=== PATIENT | female | born 1930 | race Caucasian/White ===

== ENCOUNTER → 2016-10-16 | Outpatient (REF) | payer MEDICARE ==
[~2016-10-16] MED LIST: ACET50TAOT PO; AMIO20TA PO; ATEN25TA PO; CIPR250T3 PO; DICY10CA PO; LISI-538 PO; LISI-542 PO; LISI5TAB PO; MAG400TA PO; PERCOCET PO; PRIL40CA PO; PROM125TA PO; SENO8.6T9 PO; SPIR25TA2 PO; SYST1SOL OU; TYLE325T5 PO; VITAD1000T PO; XARE20TA PO; [UNRECOGNIZED DRUG - REMARK]
[2016-10-16 14:05] LABS: IMMUNOGLOBULIN G 286 MG/DL (681-1648); IMMUNOGLOBULIN M 2930 MG/DL (40-230)
[2016-10-17 10:42] LABS: ALBUMIN 3.34 GM/DL (3.29-5.55); ALBUMIN % 41.8 % (55.8-66.1); GAMMA GLOBULIN % 4.3 % (11.1-18.8)
== END | disposition home or self-care (01) ==
LOC: M LAB REF 12:26
PROVIDERS: ATTEND Internal Medicine Medical Oncology
DX: C85.90 Non-Hodgkin lymphoma, unspecified, unspecified site (principal)

== ENCOUNTER → 2016-10-26 | Outpatient (REF) | payer MEDICARE ==
[2016-10-26 15:54] LABS: IMMUNOGLOBULIN A 34.3 MG/DL (70-400); IMMUNOGLOBULIN G 277 MG/DL (681-1648); IMMUNOGLOBULIN M 2930 MG/DL (40-230)
[2016-10-30 11:46] LABS: ALBUMIN 3.35 GM/DL (3.29-5.55); ALBUMIN % 41.9 % (55.8-66.1); GAMMA GLOBULIN % 4.1 % (11.1-18.8)
== END | disposition home or self-care (01) ==
LOC: M LAB REF 12:25
PROVIDERS: ATTEND Internal Medicine Medical Oncology
DX: D89.0 Polyclonal hypergammaglobulinemia (principal)

== ENCOUNTER 2016-11-01 19:10 | Emergency (ER) | payer MEDICARE ==
[2016-11-01] MEDS ORDERED: GI COCKTAIL 50ML BTL(HYOSCYAMINE/MAALOX/LIDOCAINE VISCOUS)(1:3:1) As Ordered ONE (20:00)
[2016-11-01 20:08] LABS: BASO % 0.3 % (0.0-1.0); EOS # 0.1 K/mm3 (0.0-0.50); EOS % 1.4 % (0.0-3.0); LARGE UNSTAINED CELL # 0.1 K/mm3 (0.0-0.4); LARGE UNSTAINED CELL % 1.2 % (0.0-4.0); LYMPH # 1.8 K/mm3 (1.5-4.5); LYMPH % 17.6 % (24.0-44.0); MEAN CORPUSCULAR HGB CONC 33.3 g/dl (32.0-36.5); MEAN CORPUSCULAR VOLUME 87.3 fl (80.0-96.0); MONO % 10.1 % (0.0-5.0); NEUTROPHILS # 6.6 K/mm3 (1.8-7.7); NEUTROPHILS % 69.5 % (36.0-66.0); PLATELET COUNT, AUTOMATED 391 k/mm3 (150-450); RED CELL DISTRIBUTION WIDTH 13.7 % (11.5-14.5); WHITE BLOOD COUNT 9.5 K/mm3 (4.0-10.0)
[2016-11-01 20:13] LABS: ANION GAP 10 MEQ/L (8-16); BLOOD UREA NITROGEN 19 MG/DL (7-18); CARBON DIOXIDE LEVEL 24 MEQ/L (21-32); CHLORIDE LEVEL 97 MEQ/L (98-107); CREATININE FOR GFR 1.06 MG/DL (0.55-1.02); GLOMERULAR FILTRATION RATE 52.4 (>32); GLUCOSE, FASTING 96 MG/DL (83-110); POTASSIUM SERUM 4.5 MEQ/L (3.5-5.1); SODIUM LEVEL 131 MEQ/L (136-145)
[2016-11-01] MEDS ORDERED: PANTOPRAZOLE 40MG INJ (PROTONIX) (C9113) As Ordered ONE (21:44)
[2016-11-01] MEDS ORDERED: SUCRALFATE 1 GM TAB As Ordered ONE (21:45)
--- NOTE | 2016-11-02 01:10 | EDDOCDS ---
Nurse's Notes [facility] Name: Shanell Chambers Age: 86 yrs Sex: Female : 1930 Arrival Date: 11/01/2016 Time: 19:10 Bed 1 Private MD: Clarita Felton DO. Diagnosis: Chest pain, unspecified-Hiatal Hernia related Presentation: 11/01 19:20 Red Flag criteria, patient assessed and taken directly to a bed. Chest pain with lf1 history of afib. Charge Nurse and Primary nurse notified. 19:21 Presenting complaint: Patient states: Chest pain that began earlier today, pt reports lf1 history of hiatal hernia and afib. States she initially thought it was her hernia and waited but pain did not go away. Pain is midsternal and radiates to her left chest. Pain is currently 7/10. Denies shortness of breath. Presenting complaint: Patient states: Pt states she took her meds today and then vomited. Aspirin was not taken prior to arrival. Adult Sepsis Screening: The patient does not have new or worsening altered mentation. Patient's respiratory rate is less than 22. Systolic blood pressure is greater than 100. Patient has a qSOFA score of 0- Negative Sepsis Screen. Suicide/Homicide risk assessment- the patient denies having any suicidal and/or homicidal ideations and does not present with any other emotional, behavioral or mental health complaints. 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 Transition of care: patient was not received from another setting of care. 19:21 Acuity: EDNA Level 2 lf1 19:21 Method Of Arrival: Walkin/Carried/Asstd lf1 Triage Assessment: 11/02 01:09 Cardiovascular: Chest pain is described as diffuse, radiates Does not radiate. episodes cf2 began 4 hours prior to arrival. Historical: - Allergies: PENICILLINS (Hives); - Home Meds: 1. atenolol 25 mg Oral tab 1 tab once daily (Last dose: Unknown) 2. amiodarone 200 mg Oral tab 1 tab once daily 3. spironolactone 25 mg Oral tab 0.5 tab once daily 4. lisinopril 5 mg Oral tab 1 tab once daily 5. Xarelto 20 mg oral tab once daily - PMHx: Atrial Fib; Diverticulitis; epessary-bladder support; Hypertension; IBS; - PSHx: Appendectomy; Hemorrhoidectomy; Cholecystectomy; - Social history: Smoking status: Patient states was never smoker of tobacco. No barriers to communication noted, The patient speaks fluent Congolese, Speaks appropriately for age, Preferred Language: Congolese. - Family history: Not pertinent. - : The pt / caregiver states he / she is on anticoagulants: Xarelto Home medication list is obtained from the patient. - Exposure Risk Screening:: None identified. Screenin/01 19:27 Screening information is obtained from the patient. Fall risk: No risks identified. lf1 Assistance ADL's: requires no assistance with activities of daily living. Abuse/DV Screen: The patient / caregiver reports he/she is: not in a situation that causes fear, pain or injury. Nutritional screening: No deficits noted. Advance Directives: Currently, there is no health care proxy. There is no active DNR order. home support is adequate. Assessment: 19:42 Adult Sepsis Screening: The patient does not have new or worsening altered mentation. cf2 Patient's respiratory rate is less than 22. Systolic blood pressure is greater than 100. Patient has a qSOFA score of 0- Negative Sepsis Screen. General: Appears in no apparent distress, Behavior is appropriate for age, cooperative. Pain: Location: abdomen. Neurological: No deficits noted. EENT: No deficits noted. Cardiovascular: No deficits noted. Rhythm is atrial fibrillation. Respiratory: No deficits noted. GI: Abdomen is flat, non- distended Bowel sounds present X 4 quads. Abd is soft Abd is non tender Reports Pain is 7 out of 10 on a pain scale. Parent/caregiver reports the patient having Patient states "my hiatel hernia is killing me". : No deficits noted. Derm: No deficits noted. Musculoskeletal: No deficits noted. Injury Description: No known injury. 22:52 Reassessment: Patient denies pain at this time. Patient states feeling better. Patient cf2 states symptoms have improved. 11/02 01:07 Reassessment: Patient denies pain at this time. Patient states feeling better. Patient cf2 states symptoms have improved. Vital Signs: 11/01 19:11 BP 178 / 82; Pulse 89; Resp 18 S; Temp 96.7(O); Pulse Ox 99% on R/A; Weight 76.2 kg gr2 (R); Height 5 ft. 6 in. (167.64 cm) (R); Pain 10/10; 19:26 BP 170 / 83 (auto/); cf2 19:26 Pulse 80 MON; Pulse Ox 100% ; cf2 20:04 Pulse 63 MON; Pulse Ox 97% ; cf2 20:04 BP 157 / 81 (auto/); cf2 20:30 BP 138 / 64 (auto/); cf2 20:30 Pulse 59 MON; Pulse Ox 98% ; cf2 21:00 Pulse 53 MON; Pulse Ox 98% ; cf2 21:00 BP 127 / 59 (auto/); cf2 21:30 Pulse 54 MON; Pulse Ox 99% ; cf2 21:30 BP 147 / 66 (auto/); cf2 22:00 BP 147 / 65 (auto/); cf2 22:00 Pulse 59 MON; Pulse Ox 97% ; cf2 22:30 BP 137 / 63 (auto/); cf2 22:30 Pulse 69 MON; Pulse Ox 98% ; cf2 22:50 Pulse 58 MON; Pulse Ox 96% ; cf2 23:00 Pulse 58 MON; Pulse Ox 97% ; cf2 23:00 BP 125 / 60 (auto/); cf2 23:30 Pulse 64 MON; Pulse Ox 95% ; cf2 23:30 BP 151 / 82 (auto/); cf2 11/02 00:00 Pulse 53 MON; Pulse Ox 98% ; cf2 00:00 BP 134 / 59 (auto/); cf2 00:30 BP 123 / 60 (auto/); cf2 00:30 Pulse 53 MON; Pulse Ox 97% ; cf2 00:33 Pulse 52 MON; Pulse Ox 97% ; cf2 00:39 Pulse 53 MON; Pulse Ox 97% ; cf2 00:44 Pulse 52 MON; Pulse Ox 96% ; cf2 00:50 Pulse 53 MON; Pulse Ox 96% ; cf2 00:53 Pulse 53 MON; Pulse Ox 97% ; cf2 00:56 Pulse 54 MON; Pulse Ox 97% ; cf2 11/01 19:11 Body Mass Index 27.11 (76.20 kg, 167.64 cm) gr2 Vitals: 11/01 19:11 Log In Time: November 01, 2016 at 19:11. RN notified that patient meets Red Flag gr2 criteria. ED Course: 19:11 Patient visited by Shelley Mascorro. gr2 19:11 Clarita Felton is Private Physician. gr2 19:11 Patient moved to Waiting gr2 19:17 Patient visited by Shelley Mascorro. gr2 19:18 Yokasta Hare,RN is Primary Nurse. gr2 19:18 Patient moved to 1 gr2 19:20 Primary Nurse role handed off by Yokasta Hare,TANO cf2 19:20 Britney Lundberg,TANO is Primary Nurse. cf2 19:20 Patient visited by Britney Lundberg,TANO. cf2 19:24 Triage Initiated lf1 19:27 teletypesetter monitor on. Pulse ox on. NIBP on. lf1 19:29 Patient visited by Helen Churchill RN. lf1 19:31 Patient visited by Ayala Argueta, Cancer Genetics Assistant. jlm 19:31 EKG done. (by ED staff). Reviewed by Miller Chavez DO. jlm 19:38 Miller Chavez DO is Attending Physician. mm11 19:38 Patient visited by Miller Chavez DO. mm11 19:42 Patient visited by Ayala Argueta, Cancer Genetics Assistant. jlm 19:42 The patient / caregiver is instructed regarding the plan of care and ED course. Patient cf2 has correct armband on for positive identification. Placed in gown. Bed in low position. Call light in reach. Side rails up X 1. Side rails up X2. teletypesetter monitor on. Pulse ox on. NIBP on. Property :Personal belongings accompany Pt. Door closed. Noise minimized. Visitors limited. Lights dimmed. Moved to private room. Verbal reassurance given. Warm blanket given. Pillow given. Head of bed elevated. Diet: Patient is NPO. 19:42 Inserted saline lock: 20 gauge in right antecubital area and blood collected. The cf2 patient tolerated the procedure well. No procedures done that require assistance. Labs drawn. (by ED staff). 19:51 Patient visited by Miller Chavez DO. mm11 19:55 Troponin Sent. cf2 19:56 Cardiac Injury Profile Sent. cf2 19:56 CBC with Diff Sent. cf2 19:56 Basic Metabolic Profile Sent. cf2 19:56 B-Type Natiuretic Peptide Sent. cf2 20:34 Patient visited by Britney Lundberg RN. cf2 21:09 Patient visited by Britney Lundberg RN. cf2 21:09 Patient visited by Britney Lundberg RN. cf2 21:39 Patient visited by Britney Lundberg,TANO. cf2 21:45 Patient visited by Ayala Argueta, Cancer Genetics Assistant. jlm 21:45 Warm blanket given. Assisted to bathroom. [facility] 22:02 [facility] Payment Agreement was scanned into [employer] and attached to record. gjb 22:22 Patient visited by Britney Lundberg RN. cf2 23:00 Discontinued lock pressure dressing applied. cf2 23:02 Patient visited by Britney Lundberg RN. cf2 23:20 Patient visited by Britney Lundberg RN. cf2 23:49 Patient visited by Ayala Argueta, Cancer Genetics Assistant. [facility] 23:49 EKG done. (by ED staff). Reviewed by Miller Chavez DO. [facility] 02 00:29 Patient visited by Britney Lundberg RN. cf2 00:32 Patient visited by Britney Lundberg RN. cf2 00:33 Clarita Felton is Referral Physician. mm11 00:33 Javier Hawkins is Referral Physician. mm11 Administered Medications: 11/01 20:00 Drug: GI Cocktail - (Alum-Mag Hydroxide-Simeth Suspension 225 mg-200 mg-25 mg/5 mL 30 cf2 ml, Lidocaine Liquid 2 % 10 ml, Hyoscyamine Liquid 10 ml) Route: PO; 20:40 Follow up: Response: No significant change. cf2 21:55 Drug: pantoprazole 40 mg [pantoprazole 40 mg intravenous solution] Route: IV; Rate: cf2 bolus; Site: left antecubital; 21:55 Drug: Sucralfate 1 grams [sucralfate 1 gram tablet (1 tabs)] Route: PO; cf2 Order Results: Lab Order: B-Type Natiuretic Peptide; SPEC'M 11/01/16 19:33 Test: BRAIN NATRIURETIC PEPTIDE; Value: 1730; Range: <100; Abnormal: Above high normal; Units: PG/ML; Status: F Lab Order: Basic Metabolic Profile; SPEC'M 11/01/16 19:33 Test: GLUCOSE, FASTING; Value: 96; Range: 83-110; Units: MG/DL; Status: F Test: BLOOD UREA NITROGEN; Value: 19; Range: 7-18; Abnormal: Above high normal; Units: MG/DL; Status: F Test: CREATININE FOR GFR; Value: 1.06; Range: 0.55-1.02; Abnormal: Above high normal; Units: MG/DL; Status: F Test: GLOMERULAR FILTRATION RATE; Value: 52.4; Range: >32; Status: F Test: SODIUM LEVEL; Value: 131; Range: 136-145; Abnormal: Below low normal; Units: MEQ/L; Status: F Test: POTASSIUM SERUM; Value: 4.5; Range: 3.5-5.1; Units: MEQ/L; Status: F Test: CHLORIDE LEVEL; Value: 97; Range: 98-107; Abnormal: Below low normal; Units: MEQ/L; Status: F Test: CARBON DIOXIDE LEVEL; Value: 24; Range: 21-32; Units: MEQ/L; Status: F Test: ANION GAP; Value: 10; Range: 8-16; Units: MEQ/L; Status: F Test: CALCIUM LEVEL; Value: 10.0; Range: 8.8-10.2; Units: MG/DL; Status: F Test Note: ; Units are mL/min/1.73 m2 Chronic Kidney Disease Staging per NKF: Stage I & II GFR >=60 Normal to Mildly Decreased Stage III GFR 30-59 Moderately Decreased Stage IV GFR 15-29 Severely Decreased Stage V GFR <15 Very Little GFR Left ESRD GFR <15 on PUBLIC AFFAIRS DIRECTOR Lab Order: CBC with Diff; SPEC'M 11/01/16 19:33 Test: WHITE BLOOD COUNT; Value: 9.5; Range: 4.0-10.0; Units: K/mm3; Status: F Test: RED BLOOD COUNT; Value: 3.73; Range: 4.00-5.40; Abnormal: Below low normal; Units: M/mm3; Status: F Test: HEMOGLOBIN; Value: 10.8; Range: 12.0-16.0; Abnormal: Below low normal; Units: g/dl; Status: F Test: HEMATOCRIT; Value: 32.5; Range: 36.0-47.0; Abnormal: Below low normal; Units: %; Status: F Test: MEAN CORPUSCULAR VOLUME; Value: 87.3; Range: 80.0-96.0; Units: fl; Status: F Test: MEAN CORPUSCULAR HEMOGLOBIN; Value: 29.0; Range: 27.0-33.0; Units: pg; Status: F Test: MEAN CORPUSCULAR HGB CONC; Value: 33.3; Range: 32.0-36.5; Units: g/dl; Status: F Test: RED CELL DISTRIBUTION WIDTH; Value: 13.7; Range: 11.5-14.5; Units: %; Status: F Test: PLATELET COUNT, AUTOMATED; Value: 391; Range: 150-450; Units: k/mm3; Status: F Test: NEUTROPHILS %; Value: 69.5; Range: 36.0-66.0; Abnormal: Above high normal; Units: %; Status: F Test: LYMPH %; Value: 17.6; Range: 24.0-44.0; Abnormal: Below low normal; Units: %; Status: F Test: MONO %; Value: 10.1; Range: 0.0-5.0; Abnormal: Above high normal; Units: %; Status: F Test: EOS %; Value: 1.4; Range: 0.0-3.0; Units: %; Status: F Test: BASO %; Value: 0.3; Range: 0.0-1.0; Units: %; Status: F Test: LARGE UNSTAINED CELL %; Value: 1.2; Range: 0.0-4.0; Units: %; Status: F Test: NEUTROPHILS #; Value: 6.6; Range: 1.8-7.7; Units: K/mm3; Status: F Test: LYMPH #; Value: 1.8; Range: 1.5-4.5; Units: K/mm3; Status: F Test: MONO #; Value: 1.0; Range: 0.0-0.8; Abnormal: Above high normal; Units: K/mm3; Status: F Test: EOS #; Value: 0.1; Range: 0.0-0.50; Units: K/mm3; Status: F Test: BASO #; Value: 0.0; Range: 0.0-0.2; Units: K/mm3; Status: F Test: LARGE UNSTAINED CELL #; Value: 0.1; Range: 0.0-0.4; Units: K/mm3; Status: F Lab Order: Cardiac Injury Profile; [facility] 11/01/16 19:33 Test: CPK CREATINE PHOSPHOKINASE; Value: 49; Range: 26-192; Units: U/L; Status: F Test: CK-MB VALUE MASS; Value: 1.2; Range: 0.0-3.6; Units: NG/ML; Status: F Test: MB/CK RELATIVE INDEX; Value: 2.44; Range: < OR =4; Status: F Test Note: ; DIAGNOSIS CRITERIA MMB ng/ml Relative Index (RI) NON-AMI < or = 5 N/A LOVE ZONE > 5 < or = 4 AMI > 5 > 4 Lab Order: Troponin; [facility] 11/01/16 19:33 Test: TROPONIN I; Value: < 0.02; Range: < 0.10; Units: NG/ML; Status: F Test Note: ; Troponin I Reference Interval for [place] LOCI: 99th Percentile= 0.00-0.045 ng/ml Risk Stratification: <= 0.10 ng/ml Decreased Risk for Adverse Clinical Events. 0.10-1.50 ng/ml Increased Risk for Adverse Clinical Events. Evaluation of additional criterion and/or repeat testing in 2-6 hours is suggested to rule out myocardial damage. >= 1.50 ng/ml Indicative of Myocardial Injury. Lab Order: CARDIAC INJURY PROFILE; [facility] 11/01/16 19:33 Test: CPK CREATINE PHOSPHOKINASE; Value: 40; Range: 26-192; Units: U/L; Status: F Test: CK-MB VALUE MASS; Value: 1.0; Range: 0.0-3.6; Units: NG/ML; Status: F Test: MB/CK RELATIVE INDEX; Value: 2.50; Range: < OR =4; Status: F Test Note: ; DIAGNOSIS CRITERIA MMB ng/ml Relative Index (RI) NON-AMI < or = 5 N/A LOVE ZONE > 5 < or = 4 AMI > 5 > 4 Lab Order: TROPONIN; SPEC'M 11/01/16 19:33 Test: TROPONIN I; Value: 0.02; Range: < 0.10; Units: NG/ML; Status: F Test Note: ; Troponin I Reference Interval for [place] LOCI: 99th Percentile= 0.00-0.045 ng/ml Risk Stratification: <= 0.10 ng/ml Decreased Risk for Adverse Clinical Events. 0.10-1.50 ng/ml Increased Risk for Adverse Clinical Events. Evaluation of additional criterion and/or repeat testing in 2-6 hours is suggested to rule out myocardial damage. >= 1.50 ng/ml Indicative of Myocardial Injury. Outcome: 23:00 Discharge Assessment: Patient awake, alert and oriented x 3. No cognitive and/or cf2 functional deficits noted. Patient verbalized understanding of disposition instructions. Patient awake and alert. Oriented to person, place and time. Patient verbalized understanding of disposition instructions. patient administered narcotics - no. The following High Risk Discharge criteria are identified: None. Discharged to home ambulatory, assisted to waiting room and taxi was called for patient. Condition: good Condition: stable Condition: improved. Discharge instructions given to patient, Instructed on discharge instructions, follow up and referral plans. medication usage, Demonstrated understanding of instructions, medications, Prescriptions given X 1. No special radiology studies were completed. 11/02 00:33 Discharge ordered by Provider. mm11 01:09 Patient left the ED. cf2 Signatures: Helen Churchill,RN RN lf1 Miller Chavez DO DO mm11 Shelley Mascorro gr2 Ayala Argueta, Cancer Genetics Assistant Unit Kimberley Angel ChristinaRN RN cf2 Corrections: (The following items were deleted from the chart) 11/01 19:17 19:11 BP 178 / 82; Pulse 89bpm; Resp 18bpm; Spontaneous; Pulse Ox 99% RA; 76.2 kg gr2 Reported; Height 5 ft. 6 in. Reported; BMI: 27.1; Pain 10/10; gr2 MTDD
--- NOTE | 2016-11-02 01:10 | EDDOCDS ---
Physician Documentation [facility] Name: Shanell Chambers Age: 86 yrs Sex: Female : 1930 Arrival Date: 11/01/2016 Time: 19:10 Bed 1 Private MD: Clarita Felton DO. Disposition: 11/02/16 00:33 Discharged to Home/Self Care. Impression: Chest pain, unspecified - Hiatal Hernia related. - Condition is Stable. - Discharge Instructions: Gastroesophageal Reflux Disease, Adult, Hiatal Hernia. - Prescriptions for Prilosec 20 mg Oral Capsule - take 1 capsule by ORAL route once daily; 10 capsule. - Medication Reconciliation, Local Pharmacy Hours form. - Follow up: Clarita Felton; When: Call to arrange an appointment; Reason: Continuance of care. Follow up: Javier Hawkins; When: Call to arrange an appointment; Reason: Continuance of care. - Problem is an acute exacerbation. - Symptoms are resolved. Historical: - Allergies: PENICILLINS (Hives); - Home Meds: 1. atenolol 25 mg Oral tab 1 tab once daily (Last dose: Unknown) 2. amiodarone 200 mg Oral tab 1 tab once daily 3. spironolactone 25 mg Oral tab 0.5 tab once daily 4. lisinopril 5 mg Oral tab 1 tab once daily 5. Xarelto 20 mg oral tab once daily - PMHx: Atrial Fib; Diverticulitis; epessary-bladder support; Hypertension; IBS; - PSHx: Appendectomy; Hemorrhoidectomy; Cholecystectomy; - Social history: Smoking status: Patient states was never smoker of tobacco. No barriers to communication noted, The patient speaks fluent Icelandic, Speaks appropriately for age, Preferred Language: Icelandic. - Family history: Not pertinent. - : The pt / caregiver states he / she is on anticoagulants: Xarelto Home medication list is obtained from the patient. - Exposure Risk Screening:: None identified. Vital Signs: 11/01 19:11 BP 178 / 82; Pulse 89; Resp 18 S; Temp 96.7(O); Pulse Ox 99% on R/A; Weight 76.2 kg / gr2 167.99 lbs (R); Height 5 ft. 6 in. (167.64 cm) (R); Pain 10/10; 19:26 BP 170 / 83 (auto/); cf2 19:26 Pulse 80 MON; Pulse Ox 100% ; cf2 20:04 Pulse 63 MON; Pulse Ox 97% ; cf2 20:04 BP 157 / 81 (auto/); cf2 20:30 BP 138 / 64 (auto/); cf2 20:30 Pulse 59 MON; Pulse Ox 98% ; cf2 21:00 Pulse 53 MON; Pulse Ox 98% ; cf2 21:00 BP 127 / 59 (auto/); cf2 21:30 Pulse 54 MON; Pulse Ox 99% ; cf2 21:30 BP 147 / 66 (auto/); cf2 22:00 BP 147 / 65 (auto/); cf2 22:00 Pulse 59 MON; Pulse Ox 97% ; cf2 22:30 BP 137 / 63 (auto/); cf2 22:30 Pulse 69 MON; Pulse Ox 98% ; cf2 22:50 Pulse 58 MON; Pulse Ox 96% ; cf2 23:00 Pulse 58 MON; Pulse Ox 97% ; cf2 23:00 BP 125 / 60 (auto/); cf2 23:30 Pulse 64 MON; Pulse Ox 95% ; cf2 23:30 BP 151 / 82 (auto/); cf2 11/02 00:00 Pulse 53 MON; Pulse Ox 98% ; cf2 00:00 BP 134 / 59 (auto/); cf2 00:30 BP 123 / 60 (auto/); cf2 00:30 Pulse 53 MON; Pulse Ox 97% ; cf2 00:33 Pulse 52 MON; Pulse Ox 97% ; cf2 00:39 Pulse 53 MON; Pulse Ox 97% ; cf2 00:44 Pulse 52 MON; Pulse Ox 96% ; cf2 00:50 Pulse 53 MON; Pulse Ox 96% ; cf2 00:53 Pulse 53 MON; Pulse Ox 97% ; cf2 00:56 Pulse 54 MON; Pulse Ox 97% ; cf2 11/01 19:11 Body Mass Index 27.11 (76.20 kg, 167.64 cm) gr2 MDM: 11/01 19:20 ECG WITH READING ER PHYS+CARDIAG ordered. EDMS 19:52 [employer] Cutting Machine Operator/Pulse Ox/q 30 min VS ordered. mm11 19:52 IV Saline Lock ordered. mm11 19:52 Rhythm Strip to chart ordered. mm11 19:52 Undress patient appropriately for examination ordered. mm11 19:52 GI Cocktail - (Alum-Mag Hydroxide-Simeth 30 ml, Lidocaine 10 ml, Hyoscyamine 10 ml) PO mm11 once; Pre-mixed 50mL unit dose ordered. 19:54 B-Type Natiuretic Peptide Ordered. EDMS 19:54 Basic Metabolic Profile Ordered. EDMS 19:54 CBC with Diff Ordered. EDMS 19:54 Cardiac Injury Profile Ordered. EDMS 19:54 Troponin Ordered. EDMS 19:55 portable chest Ordered. EDMS 21:26 B-Type Natiuretic Peptide Reviewed. mm11 21:26 Basic Metabolic Profile Reviewed. mm11 21:26 CBC with Diff Reviewed. mm11 21:26 Cardiac Injury Profile Reviewed. mm11 21:26 Troponin Reviewed. mm11 21:34 pantoprazole 40 mg IV at bolus once ordered. mm11 21:34 Sucralfate 1 grams PO once ordered. mm11 21:34 Redraw CIP &Troponin (put time in details section) ordered. mm11 21:34 Repeat EKG (put time details section) ordered. mm11 21:40 Repeat EKG (put time details section) complete. kb5 21:40 Redraw CIP &Troponin (put time in details section) complete. kb5 21:42 ELECTROCARDIOGRAM ADULT ordered. EDMS 21:42 CARDIAC INJURY PROFILE Ordered. EDMS 21:43 TROPONIN Ordered. EDMS 21:52 Financial registration complete. [facility] 22:02 [facility] Payment Agreement was scanned into [employer] and attached to record. [facility] 11/02 00:20 CARDIAC INJURY PROFILE Reviewed. [facility] 00:20 TROPONIN Reviewed. mm11 Administered Medications: 11/01 20:00 Drug: GI Cocktail - (Alum-Mag Hydroxide-Simeth Suspension 225 mg-200 mg-25 mg/5 mL 30 cf2 ml, Lidocaine Liquid 2 % 10 ml, Hyoscyamine Liquid 10 ml) Route: PO; 20:40 Follow up: Response: No significant change. cf2 21:55 Drug: pantoprazole 40 mg [pantoprazole 40 mg intravenous solution] Route: IV; Rate: cf2 bolus; Site: left antecubital; 21:55 Drug: Sucralfate 1 grams [sucralfate 1 gram tablet (1 tabs)] Route: PO; cf2 Signatures: Dispatcher [employer] EDMS Glenn Huang, RICE DRIER RICE DRIER kb5 Helen Churchill,RN RN lf1 Miller Chavez, DO DO mm11 Kimberley Olguinb Britney Lundberg,RN RN cf2 The chart was reviewed and I authenticate all verbal orders and agree with the evaluation and treatment provided.Attachments: 22:02 [facility] Payment Agreement vicky MTDD
--- NOTE | 2016-11-02 01:34 | REP ---
Clinical: Chest pain . Comparison: 06/14/2016 . Findings: The mediastinum and cardiac silhouette are stable and mild cardiomegaly cannot be excluded. The lung brown are clear without acute consolidation, effusion, or pneumothorax. Skeletal structures are intact. Impression: Stable chest x-ray. No acute cardiopulmonary process. Signed by Gilmer Ornelas MD 11/02/2016 01:26 A
--- NOTE | 2016-11-02 18:29 | ECGEPIP ---
Stationary ECG Study [facility] Test Date: 2016-11-01 Pat Name: CELINE HARVEY Department: Room: - Gender: F Home Health Caregiver: analy : 1930 Requested By: INGA Rothman Order Number: [id number] Reading MD: Ciro Holden Measurements Intervals [place] Rate: 56 P: 80 MS: 209 QRS: 26 QRSD: 94 T: 52 QT: 443 QTc: 428 Interpretive Statements SINUS BRADYCARDIA WITH SINUS ARRHYTHMIA SIMILAR 06/14/16 Electronically Signed On 11-02-2016 18:29:37 EST by Ciro Holden
--- NOTE | 2016-11-04 02:10 | EDDOCDS ---
Physician Documentation [facility] Name: Shanell Chambers Age: 86 yrs Sex: Female : 1930 Arrival Date: 11/01/2016 Time: 19:10 Bed 1 Private MD: Clarita Felton DO. Disposition: 11/02/16 00:33 Discharged to Home/Self Care. Impression: Chest pain, unspecified - Hiatal Hernia related. - Condition is Stable. - Discharge Instructions: Gastroesophageal Reflux Disease, Adult, Hiatal Hernia. - Prescriptions for Prilosec 20 mg Oral Capsule - take 1 capsule by ORAL route once daily; 10 capsule. - Medication Reconciliation, Local Pharmacy Hours form. - Follow up: Clarita Felton; When: Call to arrange an appointment; Reason: Continuance of care. Follow up: Javier Hawkins; When: Call to arrange an appointment; Reason: Continuance of care. - Problem is an acute exacerbation. - Symptoms are resolved. Historical: - Allergies: PENICILLINS (Hives); - Home Meds: 1. atenolol 25 mg Oral tab 1 tab once daily (Last dose: Unknown) 2. amiodarone 200 mg Oral tab 1 tab once daily 3. spironolactone 25 mg Oral tab 0.5 tab once daily 4. lisinopril 5 mg Oral tab 1 tab once daily 5. Xarelto 20 mg oral tab once daily - PMHx: Atrial Fib; Diverticulitis; epessary-bladder support; Hypertension; IBS; - PSHx: Appendectomy; Hemorrhoidectomy; Cholecystectomy; - Social history: Smoking status: Patient states was never smoker of tobacco. No barriers to communication noted, The patient speaks fluent Bahamian, Speaks appropriately for age, Preferred Language: Bahamian. - Family history: Not pertinent. - : The pt / caregiver states he / she is on anticoagulants: Xarelto Home medication list is obtained from the patient. - Exposure Risk Screening:: None identified. Vital Signs: 11/01 19:11 BP 178 / 82; Pulse 89; Resp 18 S; Temp 96.7(O); Pulse Ox 99% on R/A; Weight 76.2 kg / gr2 167.99 lbs (R); Height 5 ft. 6 in. (167.64 cm) (R); Pain 10/10; 19:26 BP 170 / 83 (auto/); cf2 19:26 Pulse 80 MON; Pulse Ox 100% ; cf2 20:04 Pulse 63 MON; Pulse Ox 97% ; cf2 20:04 BP 157 / 81 (auto/); cf2 20:30 BP 138 / 64 (auto/); cf2 20:30 Pulse 59 MON; Pulse Ox 98% ; cf2 21:00 Pulse 53 MON; Pulse Ox 98% ; cf2 21:00 BP 127 / 59 (auto/); cf2 21:30 Pulse 54 MON; Pulse Ox 99% ; cf2 21:30 BP 147 / 66 (auto/); cf2 22:00 BP 147 / 65 (auto/); cf2 22:00 Pulse 59 MON; Pulse Ox 97% ; cf2 22:30 BP 137 / 63 (auto/); cf2 22:30 Pulse 69 MON; Pulse Ox 98% ; cf2 22:50 Pulse 58 MON; Pulse Ox 96% ; cf2 23:00 Pulse 58 MON; Pulse Ox 97% ; cf2 23:00 BP 125 / 60 (auto/); cf2 23:30 Pulse 64 MON; Pulse Ox 95% ; cf2 23:30 BP 151 / 82 (auto/); cf2 11/02 00:00 Pulse 53 MON; Pulse Ox 98% ; cf2 00:00 BP 134 / 59 (auto/); cf2 00:30 BP 123 / 60 (auto/); cf2 00:30 Pulse 53 MON; Pulse Ox 97% ; cf2 00:33 Pulse 52 MON; Pulse Ox 97% ; cf2 00:39 Pulse 53 MON; Pulse Ox 97% ; cf2 00:44 Pulse 52 MON; Pulse Ox 96% ; cf2 00:50 Pulse 53 MON; Pulse Ox 96% ; cf2 00:53 Pulse 53 MON; Pulse Ox 97% ; cf2 00:56 Pulse 54 MON; Pulse Ox 97% ; cf2 11/01 19:11 Body Mass Index 27.11 (76.20 kg, 167.64 cm) gr2 MDM: 11/01 19:20 ECG WITH READING ER PHYS+CARDIAG ordered. EDMS 19:52 Practical Nursing Faculty/Pulse Ox/q 30 min VS ordered. mm11 19:52 IV Saline Lock ordered. mm11 19:52 Rhythm Strip to chart ordered. mm11 19:52 Undress patient appropriately for examination ordered. mm11 19:52 GI Cocktail - (Alum-Mag Hydroxide-Simeth 30 ml, Lidocaine 10 ml, Hyoscyamine 10 ml) PO mm11 once; Pre-mixed 50mL unit dose ordered. 19:54 B-Type Natiuretic Peptide Ordered. EDMS 19:54 Basic Metabolic Profile Ordered. EDMS 19:54 CBC with Diff Ordered. EDMS 19:54 Cardiac Injury Profile Ordered. EDMS 19:54 Troponin Ordered. EDMS 19:55 portable chest Ordered. EDMS 21:26 B-Type Natiuretic Peptide Reviewed. mm11 21:26 Basic Metabolic Profile Reviewed. mm11 21:26 CBC with Diff Reviewed. mm11 21:26 Cardiac Injury Profile Reviewed. mm11 21:26 Troponin Reviewed. mm11 21:34 pantoprazole 40 mg IV at bolus once ordered. mm11 21:34 Sucralfate 1 grams PO once ordered. mm11 21:34 Redraw CIP &Troponin (put time in details section) ordered. mm11 21:34 Repeat EKG (put time details section) ordered. mm11 21:40 Repeat EKG (put time details section) complete. kb5 21:40 Redraw CIP &Troponin (put time in details section) complete. kb5 21:42 ELECTROCARDIOGRAM ADULT ordered. EDMS 21:42 CARDIAC INJURY PROFILE Ordered. EDMS 21:43 TROPONIN Ordered. EDMS 21:52 Financial registration complete. [facility] 22:02 [facility] Payment Agreement was scanned into [employer] and attached to record. [facility] 11/02 00:20 CARDIAC INJURY PROFILE Reviewed. 11 00:20 TROPONIN Reviewed. mm11 10:10 T-Sheet-- Draft Copy was scanned into [employer] and attached to record. gb 10:10 ECG/EKG was scanned into [employer] and attached to record. gb Administered Medications: 11/01 20:00 Drug: GI Cocktail - (Alum-Mag Hydroxide-Simeth Suspension 225 mg-200 mg-25 mg/5 mL 30 cf2 ml, Lidocaine Liquid 2 % 10 ml, Hyoscyamine Liquid 10 ml) Route: PO; 20:40 Follow up: Response: No significant change. cf2 21:55 Drug: pantoprazole 40 mg [pantoprazole 40 mg intravenous solution] Route: IV; Rate: cf2 bolus; Site: left antecubital; 21:55 Drug: Sucralfate 1 grams [sucralfate 1 gram tablet (1 tabs)] Route: PO; cf2 Signatures: Dispatcher [employer] EDMS Shruthi Dawson, Reg Reg gb Glenn Huang, MEDICAL VOUCHER CLERK MEDICAL VOUCHER CLERK kb5 Helen Churchill,TANO RN lf1 Miller Chavez, DO DO mm11 Kimberley Olguin gjb Britney LundbergRN RN cf2 The chart was reviewed and I authenticate all verbal orders and agree with the evaluation and treatment provided.Attachments: 22:02 [facility] Payment Agreement gjb 11/02 10:10 T-Sheet-- Draft Copy gb 10:10 ECG/EKG gb Chart Complete MTDD
--- NOTE | 2016-11-04 02:10 | EDDOCDS ---
Nurse's Notes [facility] [place] Name: Shanell Harvey Age: 86 yrs Sex: Female : 1930 Arrival Date: 11/01/2016 Time: 19:10 Bed 1 Private MD: Clarita Felton DO. Diagnosis: Chest pain, unspecified-Hiatal Hernia related Presentation: 11/01 19:20 Red Flag criteria, patient assessed and taken directly to a bed. Chest pain with lf1 history of afib. Charge Nurse and Primary nurse notified. 19:21 Presenting complaint: Patient states: Chest pain that began earlier today, pt reports lf1 history of hiatal hernia and afib. States she initially thought it was her hernia and waited but pain did not go away. Pain is midsternal and radiates to her left chest. Pain is currently 7/10. Denies shortness of breath. Presenting complaint: Patient states: Pt states she took her meds today and then vomited. Aspirin was not taken prior to arrival. Adult Sepsis Screening: The patient does not have new or worsening altered mentation. Patient's respiratory rate is less than 22. Systolic blood pressure is greater than 100. Patient has a qSOFA score of 0- Negative Sepsis Screen. Suicide/Homicide risk assessment- the patient denies having any suicidal and/or homicidal ideations and does not present with any other emotional, behavioral or mental health complaints. Status: Patient is not a service order clerk or dependent. Transition of care: patient was not received from another setting of care. 19:21 Acuity: EDNA Level 2 lf1 19:21 Method Of Arrival: Walkin/Carried/Asstd lf1 Triage Assessment: 11/02 01:09 Cardiovascular: Chest pain is described as diffuse, radiates Does not radiate. episodes cf2 began 4 hours prior to arrival. Historical: - Allergies: PENICILLINS (Hives); - Home Meds: 1. atenolol 25 mg Oral tab 1 tab once daily (Last dose: Unknown) 2. amiodarone 200 mg Oral tab 1 tab once daily 3. spironolactone 25 mg Oral tab 0.5 tab once daily 4. lisinopril 5 mg Oral tab 1 tab once daily 5. Xarelto 20 mg oral tab once daily - PMHx: Atrial Fib; Diverticulitis; epessary-bladder support; Hypertension; IBS; - PSHx: Appendectomy; Hemorrhoidectomy; Cholecystectomy; - Social history: Smoking status: Patient states was never smoker of tobacco. No barriers to communication noted, The patient speaks fluent Spanish, Speaks appropriately for age, Preferred Language: Spanish. - Family history: Not pertinent. - : The pt / caregiver states he / she is on anticoagulants: Xarelto Home medication list is obtained from the patient. - Exposure Risk Screening:: None identified. Screenin/01 19:27 Screening information is obtained from the patient. Fall risk: No risks identified. lf1 Assistance ADL's: requires no assistance with activities of daily living. Abuse/DV Screen: The patient / caregiver reports he/she is: not in a situation that causes fear, pain or injury. Nutritional screening: No deficits noted. Advance Directives: Currently, there is no health care proxy. There is no active DNR order. home support is adequate. Assessment: 19:42 Adult Sepsis Screening: The patient does not have new or worsening altered mentation. cf2 Patient's respiratory rate is less than 22. Systolic blood pressure is greater than 100. Patient has a qSOFA score of 0- Negative Sepsis Screen. General: Appears in no apparent distress, Behavior is appropriate for age, cooperative. Pain: Location: abdomen. Neurological: No deficits noted. EENT: No deficits noted. Cardiovascular: No deficits noted. Rhythm is atrial fibrillation. Respiratory: No deficits noted. GI: Abdomen is flat, non- distended Bowel sounds present X 4 quads. Abd is soft Abd is non tender Reports Pain is 7 out of 10 on a pain scale. Parent/caregiver reports the patient having Patient states "my hiatel hernia is killing me". : No deficits noted. Derm: No deficits noted. Musculoskeletal: No deficits noted. Injury Description: No known injury. 22:52 Reassessment: Patient denies pain at this time. Patient states feeling better. Patient cf2 states symptoms have improved. 11/02 01:07 Reassessment: Patient denies pain at this time. Patient states feeling better. Patient cf2 states symptoms have improved. Vital Signs: 11/01 19:11 BP 178 / 82; Pulse 89; Resp 18 S; Temp 96.7(O); Pulse Ox 99% on R/A; Weight 76.2 kg gr2 (R); Height 5 ft. 6 in. (167.64 cm) (R); Pain 10/10; 19:26 BP 170 / 83 (auto/); cf2 19:26 Pulse 80 MON; Pulse Ox 100% ; cf2 20:04 Pulse 63 MON; Pulse Ox 97% ; cf2 20:04 BP 157 / 81 (auto/); cf2 20:30 BP 138 / 64 (auto/); cf2 20:30 Pulse 59 MON; Pulse Ox 98% ; cf2 21:00 Pulse 53 MON; Pulse Ox 98% ; cf2 21:00 BP 127 / 59 (auto/); cf2 21:30 Pulse 54 MON; Pulse Ox 99% ; cf2 21:30 BP 147 / 66 (auto/); cf2 22:00 BP 147 / 65 (auto/); cf2 22:00 Pulse 59 MON; Pulse Ox 97% ; cf2 22:30 BP 137 / 63 (auto/); cf2 22:30 Pulse 69 MON; Pulse Ox 98% ; cf2 22:50 Pulse 58 MON; Pulse Ox 96% ; cf2 23:00 Pulse 58 MON; Pulse Ox 97% ; cf2 23:00 BP 125 / 60 (auto/); cf2 23:30 Pulse 64 MON; Pulse Ox 95% ; cf2 23:30 BP 151 / 82 (auto/); cf2 11/02 00:00 Pulse 53 MON; Pulse Ox 98% ; cf2 00:00 BP 134 / 59 (auto/); cf2 00:30 BP 123 / 60 (auto/); cf2 00:30 Pulse 53 MON; Pulse Ox 97% ; cf2 00:33 Pulse 52 MON; Pulse Ox 97% ; cf2 00:39 Pulse 53 MON; Pulse Ox 97% ; cf2 00:44 Pulse 52 MON; Pulse Ox 96% ; cf2 00:50 Pulse 53 MON; Pulse Ox 96% ; cf2 00:53 Pulse 53 MON; Pulse Ox 97% ; cf2 00:56 Pulse 54 MON; Pulse Ox 97% ; cf2 11/01 19:11 Body Mass Index 27.11 (76.20 kg, 167.64 cm) gr2 Vitals: 11/01 19:11 Log In Time: November 01, 2016 at 19:11. RN notified that patient meets Red Flag gr2 criteria. ED Course: 19:11 Patient visited by Shelley Mascorro. gr2 19:11 Clarita Felton is Private Physician. gr2 19:11 Patient moved to Waiting gr2 19:17 Patient visited by Shelley Mascorro. gr2 19:18 Yokasta Hare,RN is Primary Nurse. gr2 19:18 Patient moved to 1 gr2 19:20 Primary Nurse role handed off by Yokasta Hare,TANO cf2 19:20 Britney Lundberg,TANO is Primary Nurse. cf2 19:20 Patient visited by Britney Lundberg,TANO. cf2 19:24 Triage Initiated lf1 19:27 event specialist food demonstrator on. Pulse ox on. NIBP on. lf1 19:29 Patient visited by Helen Churchill RN. lf1 19:31 Patient visited by Ayala Argueta, Market Stall Vendor. jlm 19:31 EKG done. (by ED staff). Reviewed by Inga Chavez DO. jlm 19:38 Inga Chavez DO is Attending Physician. mm11 19:38 Patient visited by Inga Chavez DO. mm11 19:42 Patient visited by Ayala Argueta, Market Stall Vendor. jlm 19:42 The patient / caregiver is instructed regarding the plan of care and ED course. Patient cf2 has correct armband on for positive identification. Placed in gown. Bed in low position. Call light in reach. Side rails up X 1. Side rails up X2. event specialist food demonstrator on. Pulse ox on. NIBP on. Property :Personal belongings accompany Pt. Door closed. Noise minimized. Visitors limited. Lights dimmed. Moved to private room. Verbal reassurance given. Warm blanket given. Pillow given. Head of bed elevated. Diet: Patient is NPO. 19:42 Inserted saline lock: 20 gauge in right antecubital area and blood collected. The cf2 patient tolerated the procedure well. No procedures done that require assistance. Labs drawn. (by ED staff). 19:51 Patient visited by Inga Chavez DO. mm11 19:55 Troponin Sent. cf2 19:56 Cardiac Injury Profile Sent. cf2 19:56 CBC with Diff Sent. cf2 19:56 Basic Metabolic Profile Sent. cf2 19:56 B-Type Natiuretic Peptide Sent. cf2 20:34 Patient visited by Britney Lundberg,TANO. cf2 21:09 Patient visited by Britney Lundberg,TANO. cf2 21:09 Patient visited by Britney Lundberg,TANO. cf2 21:39 Patient visited by Britney Lundberg,TANO. cf2 21:45 Patient visited by Ayala Argueta, Market Stall Vendor. jlm 21:45 Warm blanket given. Assisted to bathroom. [facility] 22:02 [facility] Payment Agreement was scanned into [employer] and attached to record. gjb 22:22 Patient visited by Britney Lundberg,TANO. cf2 23:00 Discontinued lock pressure dressing applied. cf2 23:02 Patient visited by Britney Lundberg RN. cf2 23:20 Patient visited by Britney Lundberg,TANO. cf2 23:49 Patient visited by Ayala Argueta, Market Stall Vendor. jlm 23:49 EKG done. (by ED staff). Reviewed by Inga Chavez DO. [facility] 02 00:29 Patient visited by Britney Lundberg RN. cf2 00:32 Patient visited by Britney Lundberg,TANO. cf2 00:33 Clarita Felton is Referral Physician. mm11 00:33 Javier Hawkins is Referral Physician. mm11 01:48 portable chest Returned. EDMS 10:10 T-Sheet-- Draft Copy was scanned into [employer] and attached to record. gb 10:10 ECG/EKG was scanned into [employer] and attached to record. gb 19:13 ELECTROCARDIOGRAM ADULT Returned. EDMS Administered Medications: 11/01 20:00 Drug: GI Cocktail - (Alum-Mag Hydroxide-Simeth Suspension 225 mg-200 mg-25 mg/5 mL 30 cf2 ml, Lidocaine Liquid 2 % 10 ml, Hyoscyamine Liquid 10 ml) Route: PO; 20:40 Follow up: Response: No significant change. cf2 21:55 Drug: pantoprazole 40 mg [pantoprazole 40 mg intravenous solution] Route: IV; Rate: cf2 bolus; Site: left antecubital; 21:55 Drug: Sucralfate 1 grams [sucralfate 1 gram tablet (1 tabs)] Route: PO; cf2 Order Results: Lab Order: B-Type Natiuretic Peptide; SPEC'M 11/01/16 19:33 Test: BRAIN NATRIURETIC PEPTIDE; Value: 1730; Range: <100; Abnormal: Above high normal; Units: PG/ML; Status: F Lab Order: Basic Metabolic Profile; SPEC'M 11/01/16 19:33 Test: GLUCOSE, FASTING; Value: 96; Range: 83-110; Units: MG/DL; Status: F Test: BLOOD UREA NITROGEN; Value: 19; Range: 7-18; Abnormal: Above high normal; Units: MG/DL; Status: F Test: CREATININE FOR GFR; Value: 1.06; Range: 0.55-1.02; Abnormal: Above high normal; Units: MG/DL; Status: F Test: GLOMERULAR FILTRATION RATE; Value: 52.4; Range: >32; Status: F Test: SODIUM LEVEL; Value: 131; Range: 136-145; Abnormal: Below low normal; Units: MEQ/L; Status: F Test: POTASSIUM SERUM; Value: 4.5; Range: 3.5-5.1; Units: MEQ/L; Status: F Test: CHLORIDE LEVEL; Value: 97; Range: 98-107; Abnormal: Below low normal; Units: MEQ/L; Status: F Test: CARBON DIOXIDE LEVEL; Value: 24; Range: 21-32; Units: MEQ/L; Status: F Test: ANION GAP; Value: 10; Range: 8-16; Units: MEQ/L; Status: F Test: CALCIUM LEVEL; Value: 10.0; Range: 8.8-10.2; Units: MG/DL; Status: F Test Note: ; Units are mL/min/1.73 m2 Chronic Kidney Disease Staging per NKF: Stage I & II GFR >=60 Normal to Mildly Decreased Stage III GFR 30-59 Moderately Decreased Stage IV GFR 15-29 Severely Decreased Stage V GFR <15 Very Little GFR Left ESRD GFR <15 on FORMING PROCESS WORKER Lab Order: CBC with Diff; SPEC'M 11/01/16 19:33 Test: WHITE BLOOD COUNT; Value: 9.5; Range: 4.0-10.0; Units: K/mm3; Status: F Test: RED BLOOD COUNT; Value: 3.73; Range: 4.00-5.40; Abnormal: Below low normal; Units: M/mm3; Status: F Test: HEMOGLOBIN; Value: 10.8; Range: 12.0-16.0; Abnormal: Below low normal; Units: g/dl; Status: F Test: HEMATOCRIT; Value: 32.5; Range: 36.0-47.0; Abnormal: Below low normal; Units: %; Status: F Test: MEAN CORPUSCULAR VOLUME; Value: 87.3; Range: 80.0-96.0; Units: fl; Status: F Test: MEAN CORPUSCULAR HEMOGLOBIN; Value: 29.0; Range: 27.0-33.0; Units: pg; Status: F Test: MEAN CORPUSCULAR HGB CONC; Value: 33.3; Range: 32.0-36.5; Units: g/dl; Status: F Test: RED CELL DISTRIBUTION WIDTH; Value: 13.7; Range: 11.5-14.5; Units: %; Status: F Test: PLATELET COUNT, AUTOMATED; Value: 391; Range: 150-450; Units: k/mm3; Status: F Test: NEUTROPHILS %; Value: 69.5; Range: 36.0-66.0; Abnormal: Above high normal; Units: %; Status: F Test: LYMPH %; Value: 17.6; Range: 24.0-44.0; Abnormal: Below low normal; Units: %; Status: F Test: MONO %; Value: 10.1; Range: 0.0-5.0; Abnormal: Above high normal; Units: %; Status: F Test: EOS %; Value: 1.4; Range: 0.0-3.0; Units: %; Status: F Test: BASO %; Value: 0.3; Range: 0.0-1.0; Units: %; Status: F Test: LARGE UNSTAINED CELL %; Value: 1.2; Range: 0.0-4.0; Units: %; Status: F Test: NEUTROPHILS #; Value: 6.6; Range: 1.8-7.7; Units: K/mm3; Status: F Test: LYMPH #; Value: 1.8; Range: 1.5-4.5; Units: K/mm3; Status: F Test: MONO #; Value: 1.0; Range: 0.0-0.8; Abnormal: Above high normal; Units: K/mm3; Status: F Test: EOS #; Value: 0.1; Range: 0.0-0.50; Units: K/mm3; Status: F Test: BASO #; Value: 0.0; Range: 0.0-0.2; Units: K/mm3; Status: F Test: LARGE UNSTAINED CELL #; Value: 0.1; Range: 0.0-0.4; Units: K/mm3; Status: F Lab Order: Cardiac Injury Profile; [facility] 11/01/16 19:33 Test: CPK CREATINE PHOSPHOKINASE; Value: 49; Range: 26-192; Units: U/L; Status: F Test: CK-MB VALUE MASS; Value: 1.2; Range: 0.0-3.6; Units: NG/ML; Status: F Test: MB/CK RELATIVE INDEX; Value: 2.44; Range: < OR =4; Status: F Test Note: ; DIAGNOSIS CRITERIA MMB ng/ml Relative Index (RI) NON-AMI < or = 5 N/A LOVE ZONE > 5 < or = 4 AMI > 5 > 4 Lab Order: Troponin; [facility] 11/01/16 19:33 Test: TROPONIN I; Value: < 0.02; Range: < 0.10; Units: NG/ML; Status: F Test Note: ; Troponin I Reference Interval for [employer] LOCI: 99th Percentile= 0.00-0.045 ng/ml Risk Stratification: <= 0.10 ng/ml Decreased Risk for Adverse Clinical Events. 0.10-1.50 ng/ml Increased Risk for Adverse Clinical Events. Evaluation of additional criterion and/or repeat testing in 2-6 hours is suggested to rule out myocardial damage. >= 1.50 ng/ml Indicative of Myocardial Injury. Lab Order: CARDIAC INJURY PROFILE; [facility] 11/01/16 19:33 Test: CPK CREATINE PHOSPHOKINASE; Value: 40; Range: 26-192; Units: U/L; Status: F Test: CK-MB VALUE MASS; Value: 1.0; Range: 0.0-3.6; Units: NG/ML; Status: F Test: MB/CK RELATIVE INDEX; Value: 2.50; Range: < OR =4; Status: F Test Note: ; DIAGNOSIS CRITERIA MMB ng/ml Relative Index (RI) NON-AMI < or = 5 N/A LOVE ZONE > 5 < or = 4 AMI > 5 > 4 Lab Order: TROPONIN; [facility] 11/01/16 19:33 Test: TROPONIN I; Value: 0.02; Range: < 0.10; Units: NG/ML; Status: F Test Note: ; Troponin I Reference Interval for [employer] LOCI: 99th Percentile= 0.00-0.045 ng/ml Risk Stratification: <= 0.10 ng/ml Decreased Risk for Adverse Clinical Events. 0.10-1.50 ng/ml Increased Risk for Adverse Clinical Events. Evaluation of additional criterion and/or repeat testing in 2-6 hours is suggested to rule out myocardial damage. >= 1.50 ng/ml Indicative of Myocardial Injury. Radiology Order: portable chest Test: portable chest REASON FOR EXAMINATION: Chest Pain; Clinical: Chest pain .; ; Comparison: 06/14/2016 .; ; Findings:; The mediastinum and cardiac silhouette are stable and mild cardiomegaly cannot be; excluded. The lung brown are clear without acute consolidation, effusion, or; pneumothorax. Skeletal structures are intact.; ; Impression:; Stable chest x-ray. 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 No cognitive and/or cf2 functional deficits noted. Patient verbalized understanding of disposition instructions. Patient awake and alert. Oriented to person, place and time. Patient verbalized understanding of disposition instructions. patient administered narcotics - no. The following High Risk Discharge criteria are identified: None. Discharged to home ambulatory, assisted to waiting room and taxi was called for patient. Condition: good Condition: stable Condition: improved. Discharge instructions given to patient, Instructed on discharge instructions, follow up and referral plans. medication usage, Demonstrated understanding of instructions, medications, Prescriptions given X 1. No special radiology studies were completed. 11/02 00:33 Discharge ordered by Provider. mm11 01:09 Patient left the ED. cf2 Signatures: Dispatcher [employer] EDMS Shruthi Dawson, Reg Reg gb Helen Churchill,RN RN lf1 Inga Chavez, DO mm11 Shelley Mascorro gr2 Ayala Argueta, Market Stall Vendor Unit Kimberley Angel Christina,RN RN cf2 Corrections: (The following items were deleted from the chart) 11/01 19:17 19:11 BP 178 / 82; Pulse 89bpm; Resp 18bpm; Spontaneous; Pulse Ox 99% RA; 76.2 kg gr2 Reported; Height 5 ft. 6 in. Reported; BMI: 27.1; Pain 10/10; gr2 Chart Complete MTDD
--- NOTE | 2016-11-04 02:10 | EDDOCDS ---
Physician Documentation [facility] Name: Shanell Chambers Age: 86 yrs Sex: Female : 1930 Arrival Date: 11/01/2016 Time: 19:10 Bed 1 Private MD: Clarita Felton DO. Disposition: 11/02/16 00:33 Discharged to Home/Self Care. Impression: Chest pain, unspecified - Hiatal Hernia related. - Condition is Stable. - Discharge Instructions: Gastroesophageal Reflux Disease, Adult, Hiatal Hernia. - Prescriptions for Prilosec 20 mg Oral Capsule - take 1 capsule by ORAL route once daily; 10 capsule. - Medication Reconciliation, Local Pharmacy Hours form. - Follow up: Clarita Felton; When: Call to arrange an appointment; Reason: Continuance of care. Follow up: Javier Hawkins; When: Call to arrange an appointment; Reason: Continuance of care. - Problem is an acute exacerbation. - Symptoms are resolved. Historical: - Allergies: PENICILLINS (Hives); - Home Meds: 1. atenolol 25 mg Oral tab 1 tab once daily (Last dose: Unknown) 2. amiodarone 200 mg Oral tab 1 tab once daily 3. spironolactone 25 mg Oral tab 0.5 tab once daily 4. lisinopril 5 mg Oral tab 1 tab once daily 5. Xarelto 20 mg oral tab once daily - PMHx: Atrial Fib; Diverticulitis; epessary-bladder support; Hypertension; IBS; - PSHx: Appendectomy; Hemorrhoidectomy; Cholecystectomy; - Social history: Smoking status: Patient states was never smoker of tobacco. No barriers to communication noted, The patient speaks fluent [place], Speaks appropriately for age, Preferred Language: P[place]. - Family history: Not pertinent. - : The pt / caregiver states he / she is on anticoagulants: Xarelto Home medication list is obtained from the patient. - Exposure Risk Screening:: None identified. Vital Signs: 11/01 19:11 BP 178 / 82; Pulse 89; Resp 18 S; Temp 96.7(O); Pulse Ox 99% on R/A; Weight 76.2 kg / gr2 167.99 lbs (R); Height 5 ft. 6 in. (167.64 cm) (R); Pain 10/10; 19:26 BP 170 / 83 (auto/); cf2 19:26 Pulse 80 MON; Pulse Ox 100% ; cf2 20:04 Pulse 63 MON; Pulse Ox 97% ; cf2 20:04 BP 157 / 81 (auto/); cf2 20:30 BP 138 / 64 (auto/); cf2 20:30 Pulse 59 MON; Pulse Ox 98% ; cf2 21:00 Pulse 53 MON; Pulse Ox 98% ; cf2 21:00 BP 127 / 59 (auto/); cf2 21:30 Pulse 54 MON; Pulse Ox 99% ; cf2 21:30 BP 147 / 66 (auto/); cf2 22:00 BP 147 / 65 (auto/); cf2 22:00 Pulse 59 MON; Pulse Ox 97% ; cf2 22:30 BP 137 / 63 (auto/); cf2 22:30 Pulse 69 MON; Pulse Ox 98% ; cf2 22:50 Pulse 58 MON; Pulse Ox 96% ; cf2 23:00 Pulse 58 MON; Pulse Ox 97% ; cf2 23:00 BP 125 / 60 (auto/); cf2 23:30 Pulse 64 MON; Pulse Ox 95% ; cf2 23:30 BP 151 / 82 (auto/); cf2 11/02 00:00 Pulse 53 MON; Pulse Ox 98% ; cf2 00:00 BP 134 / 59 (auto/); cf2 00:30 BP 123 / 60 (auto/); cf2 00:30 Pulse 53 MON; Pulse Ox 97% ; cf2 00:33 Pulse 52 MON; Pulse Ox 97% ; cf2 00:39 Pulse 53 MON; Pulse Ox 97% ; cf2 00:44 Pulse 52 MON; Pulse Ox 96% ; cf2 00:50 Pulse 53 MON; Pulse Ox 96% ; cf2 00:53 Pulse 53 MON; Pulse Ox 97% ; cf2 00:56 Pulse 54 MON; Pulse Ox 97% ; cf2 11/01 19:11 Body Mass Index 27.11 (76.20 kg, 167.64 cm) gr2 MDM: 11/01 19:20 ECG WITH READING ER PHYS+CARDIAG ordered. EDMS 19:52 Harp Maker/Pulse Ox/q 30 min VS ordered. mm11 19:52 IV Saline Lock ordered. mm11 19:52 Rhythm Strip to chart ordered. mm11 19:52 Undress patient appropriately for examination ordered. mm11 19:52 GI Cocktail - (Alum-Mag Hydroxide-Simeth 30 ml, Lidocaine 10 ml, Hyoscyamine 10 ml) PO mm11 once; Pre-mixed 50mL unit dose ordered. 19:54 B-Type Natiuretic Peptide Ordered. EDMS 19:54 Basic Metabolic Profile Ordered. EDMS 19:54 CBC with Diff Ordered. EDMS 19:54 Cardiac Injury Profile Ordered. EDMS 19:54 Troponin Ordered. EDMS 19:55 portable chest Ordered. EDMS 21:26 B-Type Natiuretic Peptide Reviewed. mm11 21:26 Basic Metabolic Profile Reviewed. mm11 21:26 CBC with Diff Reviewed. mm11 21:26 Cardiac Injury Profile Reviewed. mm11 21:26 Troponin Reviewed. mm11 21:34 pantoprazole 40 mg IV at bolus once ordered. mm11 21:34 Sucralfate 1 grams PO once ordered. mm11 21:34 Redraw CIP &Troponin (put time in details section) ordered. mm11 21:34 Repeat EKG (put time details section) ordered. mm11 21:40 Repeat EKG (put time details section) complete. kb5 21:40 Redraw CIP &Troponin (put time in details section) complete. kb5 21:42 ELECTROCARDIOGRAM ADULT ordered. EDMS 21:42 CARDIAC INJURY PROFILE Ordered. EDMS 21:43 TROPONIN Ordered. EDMS 21:52 Financial registration complete. [facility] 22:02 [facility] Payment Agreement was scanned into [employer] and attached to record. [facility] 11/02 00:20 CARDIAC INJURY PROFILE Reviewed. 11 00:20 TROPONIN Reviewed. mm11 10:10 T-Sheet-- Draft Copy was scanned into [employer] and attached to record. gb 10:10 ECG/EKG was scanned into [employer] and attached to record. gb Administered Medications: 11/01 20:00 Drug: GI Cocktail - (Alum-Mag Hydroxide-Simeth Suspension 225 mg-200 mg-25 mg/5 mL 30 cf2 ml, Lidocaine Liquid 2 % 10 ml, Hyoscyamine Liquid 10 ml) Route: PO; 20:40 Follow up: Response: No significant change. cf2 21:55 Drug: pantoprazole 40 mg [pantoprazole 40 mg intravenous solution] Route: IV; Rate: cf2 bolus; Site: left antecubital; 21:55 Drug: Sucralfate 1 grams [sucralfate 1 gram tablet (1 tabs)] Route: PO; cf2 Signatures: Dispatcher [employer] EDMS Shruthi Dawson, Reg Reg gb Glenn Huang, ALARM INSTALLER ALARM INSTALLER kb5 Helen Churchill,TANO RN lf1 Miller Chavez, DO DO mm11 Kimberley Olguin gjb Britney LundbergRN RN cf2 The chart was reviewed and I authenticate all verbal orders and agree with the evaluation and treatment provided.Attachments: 22:02 [facility] Payment Agreement gjb 11/02 10:10 T-Sheet-- Draft Copy gb 10:10 ECG/EKG gb Chart Complete MTDD
--- NOTE | 2016-11-05 06:11 | ECGEPIP ---
Stationary ECG Study [facility] - ED Test Date: 2016-11-01 Pat Name: CELINE HARVEY Department: Room: - Gender: F Director Of Technology: analy : 1930 Requested By: INGA Rothman Order Number: [id number] Reading MD: Leo Ceballos Measurements Intervals [place] Rate: 66 P: RI: 0 QRS: 24 QRSD: 101 T: 42 QT: 386 QTc: 406 Interpretive Statements SINUS RHYTHM WITH 1ST DEGREE AV BLOCK NSTTW ABNORMALITIES Electronically Signed On 11-05-2016 6:11:23 EST by Leo Ceballos
== END 2016-11-02 01:09 | disposition home or self-care (01) ==
LOC: M ED 19:10
DX: R07.89 Other chest pain (principal); I48.91 Unspecified atrial fibrillation; I10 Essential (primary) hypertension; K21.9 Gastro-esophageal reflux disease without esophagitis; K58.9 Irritable bowel syndrome, unspecified; Z96.0 Presence of urogenital implants; Z79.01 Long term (current) use of anticoagulants; Z79.899 Other long term (current) drug therapy; Z88.0 Allergy status to penicillin
CPT/HCPCS: 36415; 71010; 80048; 82550; 82553; 83880; 84484; 85025; 93005; 93041; 96374; 99285; C9113

== ENCOUNTER 2016-12-19 20:05 | Emergency (ER) | payer MEDICARE, MEDICAID ==
[~2016-12-19] VITALS: Ht 167.6 cm; Wt 68.0 kg
[2016-12-19] MEDS ORDERED: AMIO20TA PO (20:21)
[2016-12-19] MEDS ORDERED: LISI-538 PO (20:21)
[2016-12-19] MEDS ORDERED: DICYCLOMINE 10 MG CAP PO ONE (21:00)
[2016-12-19] MEDS ORDERED: NS 500 ML IV ONE (21:00)
[2016-12-19 21:20] LABS: BASO % 0.3 % (0.0-1.0); EOS % 0.7 % (0.0-3.0); LARGE UNSTAINED CELL # 0.1 K/mm3 (0.0-0.4); LARGE UNSTAINED CELL % 1.2 % (0.0-4.0); LYMPH # 1.7 K/mm3 (1.5-4.5); LYMPH % 20.2 % (24.0-44.0); MEAN CORPUSCULAR HGB CONC 33.9 g/dl (32.0-36.5); MEAN CORPUSCULAR VOLUME 85.7 fl (80.0-96.0); MONO # 1.1 K/mm3 (0.0-0.8); MONO % 13.4 % (0.0-5.0); NEUTROPHILS # 5.2 K/mm3 (1.8-7.7); NEUTROPHILS % 64.1 % (36.0-66.0); PLATELET COUNT, AUTOMATED 305 k/mm3 (150-450); RED CELL DISTRIBUTION WIDTH 13.3 % (11.5-14.5); WHITE BLOOD COUNT 8.1 K/mm3 (4.0-10.0)
[2016-12-19 22:34] LABS: CREATININE FOR GFR 0.96 MG/DL (0.55-1.02); GLOMERULAR FILTRATION RATE 58.8 (>32); POTASSIUM SERUM 3.9 MEQ/L (3.5-5.1)
[2016-12-19 23:27] LABS: ALBUMIN 2.7 GM/DL (3.2-5.2); ALBUMIN/GLOBULIN RATIO 0.56 (1.00-1.93); BILIRUBIN,DIRECT 0.1 MG/DL (0.0-0.2); BILIRUBIN,TOTAL 0.4 MG/DL (0.2-1.0); TOTAL PROTEIN 7.5 GM/DL (6.4-8.2)
[2016-12-19] MEDS ORDERED: ISOVUE-370 76% 100ML VIAL (Q9967) As Ordered ONE (23:56)
--- NOTE | 2016-12-20 01:40 | REPUSA ---
CLINICAL HISTORY: Abdominal pain. TECHNIQUE: Multiple axial, sagittal and coronal CT images were obtained through the abdomen and pelvi s after administration of oral and intravenous contrast material. COMMENTS: Mild multifocal thickening of the rectosigmoid colon. Small sliding-type hiatal hernia. The liver is of uniform attenuation without mass or defect. There is no intra or extrahepatic biliary ductal dilatation. The spleen is normal. The gallbladder is surgically absent. The pancreas is of no rmal contour and attenuation characteristics. There is no evidence of adrenal mass. Bilateral simple renal cysts. Both kidneys demonstrate prompt and equal nephrograms. The kidneys are normal in size, shape and conf iguration. There is no evidence of renal or ureteral mass. No renal or ureteral calculi are identifie d. There is no hydroureter or hydronephrosis. No evidence for appendicitis. No evidence for small or large bowel obstruction. There is no evidence of abdominal ascites or lymphadenopathy. There is no evidence of intrinsic or extrinsic bladder mass. Diffusely thickened bladder. There is no pelvic ascites or lymphadenopathy. Images of the lung bases show no evidence of pleural or parenchymal mass. There are no pleural effusi ons. The bony structures are free of lytic or blastic lesions. Multilevel degenerative changes are seen in volving the thoracolumbar spine. Scattered calcifications are seen involving the aorta and major bran ches compatible with atherosclerosis. IMPRESSION: Mild multifocal thickening of the rectosigmoid colon. Underdistention, spasm versus multifocal coliti s. Thickened bladder suggestive of mild cystitis. Thank you for your kind referral of this patient.
[2016-12-20] MEDS ORDERED: CIPR500T89 PO (03:15)
[2016-12-20 03:41] VITALS: BP 128/59
== END 2016-12-20 03:42 | disposition home or self-care (01) ==
LOC: M ED 21:32
DX: K52.9 Noninfective gastroenteritis and colitis, unspecified (principal); R10.9 Unspecified abdominal pain
CPT/HCPCS: 36415; 74177; 80048; 80076; 81001; 82150; 83690; 85025; 87086; 96360; 96361; 99283; Q9967

== ENCOUNTER 2016-12-27 02:47 | Inpatient (IN) | payer MEDICARE, MEDICAID ==
[~2016-12-27] VITALS: Ht 165.1 cm; Wt 69.7 kg
[~2016-12-27 02:47] MED LIST changes: +CIPR500T89 PO
[2016-12-27] MEDS ORDERED: NEOSPORIN OINT 0.9 GM PKT (FLOOR STOCK) As Ordered ONE (03:11)
[2016-12-27 05:25] LABS: BASO % 0.5 % (0.0-1.0); EOS # 0.2 K/mm3 (0.0-0.50); EOS % 2.1 % (0.0-3.0); LARGE UNSTAINED CELL # 0.1 K/mm3 (0.0-0.4); LARGE UNSTAINED CELL % 1.1 % (0.0-4.0); LYMPH # 1.7 K/mm3 (1.5-4.5); LYMPH % 21.6 % (24.0-44.0); MEAN CORPUSCULAR HEMOGLOBIN 28.9 pg (27.0-33.0); MEAN CORPUSCULAR HGB CONC 33.3 g/dl (32.0-36.5); MEAN CORPUSCULAR VOLUME 86.8 fl (80.0-96.0); MONO # 0.8 K/mm3 (0.0-0.8); MONO % 10.4 % (0.0-5.0); NEUTROPHILS # 4.8 K/mm3 (1.8-7.7); NEUTROPHILS % 64.3 % (36.0-66.0); PLATELET COUNT, AUTOMATED 256 k/mm3 (150-450); RED CELL DISTRIBUTION WIDTH 13.5 % (11.5-14.5); WHITE BLOOD COUNT 7.4 K/mm3 (4.0-10.0)
[2016-12-27 05:26] LABS: ANION GAP 8 MEQ/L (8-16); BLOOD UREA NITROGEN 12 MG/DL (7-18); CARBON DIOXIDE LEVEL 26 MEQ/L (21-32); CHLORIDE LEVEL 94 MEQ/L (98-107); CREATININE FOR GFR 0.94 MG/DL (0.55-1.02); GLOMERULAR FILTRATION RATE > 60.0 (>32); GLUCOSE, FASTING 100 MG/DL (83-110); POTASSIUM SERUM 3.9 MEQ/L (3.5-5.1); SODIUM LEVEL 128 MEQ/L (136-145)
[2016-12-27] MEDS ORDERED: MORPHINE 2 MG/ML 1ML SYRINGE IV ONE (07:00)
[2016-12-27] MEDS ORDERED: NS 500 ML IV ONE (07:00)
[2016-12-27] MEDS ORDERED: SODIUM CHLORIDE 0.9% 1000 ML IV ONE (07:30)
[2016-12-27 07:47] LABS: ALBUMIN 2.9 GM/DL (3.2-5.2); ALBUMIN/GLOBULIN RATIO 0.55 (1.00-1.93); ALKALINE PHOSPHATASE 133 U/L (45-117); ALT/SGPT 17 U/L (12-78); AST/SGOT 17 U/L (15-37); BILIRUBIN,TOTAL 0.4 MG/DL (0.2-1.0); MAGNESIUM LEVEL 1.4 MG/DL (1.8-2.4); TOTAL PROTEIN 8.2 GM/DL (6.4-8.2)
[2016-12-27] MEDS ORDERED: MAG SULF 1GM/100ML (MAG RUN) 1 GM in APPROPRIATE DILUENT 1 EA IV ONE (08:00)
[2016-12-27] MEDS ORDERED: ACET-654 PO (08:24)
[2016-12-27] MEDS ORDERED: LISI-538 PO (08:24)
[2016-12-27] MEDS ORDERED: ACETAMINOPHEN TAB 650MG DOSE (2X325MG) PO PRN (08:30)
[2016-12-27] MEDS ORDERED: LevoFLOXacin IV 750 MG in APPROPRIATE DILUENT 1 EA IV ONE (08:30)
[2016-12-27] MEDS ORDERED: POLYVINYL ALCOHOL OPHTH SOLN 15 ML(LIQUITEARS) OU PRN (10:00)
[2016-12-27] MEDS ORDERED: metroNIDAZOLE 500 MG in APPROPRIATE DILUENT 1 EA IV SCH (10:00)
[2016-12-27 11:01] LABS: ALBUMIN 2.6 GM/DL (3.2-5.2); ALBUMIN/GLOBULIN RATIO 0.54 (1.00-1.93); ALKALINE PHOSPHATASE 126 U/L (45-117); ALT/SGPT 16 U/L (12-78); ANION GAP 9 MEQ/L (8-16); AST/SGOT 14 U/L (15-37); BILIRUBIN,TOTAL 0.4 MG/DL (0.2-1.0); BLOOD UREA NITROGEN 10 MG/DL (7-18); CALCIUM LEVEL 8.5 MG/DL (8.8-10.2); CARBON DIOXIDE LEVEL 25 MEQ/L (21-32); CHLORIDE LEVEL 95 MEQ/L (98-107); CREATININE FOR GFR 0.87 MG/DL (0.55-1.02); FREE T4 1.44 NG/DL (0.76-1.46); GLOMERULAR FILTRATION RATE > 60.0 (>32); GLUCOSE, FASTING 114 MG/DL (83-110); MAGNESIUM LEVEL 1.9 MG/DL (1.8-2.4); POTASSIUM SERUM 4.2 MEQ/L (3.5-5.1); SODIUM LEVEL 129 MEQ/L (136-145); TOTAL PROTEIN 7.4 GM/DL (6.4-8.2)
[2016-12-27] MEDS ORDERED: NS 1,000 ML IV SCH (11:30)
--- NOTE | 2016-12-27 12:43 | HPEPDOC ---
General Date of Admission Dec 27, 2016 at 08:18 Chief Complaint The patient is a 86-year-old female Presented to the ER with complaints of supra -pubic pain. History of Present Illness Patient is an 86 year old female with a PMHx of Lymphoplasmacytic lymphoma, atrial fibrillation (on Xarelto), Hemorrhoids, HTN, Irritable bowel syndrome a recent history of UTI (no antibiotics) who presented to the ER with supra-pubic pain. Patient notes that she was having this pain for a few months, reported as a 5-6/ 10, continuous, burning / aching pain, non-radiating without any alleviating or aggravating factors. She notes that she did not have any nausea or vomiting. She does have associated diarrhea that has been going on for months. She reports that she gets 2-3 bowel movements per day. Denies any blood or mucous in her stool. Reports that because of her hemorrhoids she occasionally notes blood on the toilet paper. She denies any bleeding of excessive blood in her stool. Denies any dark stool. She has never had a colonoscopy or an EGD done in the past. She recently noted lightheadedness and dizziness, but she denies any LOC or trauma. She denies chest pain, shortness of breath, cough, or fevers. She reports some mild dysuria but no frequency. Home Medications Scheduled Amiodarone HCl (Amiodarone HCl) 200 Mg Tab 200 MG PO DAILY (Reported) Atenolol (Atenolol) 25 Mg Tab 25 MG PO DAILY Lisinopril (Lisinopril) 20 Mg Tab 20 MG PO DAILY (Reported) Rivaroxaban (Xarelto) 20 Mg Tab 20 MG PO QHS (Reported) Spironolactone (Spironolactone) 25 Mg Tab 12.5 MG PO DAILY Scheduled PRN Acetaminophen (Acetaminophen) 325 Mg Tab 650 MG PO Q4H PRN PRN PAIN (Reported) Polyethylene Glycol (Systane 0.4-0.3 %) 15 Ml Elisabeth 1 DROP OU PRN PRN PRN DRY EYES (Reported) Allergies Coded Allergies: Penicillins (Verified Allergy, Intermediate, RASH, 12/19/16) Penicillins Cross Reactors (Verified Allergy, Intermediate, RASH, 12/19/16) Latex (Verified Allergy, Mild, REDNESS AND ITCHING FROM SOCKS AND UNDERWEAR, 12/19/16) Nitroglycerin (Verified Adverse Reaction, Intermediate, PT REFUSES- CAUSES EXTREME ANXIETY, FEELING OF DOOM, INC BP, 12/19/16) Nitrofurantoin (Unverified Adverse Reaction, Mild, VOMITING, DIARRHEA, ) Past Medical History Medical History Lymphoplasmacytic lymphoma Atrial fibrillation (on Xarelto) Hemorrhoids HTN Irritable bowel syndrome Recent history of UTI (no antibiotics) Surgical History Appendectomy Cholecystectomy Family History - Non-contributory Social History - Denies the use of alcohol, tobacco or illicit drugs - Denies recent travel or sick contacts - Lives alone - 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; 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 Review of Symptoms Other systems Constitutional: Reports weight loss of 30 lbs over 1 year, No change in appetite , or recent trauma Eyes: No visual changes or eye pain Ears, Nose, Throat: Denies nose bleeds, or difficulty swallowing Cardiovascular: Denies chest pain, sweating, or orthopnea Respiratory: Denies cough, wheezing, or shortness of breath GI: Wilson nausea, vomiting, Poisitve abdominal pain and diarrhea : Positive pain with urination, No frequency Musculoskeletal: Denies joint pain or swelling Neuro / Psych: Denies muscle weakness or sensory loss Skin: No skin rashes noted All other review of systems negative; otherwise stated in history of present illness Vital Signs - Vitals: BP 142/63, HR 74, RR 20, Sat 98%RA, Temp 97.6 - General: Lying in bed, No acute distress, Speaking in full sentences, AAOx3 - HEENT: NC, AT, PERRLA, EOMI - CVS: RRR, +S1S2, - Lungs: Fair air entry bilaterally, Clear to auscultation, No wheezing / rales / rhonchi - Abdomen: Soft, Non-distended, Tender at supra-pubic area and RLQ, + Bowel sounds x 4 - Extremities: + PPx4, No lower extremity edema, No calf tenderness - Neuro: No focal motor or sensory deficit - Skin: No visible rashes Laboratory Data Labs 24H Laboratory Tests 2 12/27/16 03:41: Blood Urea Nitrogen 12, Creatinine 0.94, Sodium Level 128L, Potassium Level 3.9 , Chloride Level 94L, Carbon Dioxide Level 26, Calcium Level 9.0, Aspartate Amino Transf (AST/SGOT) 17, Alanine Aminotransferase (ALT/SGPT) 17, Alkaline Phosphatase 133H, Total Bilirubin 0.4, Total Protein 8.2, Albumin 2.9L, Albumin/ Globulin Ratio 0.55L, Anion Gap 8, White Blood Count 7.4, Red Blood Count 3.80L , Hemoglobin 11.0L, Hematocrit 33.0L, Mean Corpuscular Volume 86.8, Mean Corpuscular Hemoglobin 28.9, Mean Corpuscular Hemoglobin Concent 33.3, Red Cell Distribution Width 13.5, Platelet Count 256, Neutrophils (%) (Auto) 64.3, Lymphocytes (%) (Auto) 21.6L, Monocytes (%) (Auto) 10.4H, Eosinophils (%) (Auto ) 2.1, Basophils (%) (Auto) 0.5, Neutrophils # (Auto) 4.8, Lymphocytes # (Auto) 1.7, Monocytes # (Auto) 0.8, Eosinophils # (Auto) 0.2, Basophils # (Auto) 0.0, Glomerular Filtration Rate > 60.0, Large Unclassified Cells # 0.1, Large Unclassified Cells % 1.1, Magnesium Level 1.4L, Urine Amorphous Sediment , Urine Appearance CLEAR, Urine Color YELLOW, Urine pH 7.0, Urine Specific [place] 1.010, Urine Protein NEGATIVE, Urine Glucose (UA) NEGATIVE, Urine Ketones NEGATIVE, Urine Urobilinogen 0.2, Urine Bilirubin NEGATIVE, Urine Leukocyte Esterase 2+H, Urine Bacteria (Auto) NEGATIVE, Urine Blood 1+H, Urine Calcium Carbonate Cryst(Auto) , Urine Calcium Oxalate Cryst (Auto) , Urine Calcium Phosphate Jade (Auto) , Urine Cellular Casts , Urine Cystine Crystals , Urine Granular Casts (Auto) , Urine Hyaline Casts (Auto) 0, Urine Leucine Crystals , Urine Mucus (Auto) SMALL, Urine Nitrite NEGATIVE, Urine Oval Fat Bodies (Auto) , Urine RBC (Auto) 13H, Urine Renal Epithelial Cells , Urine Sperm (Auto) , Urine Squamous Epithelial Cells 1, Urine Transitional Epithelial Cells , Urine Trichomonas (Auto) , Urine Triple Phosphate Cryst (Auto) , Urine Tyrosine Crystals , Urine Uric Acid Crystals (Auto) , Urine WBC (Auto) 1, Urine Waxy Casts (Auto) , Urine Yeast-Like Cells (Auto) 12/27/16 10:11: Lactic Acid Level 0.7 12/27/16 10:21: Blood Urea Nitrogen 10, Creatinine 0.87, Sodium Level 129L, Potassium Level 4.2 , Chloride Level 95L, Carbon Dioxide Level 25, Calcium Level 8.5L, Aspartate Amino Transf (AST/SGOT) 14L, Alanine Aminotransferase (ALT/SGPT) 16, Alkaline Phosphatase 126H, Total Bilirubin 0.4, Total Protein 7.4, Albumin 2.6L, Albumin/ Globulin Ratio 0.54L, Anion Gap 9, Glomerular Filtration Rate > 60.0, Magnesium Level 1.9, Free Thyroxine 1.44, Osmolality 269L, Thyroid Stimulating Hormone ( TSH) 1.390, Total Triiodothyronine 48.0L CBC/BMP Laboratory Tests 12/27/16 03:41 Calcium Level 9.0, Aspartate Amino Transf (AST/SGOT) 17, Alanine Aminotransferase (ALT/SGPT) 17, Alkaline Phosphatase 133 H, Total Bilirubin 0.4 , Total Protein 8.2, Albumin 2.9 L, Red Blood Count 3.80 L, Mean Corpuscular Volume 86.8, Mean Corpuscular Hemoglobin 28.9, Mean Corpuscular Hemoglobin Concent 33.3, Red Cell Distribution Width 13.5, Neutrophils (%) (Auto) 64.3, Lymphocytes (%) (Auto) 21.6 L, Monocytes (%) (Auto) 10.4 H, Eosinophils (%) ( Auto) 2.1, Basophils (%) (Auto) 0.5, Neutrophils # (Auto) 4.8, Lymphocytes # ( Auto) 1.7, Monocytes # (Auto) 0.8, Eosinophils # (Auto) 0.2, Basophils # (Auto) 0.0 12/27/16 10:21 Calcium Level 8.5 L, Aspartate Amino Transf (AST/SGOT) 14 L, Alanine Aminotransferase (ALT/SGPT) 16, Alkaline Phosphatase 126 H, Total Bilirubin 0.4 , Total Protein 7.4, Albumin 2.6 L Microbiology Microbiology 12/27/16 Blood Culture, Received Pending 12/27/16 Blood Culture, Received Pending 12/27/16 Gastrointestinal Tract Panel (PCR) - Final, Complete 12/27/16 Urine Culture, Received Pending Plan / VTE VTE Prophylaxis Ordered?: Yes Plan Plan Abdominal pain possibly 2/2 cystitis, possibly 2/2 gastroenteritis or irritable bowel syndrome - Reports abdominal pain and dysuria recently, long standing history of diarrhea - Physical reveals supra-pubic and RLQ tenderness - UA consistent with urinary tract infection - GI Panel negative - No elevation in lactic acid - Awaiting blood cultures and urine cultures - CT abdomen 12/19: mild thickening of rectosigmoid colon under distention, spasm vs. multifocal colitis, thickened bladder suggestive of cystitis - Will cover with Levaquin and start protonix IV Hyponatremia (mild) hypotonic - likely 2/2 extra-renal losses 2/2 diarrhea - Hx of hyponatremia in the past - Will check urine osmolality and urine electrolytes - will c/w IV fluid hydration Normocytic anemia - Baseline appears to be 10 - Will repeat H&H at 3PM - Will monitor for now Lymphoplasmacytic lymphoma Atrial fibrillation - will c/w Amiodarone and atenolol - c/w Xarelto (Does not appear to be losing blood) Hemorrhoids HTN - c/w Lisinopril with holding parameters Irritable bowel syndrome - not on any medications Gastrointestinal prophylaxis - Will start protonix DVT prophylaxis - On full anticoagulation with Xarelto CHAZ ROGERS MD Dec 27, 2016 12:43
[2016-12-27 15:38] LABS: ALBUMIN 2.7 GM/DL (3.2-5.2); ALBUMIN/GLOBULIN RATIO 0.57 (1.00-1.93); ALKALINE PHOSPHATASE 135 U/L (45-117); ALT/SGPT 17 U/L (12-78); ANION GAP 8 MEQ/L (8-16); AST/SGOT 19 U/L (15-37); BILIRUBIN,TOTAL 0.5 MG/DL (0.2-1.0); BLOOD UREA NITROGEN 11 MG/DL (7-18); CALCIUM LEVEL 9.2 MG/DL (8.8-10.2); CARBON DIOXIDE LEVEL 24 MEQ/L (21-32); CHLORIDE LEVEL 95 MEQ/L (98-107); CREATININE FOR GFR 0.88 MG/DL (0.55-1.02); GLOMERULAR FILTRATION RATE > 60.0 (>32); GLUCOSE, FASTING 87 MG/DL (83-110); POTASSIUM SERUM 4.4 MEQ/L (3.5-5.1); SODIUM LEVEL 127 MEQ/L (136-145); TOTAL PROTEIN 7.4 GM/DL (6.4-8.2)
[2016-12-27 16:00] VITALS: BP 141/71
[2016-12-27] MEDS: ATENOLOL 25 MG TAB PO SCH ×2 (16:37→16:40)
[2016-12-27] MEDS: PANTOPRAZOLE 40MG INJ (PROTONIX) (C9113) IV SCH (16:37)
[2016-12-27] MEDS: LISINOPRIL 20 MG TAB PO SCH ×2 (16:37→16:40)
[2016-12-27] MEDS ORDERED: SLF 3 ML SYR IV PRN (16:45)
[2016-12-27] MEDS: RIVAROXABAN 20 MG TAB (XARELTO) PO SCH (18:12)
[2016-12-27 20:00] VITALS: BP 140/69
[2016-12-27] MEDS: SODIUM CHLORIDE 1 GM TAB PO SCH (20:17)
[2016-12-27] MEDS: SLF 3 ML SYR IV SCH (20:17)
[2016-12-27] MEDS ORDERED: AMIODARONE 200 MG TAB (PACERONE) PO SCH (21:00)
[2016-12-27] MEDS: AMIODARONE 200 MG TAB (PACERONE) PO SCH (21:00)
[2016-12-28 04:00] VITALS: BP 111/61
[2016-12-28] MEDS: SLF 3 ML SYR IV SCH ×3 (04:21→21:07)
[2016-12-28 05:29] LABS: BASO % 0.4 % (0.0-1.0); EOS # 0.1 K/mm3 (0.0-0.50); EOS % 1.2 % (0.0-3.0); LARGE UNSTAINED CELL # 0.1 K/mm3 (0.0-0.4); LARGE UNSTAINED CELL % 1.3 % (0.0-4.0); LYMPH # 1.2 K/mm3 (1.5-4.5); LYMPH % 16.7 % (24.0-44.0); MEAN CORPUSCULAR HEMOGLOBIN 27.9 pg (27.0-33.0); MEAN CORPUSCULAR HGB CONC 32.7 g/dl (32.0-36.5); MEAN CORPUSCULAR VOLUME 85.3 fl (80.0-96.0); MONO # 0.9 K/mm3 (0.0-0.8); MONO % 12.5 % (0.0-5.0); NEUTROPHILS # 4.7 K/mm3 (1.8-7.7); NEUTROPHILS % 67.9 % (36.0-66.0); PLATELET COUNT, AUTOMATED 235 k/mm3 (150-450); RED CELL DISTRIBUTION WIDTH 13.3 % (11.5-14.5)
--- NOTE | 2016-12-28 05:35 | ECGEPIP ---
Stationary ECG Study [facility] Test Date: 2016-12-27 Pat Name: CELINE HARVEY Department: Room: [place] [address] Gender: F Field Associate: LINDSAY : 1930 Requested By: CHAZ ROGERS Order Number: [id number] Reading MD: Paolo Holcomb Measurements Intervals [place] Rate: 57 P: 155 FL: 198 QRS: 1 QRSD: 96 T: 37 QT: 368 QTc: 359 Interpretive Statements Sinus bradycardia with PACs Nonspecific T wave abnormality No significant change when compared to prior tracing of 11/01/2016, except for PACs Electronically Signed On 12-28-2016 5:35:06 EDT by Paolo Holcomb
[2016-12-28 05:50] LABS: ALBUMIN 2.3 GM/DL (3.2-5.2); ALBUMIN/GLOBULIN RATIO 0.52 (1.00-1.93); ALKALINE PHOSPHATASE 119 U/L (45-117); ALT/SGPT 17 U/L (12-78); ANION GAP 10 MEQ/L (8-16); AST/SGOT 16 U/L (15-37); BILIRUBIN,TOTAL 0.5 MG/DL (0.2-1.0); BLOOD UREA NITROGEN 8 MG/DL (7-18); CALCIUM LEVEL 8.6 MG/DL (8.8-10.2); CARBON DIOXIDE LEVEL 22 MEQ/L (21-32); CHLORIDE LEVEL 99 MEQ/L (98-107); CREATININE FOR GFR 0.84 MG/DL (0.55-1.02); GLOMERULAR FILTRATION RATE > 60.0 (>32); GLUCOSE, FASTING 78 MG/DL (83-110); MAGNESIUM LEVEL 1.5 MG/DL (1.8-2.4); POTASSIUM SERUM 3.8 MEQ/L (3.5-5.1); SODIUM LEVEL 131 MEQ/L (136-145); TOTAL PROTEIN 6.7 GM/DL (6.4-8.2)
[2016-12-28] MEDS ORDERED: MAG SULF 1GM/100ML (MAG RUN) 1 GM in APPROPRIATE DILUENT 1 EA IV ONE (07:15)
[2016-12-28 07:20] VITALS: BP 127/69
[2016-12-28] MEDS: ATENOLOL 25 MG TAB PO SCH (08:07)
[2016-12-28] MEDS: PANTOPRAZOLE 40MG INJ (PROTONIX) (C9113) IV SCH (08:07)
[2016-12-28] MEDS: SODIUM CHLORIDE 1 GM TAB PO SCH ×2 (08:07→21:07)
[2016-12-28] MEDS: LISINOPRIL 20 MG TAB PO SCH (08:08)
[2016-12-28] MEDS ORDERED: LevoFLOXacin IV 250 MG in APPROPRIATE DILUENT 1 EA IV SCH (08:30)
[2016-12-28 11:23] VITALS: BP 94/52
--- NOTE | 2016-12-28 13:47 | IPNPDOC ---
Text Note Date of Service The patient was seen on 12/28/16. NOTE Subjective: Patient is an 86 year old female with a PMHx of Lymphoplasmacytic lymphoma, atrial fibrillation (on Xarelto), Hemorrhoids, HTN, Irritable bowel syndrome a recent history of UTI (no antibiotics) who presented to the ER with supra-pubic pain. She was admitted for cystitis (possible colitis) and hyponatremia. This morning patient had a HR of 60 and received Atenolol which brought her HR down to 38. She remained asymptomatic and did not complain of any dizziness, shortness of breath, chest pain or fatigue. Patient was seen and examined at the bedside. She noted that she has not been having any more abdominal pain. Objective: Vitals (See below) General: Lying in bed, no acute distress, comfortable, AAOx3 HEENT: NC, AT CVS: RRR, +S1S2 Lungs: Fair air entry b/l, -w/r/r Abdomen: Soft, ND, NT, +BSx4 Extremities: +PPx4, - Edema, - Calf tenderness Assessment and plan: 1. Abdominal pain - possibly 2/2 cystitis, possibly 2/2 gastroenteritis or irritable bowel syndrome - Reports abdominal pain and dysuria recently, long standing history of diarrhea - Clinically does not have any abdominal tenderness - UA consistent with UTI; GI panel negative - No elevation in lactic acid - Blood cultures and urine cultures negative - CT abdomen 12/19: mild thickening of rectosigmoid colon under distention, spasm vs. multifocal colitis, thickened bladder suggestive of cystitis - c/w Levaquin (Day #2) and Protonix (will change to PO) 2. 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 Normocytic anemia - FOBT positive - Baseline appears to be 10 - Will repeat H&H at 1PM - will need to have outpatient colonoscopy 4. Lymphoplasmacytic lymphoma 5. Atrial fibrillation - will c/w Amiodarone - Will hold Atenolol (re: Bradycardia) - c/w Xarelto (Does not appear to be losing blood) 6. Hemorrhoids 7. HTN - c/w Lisinopril with holding parameters 8. Irritable bowel syndrome - not on any medications 9. Gastrointestinal prophylaxis - c/w protonix 10. DVT prophylaxis - On full anticoagulation with Xarelto VS,Fishbone, I+O VS, Fishbone, I+O Laboratory Tests 12/27/16 14:56 Calcium Level 9.2, Aspartate Amino Transf (AST/SGOT) 19, Alanine Aminotransferase (ALT/SGPT) 17, Alkaline Phosphatase 135 H, Total Bilirubin 0.5 , Total Protein 7.4, Albumin 2.7 L 12/28/16 05:04 Calcium Level 8.6 L, Aspartate Amino Transf (AST/SGOT) 16, Alanine Aminotransferase (ALT/SGPT) 17, Alkaline Phosphatase 119 H, Total Bilirubin 0.5 , Total Protein 6.7, Albumin 2.3 L, Red Blood Count 3.40 L, Mean Corpuscular Volume 85.3, Mean Corpuscular Hemoglobin 27.9, Mean Corpuscular Hemoglobin Concent 32.7, Red Cell Distribution Width 13.3, Neutrophils (%) (Auto) 67.9 H, Lymphocytes (%) (Auto) 16.7 L, Monocytes (%) (Auto) 12.5 H, Eosinophils (%) ( Auto) 1.2, Basophils (%) (Auto) 0.4, Neutrophils # (Auto) 4.7, Lymphocytes # ( Auto) 1.2 L, Monocytes # (Auto) 0.9 H, Eosinophils # (Auto) 0.1, Basophils # ( Auto) 0.0 Vital Signs Date Time Temp Pulse Resp B/P Pulse Ox O2 Delivery O2 Flow Rate FiO2 12/28/16 11:23 97.1 38 18 94/52 98 Room Air I&O- Last 24 Hours up to 6 AM 12/28/16 06:00 Intake Total 1750 ml Output Total 500 ml Balance 1250 ml CHAZ ROGERS MD Dec 28, 2016 13:47
[2016-12-28 14:11] LABS: ALBUMIN 2.7 GM/DL (3.2-5.2); ALBUMIN/GLOBULIN RATIO 0.57 (1.00-1.93); ALKALINE PHOSPHATASE 132 U/L (45-117); ALT/SGPT 20 U/L (12-78); ANION GAP 9 MEQ/L (8-16); AST/SGOT 19 U/L (15-37); BILIRUBIN,TOTAL 0.6 MG/DL (0.2-1.0); BLOOD UREA NITROGEN 9 MG/DL (7-18); CALCIUM LEVEL 9.2 MG/DL (8.8-10.2); CARBON DIOXIDE LEVEL 25 MEQ/L (21-32); CHLORIDE LEVEL 96 MEQ/L (98-107); CREATININE FOR GFR 0.89 MG/DL (0.55-1.02); GLOMERULAR FILTRATION RATE > 60.0 (>32); GLUCOSE, FASTING 80 MG/DL (83-110); POTASSIUM SERUM 4.2 MEQ/L (3.5-5.1); SODIUM LEVEL 130 MEQ/L (136-145); TOTAL PROTEIN 7.4 GM/DL (6.4-8.2)
[2016-12-28 16:00] VITALS: BP 95/52
[2016-12-28] MEDS: RIVAROXABAN 20 MG TAB (XARELTO) PO SCH (17:21)
[2016-12-28 19:38] VITALS: BP 99/51
[2016-12-28] MEDS: AMIODARONE 200 MG TAB (PACERONE) PO SCH (21:07)
[2016-12-29] VITALS: BP 113/65
[2016-12-29 04:00] VITALS: BP 111/60
[2016-12-29] MEDS: SLF 3 ML SYR IV SCH ×2 (04:49→09:58)
[2016-12-29 05:35] LABS: BASO % 0.5 % (0.0-1.0); EOS # 0.2 K/mm3 (0.0-0.50); EOS % 2.6 % (0.0-3.0); LARGE UNSTAINED CELL # 0.2 K/mm3 (0.0-0.4); LARGE UNSTAINED CELL % 2.1 % (0.0-4.0); LYMPH # 2.1 K/mm3 (1.5-4.5); MEAN CORPUSCULAR HEMOGLOBIN 28.5 pg (27.0-33.0); MEAN CORPUSCULAR VOLUME 86.4 fl (80.0-96.0); MONO % 14.1 % (0.0-5.0); NEUTROPHILS # 3.7 K/mm3 (1.8-7.7); NEUTROPHILS % 52.6 % (36.0-66.0); PLATELET COUNT, AUTOMATED 258 k/mm3 (150-450); RED CELL DISTRIBUTION WIDTH 13.4 % (11.5-14.5); WHITE BLOOD COUNT 7.1 K/mm3 (4.0-10.0)
[2016-12-29 05:51] LABS: ALBUMIN 2.4 GM/DL (3.2-5.2); ALBUMIN/GLOBULIN RATIO 0.52 (1.00-1.93); ALKALINE PHOSPHATASE 119 U/L (45-117); ALT/SGPT 17 U/L (12-78); ANION GAP 10 MEQ/L (8-16); AST/SGOT 17 U/L (15-37); BILIRUBIN,TOTAL 0.4 MG/DL (0.2-1.0); BLOOD UREA NITROGEN 10 MG/DL (7-18); CALCIUM LEVEL 8.7 MG/DL (8.8-10.2); CARBON DIOXIDE LEVEL 25 MEQ/L (21-32); CHLORIDE LEVEL 101 MEQ/L (98-107); CREATININE FOR GFR 0.89 MG/DL (0.55-1.02); GLOMERULAR FILTRATION RATE > 60.0 (>32); GLUCOSE, FASTING 82 MG/DL (83-110); MAGNESIUM LEVEL 1.8 MG/DL (1.8-2.4); POTASSIUM SERUM 4.1 MEQ/L (3.5-5.1); SODIUM LEVEL 136 MEQ/L (136-145)
[2016-12-29] MEDS ORDERED: LevoFLOXacin 750 MG TABLET PO SCH (06:00)
[2016-12-29 07:57] VITALS: BP 131/55
[2016-12-29] MEDS ORDERED: OMEP40CA2 PO (08:07)
[2016-12-29] MEDS ORDERED: LEVO750T33 PO (08:07)
[2016-12-29] MEDS ORDERED: PANTOPRAZOLE 40MG TAB (PROTONIX) PO SCH (09:00)
[2016-12-29] MEDS ORDERED: LevoFLOXacin IV 750 MG in APPROPRIATE DILUENT 1 EA IV SCH (09:00)
[2016-12-29] MEDS ORDERED: SODIUM CHLORIDE 1 GM TAB PO SCH (09:00)
[2016-12-29 09:57] VITALS: BP 131/55
[2016-12-29] MEDS: LISINOPRIL 20 MG TAB PO SCH (09:57)
--- NOTE | 2016-12-29 14:28 | DSES ---
DATE OF ADMISSION: 12/27/2016 DATE OF DISCHARGE: 12/29/2016 ATTENDING PHYSICIAN: Travon Parker MD PRIMARY CARE PHYSICIAN: Clarita Naik DO REFERRING PHYSICIAN: None. CONSULTING PHYSICIAN: None. CONDITION ON DISCHARGE: Stable. FINAL DIAGNOSES: 1. Abdominal pain possibly secondary cystitis, possibly secondary gastroenteritis or irritable bowel syndrome or gastritis. 2. Hyponatremia. PROCEDURES: None. HISTORY OF PRESENT ILLNESS: Patient is an 86-year-old female with a past medical history of lymphoplasmacytic lymphoma, atrial fibrillation on Xarelto, hemorrhoids, hypertension, irritable bowel syndrome, a recent history of urinary tract infection, and has not taken any antibiotics, who presented to the emergency room with suprapubic pain. She was admitted for cystitis, possible colitis and hyponatremia. HOSPITAL COURSE: 1. Abdominal pain possibly secondary cystitis, possibly secondary gastroenteritis or irritable bowel syndrome or gastritis. Patient has had improvement in her abdominal pain and dysuria. She has a history of longstanding diarrhea. Clinically she did not have any abdominal tenderness throughout her hospital course. Urinalysis was consistent with urinary tract infection. GI panel has been negative. There has been no elevation in her lactic acidosis. Blood cultures and urine cultures have been negative. CT abdomen on 12/19 revealed mild thickening of the rectosigmoid colon, possibly due to either distention, spasm or multifocal colitis. Thickened bladder suggestive of cystitis. Patient was put on level from admission. She is on day 3 of Levaquin. She was started on Protonix. Upon discharge, the patient is being discharged home on Levaquin to be taken for one additional day. Patient is to continue with Protonix for suspected gastritis. 2. Hyponatremia. Mild. Hypotonic, possibly secondary to syndrome of inappropriate secretion of antidiuretic hormone (SIADH). Sodium had worsened with IV fluids. IV fluids were stopped and the patient was subsequently started on sodium supplementation and water restriction and had a significant improvement in her sodium. Currently, upon discharge the patient's sodium has now normalized. 3. Normocytic anemia. Fecal occult blood test (FOBT) has been positive. Baseline hemoglobin appears to be 10. Hemoglobin has remained stable throughout hospital course. The patient is advised to have an outpatient colonoscopy, which has been discussed with the patient. The patient was reluctant to have this done, but she was advised to the risks and benefits. 4. Lymphoplasmacytic lymphoma. 5. Atrial fibrillation. Continue with amiodarone. Atenolol was held because of bradycardiac. Continue with Xarelto for anticoagulation. 6. Hemorrhoids. 7. Hypertension. Continue with lisinopril with hold parameters. 8. Irritable bowel syndrome. Not on any medication. 9. Gastrointestinal (GI) prophylaxis. Continue with Protonix. 10. Deep vein thrombosis (DVT) prophylaxis. She has been on full anticoagulation with Xarelto. DISCHARGE MEDICATIONS: Patient is being discharged home with the following medication list: - acetaminophen 650 mg by mouth every 4 hours as needed pain - amiodarone 200 mg by mouth daily - lisinopril 20 mg by mouth daily - polyethylene glycol one drop in each eye as needed for dry eyes - Xarelto 20 mg by mouth at bedtime Stopped medications include atenolol 25 mg by mouth daily, spironolactone 12.5 mg by mouth daily. New medications prescribed include levofloxacin 750 mg by mouth one time to be taken on December 30 and omeprazole 40 mg by mouth daily. DISCHARGE INSTRUCTIONS: The patient has been advised to followup with her primary care provider within the next seven days. She has been advised to remain compliant with treatment plan and medications, and return to the emergency room if she experiences any problems. Time spent on discharge is 35 minutes.
== END 2016-12-29 10:55 | disposition home or self-care (01) | DRG 690 ==
LOC: M ED 04:26 → M ED INP 08:18 → M PCU 15:55
PROVIDERS: ADMIT Internal Medicine; ATTEND Internal Medicine
DX: N30.00 Acute cystitis without hematuria (principal); E22.2 Syndrome of inappropriate secretion of antidiuretic hormone; C83.00 Small cell B-cell lymphoma, unspecified site; R10.31 Right lower quadrant pain; I48.91 Unspecified atrial fibrillation; K64.8 Other hemorrhoids; K58.0 Irritable bowel syndrome with diarrhea; D64.9 Anemia, unspecified; K29.70 Gastritis, unspecified, without bleeding; I10 Essential (primary) hypertension; Z88.0 Allergy status to penicillin; Z88.8 Allergy status to other drugs, medicaments and biological substances; Z91.040 Latex allergy status; Z79.01 Long term (current) use of anticoagulants; Z79.899 Other long term (current) drug therapy

== ENCOUNTER → 2017-01-09 | Outpatient (REF) | payer MEDICARE, MEDICAID ==
[~2017-01-09] MED LIST changes: +ACET-654 PO; +LEVO750T33 PO; +OMEP40CA2 PO
== END ==
LOC: M LAB REF 13:11
PROVIDERS: ATTEND Nurse Practitioner Family
DX: N39.0 Urinary tract infection, site not specified (principal)

== ENCOUNTER → 2017-02-16 | Outpatient (REF) | payer MEDICARE, MEDICAID ==
[2017-02-16 12:26] LABS: IMMUNOGLOBULIN A 35.8 MG/DL (70-400); IMMUNOGLOBULIN G 296 MG/DL (681-1648); IMMUNOGLOBULIN M 3400 MG/DL (40-230); TOTAL PROTEIN 8.2 GM/DL (6.4-8.2)
[2017-02-20 12:37] LABS: ALBUMIN % 40.2 % (55.8-66.1); GAMMA GLOBULIN % 3.9 % (11.1-18.8)
== END ==
LOC: M LAB REF 11:10
PROVIDERS: ATTEND Internal Medicine Medical Oncology
DX: C85.90 Non-Hodgkin lymphoma, unspecified, unspecified site (principal)

== ENCOUNTER → 2017-03-19 | Outpatient (CLI) | payer MEDICARE, MEDICAID ==
--- NOTE | 2017-03-20 02:12 | REP ---
Clinical: Age over relation. Technique: PA and lateral. Comparison: 05/15/2016. Findings: Mediastinum and cardiac silhouette are within normal limits. Lung brown demonstrate diffuse chronic interstitial changes suggesting COPD as well as possible fibrosis. No obvious acute consolidation, effusion, or pneumothorax. Skeletal structures demonstrate age-related osteopenia and degenerative changes. Impression: Diffuse chronic-appearing interstitial changes suggesting COPD and possible fibrosis. No obvious acute cardiopulmonary process. Signed by Gilmer Ornelas MD 03/20/2017 02:04 A
== END ==
LOC: M LAB 11:24
PROVIDERS: ATTEND Nurse Practitioner Family
DX: I48.0 Paroxysmal atrial fibrillation (principal); J44.9 Chronic obstructive pulmonary disease, unspecified

== ENCOUNTER 2017-04-01 20:43 | Emergency (ER) | payer MEDICARE, MEDICAID ==
[~2017-04-01] VITALS: Ht 165.1 cm; Wt 62.7 kg
[~2017-04-01 20:43] MED LIST changes: -ACET-654 PO; +ACET1TAB17 PO; +AMIO200T PO; -AMIO20TA PO; +CIPR-249 PO; -CIPR500T89 PO; +LEVO750T13 PO; -LEVO750T33 PO
[2017-04-01] MEDS ORDERED: OMEP20CA3 (21:05)
[2017-04-01] MEDS ORDERED: LISI10TA4 (21:05)
[2017-04-01] MEDS ORDERED: GI COCKTAIL 50ML BTL(HYOSCYAMINE/MAALOX/LIDOCAINE VISCOUS)(1:3:1) PO ONE (21:45)
[2017-04-01] MEDS ORDERED: ASPIRIN 81 MG CHEW TABLET PO ONE (21:45)
[2017-04-01 22:00] LABS: BASO # 0.1 K/mm3 (0.0-0.2); EOS # 0.1 K/mm3 (0.0-0.50); LARGE UNSTAINED CELL # 0.1 K/mm3 (0.0-0.4); LARGE UNSTAINED CELL % 1.1 % (0.0-4.0); LYMPH # 1.3 K/mm3 (1.5-4.5); LYMPH % 18.6 % (24.0-44.0); MEAN CORPUSCULAR VOLUME 84.7 fl (80.0-96.0); MONO # 0.8 K/mm3 (0.0-0.8); MONO % 11.7 % (0.0-5.0); NEUTROPHILS # 4.5 K/mm3 (1.8-7.7); NEUTROPHILS % 66.7 % (36.0-66.0); PLATELET COUNT, AUTOMATED 296 k/mm3 (150-450); RED CELL DISTRIBUTION WIDTH 14.1 % (11.5-14.5); WHITE BLOOD COUNT 6.7 K/mm3 (4.0-10.0)
[2017-04-01 22:04] LABS: INR 2.02
[2017-04-01 22:14] LABS: ANION GAP 8 MEQ/L (8-16); BLOOD UREA NITROGEN 20 MG/DL (7-18); CALCIUM LEVEL 9.2 MG/DL (8.8-10.2); CARBON DIOXIDE LEVEL 25 MEQ/L (21-32); CHLORIDE LEVEL 97 MEQ/L (98-107); CREATININE FOR GFR 0.92 MG/DL (0.55-1.02); GLOMERULAR FILTRATION RATE > 60.0 (>32); GLUCOSE, FASTING 114 MG/DL (83-110); POTASSIUM SERUM 3.8 MEQ/L (3.5-5.1); SODIUM LEVEL 130 MEQ/L (136-145)
[2017-04-02 02:08] VITALS: BP 128/58
--- NOTE | 2017-04-03 07:19 | ECGEPIP ---
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
--- NOTE | 2017-04-03 07:23 | ECGEPIP ---
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
== END 2017-04-02 04:30 | disposition home or self-care (01) ==
LOC: M ED 20:43
DX: R07.89 Other chest pain (principal); I48.91 Unspecified atrial fibrillation; I25.10 Atherosclerotic heart disease of native coronary artery without angina pectoris; K44.9 Diaphragmatic hernia without obstruction or gangrene; Z79.899 Other long term (current) drug therapy; Z79.01 Long term (current) use of anticoagulants

== ENCOUNTER 2017-05-12 16:05 | Emergency (ER) | payer MEDICARE, MEDICAID ==
[~2017-05-12] VITALS: Ht 167.6 cm; Wt 65.9 kg
[~2017-05-12 16:05] MED LIST changes: +LISI10TA4; +OMEP20CA3
[2017-05-12 18:12] VITALS: BP 139/62
[2017-05-12] MEDS ORDERED: ACETAMINOPHEN TAB 650MG DOSE (2X325MG) PO ONE (18:15)
--- NOTE | 2017-05-13 07:47 | REP ---
AP pelvis: One-view No pelvic fractures identified. The sacroiliac articulations and hip articulations are unremarkable. A pessary is incidentally noted. Impression: No pelvic fracture. Signed by Eric Simpson MD 05/13/2017 07:39 A
--- NOTE | 2017-05-13 07:48 | REP ---
Left hip two views: There is no fracture or dislocation. Mineralization is unremarkable. Patient age. The joint space is unremarkable. There is a degenerative calcification inferior to the left ischium. Impression: Essentially negative left hip. Signed by Eric Simpson MD 05/13/2017 07:40 A
== END 2017-05-12 18:19 | disposition home or self-care (01) ==
LOC: M ED 16:05
DX: R10.2 Pelvic and perineal pain (principal); W19.XXXA Unspecified fall, initial encounter; Y92.099 Unspecified place in other non-institutional residence as the place of occurrence of the external cause; Y93.9 Activity, unspecified; Y99.9 Unspecified external cause status; I48.91 Unspecified atrial fibrillation; K44.9 Diaphragmatic hernia without obstruction or gangrene; K58.9 Irritable bowel syndrome, unspecified; Z79.899 Other long term (current) drug therapy; Z91.040 Latex allergy status; Z88.8 Allergy status to other drugs, medicaments and biological substances; Z88.0 Allergy status to penicillin

== ENCOUNTER 2017-05-16 10:17 | Emergency (ER) | payer MEDICARE, MEDICAID ==
[~2017-05-16] VITALS: Ht 167.6 cm; Wt 61.4 kg
[2017-05-16 10:17] VITALS: BP 160/71
[2017-05-16] MEDS ORDERED: TYLE325T5 PO (10:30)
[2017-05-16 11:22] LABS: CALCIUM OXALATE CRYSTALS SMALL
[2017-05-16] MEDS ORDERED: LEVA1TAB PO (11:32)
== END 2017-05-16 11:48 | disposition home or self-care (01) ==
LOC: M ED 11:32
DX: N30.00 Acute cystitis without hematuria (principal); G89.29 Other chronic pain; M54.5 Low back pain; I10 Essential (primary) hypertension; K21.9 Gastro-esophageal reflux disease without esophagitis; K58.0 Irritable bowel syndrome with diarrhea; K44.9 Diaphragmatic hernia without obstruction or gangrene; D47.2 Monoclonal gammopathy; Z90.49 Acquired absence of other specified parts of digestive tract; Z90.89 Acquired absence of other organs; Z79.899 Other long term (current) drug therapy; Z88.0 Allergy status to penicillin; Z88.8 Allergy status to other drugs, medicaments and biological substances; Z91.040 Latex allergy status

== ENCOUNTER → 2017-05-25 | Outpatient (REF) | payer MEDICARE, MEDICAID ==
[~2017-05-25] MED LIST changes: +LEVA1TAB PO
== END ==
LOC: M LAB REF 12:20
PROVIDERS: ATTEND Nurse Practitioner Family
DX: N39.0 Urinary tract infection, site not specified (principal)

== ENCOUNTER → 2017-06-11 | Outpatient (REF) | payer MEDICARE, MEDICAID ==
[2017-06-11 19:16] LABS: IMMUNOGLOBULIN A 41.1 MG/DL (70-400); IMMUNOGLOBULIN G 270 MG/DL (681-1648); IMMUNOGLOBULIN M 2370 MG/DL (40-230); TOTAL PROTEIN 7.3 GM/DL (6.4-8.2)
[2017-06-14 09:24] LABS: ALBUMIN 3.15 GM/DL (3.29-5.55); ALBUMIN % 43.1 % (55.8-66.1); GAMMA GLOBULIN % 2.4 % (11.1-18.8)
[2017-06-16 14:12] LABS: FREE KAPPA LIGHT CHAINS SERUM 7.3 mg/L (3.3-19.4); FREE LAMBDA LIGHT CHAINS SERUM 29.7 mg/L (5.7-26.3); KAPPA/LAMBDA RATIO SERUM 0.25 (0.26-1.65)
== END ==
LOC: M LAB REF 16:41
PROVIDERS: ATTEND Internal Medicine Medical Oncology
DX: C85.90 Non-Hodgkin lymphoma, unspecified, unspecified site (principal)

== ENCOUNTER 2017-08-27 07:42 | Inpatient (IN) | payer MEDICARE, MEDICAID ==
[~2017-08-27] VITALS: Ht 167.6 cm; Wt 61.3 kg
[2017-08-27] VITALS (11 sets, daily range): BP systolic 129–144; BP diastolic 58–66
[2017-08-27] MEDS ORDERED: NS 1,000 ML IV SCH (08:03)
[2017-08-27 08:47] LABS: BASO # 0.1 10^3/uL (0.0-0.2); BASO % 0.8 % (0.0-1.0); EOS # 0.2 10^3/uL (0.0-0.50); IMMATURE GRANULOCYTE % 0.5 % (0-0); LYMPH # 0.9 10^3/uL (1.5-4.5); LYMPH % 11.8 % (24.0-44.0); MEAN CORPUSCULAR HEMOGLOBIN 23.4 pg (27.0-33.0); MEAN CORPUSCULAR HGB CONC 30.8 g/dl (32.0-36.5); MEAN CORPUSCULAR VOLUME 75.9 fl (80.0-96.0); MONO # 0.8 10^3/uL (0.0-0.8); MONO % 9.8 % (0.0-5.0); NEUTROPHILS % 75.1 % (36.0-66.0); PLATELET COUNT, AUTOMATED 394 10^3/uL (150-450); RED CELL DISTRIBUTION WIDTH 15.6 % (11.5-14.5)
--- NOTE | 2017-08-27 09:08 | REP ---
Clinical: Chest and abdominal pain. Technique: PA and lateral. Comparison: 03/19/2017. Findings: Mediastinum and cardiac silhouette are within normal limits and stable. The lung brown demonstrate diffuse chronic fibrosis and interstitial changes. No obvious acute consolidation, effusion, or pneumothorax. No free air below the diaphragm. Skeletal structures demonstrate age-related degenerative changes. Impression: Chronic stable fibrosis and interstitial changes. No acute cardiopulmonary process identified. Signed by Gilmer Ornelas MD 08/27/2017 08:59 A
[2017-08-27 09:11] LABS: INR 4.86
[2017-08-27 09:14] LABS: ALBUMIN 2.3 GM/DL (3.2-5.2); ALBUMIN/GLOBULIN RATIO 0.59 (1.00-1.93); ALKALINE PHOSPHATASE 160 U/L (45-117); ALT/SGPT 25 U/L (12-78); ANION GAP 7 MEQ/L (8-16); AST/SGOT 22 U/L (7-37); BILIRUBIN,DIRECT 0.1 MG/DL (0.0-0.2); BILIRUBIN,TOTAL 0.3 MG/DL (0.2-1.0); BLOOD UREA NITROGEN 18 MG/DL (7-18); CALCIUM LEVEL 8.4 MG/DL (8.8-10.2); CARBON DIOXIDE LEVEL 30 MEQ/L (21-32); CHLORIDE LEVEL 104 MEQ/L (98-107); CREATININE FOR GFR 0.81 MG/DL (0.55-1.02); GLOMERULAR FILTRATION RATE > 60.0 (>32); GLUCOSE, FASTING 119 MG/DL (83-110); POTASSIUM SERUM 3.4 MEQ/L (3.5-5.1); SODIUM LEVEL 141 MEQ/L (136-145); TOTAL PROTEIN 6.2 GM/DL (6.4-8.2)
[2017-08-27] MEDS ORDERED: OMEP40CA2 PO (09:22)
[2017-08-27] MEDS ORDERED: TORS20TA2 PO (09:22)
[2017-08-27] MEDS ORDERED: DICY1CAP8 PO (09:22)
--- NOTE | 2017-08-27 09:28 | ECGEPIP ---
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
[2017-08-27] MEDS ORDERED: ISOVUE-370 76% 100ML VIAL (Q9967) As Ordered ONE (09:39)
[2017-08-27] MEDS: PANTOPRAZOLE 40MG INJ (PROTONIX) (C9113) IV SCH (10:57)
[2017-08-27] MEDS: NS 1,000 ML IV SCH ×2 (10:58→21:00)
[2017-08-27] MEDS ORDERED: POTASSIUM CHLORIDE 10 MEQ SR TABLET PO ONE (11:00)
--- NOTE | 2017-08-27 11:09 | REP ---
Clinical: Abdominal pain with gastrointestinal bleeding. Technique: Axial contrast enhanced images from the lung bases to the pubic symphysis using oral (per protocol) and 100 ml Isovue 370 intravenous contrast material with coronal and sagittal re-formations. Comparison: 12/20/2016. Findings: Lung bases demonstrate chronic interstitial changes and fibrosis/scarring along with bronchiectasis. Right lower lobe mass density measuring 2 cm identified. Liver, spleen, pancreas, bilateral adrenal glands and kidneys are relatively normal and essentially stable - hepatic and bilateral renal cysts are again noted and unchanged. The enteric system is without obstruction. Moderate to significant fecal stasis and possible constipation is appreciated along with mural thickening and pericolonic stranding involving the descending and sigmoid colon suggesting infectious/inflammatory colitis. No definite free fluid. No free air. No obvious adenopathy. Acute/subacute fractures involving the left pubic rami and pubic symphysis are identified. Remainder of the skeletal structures demonstrate advanced degenerative changes. Impression: 1. Acute colitis involving the descending and sigmoid colon. No associated bowel perforation, free fluid, drainable collection/abscess, or obstruction. 2. Acute and/or subacute fractures involving the left pubic symphysis and pubic rami. 3. Further chronic stable changes as above. Signed by Gilmer Ornelas MD 08/27/2017 11:01 A
[2017-08-27] MEDS ORDERED: MAGNESIUM CITRATE 300 ML BTL PO ONE (11:30)
--- NOTE | 2017-08-27 11:51 | CR ---
DATE OF CONSULTATION: 08/27/2017 REASON FOR CONSULTATION: Bright red blood per rectum. HISTORY OF PRESENT ILLNESS: The patient is an 87-year-old female who presents to the emergency room on 08/27 with a complaint of bright red blood filling up the toilet. She has had history of bright red blood in her stool mainly when she wipes for many years. This has always been due to large hemorrhoids. She has been dealing with this bright red blood when she wipes at least once a week but not every day for many years. This morning, however, she did have a large volume of bright red blood that filled the toilet. No other symptoms but she came into the ER for evaluation. She denies any abdominal pain. No fevers, sweats or chills. No nausea, vomiting. She has had diarrhea for awhile but it has been brown without any blood in it. She does have a history of irritable bowel syndrome (IBS), however, no history of colonoscopy in the past. No vomiting or coughing up any blood. No history of any blood transfusions needed in the past. No family history of colon cancer or colon diseases. She does state that because of the diarrhea that she has had recently, she assumes that she has lost at least 40 pounds over the last 6 months without any change in activity or diet. PAST MEDICAL HISTORY: Lymphoplasmacytic lymphoma. Atrial fibrillation. Hemorrhoids. Hypertension. Irritable bowel syndrome. Urinary tract infections (UTI)s. PAST SURGICAL HISTORY: Appendectomy. Cholecystectomy. SOCIAL HISTORY: Denies drug, alcohol, tobacco abuse. FAMILY HISTORY: Noncontributory. ALLERGIES: LATEX, NITROFURANTOIN, NITROGLYCERINE, PENICILLIN, PENICILLIN CROSS REACTORS. HOME MEDICATIONS: Please see medical record including Xarelto. REVIEW OF SYSTEMS: Pertinent and positives as stated in history of present illness. PHYSICAL EXAMINATION: General: Patient alert and oriented times three. No acute distress. Vitals: Temperature 97, pulse 71, respirations 18, blood pressure 136/63, pulse oximetry 100% room air. HEENT: Pupils equal, round and react to light and accommodation. Heart: S1, S2, regular rate and rhythm. Lungs: Clear to auscultation bilaterally. Abdomen: Soft, nontender, nondistended. There is a large palpable mass in the right side of the abdomen that was concerning for possible cancer given her history but she has no pain with this. Extremities: No clubbing, cyanosis or edema. LABORATORY DATA: White count 8, hemoglobin 6.1, platelets 394. Potassium 3.4, lactic acid 1.1, INR 4.86. IMAGING STUDIES: CT abdomen and pelvis shows moderate to significant fecal stasis with possible constipation along with mural thickening and pericolonic stranding involving the descending and sigmoid colon suggesting infectious versus inflammatory colitis. No signs of any free air. No obvious adenopathy. ASSESSMENT/PLAN: The patient is an 87-year-old female with bright red blood per rectum likely secondary to infectious versus inflammatory colitis versus colon cancer versus large bleeding hemorrhoids. There is still concern for this large mass that is palpable in her abdomen. However, that may be due to constipation that is identified on CT scan. Recommendation at this time is to treat medically with transfusion of frozen plasma as well as blood cells. Will monitor her labs closely. Will reverse her anticoagulation, keep her on deep venous thrombosis (DVT) and gastrointestinal (GI) prophylaxis and give her some laxatives to try and flush out some of this constipation to see of that changes her physical exam of the abdomen. Also will check a CEA level for baseline. The patient has never had a colonoscopy previously and does not seemed very interested in having one currently. If CEA level is normal and the bleeding stops on its own and the palpable mass in the abdomen resolves, then I will allow her to get out of the hospital without it and think about it again as an outpatient. However, if she continues to bleed or if this mass does not improve with laxatives, then I will highly recommend colonoscopy prior to discharge.
[2017-08-27] MEDS ORDERED: POLYVINYL ALCOHOL OPHTH SOLN 15 ML(LIQUITEARS) OU PRN (12:00)
[2017-08-27] MEDS ORDERED: ACETAMINOPHEN TAB 650MG DOSE (2X325MG) PO PRN (12:15)
--- NOTE | 2017-08-27 17:21 | HPEPDOC ---
General Date of Admission Aug 27, 2017 at 12:14 Chief Complaint The patient is a 87-year-old female Presented to the ER with complaints of bright red bleeding per rectum History of Present Illness Patient is an 87 year old female with a PMHx of Atrial fibrillation ( on Xarelto), HTN, IBS, Hemorroids and Lymphoplasmacytic lymphoma presented to the ER with complaints of bright red bleeding per rectum. Patient noted that she began to experience symptoms this morning. She noted that she had 1 bowel movement that was bright red and fill the entire toilet bowl with blood. She notes that shes been having loose stools for quite a long time and possibly the stools have been darker in color. She denies any rectal pain. Denies any abdominal pain. Denies any nausea or vomiting. Patient denies any chest pain, palpitations or shortness of breath. However, she does report lightheadedness and dizziness. She notes that she has not lost any consciousness. Patient has never had a colonoscopy or EGD done in the past she has refused than on prior requests. Patient does report a weight loss of about 40-50 pounds over 1 year duration. She specifically notes that her appearance is skin and bones only. Patient has also noted a poor appetite She denies any cough or fever, chills. Denies any focal weakness or any sensory deficits. Denies any dysuria. Home Medications Scheduled Amiodarone HCl (Amiodarone HCl) 200 Mg Tab, 200 MG PO QHS, (Reported) Lisinopril (Lisinopril) 20 Mg Tab, 20 MG PO ASDIRECTED, (Reported) PT ONLY TAKES ONCE IN A WHILE- SHE STATES IT MAKES HER DIZZY Omeprazole (Omeprazole) 40 Mg Cap, 40 MG PO DAILY, (Reported) Rivaroxaban (Xarelto) 20 Mg Tab, 20 MG PO QHS, (Reported) Torsemide (Torsemide) 20 Mg Tab, 20 MG PO Q2D, (Reported) Scheduled PRN Acetaminophen (Tylenol) 325 Mg Tab, 650 MG PO Q4H PRN for pain, (Reported) Dicyclomine HCl (Dicyclomine HCl) 10 Mg Cap, 10 MG PO TID PRN for GAS PAIN, ( Reported) Polyethylene Glycol (Systane 0.4-0.3 %) 15 Ml Elisabeth, 1 DROP OU PRN PRN for DRY EYES, (Reported) Allergies Coded Allergies: Penicillins (Verified Allergy, Intermediate, RASH, 05/16/17) Penicillins Cross Reactors (Verified Allergy, Intermediate, RASH, 05/16/17) Latex (Verified Allergy, Mild, REDNESS AND ITCHING FROM SOCKS AND UNDERWEAR, 05/16/17) Nitroglycerin (Verified Adverse Reaction, Intermediate, PT REFUSES- CAUSES EXTREME ANXIETY, FEELING OF DOOM, INC BP, 05/16/17) Nitrofurantoin (Verified Adverse Reaction, Mild, VOMITING, DIARRHEA, ) Past Medical History Medical History Atrial fibrillation (on Xarelto) HTN 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 Review of Symptoms Other systems 10 point review of systems negative otherwise stated in HPI Vital Signs - Vitals: BP 116/56, HR 64, RR 18, Sat 96%RA, Temp 97.0F - General: Lying in bed, No acute distress, Speaking in full sentences, AAOx3 - HEENT: NC, AT, PERRLA, EOMI - CVS: IrIr, +S1S2 - Lungs: Fair air entry bilaterally, Clear to auscultation, No wheezing / rales / rhonchi - Abdomen: Soft, Non-distended, Non-tender - Extremities: No lower extremity edema, No calf tenderness - Neuro: No focal motor or sensory deficit - Skin: No visible rashes Laboratory Data Labs 24H Laboratory Tests 2 08/27/17 08:34: Immature Granulocyte % (Auto) 0.5H, White Blood Count 8.0, Red Blood Count 2.61L , Hemoglobin 6.1*L, Hematocrit 19.8L, Mean Corpuscular Volume 75.9L, Mean Corpuscular Hemoglobin 23.4L, Mean Corpuscular Hemoglobin Concent 30.8L, Red Cell Distribution Width 15.6H, Platelet Count 394, Neutrophils (%) (Auto) 75.1H , Lymphocytes (%) (Auto) 11.8L, Monocytes (%) (Auto) 9.8H, Eosinophils (%) (Auto ) 2.0, Basophils (%) (Auto) 0.8, Neutrophils # (Auto) 6.0, Lymphocytes # (Auto) 0.9L, Monocytes # (Auto) 0.8, Eosinophils # (Auto) 0.2, Basophils # (Auto) 0.1, Immature Granulocyte # (Auto) 0.0, Nucleated Red Blood Cells % (auto) 0.0, Prothrombin Time 48.1H, Prothromb Time International Ratio 4.86, Activated Partial Thromboplast Time 37.7, Anion Gap 7L, Glomerular Filtration Rate > 60.0 , Lactic Acid Level 1.1, Calcium Level 8.4L, Aspartate Amino Transf (AST/SGOT) 22, Alanine Aminotransferase (ALT/SGPT) 25, Alkaline Phosphatase 160H, Total Bilirubin 0.3, Direct Bilirubin 0.1, Total Creatine Kinase 25L, Creatine Kinase MB 1.0, Creatine Kinase MB Relative Index 4.00, Troponin I 0.02, Total Protein 6.2L, Albumin 2.3L, Albumin/Globulin Ratio 0.59L, Lipase 79 08/27/17 09:24: Urine Appearance CLEAR, Urine Color YELLOW, Urine pH 5.0, Urine Specific [place] 1.020, Urine Protein NEGATIVE, Urine Glucose (UA) NEGATIVE, Urine Ketones NEGATIVE, Urine Urobilinogen 0.2, Urine Bilirubin NEGATIVE, Urine Leukocyte Esterase TRACEH, Urine Blood 2+H, Urine Nitrite NEGATIVE, Urine WBC ( Auto) 4H, Urine RBC (Auto) 3, Urine Hyaline Casts (Auto) 0, Urine Bacteria (Auto ) NEGATIVE, Urine Squamous Epithelial Cells 1, Urine Mucus (Auto) SMALL, Urine Sperm (Auto) 08/27/17 11:49: 08/27/17 14:09: Total Creatine Kinase 23L, Creatine Kinase MB 1.0, Creatine Kinase MB Relative Index 4.34H, Troponin I 0.02 CBC/BMP Laboratory Tests 08/27/17 08:34 Red Blood Count 2.61 L, Mean Corpuscular Volume 75.9 L, Mean Corpuscular Hemoglobin 23.4 L, Mean Corpuscular Hemoglobin Concent 30.8 L, Red Cell Distribution Width 15.6 H, Neutrophils (%) (Auto) 75.1 H, Lymphocytes (%) (Auto ) 11.8 L, Monocytes (%) (Auto) 9.8 H, Eosinophils (%) (Auto) 2.0, Basophils (%) (Auto) 0.8, Neutrophils # (Auto) 6.0, Lymphocytes # (Auto) 0.9 L, Monocytes # ( Auto) 0.8, Eosinophils # (Auto) 0.2, Basophils # (Auto) 0.1 Microbiology Microbiology 08/27/17 Blood Culture, Received Pending 08/27/17 Blood Culture, Received Pending 08/27/17 Urine Culture, Received Pending Plan / VTE VTE Prophylaxis Ordered?: Yes Plan Plan Bright red bleeding per rectum - likely 2/2 lower GI bleed and extrinsic anticoagulant (Xarelto) - Presented to the ER after she experience bright red bleeding per rectum this morning - She did note experiencing lightheadedness over the last few weeks - Physical without any pertinent findings; remains hemodynamically stable - Hemoglobin of 6.1 on admission - Baseline hemoglobin of approximately 10 - Will transfuse 4 units of PRBC and 2 units of FFP - Will discontinue the use of Xarelto - Case has been discussed with Dr. Keller (Surgery); on consult for possible colonoscopy - Will re-evaluate post transfusion CBC Hypokalemia - Will supplement Lymphoplasmacytic lymphoma Atrial fibrillation - will c/w Amiodarone alone - Will hold anticoagulation with Xarelto giving GI bleed Hemorrhoids HTN -Will hold Lisinopril given bleeding episode Irritable bowel syndrome - not on any medications Gastrointestinal prophylaxis - Will start protonix IV DVT prophylaxis - c/w SCDs for now - We will consider starting subcutaneous heparin when hemoglobin is stable CHAZ ROGERS MD Aug 27, 2017 17:21
[2017-08-27] MEDS: AMIODARONE 200 MG TAB (PACERONE) PO SCH (22:11)
[2017-08-28] VITALS (9 sets, daily range): BP systolic 118–145; BP diastolic 56–65
[2017-08-28 05:41] LABS: BASO # 0.1 10^3/uL (0.0-0.2); BASO % 0.9 % (0.0-1.0); EOS # 0.1 10^3/uL (0.0-0.50); EOS % 1.4 % (0.0-3.0); IMMATURE GRANULOCYTE % 0.5 % (0-0); LYMPH # 1.1 10^3/uL (1.5-4.5); LYMPH % 13.3 % (24.0-44.0); MEAN CORPUSCULAR HEMOGLOBIN 26.7 pg (27.0-33.0); MEAN CORPUSCULAR HGB CONC 33.3 g/dl (32.0-36.5); MEAN CORPUSCULAR VOLUME 80.1 fl (80.0-96.0); MONO % 12.6 % (0.0-5.0); NEUTROPHILS # 5.7 10^3/uL (1.8-7.7); NEUTROPHILS % 71.3 % (36.0-66.0); PLATELET COUNT, AUTOMATED 297 10^3/uL (150-450); RED CELL DISTRIBUTION WIDTH 15.9 % (11.5-14.5)
[2017-08-28] MEDS: NS 1,000 ML IV SCH ×2 (05:53→14:33)
[2017-08-28 06:05] LABS: ALBUMIN 2.2 GM/DL (3.2-5.2); ALBUMIN/GLOBULIN RATIO 0.55 (1.00-1.93); ALKALINE PHOSPHATASE 145 U/L (45-117); ALT/SGPT 34 U/L (12-78); ANION GAP 8 MEQ/L (8-16); AST/SGOT 33 U/L (7-37); BILIRUBIN,TOTAL 0.8 MG/DL (0.2-1.0); BLOOD UREA NITROGEN 13 MG/DL (7-18); CALCIUM LEVEL 8.7 MG/DL (8.8-10.2); CARBON DIOXIDE LEVEL 25 MEQ/L (21-32); CHLORIDE LEVEL 108 MEQ/L (98-107); CREATININE FOR GFR 0.67 MG/DL (0.55-1.02); GLOMERULAR FILTRATION RATE > 60.0 (>32); GLUCOSE, FASTING 80 MG/DL (83-110); MAGNESIUM LEVEL 1.9 MG/DL (1.8-2.4); POTASSIUM SERUM 3.9 MEQ/L (3.5-5.1); SODIUM LEVEL 141 MEQ/L (136-145); TOTAL PROTEIN 6.2 GM/DL (6.4-8.2)
[2017-08-28] MEDS: PANTOPRAZOLE 40MG INJ (PROTONIX) (C9113) IV SCH (08:10)
[2017-08-28 08:19] LABS: INR 2.22
[2017-08-28] MEDS ORDERED: MAGNESIUM CITRATE 300 ML BTL PO ONE (10:00)
--- NOTE | 2017-08-28 19:49 | IPN ---
DATE: 08/28/2017 SUBJECTIVE: Today, the patient tells me that she is feeling quite well. She denies any abdominal pain. She denies fevers, chills, chest pain, shortness of breath. She denies any bleeding in her stool and has no complaints whatsoever. She tells me that she is feeling closer to normal. OBJECTIVE: VITAL SIGNS: Temperature 99.3, pulse 54, respiratory rate 20, blood pressure 133/61, oxygen saturation 97% on room air. GENERAL: She is a very pleasant, elderly, female, laying flat in bed. She does not appear to be in any acute distress. HEENT: Cranial nerves II-XII are grossly intact. She appears mildly pale. She has moist mucous membranes. No elevation in central venous pressure (CVP). CARDIOVASCULAR EXAM: S1, S1, regular. RESPIRATORY EXAM: Clear. ABDOMINAL EXAM: Benign. EXTREMITIES: No clubbing, cyanosis, or edema. LABORATORY STUDIES: WBC 8.0, hemoglobin 9.0, up from 6.1, hematocrit 27, platelet count 297. Chemistry panel: Sodium 141, potassium 3.9, chloride 108, bicarbonate 25, BUN 13, creatinine 0.6. CEA is within normal limits. Lipase within normal limits. INR is 2.2. Microbiology: Blood cultures are negative. Urine culture is negative. The patient received 4 units of packed red blood cells (PRBCs) and 2 units of fresh frozen plasma (FFP). The patient had a CT scan of the abdomen and pelvis yesterday which revealed acute colitis involving the descending and sigmoid colon. No associated bowel perforation. Acute and/or subacute fracture involving the left pubic symphysis and pubic rami. Further chronic changes as outlined above in the radiology report. ASSESSMENT AND PLAN: This is an 87-year-old female with bright red blood per rectum. 1. Bright red blood per rectum and acute blood loss anemia. The patient has improved status post transfusion. Her bleeding has spontaneous stopped. Likely related to the Xarelto. For the time being, we will discontinue Xarelto. I advised her not to take this and to followup with her academic advisor, Dr. Hawkins, within the next several weeks to discuss possibly restarting it or alternative agents as well as the need for anticoagulation in the future given her significant bleed. Dr. Keller's help has been greatly appreciated. The patient has adamantly refused any colonoscopy. Should she have any recurrence, consider revisiting this on the outpatient setting. 2. Constipation. The patient did have some worsening constipation. She has received an aggressive bowel regimen by Dr. Keller. She has had several bowel movements and does appear to be improved. 3. Hypokalemia, resolved. 4. Atrial fibrillation. She is rate controlled with amiodarone. Her anticoagulation is on hold. 5. Monoclonal gammopathy of undetermined significance (MGUS). Outpatient management as per Dr. Mccauley. Does not appear to be playing an acute role in her current presentation. 6. Hemorrhoids. Unlikely the source of such significant bright red blood rebleeding. 7. Hypertension. Her lisinopril is currently on hold. She is normotensive. Can consider restarting upon discharge. 8. Irritable bowel syndrome. She is not on any medications. However, she did receive some laxatives as outlined above. 9. Pubic rami fracture, questionable. We will have the patient work with physical therapy. No operative intervention needed for these as she does not appear to be in any significant pain whatsoever. DISPOSITION: I suspect she can be discharged home as early as tomorrow. Her diet is being advanced today.
[2017-08-28] MEDS: AMIODARONE 200 MG TAB (PACERONE) PO SCH (21:05)
[2017-08-29] MEDS: NS 1,000 ML IV SCH ×2 (04:10→13:00)
[2017-08-29 06:00] VITALS: BP 129/60
[2017-08-29 06:54] LABS: ALBUMIN 2.1 GM/DL (3.2-5.2); ALBUMIN/GLOBULIN RATIO 0.54 (1.00-1.93); ALKALINE PHOSPHATASE 142 U/L (45-117); ALT/SGPT 32 U/L (12-78); ANION GAP 8 MEQ/L (8-16); AST/SGOT 27 U/L (7-37); BILIRUBIN,TOTAL 0.7 MG/DL (0.2-1.0); BLOOD UREA NITROGEN 11 MG/DL (7-18); CALCIUM LEVEL 8.2 MG/DL (8.8-10.2); CARBON DIOXIDE LEVEL 24 MEQ/L (21-32); CHLORIDE LEVEL 109 MEQ/L (98-107); CREATININE FOR GFR 0.64 MG/DL (0.55-1.02); GLOMERULAR FILTRATION RATE > 60.0 (>32); GLUCOSE, FASTING 83 MG/DL (83-110); POTASSIUM SERUM 3.9 MEQ/L (3.5-5.1); SODIUM LEVEL 141 MEQ/L (136-145)
[2017-08-29 07:09] LABS: BASO # 0.1 10^3/uL (0.0-0.2); BASO % 0.7 % (0.0-1.0); EOS # 0.1 10^3/uL (0.0-0.50); EOS % 1.2 % (0.0-3.0); IMMATURE GRANULOCYTE % 0.3 % (0-0); LYMPH % 11.2 % (24.0-44.0); MEAN CORPUSCULAR HGB CONC 32.2 g/dl (32.0-36.5); MEAN CORPUSCULAR VOLUME 80.7 fl (80.0-96.0); MONO # 1.1 10^3/uL (0.0-0.8); MONO % 12.1 % (0.0-5.0); NEUTROPHILS # 6.6 10^3/uL (1.8-7.7); NEUTROPHILS % 74.5 % (36.0-66.0); PLATELET COUNT, AUTOMATED 303 10^3/uL (150-450); RED CELL DISTRIBUTION WIDTH 16.8 % (11.5-14.5); WHITE BLOOD COUNT 8.9 10^3/uL (4.0-10.0)
[2017-08-29] MEDS: PANTOPRAZOLE 40MG INJ (PROTONIX) (C9113) IV SCH (10:19)
[2017-08-29 14:00] VITALS: BP 105/55
--- NOTE | 2017-08-29 22:11 | DSES ---
DATE OF ADMISSION: 08/27/2017 DATE OF DISCHARGE: 08/29/2017 DISCHARGE DIAGNOSIS: Gastrointestinal bleed. SECONDARY DIAGNOSES: 1. Constipation. 2. Hypokalemia. 3. Atrial fibrillation. 4. Monoclonal gammopathy of undetermined significance. 5. Hemorrhoids. 6. Hypertension. 7. Irritable bowel syndrome. CONSULTATIONS: Dr. Keller, general surgery. HOSPITAL COURSE: The patient is an 87-year-old female who presented with bright red blood per rectum. She is known to be on Xarelto related to atrial fibrillation. She said she has noticed blood when wiping for years. This is due to large hemorrhoids; however, she had a large volume of bright red blood that filled the toilet recently, which prompted her to come to the emergency room. She never had a blood transfusion in the past. She also had recent weight loss. She was admitted to the medical/surgical service, monitoring closely. Xarelto was stopped. She did have a supratherapeutic INR. She received 2 units of fresh frozen plasma (FFP) and 4 units of packed red blood cells (PRBC), and her hemoglobin and hematocrit remained stable. Her symptoms resolved. She did have regular bowel movements, and she declined colonoscopy offers and is medically stable for discharge. SUBJECTIVE: Today the patient is feeling well. She feels back to normal. She has no complaints whatsoever. OBJECTIVE: VITAL SIGNS: Temperature 100.2, pulse 69, respiratory rate 18, blood pressure (BP) 129/60, oxygen saturation 97% on room air. GENERAL: She is a very pleasant, elderly female sitting up in bed. Does not appear to be in any acute distress. She denies any cough, dysuria, change in bowel or bladder habits, fevers, chills, shortness of breath, nausea , vomiting, or diarrhea. HEENT: Cranial nerves II-XII are grossly intact. She has moist mucous membranes. No elevation in central venous pressure (CVP). CARDIOVASCULAR: S1, S2, regular. RESPIRATORY: Clear. ABDOMEN: Benign. EXTREMITIES: No clubbing, cyanosis, or edema. LABORATORY STUDIES: WBC 8.9, hemoglobin 8.9, stable from yesterday, hematocrit 80.7, platelet count 303. Chemistry panel: Sodium 141, potassium 3.9, chloride 109, bicarbonate 24, BUN 11, creatinine 0.6. She had multiple sets of cardiac enzymes, which were negative. Lipase was within normal limits. CEA was unremarkable. Microbiology: Blood culture was negative for 48 hours. Urine cultures were negative. An occult stool for blood was positive. IMAGING: She had a CT scan of the abdomen and pelvis, which revealed acute colitis involving descending and sigmoid colon. No associated bowel perforation, free fluid, drainable collection, or abscess or obstruction. Acute or subacute fractures involving left pubic symphysis and pubic rami. ASSESSMENT AND PLAN: This is an 87-year-old female with resolved bright red blood per rectum. 1. Bright red blood per rectum and acute blood loss anemia, likely related to Xarelto use. She is improved with transfusion and cessation of this medication. I advised her not to resume taking Xarelto until followup with her loom fixer apprentice, Dr. Hawkins. Dr. Keller's help is greatly appreciated. The patient has adamantly refused colonoscopy on multiple occasions when speaking with myself. She is aware of the risk for potential colon cancer given her history of weight loss and her abnormal abdominal exam findings and gastrointestinal (GI) bleeding. She is aware of this and states that she has lived a long, good life, and if there is cancer there she does not want to know about it or receive treatment for it. I have had this conversation with her on multiple occasions during this stay. 2. Constipation. She did improve with laxative use. 3. Hypokalemia, resolved. 4. Atrial fibrillation. She is rate controlled by amiodarone. Her anticoagulation is on hold as outlined above. 5. Monoclonal gammopathy of undetermined significance (MGUS). Outpatient management as per Dr. Mccauley. 6. Hemorrhoids. Unlikely such a significant source of bright red blood per rectum. She is to using Preparation-H and use gently with care in the near future. 7. Hypertension. Will resume her lisinopril and the time of discharge. 8. Irritable bowel syndrome. She received some laxatives while here. 9. Subacute pubic rami fractures. She does not recall any fractures. She was cleared by physical therapy. Did not have pain or any symptoms suggestive of this, and likely she has suffered a minor fracture in the past. She does not recall. DISPOSITION: The patient is being discharged home She is independent with her activities of daily living (ADLs). She has been cleared by physical therapy. She is to followup with Dr. Keller as needed, with Dr. Hawkins within 2 weeks, and her primary care physician (PCP) within 7 days. Her activity and diet are as prior to admission. She is to told her anticoagulation until followup with Dr. Hawkins and return to the ER if her symptoms worsen. DISCHARGE MEDICATIONS: - Tylenol 650 every 4 hours as needed for pain - amiodarone 200 mg at bedtime - dicyclomine 10 mg three times a day as needed for gas pain - lisinopril 20 mg. Is to be taken as directed. - omeprazole 40 mg daily - Systane eye drops each eye as needed for dry eyes - torsemide 20 mg every 2 days Greater than 30 minutes spent organizing disposition.
== END 2017-08-29 14:40 | disposition home or self-care (01) | DRG 813 ==
LOC: M ED 07:42 → M ED INP 12:14 → M PCU 16:13 → M MSPAV 08-28 17:33
PROVIDERS: ADMIT Internal Medicine; ATTEND Internal Medicine
PROC: 30253N1 (ICD-10-PCS; principal; 2017-08-27)
PROC: 30253K1 (ICD-10-PCS; 2017-08-27)
DX: D68.32 Hemorrhagic disorder due to extrinsic circulating anticoagulants (principal); C83.00 Small cell B-cell lymphoma, unspecified site; D62 Acute posthemorrhagic anemia; K92.2 Gastrointestinal hemorrhage, unspecified; I48.91 Unspecified atrial fibrillation; I10 Essential (primary) hypertension; K58.2 Mixed irritable bowel syndrome; D47.2 Monoclonal gammopathy; E87.6 Hypokalemia; K64.8 Other hemorrhoids; Z79.899 Other long term (current) drug therapy; Z88.0 Allergy status to penicillin; Z91.040 Latex allergy status; Z88.8 Allergy status to other drugs, medicaments and biological substances; Z79.01 Long term (current) use of anticoagulants; Z90.49 Acquired absence of other specified parts of digestive tract

== ENCOUNTER → 2017-10-08 | Outpatient (REF) | payer MEDICARE, MEDICAID ==
[2017-10-08 14:54] LABS: IMMUNOGLOBULIN A 62.5 MG/DL (70-400); IMMUNOGLOBULIN G 318 MG/DL (681-1648); IMMUNOGLOBULIN M 2770 MG/DL (40-230)
[2017-10-11 00:06] LABS: SERUM VISCOSITY 1.9 rel.saline (1.6-1.9)
[2017-10-11 00:06] LABS: FREE KAPPA LIGHT CHAINS SERUM 10.9 mg/L (3.3-19.4); FREE LAMBDA LIGHT CHAINS SERUM 32.9 mg/L (5.7-26.3); KAPPA/LAMBDA RATIO SERUM 0.33 (0.26-1.65)
== END ==
LOC: M LAB REF 13:47
DX: C88.0 Waldenstrom macroglobulinemia (principal)
CPT/HCPCS: 82784

== ENCOUNTER 2017-12-14 10:30 | Outpatient (CLI) | payer MEDICARE, MEDICAID ==
[2017-12-14 17:04] LABS: IMMEDIATE SPIN CROSSMATCH 1 2
[2017-12-14] MEDS: FUROSEMIDE 40 MG/4 ML VIAL (J1940) IV (17:14)
== END 2017-12-14 20:00 | disposition home or self-care (01) ==
LOC: M OPCLI4PR 10:30 → M MS5PR 10:42 → M OPCLI4PR 20:00
DX: D64.9 Anemia, unspecified (principal); Z79.899 Other long term (current) drug therapy; Z91.040 Latex allergy status; Z88.1 Allergy status to other antibiotic agents; Z88.8 Allergy status to other drugs, medicaments and biological substances; Z88.0 Allergy status to penicillin
CPT/HCPCS: 36430

== ENCOUNTER → 2018-01-14 | Outpatient (REF) | payer MEDICARE, MEDICAID ==
[2018-01-14 13:33] LABS: HEPATITIS B SURFACE ANTIGEN NEGATIVE (NEGATIVE)
[2018-01-14 14:02] LABS: HEPATITIS B CORE ANTIBODY IGM NEGATIVE (NEGATIVE)
[2018-01-14 14:16] LABS: IMMUNOGLOBULIN A 78.2 MG/DL (70-400); IMMUNOGLOBULIN G 382 MG/DL (681-1648); IMMUNOGLOBULIN M 3050 MG/DL (40-230)
[2018-01-16 00:06] LABS: FREE KAPPA LIGHT CHAINS SERUM 10.3 mg/L (3.3-19.4); FREE LAMBDA LIGHT CHAINS SERUM 28.5 mg/L (5.7-26.3); KAPPA/LAMBDA RATIO SERUM 0.36 (0.26-1.65)
[2018-01-16 00:06] LABS: SERUM VISCOSITY 2.1 rel.saline (1.6-1.9)
== END ==
LOC: M LAB REF 12:30
DX: C85.90 Non-Hodgkin lymphoma, unspecified, unspecified site (principal)
CPT/HCPCS: 87340

== ENCOUNTER 2018-02-18 11:08 | Outpatient (CLI) | payer MEDICARE, MEDICAID ==
[2018-02-18 12:37] LABS: IMMEDIATE SPIN CROSSMATCH 1 2
[2018-02-18] MEDS: diphenhydrAMINE 25 MG CAP PO (12:49)
[2018-02-18] MEDS: ACETAMINOPHEN TAB 650MG DOSE (2X325MG) PO (12:49)
== END 2018-02-18 17:20 | disposition home or self-care (01) ==
LOC: M INFU 11:08
DX: D64.9 Anemia, unspecified (principal); I48.91 Unspecified atrial fibrillation; Z79.899 Other long term (current) drug therapy; M12.9 Arthropathy, unspecified; Z88.0 Allergy status to penicillin; Z88.8 Allergy status to other drugs, medicaments and biological substances; Z91.040 Latex allergy status; Z91.048 Other nonmedicinal substance allergy status; Z90.89 Acquired absence of other organs
CPT/HCPCS: 36430

== ENCOUNTER 2018-03-17 05:38 | Inpatient (IN) | payer MEDICARE, MEDICAID ==
[2018-03-17 06:29] LABS: BASO # 0.1 10^3/uL (0.0-0.2); EOS # 0.1 10^3/uL (0.0-0.50); EOS % 1.2 % (0.0-3.0); HEMATOCRIT 33.9 % (36.0-47.0); HEMOGLOBIN 10.8 g/dl (12.0-15.5); IMMATURE GRANULOCYTE % 0.3 % (0-3.0); LYMPH # 1.8 10^3/uL (1.5-4.5); LYMPH % 24.6 % (24.0-44.0); MEAN CORPUSCULAR HEMOGLOBIN 24.2 pg (27.0-33.0); MEAN CORPUSCULAR HGB CONC 31.9 g/dl (32.0-36.5); MEAN CORPUSCULAR VOLUME 75.8 fl (80.0-96.0); MONO # 0.9 10^3/uL (0.0-0.8); MONO % 12.6 % (0.0-5.0); NEUTROPHILS # 4.4 10^3/uL (1.8-7.7); NEUTROPHILS % 60.3 % (36.0-66.0); PLATELET COUNT, AUTOMATED 310 10^3/uL (150-450); RED BLOOD COUNT 4.47 10^6/uL (4.00-5.40); RED CELL DISTRIBUTION WIDTH 21.3 % (11.5-14.5); WHITE BLOOD COUNT 7.3 10^3/uL (4.0-10.0)
[2018-03-17 06:55] LABS: ALBUMIN 2.8 GM/DL (3.2-5.2); ALBUMIN/GLOBULIN RATIO 0.48 (1.00-1.93); ALKALINE PHOSPHATASE 190 U/L (45-117); ALT/SGPT 16 U/L (12-78); ANION GAP 10 MEQ/L (8-16); AST/SGOT 19 U/L (7-37); BILIRUBIN,DIRECT 0.1 MG/DL (0.0-0.2); BILIRUBIN,TOTAL 0.5 MG/DL (0.2-1.0); BLOOD UREA NITROGEN 24 MG/DL (7-18); CALCIUM LEVEL 9.1 MG/DL (8.8-10.2); CARBON DIOXIDE LEVEL 31 MEQ/L (21-32); CHLORIDE LEVEL 96 MEQ/L (98-107); CK-MB VALUE MASS < 1.0 NG/ML (<3.6); CPK CREATINE PHOSPHOKINASE 34 U/L (26-192); CREATININE FOR GFR 1.06 MG/DL (0.55-1.30); GLOMERULAR FILTRATION RATE 52.3 (>32); GLUCOSE, FASTING 108 MG/DL (70-100); LIPASE 72 U/L (73-393); MB/CK RELATIVE INDEX 2.94 (< OR =4); SODIUM LEVEL 137 MEQ/L (136-145); TOTAL PROTEIN 8.6 GM/DL (6.4-8.2); TROPONIN I < 0.02 NG/ML (< 0.10)
[2018-03-17] MEDS ORDERED: KCL 10MEQ IN STERILE WATER 100ML As Ordered (07:24)
[2018-03-17 07:27] LABS: POTASSIUM SERUM 2.8 MEQ/L (3.5-5.1)
[2018-03-17] MEDS ORDERED: ISOVUE-370 76% 100ML VIAL (Q9967) As Ordered (07:34)
[2018-03-17] MEDS: KCL 10MEQ/100ML SWI (KRUN) 10 MEQ in APPROPRIATE DILUENT 1 EA IV (07:42)
[2018-03-17] MEDS: POTASSIUM CHLORIDE 10 MEQ SR TABLET PO ×2 (07:42→17:33)
[2018-03-17] MEDS ORDERED: POLYVINYL ALCOHOL OPHTH SOLN 15 ML(LIQUITEARS) OU (13:15)
[2018-03-17] MEDS ORDERED: ONDANSETRON 4 MG TAB (S0181) PO (13:15)
[2018-03-17] MEDS ORDERED: ACETAMINOPHEN TAB 650MG DOSE (2X325MG) PO (13:15)
[2018-03-17 14:34] LABS: CK-MB VALUE MASS < 1.0 NG/ML (<3.6); CPK CREATINE PHOSPHOKINASE 28 U/L (26-192); MB/CK RELATIVE INDEX 3.57 (< OR =4); POTASSIUM SERUM 3.3 MEQ/L (3.5-5.1); TROPONIN I < 0.02 NG/ML (< 0.10)
[2018-03-17] MEDS: TORSEMIDE 20 MG TAB PO (16:01)
[2018-03-17] MEDS: ASPIRIN 81 MG ENTERIC TAB PO (16:01)
[2018-03-17] MEDS: OMEPRAZOLE 20 MG CAP PO (16:01)
[2018-03-17] MEDS: LevoFLOXacin IV 750 MG in APPROPRIATE DILUENT 1 EA IV (16:02)
[2018-03-17] MEDS: AMIODARONE 200 MG TAB (PACERONE) PO (21:06)
[2018-03-17] MEDS: ENOXAPARIN 40 MG/0.4 ML SYRINGE (J1650) SC (21:07)
[2018-03-17 21:23] LABS: CK-MB VALUE MASS 1.1 NG/ML (<3.6); CPK CREATINE PHOSPHOKINASE 33 U/L (26-192); MB/CK RELATIVE INDEX 3.33 (< OR =4); TROPONIN I < 0.02 NG/ML (< 0.10)
[2018-03-17] MEDS: ONDANSETRON 4MG/2ML VIAL (J2405) IV (23:33)
[2018-03-18 05:52] LABS: BASO # 0.1 10^3/uL (0.0-0.2); BASO % 0.9 % (0.0-1.0); EOS # 0.1 10^3/uL (0.0-0.50); EOS % 1.1 % (0.0-3.0); HEMATOCRIT 31.9 % (36.0-47.0); HEMOGLOBIN 10.1 g/dl (12.0-15.5); IMMATURE GRANULOCYTE % 0.3 % (0-3.0); LYMPH # 1.5 10^3/uL (1.5-4.5); MEAN CORPUSCULAR HEMOGLOBIN 23.9 pg (27.0-33.0); MEAN CORPUSCULAR HGB CONC 31.7 g/dl (32.0-36.5); MEAN CORPUSCULAR VOLUME 75.6 fl (80.0-96.0); MONO % 15.9 % (0.0-5.0); NEUTROPHILS # 3.7 10^3/uL (1.8-7.7); NEUTROPHILS % 57.8 % (36.0-66.0); PLATELET COUNT, AUTOMATED 293 10^3/uL (150-450); RED BLOOD COUNT 4.22 10^6/uL (4.00-5.40); RED CELL DISTRIBUTION WIDTH 21.5 % (11.5-14.5); WHITE BLOOD COUNT 6.4 10^3/uL (4.0-10.0)
[2018-03-18 06:19] LABS: CK-MB VALUE MASS 1.1 NG/ML (<3.6); CPK CREATINE PHOSPHOKINASE 35 U/L (26-192); MB/CK RELATIVE INDEX 3.14 (< OR =4); TROPONIN I < 0.02 NG/ML (< 0.10)
[2018-03-18 06:26] LABS: ANION GAP 9 MEQ/L (8-16); BLOOD UREA NITROGEN 22 MG/DL (7-18); CALCIUM LEVEL 9.4 MG/DL (8.8-10.2); CARBON DIOXIDE LEVEL 29 MEQ/L (21-32); CHLORIDE LEVEL 101 MEQ/L (98-107); CREATININE FOR GFR 0.98 MG/DL (0.55-1.30); GLOMERULAR FILTRATION RATE 57.3 (>32); GLUCOSE, FASTING 84 MG/DL (70-100); MAGNESIUM LEVEL 1.7 MG/DL (1.8-2.4); POTASSIUM SERUM 3.6 MEQ/L (3.5-5.1); SODIUM LEVEL 139 MEQ/L (136-145)
[2018-03-18] MEDS: ASPIRIN 81 MG ENTERIC TAB PO (08:08)
[2018-03-18] MEDS: TORSEMIDE 20 MG TAB PO (08:08)
[2018-03-18] MEDS: MAG SULF 1GM/100ML (MAG RUN) 1 GM in APPROPRIATE DILUENT 1 EA IV ×2 (12:17→13:47)
[2018-03-18] MEDS: AMIODARONE 200 MG TAB (PACERONE) PO (20:44)
[2018-03-18] MEDS: ENOXAPARIN 40 MG/0.4 ML SYRINGE (J1650) SC (20:44)
[2018-03-19 07:18] LABS: BASO # 0.1 10^3/uL (0.0-0.2); EOS # 0.2 10^3/uL (0.0-0.50); EOS % 2.4 % (0.0-3.0); HEMATOCRIT 32.1 % (36.0-47.0); HEMOGLOBIN 10.2 g/dl (12.0-15.5); IMMATURE GRANULOCYTE % 0.1 % (0-3.0); LYMPH % 28.7 % (24.0-44.0); MEAN CORPUSCULAR HGB CONC 31.8 g/dl (32.0-36.5); MEAN CORPUSCULAR VOLUME 75.5 fl (80.0-96.0); MONO # 1.2 10^3/uL (0.0-0.8); MONO % 17.1 % (0.0-5.0); NEUTROPHILS # 3.6 10^3/uL (1.8-7.7); NEUTROPHILS % 50.7 % (36.0-66.0); PLATELET COUNT, AUTOMATED 292 10^3/uL (150-450); RED BLOOD COUNT 4.25 10^6/uL (4.00-5.40); RED CELL DISTRIBUTION WIDTH 21.4 % (11.5-14.5); WHITE BLOOD COUNT 7.1 10^3/uL (4.0-10.0)
[2018-03-19 07:59] LABS: ANION GAP 10 MEQ/L (8-16); BLOOD UREA NITROGEN 23 MG/DL (7-18); CALCIUM LEVEL 9.2 MG/DL (8.8-10.2); CARBON DIOXIDE LEVEL 31 MEQ/L (21-32); CHLORIDE LEVEL 99 MEQ/L (98-107); CREATININE FOR GFR 1.02 MG/DL (0.55-1.30); GLOMERULAR FILTRATION RATE 54.7 (>32); GLUCOSE, FASTING 91 MG/DL (70-100); MAGNESIUM LEVEL 1.8 MG/DL (1.8-2.4); POTASSIUM SERUM 3.5 MEQ/L (3.5-5.1); SODIUM LEVEL 140 MEQ/L (136-145)
[2018-03-19] MEDS: ASPIRIN 81 MG ENTERIC TAB PO (08:48)
[2018-03-19] MEDS: TORSEMIDE 20 MG TAB PO (08:48)
[2018-03-19] MEDS ORDERED: LevoFLOXacin IV 750 MG in APPROPRIATE DILUENT 1 EA IV (16:00)
== END 2018-03-19 12:07 | disposition home or self-care (01) | DRG 195 ==
LOC: M ED 05:38 → M ED INP 13:05 → M PCU 14:33
DX: J18.9 Pneumonia, unspecified organism (principal); R10.13 Epigastric pain; I10 Essential (primary) hypertension; I48.91 Unspecified atrial fibrillation; K58.0 Irritable bowel syndrome with diarrhea; R63.4 Abnormal weight loss; K64.8 Other hemorrhoids; E87.6 Hypokalemia; D47.2 Monoclonal gammopathy; Z66 Do not resuscitate; R91.8 Other nonspecific abnormal finding of lung field; R59.0 Localized enlarged lymph nodes; Z88.0 Allergy status to penicillin; Z79.82 Long term (current) use of aspirin; Z88.8 Allergy status to other drugs, medicaments and biological substances; Z91.040 Latex allergy status; Z85.72 Personal history of non-Hodgkin lymphomas; Z79.899 Other long term (current) drug therapy

== ENCOUNTER 2018-03-22 10:11 | Emergency (ER) | payer MEDICARE, MEDICAID ==
[2018-03-22] MEDS: MORPHINE 2 MG/ML 1ML SYRINGE (J2270) IV (11:30)
[2018-03-22] MEDS: ONDANSETRON 4MG/2ML VIAL (J2405) IV (11:30)
[2018-03-22 11:43] LABS: BASO % 0.5 % (0.0-1.0); EOS # 0.1 10^3/uL (0.0-0.50); HEMATOCRIT 35.3 % (36.0-47.0); HEMOGLOBIN 11.3 g/dl (12.0-15.5); IMMATURE GRANULOCYTE % 0.5 % (0-3.0); LYMPH # 1.2 10^3/uL (1.5-4.5); LYMPH % 19.2 % (24.0-44.0); MEAN CORPUSCULAR VOLUME 75.1 fl (80.0-96.0); MONO % 16.1 % (0.0-5.0); NEUTROPHILS # 3.9 10^3/uL (1.8-7.7); NEUTROPHILS % 62.7 % (36.0-66.0); PLATELET COUNT, AUTOMATED 317 10^3/uL (150-450); RED CELL DISTRIBUTION WIDTH 21.2 % (11.5-14.5); WHITE BLOOD COUNT 6.1 10^3/uL (4.0-10.0)
[2018-03-22 11:57] LABS: INR 1.24; PROTHROMBIN TIME 15.8 SECONDS (12.4-14.5)
[2018-03-22 12:17] LABS: ALBUMIN/GLOBULIN RATIO 0.58 (1.00-1.93); ALKALINE PHOSPHATASE 173 U/L (45-117); ALT/SGPT 20 U/L (12-78); ANION GAP 10 MEQ/L (8-16); AST/SGOT 20 U/L (7-37); BILIRUBIN,DIRECT 0.1 MG/DL (0.0-0.2); BILIRUBIN,TOTAL 0.5 MG/DL (0.2-1.0); BLOOD UREA NITROGEN 24 MG/DL (7-18); CALCIUM LEVEL 9.3 MG/DL (8.8-10.2); CARBON DIOXIDE LEVEL 31 MEQ/L (21-32); CHLORIDE LEVEL 95 MEQ/L (98-107); CREATININE FOR GFR 1.03 MG/DL (0.55-1.30); GLOMERULAR FILTRATION RATE 54.1 (>32); GLUCOSE, FASTING 107 MG/DL (70-100); POTASSIUM SERUM 3.1 MEQ/L (3.5-5.1); SODIUM LEVEL 136 MEQ/L (136-145); TOTAL PROTEIN 8.2 GM/DL (6.4-8.2); TROPONIN I < 0.02 NG/ML (< 0.10)
[2018-03-22 12:19] LABS: CK-MB VALUE MASS 1.3 NG/ML (<3.6); CPK CREATINE PHOSPHOKINASE 27 U/L (26-192); MB/CK RELATIVE INDEX 4.81 (< OR =4)
[2018-03-22 12:20] LABS: ERYTHROCYTE SEDIMENTATION RATE 58 mm/hr (0-42)
[2018-03-22] MEDS: POTASSIUM CHLORIDE 10 MEQ SR TABLET PO (12:45)
[2018-03-22] MEDS: PERCOCET 5MG/325MG TAB PO (14:00)
[2018-03-22] MEDS: ACETAMINOPHEN TAB 650MG DOSE (2X325MG) PO (14:30)
[2018-03-22 14:54] LABS: MAGNESIUM LEVEL 1.7 MG/DL (1.8-2.4)
[2018-03-22 15:29] LABS: CK-MB VALUE MASS < 1.0 NG/ML (<3.6); CPK CREATINE PHOSPHOKINASE 38 U/L (26-192); MB/CK RELATIVE INDEX 2.63 (< OR =4); TROPONIN I 0.02 NG/ML (< 0.10)
== END 2018-03-22 16:31 | disposition home or self-care (01) ==
LOC: M ED 10:11
DX: M79.622 Pain in left upper arm (principal); I48.91 Unspecified atrial fibrillation; Z87.19 Personal history of other diseases of the digestive system; M19.032 Primary osteoarthritis, left wrist; Z79.82 Long term (current) use of aspirin; Z79.899 Other long term (current) drug therapy; Z91.040 Latex allergy status; Z88.0 Allergy status to penicillin; Z88.8 Allergy status to other drugs, medicaments and biological substances
CPT/HCPCS: J2405

== ENCOUNTER 2018-04-02 10:32 | Emergency (ER) | payer MEDICARE, MEDICAID | END 2018-04-02 12:08 | disposition home or self-care (01) | LOC: M ED 10:32 | DX: S00.03XA Contusion of scalp, initial encounter (principal); S00.81XA Abrasion of other part of head, initial encounter; S00.33XA Contusion of nose, initial encounter; W01.198A Fall on same level from slipping, tripping and stumbling with subsequent striking against other object, initial encounter; Y92.009 Unspecified place in unspecified non-institutional (private) residence as the place of occurrence of the external cause; Y93.01 Activity, walking, marching and hiking; I10 Essential (primary) hypertension; J18.9 Pneumonia, unspecified organism; D47.2 Monoclonal gammopathy; C88.0 Waldenstrom macroglobulinemia; F41.9 Anxiety disorder, unspecified; Z88.8 Allergy status to other drugs, medicaments and biological substances; Z91.040 Latex allergy status; Z88.0 Allergy status to penicillin; Z79.2 Long term (current) use of antibiotics; Z79.82 Long term (current) use of aspirin; Z79.899 Other long term (current) drug therapy; Z98.890 Other specified postprocedural states | CPT/HCPCS: 70450 ==

== ENCOUNTER → 2018-04-02 | Outpatient (REF) | payer MEDICARE, MEDICAID ==
[2018-04-02 14:43] LABS: FERRITIN 21 NG/ML (8-252); IMMUNOGLOBULIN A 64.9 MG/DL (70-400); IMMUNOGLOBULIN G 355 MG/DL (681-1648); IMMUNOGLOBULIN M 3010 MG/DL (40-230); IRON (FE) 43 UG/DL (50-170); PERCENT SATURATION 11.4 % (13.2-45.0); TOTAL IRON BINDING CAPACITY 376 UG/DL (250-450)
[2018-04-05 00:09] LABS: SERUM VISCOSITY 2.3 rel.saline (1.6-1.9)
== END ==
LOC: M LAB REF 13:40
DX: C88.0 Waldenstrom macroglobulinemia (principal)

== ENCOUNTER → 2018-05-07 | Outpatient (REF) | payer MEDICARE, MEDICAID | LOC: M LABDRAW1 16:33 | DX: R30.0 Dysuria (principal) | CPT/HCPCS: 87086 ==

== ENCOUNTER → 2018-05-24 | Outpatient (REF) | payer MEDICARE, MEDICAID ==
[2018-05-24 17:17] LABS: VITAMIN B12 LEVEL 410 PG/ML (247-911)
== END ==
LOC: M LAB REF 16:08
DX: R20.9 Unspecified disturbances of skin sensation (principal)
CPT/HCPCS: 82607

== ENCOUNTER 2018-06-01 19:50 | Emergency (ER) | payer MEDICARE, MEDICAID ==
[2018-06-01] MEDS: NS 1,000 ML IV (20:35)
[2018-06-01 20:48] LABS: BASO # 0.1 10^3/uL (0.0-0.2); BASO % 0.6 % (0.0-1.0); EOS # 0.1 10^3/uL (0.0-0.50); EOS % 1.3 % (0.0-3.0); HEMATOCRIT 29.9 % (36.0-47.0); HEMOGLOBIN 9.5 g/dl (12.0-15.5); IMMATURE GRANULOCYTE % 0.4 % (0-3.0); LYMPH # 1.9 10^3/uL (1.5-4.5); LYMPH % 22.3 % (24.0-44.0); MEAN CORPUSCULAR HEMOGLOBIN 25.7 pg (27.0-33.0); MEAN CORPUSCULAR HGB CONC 31.8 g/dl (32.0-36.5); MONO # 1.4 10^3/uL (0.0-0.8); MONO % 16.1 % (0.0-5.0); NEUTROPHILS % 59.3 % (36.0-66.0); PLATELET COUNT, AUTOMATED 361 10^3/uL (150-450); RED BLOOD COUNT 3.69 10^6/uL (4.00-5.40); RED CELL DISTRIBUTION WIDTH 15.1 % (11.5-14.5); WHITE BLOOD COUNT 8.4 10^3/uL (4.0-10.0)
[2018-06-01 20:55] LABS: INR 1.23; PROTHROMBIN TIME 15.7 SECONDS (12.1-14.4)
[2018-06-01 21:00] LABS: BLOOD UREA NITROGEN 22 MG/DL (7-18); CREATININE FOR GFR 1.06 MG/DL (0.55-1.30); GLUCOSE, FASTING 106 MG/DL (70-100)
[2018-06-01 21:01] LABS: ALBUMIN 2.8 GM/DL (3.2-5.2); ALBUMIN/GLOBULIN RATIO 0.49 (1.00-1.93); ALKALINE PHOSPHATASE 158 U/L (45-117); ALT/SGPT 13 U/L (12-78); ANION GAP 9 MEQ/L (8-16); AST/SGOT 15 U/L (7-37); BILIRUBIN,DIRECT < 0.1 MG/DL (0.0-0.2); BILIRUBIN,TOTAL 0.2 MG/DL (0.2-1.0); CALCIUM LEVEL 8.8 MG/DL (8.8-10.2); CARBON DIOXIDE LEVEL 28 MEQ/L (21-32); CHLORIDE LEVEL 104 MEQ/L (98-107); GLOMERULAR FILTRATION RATE 52.2 (>32); LIPASE 89 U/L (73-393); POTASSIUM SERUM 3.2 MEQ/L (3.5-5.1); SODIUM LEVEL 141 MEQ/L (136-145); TOTAL PROTEIN 8.5 GM/DL (6.4-8.2)
== END 2018-06-01 21:53 | disposition home or self-care (01) ==
LOC: M ED 19:50
DX: K64.9 Unspecified hemorrhoids (principal); D64.9 Anemia, unspecified; I10 Essential (primary) hypertension; K21.9 Gastro-esophageal reflux disease without esophagitis; K44.9 Diaphragmatic hernia without obstruction or gangrene; F41.9 Anxiety disorder, unspecified; C88.0 Waldenstrom macroglobulinemia; Z87.440 Personal history of urinary (tract) infections; Z79.82 Long term (current) use of aspirin; Z79.899 Other long term (current) drug therapy; Z91.040 Latex allergy status; Z88.0 Allergy status to penicillin; Z88.8 Allergy status to other drugs, medicaments and biological substances
CPT/HCPCS: 74021

== ENCOUNTER → 2018-10-29 | Outpatient (CLI) | payer MEDICARE, MEDICAID ==
[~2018-10-29] MED LIST changes: -ACET1TAB17 PO; +ACET1TAB55 PO; +ACET500T15 PO; -ACET50TAOT PO; +ASPI1TAB PO; +COLA100C5 PO; +DICY1CAP8 PO; +FERR325T3 PO; -LEVA1TAB PO; +LEVA1TAB2 PO; +LEVA250T13 PO; +OMEP20CA3 PO; +POTA1TAB23; +SPIR-10 PO; -SPIR25TA2 PO; +TORS20TA2 PO
--- NOTE | 2018-10-30 08:52 | REP ---
Chest x-ray: Two views. History: Paroxysmal atrial fibrillation. Comparison chest x-ray: June 01, 2018. Findings: The there is a diffuse interstitial fibrosis pattern in the lung brown moderate in degree and unchanged from June 01, 2018. Moderate cardiac enlargement is noted. The lungs overall are hyperinflated. Pleural angles are sharp. There are clips in the right upper quadrant of the abdomen. Thoracic kyphosis is exaggerated but thoracic vertebral body heights are preserved. No other significant bony abnormality. Impression: Hyperinflation and interstitial pulmonary fibrosis pattern consistent with COPD. Cardiomegaly. No acute infiltrate. Electronically Signed by Isaac Chavez MD 10/30/2018 08:43 A
== END ==
LOC: M RAD 10:39
PROVIDERS: ATTEND Physician Assistant
DX: I48.0 Paroxysmal atrial fibrillation (principal)

== ENCOUNTER 2019-01-09 09:28 | Emergency (ER) | payer MEDICARE, MEDICAID ==
[~2019-01-09] VITALS: Ht 167.6 cm; Wt 55.2 kg
[~2019-01-09 09:28] MED LIST changes: -ASPI1TAB PO; +ASPI81TA26 PO; -DICY10CA PO; +OXYC1TAB23 PO; -PERCOCET PO
[2019-01-09] MEDS ORDERED: KETOROLAC 30 MG/ML VIAL (J1885) IV ONE (10:15)
[2019-01-09 10:25] LABS: BASO % 0.4 % (0.0-1.0); EOS # 0.1 10^3/uL (0.0-0.50); EOS % 0.6 % (0.0-3.0); HEMATOCRIT 28.4 % (36.0-47.0); HEMOGLOBIN 8.6 g/dl (12.0-15.5); LYMPH % 10.7 % (24.0-44.0); MEAN CORPUSCULAR HEMOGLOBIN 22.9 pg (27.0-33.0); MEAN CORPUSCULAR HGB CONC 30.3 g/dl (32.0-36.5); MEAN CORPUSCULAR VOLUME 75.7 fl (80.0-96.0); MONO # 1.2 10^3/uL (0.0-0.8); MONO % 12.8 % (0.0-5.0); NEUTROPHILS # 7.1 10^3/uL (1.8-7.7); PLATELET COUNT, AUTOMATED 378 10^3/uL (150-450); RED BLOOD COUNT 3.75 10^6/uL (4.00-5.40); WHITE BLOOD COUNT 9.5 10^3/uL (4.0-10.0)
[2019-01-09 10:47] LABS: BLOOD UREA NITROGEN 17 MG/DL (7-18); CALCIUM LEVEL 9.4 MG/DL (8.8-10.2); CARBON DIOXIDE LEVEL 27 MEQ/L (21-32); CHLORIDE LEVEL 104 MEQ/L (98-107); CK-MB VALUE MASS < 1.0 NG/ML (<3.6); CPK CREATINE PHOSPHOKINASE 24 U/L (26-192); CREATININE FOR GFR 0.78 MG/DL (0.55-1.30); GLOMERULAR FILTRATION RATE > 60.0 (>32); GLUCOSE, FASTING 115 MG/DL (70-100); MB/CK RELATIVE INDEX 4.17 (< OR =4); POTASSIUM SERUM 3.4 MEQ/L (3.5-5.1); SODIUM LEVEL 137 MEQ/L (136-145); TROPONIN I < 0.02 NG/ML (< 0.10)
--- NOTE | 2019-01-09 10:57 | REP ---
Oral chest x-ray: Single view. History: Chest pain. Comparison study: October 29, 2018. Findings: Diffuse interstitial fibrosis pattern is seen. Moderate cardiomegaly is observed. These findings are unchanged. There is a new infiltrate in the right base consistent with pneumonia. There is diffuse osteopenia. Advanced degenerative changes are seen in the shoulders. Impression: New infiltrate right base consistent with pneumonia. Diffuse interstitial fibrosis. Cardiomegaly. Electronically Signed by Isaac Chavez MD 01/09/2019 10:48 A
--- NOTE | 2019-01-09 12:40 | REP ---
CT PULMONARY ANGIOGRAM: With IV contrast. HISTORY: Rule out left-sided pulmonary embolus. COMPARISON STUDIES: Comparison CT angiography is from March 17, 2018. CONTRAST DOSE: 75 mL of Isovue [address] TECHNIQUE: Helical scanning is acquired and overlapping 1.5 mm and contiguous 3 mm axial images are reformatted. In addition, maximum intensity projection and multiplanar re-formation images are generated in sagittal and coronal imaging projections. CT PULMONARY ANGIOGRAPHIC FINDINGS: There is good opacification of the pulmonary arterial tree. There is no CT evidence of pulmonary embolus. Thoracic aorta shows no evidence of aneurysm or dissection. There are surgical clips in the gallbladder fossa. There is a small cyst in the upper pole of the left kidney. Cardiomegaly is observed. No pleural or pericardial effusion is seen. The previous study from March 17, 2018 showed parenchymal opacities in the left lower lobe and right lower lobe. These have progressed. There is a peribronchovascular 2.1 cm nodular opacity with irregular margins in the left lower lobe increased in size, previously 1.4 cm. A 5 mm nodule is again seen peripherally in the left lower lobe unchanged. In the right lower lobe, the previous study showed a 2.6 cm opacity felt to be an infiltrate. This has progressed as well and now measures up to 5.2 cm in greatest diameter. There are air bronchograms going through this opacity. There is advanced diffuse interstitial fibrosis again noted. No new parenchymal mass lesion is observed. There is pretracheal and subcarinal adenopathy again noted in the mediastinum somewhat more prominent. The largest node is in the subcarinal region currently measuring 3.0 x 2.3 cm, previously 2.6 x 2.3 cm. There is a small cyst in the left lobe of the liver unchanged. There are degenerative changes in the spine and shoulders. No bony destructive lesion is appreciated. IMPRESSION: There are progressive bilateral lower lobe opacity suggesting malignant neoplastic disease. There is progressive subcarinal lymphadenopathy. Pretracheal adenopathy is also noted. Electronically Signed by Isaac Chavez MD 01/09/2019 06:34 P
[2019-01-09] MEDS ORDERED: TRAM50TA2 PO (13:43)
[2019-01-09 13:51] VITALS: BP 112/54
--- NOTE | 2019-01-09 15:53 | ECGEPIP ---
Stationary ECG Study [facility] - ED Test Date: 2019-01-09 Pat Name: CELINE HARVEY Department: Room: - Gender: F Radio Station Engineer: KADIE : 1930 Requested By: Leo Cabezas Order Number: [id number] Reading MD: Damien Browning Measurements Intervals [place] Rate: 63 P: -89 [place]: 202 QRS: 48 QRSD: 110 T: 57 QT: 434 QTc: 445 Interpretive Statements SINUS RHYTHM with significant baseline artifact NONSPECIFIC T-WAVE ABNORMALITY Electronically Signed On 01-09-2019 15:52:48 EDT by Daimen Browning
--- NOTE | 2019-01-10 11:05 | ED PDOC ---
Post-Departure Follow-Up paty reid faxed formal report of cta chest for fu Luma Vasquez MD Jan 10, 2019 11:05
[2019-01-16] MEDS ORDERED: ACET650T15 PO (09:24)
[2019-01-16] MEDS ORDERED: ASPI81TA85 PO (09:24)
== END 2019-01-09 14:02 | disposition home or self-care (01) ==
LOC: M ED 09:28 → EDBD 09:28 → M ED 14:02
DX: M25.512 Pain in left shoulder (principal); C91.10 Chronic lymphocytic leukemia of B-cell type not having achieved remission; C88.0 Waldenstrom macroglobulinemia; I10 Essential (primary) hypertension; I48.91 Unspecified atrial fibrillation; K58.9 Irritable bowel syndrome, unspecified; Z87.19 Personal history of other diseases of the digestive system; Z88.0 Allergy status to penicillin; Z88.8 Allergy status to other drugs, medicaments and biological substances; Z88.1 Allergy status to other antibiotic agents; Z91.040 Latex allergy status; Z79.899 Other long term (current) drug therapy
CPT/HCPCS: 71045; 71275; 80048; 82550; 82553; 84484; 85025; 85810; 93005; 93041; 94760; 96374; 99285; J1885

== ENCOUNTER 2019-01-27 11:34 | Inpatient (IN) | payer MEDICARE ==
[~2019-01-27] VITALS: Ht 167.6 cm; Wt 59.1 kg
[~2019-01-27 11:34] MED LIST changes: +ACET650T15 PO; +ASPI81TA85 PO; +TRAM50TA2 PO
[2019-01-27 12:16] LABS: BASO # 0.1 10^3/uL (0.0-0.2); BASO % 0.5 % (0.0-1.0); EOS % 0.4 % (0.0-3.0); HEMATOCRIT 30.1 % (36.0-47.0); HEMOGLOBIN 9.3 g/dl (12.0-15.5); LYMPH # 1.3 10^3/uL (1.5-4.5); LYMPH % 11.8 % (24.0-44.0); MEAN CORPUSCULAR HEMOGLOBIN 22.8 pg (27.0-33.0); MEAN CORPUSCULAR HGB CONC 30.9 g/dl (32.0-36.5); MEAN CORPUSCULAR VOLUME 73.8 fl (80.0-96.0); MONO # 1.3 10^3/uL (0.0-0.8); MONO % 11.9 % (0.0-5.0); NEUTROPHILS # 8.2 10^3/uL (1.8-7.7); PLATELET COUNT, AUTOMATED 396 10^3/uL (150-450); RED BLOOD COUNT 4.08 10^6/uL (4.00-5.40); WHITE BLOOD COUNT 10.9 10^3/uL (4.0-10.0)
[2019-01-27 12:43] LABS: INR 1.17; PROTHROMBIN TIME 15.1 SECONDS (12.1-14.4)
[2019-01-27 12:44] LABS: PARTIAL THROMBOPLASTIN TIME 25.9 SECONDS (25.4-37.6)
[2019-01-27 12:59] LABS: BLOOD UREA NITROGEN 20 MG/DL (7-18); CALCIUM LEVEL 9.6 MG/DL (8.8-10.2); CARBON DIOXIDE LEVEL 29 MEQ/L (21-32); CHLORIDE LEVEL 98 MEQ/L (98-107); CREATININE FOR GFR 0.82 MG/DL (0.55-1.30); FREE T4 1.51 NG/DL (0.76-1.46); GLOMERULAR FILTRATION RATE > 60.0 (>32); GLUCOSE, FASTING 102 MG/DL (70-100); IRON (FE) 18 UG/DL (50-170); MAGNESIUM LEVEL 2.3 MG/DL (1.8-2.4); POTASSIUM SERUM 3.7 MEQ/L (3.5-5.1); SODIUM LEVEL 136 MEQ/L (136-145)
[2019-01-27] MEDS ORDERED: NS 500 ML IV ONE (13:15)
[2019-01-27 13:22] LABS: CK-MB VALUE MASS < 1.0 NG/ML (<3.6); CPK CREATINE PHOSPHOKINASE 31 U/L (26-192); MB/CK RELATIVE INDEX 3.23 (< OR =4); TROPONIN I < 0.02 NG/ML (< 0.10)
--- NOTE | 2019-01-27 13:26 | REP ---
Chest one-view HISTORY: Hypotension Comparison: 01/09/2019 A diffuse increase in interstitial markings is present in the lungs consistent with chronic interstitial fibrosis. Patchy density is present in the right lower lobe consistent with an infiltrate that is unchanged compared to the previous study. The cardiac silhouette is enlarged. The pulmonary vasculature is normal in appearance. Degenerative change is present in the shoulders. Impression: 1. Chronic interstitial fibrosis. 2. Right lower lobe infiltrate unchanged compared to the previous study. 3. Cardiomegaly. Electronically Signed by Gomez Agarwal MD 01/27/2019 01:17 P
--- NOTE | 2019-01-27 15:04 | ECGEPIP ---
Stationary ECG Study [facility] - ED Test Date: 2019-01-27 Pat Name: CELINE HARVEY Department: Room: - Gender: F Senior Contracts Manager: AIXA : [id number] Requested By: MAYO Serrano Order Number: [id number] Reading MD: Damien Browning Measurements Intervals [place] Rate: 74 P: 237 [place]: 193 QRS: 53 QRSD: 102 T: 29 QT: 411 QTc: 458 Interpretive Statements SINUS RHYTHM WITH FREQUENT VENTRICULAR PREMATURE COMPLEXES baseline artifact Electronically Signed On 01-27-2019 15:04:02 EDT by Damien Browning
[2019-01-27] MEDS: NS 1,000 ML IV SCH ×2 (15:15→17:09)
[2019-01-27] MEDS ORDERED: POLYVINYL ALCOHOL OPHTH SOLN 15 ML(LIQUITEARS) OU PRN (15:15)
--- NOTE | 2019-01-27 16:22 | HPE ---
DATE OF ADMISSION: 01/27/2019 PRIMARY CARE PROVIDER: Parvin Bui NP ONCOLOGIST: Dr. Greco HISTORY OF PRESENT ILLNESS: The patient is an 88-year-old female with a past medical history significant for atrial fibrillation, hypertension, Waldenstrom's macroglobulinemia, irritable bowel syndrome (IBS) and iron deficiency anemia who presented to [facility] on 01/27/2019 with a complaint about weakness and right lower chest discomfort. The patient stated she has been having the discomfort in the mid right lower chest for the past few weeks. The patient started to have a poor appetite and the patient feels dizzy when she tries to stand up. Therefore, the patient came to [facility] for further evaluation. In the emergency room, the patient still felt to have a severe orthostatic hypotension, systolic would drop from 130s to 90s. The patient is still too weak to go home and hospitalist team is called for admission. For the patient's oncologic condition, the patient has been seeing Dr. Greco in the outpatient setting. The patient was supposed to have an iron transfusion. However, the patient had missed the appointment because she was feeling too weak. PAST MEDICAL HISTORY: 1. Waldenstrom's macroglobulinemia. 2. Iron deficiency anemia. 3. Irritable bowel syndrome (IBS). 4. Hemorrhoids. 5. Hypertension. 6. Atrial fibrillation. PAST SURGICAL HISTORY: 1. Appendectomy. 2. Cholecystectomy. SOCIAL HISTORY: Denies alcohol use. Denies tobacco abuse. Denies any recreational drug use. The patient lives alone. REVIEW OF SYSTEMS: GENERAL: Fatigue, poor appetite. No fever. No chills. HEENT: No vision change. No auditory changes. CARDIOVASCULAR: No chest pain or palpitations. RESPIRATORY: The patient complained about mid right lung pain, persistent with radiation to the back. No cough. No sputum production. GASTROINTESTINAL: No nausea. No vomiting. No diarrhea. MUSCULOSKELETAL: Denies any muscle pain or joint pain. OBJECTIVE: VITAL SIGNS: Temperature is 97.4, pulse is 94, respiratory rate 18, blood pressure is 121/64, pulse oximetry is 97% in room air. GENERAL: Fatigued, in no acute distress. The patient is alert and awake. HEENT: Normocephalic, atraumatic. Extraocular motor grossly intact. Dry oral mucosa. Wearing corrective lenses. CARDIOVASCULAR: Positive murmurs, positive S1, S2, irregularly irregular. LUNGS: Clear to auscultation bilaterally. ABDOMEN: Soft, nontender, nondistended. Bowel sounds present. EXTREMITIES: No edema. LABORATORY DATA: EKG shows sinus rhythm with frequent PVCs. WBC 10.9, hemoglobin 9.3, hematocrit 30.1, platelet count is 396. Sodium is 136, potassium 3.7, chloride is 98, carbon dioxide 29, BUN 20, creatinine 0.82, GFR greater than 60, fasting glucose 102, calcium 96, phosphorus 2.3, iron is 18. Troponin I is less than 0.02. ASSESSMENT AND PLAN: 1. Orthostatic hypotension. The patient has a complaint about poor oral intake due to persistent right lower lung discomfort. The patient demonstrates clinical dehydration. We will hold the Lasix and give the patient IV support. We will continue to monitor the orthostatic measurements. The patient will be on fall precautions. 2. Right lower lung pain. Repeated CT scan was performed. We do not have the official report at this moment. The patient did have a CT angiogram performed on 01/09/2019. At the time, CT found to have a progressive bilateral lower lobe opacity suggesting malignant neoplastic disease. There is progressive subcarinal lymphadenopathy. Pretracheal adenopathy is also noted. I discussed the finding with the patient's oncologist. I also discussed with radiology. We will hold the aspirin for a few days and the patient agreed for biopsy. 3. Waldenstrom's macroglobulinemia. The patient had a serum viscosity performed on 01/16/2019 that showed increased serum viscosity. The patient has seen Dr. Greco in the outpatient setting. 4. History of atrial fibrillation. Not on anticoagulation due to history of gastrointestinal (GI) bleed. Current heart rate is in the satisfactory range. The patient is on amiodarone. 5. Hypertension. Diuretic will be on hold for the orthostatic hypotension. 6. Irritable bowel syndrome (IBS). Continue to monitor. 7. History of hemorrhoids. 8. Deep vein thrombosis (DVT) prophylaxis. The patient will be on thromboembolic-deterrent (NEGAR) compression.
[2019-01-27 17:25] VITALS: BP 121/60
--- NOTE | 2019-01-27 18:49 | REP ---
CT CHEST WITHOUT CONTRAST: CT chest was performed without IV contrast. Sagittal and coronal reconstruction images are performed. Comparison is made with prior study of 01/09/2019. There is diffuse interstitial fibrosis and emphysematous change which is stable. A consolidative ill-defined irregular opacity is seen in the posterolateral inferior right lower lobe unchanged, containing air bronchograms. This has increased in size since the prior CT of 03/17/2018 and is concerning for neoplasm. Similarly in the left infrahilar region of the left lower lobe there is an opacity which has increased in size, also concerning for neoplasm. This measures approximately 2.5 cm in diameter. There is precarinal and subcarinal adenopathy again noted. There is no pleural or pericardial effusion. Heart is mildly enlarged. There is calcification of the thoracic aorta. Cyst is seen in the left lobe of the liver as well as in the upper pole of each kidney. The patient has had a prior cholecystectomy. There are degenerative changes of the spine. IMPRESSION :Large mass like opacity right lower lobe. Another mass is seen in the left lower lobe. These have increased in size since the CT of 03/17/2018 and likely represent neoplasm. There is precarinal and subcarinal adenopathy. The findings are similar to the prior CT of 01/09/2019. Electronically Signed by Eric Cordova MD 01/29/2019 10:10 A
[2019-01-27] MEDS: AMIODARONE 200 MG TAB (PACERONE) PO SCH (20:13)
[2019-01-27] MEDS: POTASSIUM CHLORIDE 10 MEQ SR TABLET PO SCH (20:13)
[2019-01-28 01:46] VITALS: BP_SYST 109; BP_SYST 86; BP_SYST 98; BP_DIAS 42; BP_DIAS 49; BP_DIAS 53
[2019-01-28 02:03] VITALS: BP 109/53
[2019-01-28] MEDS: NS 1,000 ML IV SCH ×2 (02:43→20:53)
[2019-01-28 06:58] LABS: HEMATOCRIT 26.1 % (36.0-47.0); MEAN CORPUSCULAR HEMOGLOBIN 22.9 pg (27.0-33.0); MEAN CORPUSCULAR HGB CONC 30.7 g/dl (32.0-36.5); MEAN CORPUSCULAR VOLUME 74.6 fl (80.0-96.0); PLATELET COUNT, AUTOMATED 351 10^3/uL (150-450); WHITE BLOOD COUNT 8.9 10^3/uL (4.0-10.0)
[2019-01-28 07:28] LABS: BLOOD UREA NITROGEN 15 MG/DL (7-18); CALCIUM LEVEL 8.7 MG/DL (8.8-10.2); CARBON DIOXIDE LEVEL 27 MEQ/L (21-32); CHLORIDE LEVEL 106 MEQ/L (98-107); CREATININE FOR GFR 0.66 MG/DL (0.55-1.30); GLOMERULAR FILTRATION RATE > 60.0 (>32); GLUCOSE, FASTING 78 MG/DL (70-100); MAGNESIUM LEVEL 2.2 MG/DL (1.8-2.4); POTASSIUM SERUM 3.5 MEQ/L (3.5-5.1); SODIUM LEVEL 140 MEQ/L (136-145)
[2019-01-28] MEDS: OMEPRAZOLE 20 MG CAP PO SCH (08:20)
[2019-01-28] MEDS: POTASSIUM CHLORIDE 10 MEQ SR TABLET PO SCH ×2 (08:20→20:52)
[2019-01-28] MEDS ORDERED: TORSEMIDE 20 MG TAB PO SCH (09:00)
[2019-01-28 12:00] VITALS: BP_SYST 103; BP_SYST 104; BP_DIAS 52; BP_DIAS 55
--- NOTE | 2019-01-28 12:58 | IPNPDOC ---
Text Note Date of Service The patient was seen on 01/28/19. NOTE Subjective: Patient seen and examined at bedside. No new medical complaints. Anxious to proceed with biopsy. Objective: General: NAD, lying comfortably in bed, elderly HEENT: NC/AT Lungs: CTA B/L Heart: +S1S2, irregular, systolic murmur Abd: soft, NT, +BS Ext: no edema A/P: 88 yo female for anterior chest pain, found to have suspicious finding on CT chest of lung CA pending biopsy. #Right lower lung pain - CT suspicious for malignancy - holding ASA pending Bx #Orthostatic hypotension - IV fluids - hold home diuretics # Waldenstrom's macroglobulinemia - follows Dr. Greco #atrial fibrillation - not on a/c due to history of gastrointestinal (GI) bleed - rate controlled - continue amiodarone #HTN - diuretics on hold #Irritable bowel syndrome (IBS). Continue to monitor. # History of hemorrhoids. #Deep vein thrombosis (DVT) prophylaxis. The patient will be on thromboembolic- deterrent (NEGAR) compression. PAST MEDICAL HISTORY: 1. Waldenstrom's macroglobulinemia. 2. Iron deficiency anemia. 3. Irritable bowel syndrome (IBS). 4. Hemorrhoids. 5. Hypertension. 6. Atrial fibrillation. VS,Fishbone, I+O VS, Fishbone, I+O Laboratory Tests 01/28/19 06:42 Red Blood Count 3.50 L, Mean Corpuscular Volume 74.6 L, Mean Corpuscular Hemoglobin 22.9 L, Mean Corpuscular Hemoglobin Concent 30.7 L, Red Cell Distribution Width 16.8 H, Calcium Level 8.7 L Vital Signs Date Time Temp Pulse Resp B/P (MAP) Pulse Ox O2 Delivery O2 Flow Rate FiO2 01/28/19 02:03 98.7 80 18 109/53 (71) 96 01/27/19 16:45 Room Air I&O- Last 24 Hours up to 6 AM 01/28/19 06:00 Intake Total 2000 ml Balance 2000 ml TEVIN SHEIKH MD Jan 28, 2019 12:58
[2019-01-28 14:12] VITALS: BP 122/59
[2019-01-28 20:00] VITALS: BP_SYST 104; BP_SYST 109; BP_SYST 110; BP_DIAS 57; BP_DIAS 62
[2019-01-28] MEDS: AMIODARONE 200 MG TAB (PACERONE) PO SCH (20:52)
[2019-01-28] MEDS: CALCIUM CARBONATE 500 MG CHEW U/D PO PRN (20:52)
[2019-01-28 22:00] VITALS: BP 119/56
[2019-01-29] VITALS (7 sets, daily range): BP systolic 99–151; BP diastolic 47–69
[2019-01-29] MEDS: ACETAMINOPHEN TAB 650MG DOSE (2X325MG) PO PRN ×4 (00:42→17:57)
[2019-01-29 06:08] LABS: HEMATOCRIT 24.5 % (36.0-47.0); HEMOGLOBIN 7.3 g/dl (12.0-15.5); MEAN CORPUSCULAR HEMOGLOBIN 22.6 pg (27.0-33.0); MEAN CORPUSCULAR HGB CONC 29.8 g/dl (32.0-36.5); MEAN CORPUSCULAR VOLUME 75.9 fl (80.0-96.0); PLATELET COUNT, AUTOMATED 314 10^3/uL (150-450); RED BLOOD COUNT 3.23 10^6/uL (4.00-5.40); WHITE BLOOD COUNT 8.4 10^3/uL (4.0-10.0)
[2019-01-29] MEDS: NS 1,000 ML IV SCH ×2 (06:21→16:23)
[2019-01-29 06:26] LABS: BLOOD UREA NITROGEN 12 MG/DL (7-18); CALCIUM LEVEL 8.2 MG/DL (8.8-10.2); CARBON DIOXIDE LEVEL 26 MEQ/L (21-32); CHLORIDE LEVEL 112 MEQ/L (98-107); CREATININE FOR GFR 0.63 MG/DL (0.55-1.30); GLOMERULAR FILTRATION RATE > 60.0 (>32); GLUCOSE, FASTING 84 MG/DL (70-100); POTASSIUM SERUM 3.9 MEQ/L (3.5-5.1); SODIUM LEVEL 142 MEQ/L (136-145)
[2019-01-29] MEDS: POTASSIUM CHLORIDE 10 MEQ SR TABLET PO SCH ×2 (08:16→20:05)
[2019-01-29] MEDS: OMEPRAZOLE 20 MG CAP PO SCH (08:16)
--- NOTE | 2019-01-29 11:56 | IPNPDOC ---
Text Note Date of Service The patient was seen on 01/29/19. NOTE Subjective: Patient seen and examined at bedside. No new medical complaints. Anxious to proceed with biopsy. Objective: General: NAD, lying comfortably in bed, elderly HEENT: NC/AT Lungs: CTA B/L Heart: +S1S2, irregular, systolic murmur Abd: soft, NT, +BS Ext: no edema A/P: 88 yo female for anterior chest pain, found to have suspicious finding on CT chest of lung CA pending biopsy. #Right lower lung pain - CT suspicious for malignancy - holding ASA pending Bx #Orthostatic hypotension - IV fluids - hold home diuretics # Waldenstrom's macroglobulinemia - follows Dr. Greco #iron deficiency anemia - H/H trending down - type and screen - repeat H/H - transfuse as needed #atrial fibrillation - not on a/c due to history of gastrointestinal (GI) bleed - rate controlled - continue amiodarone #HTN - diuretics on hold #Irritable bowel syndrome (IBS). Continue to monitor. # History of hemorrhoids. #Deep vein thrombosis (DVT) prophylaxis. The patient will be on thromboembolic- deterrent (NEGAR) compression. Dispo: type and screen, serial H/H, follow up regarding biopsy VS,Sonia, I+O VS, Sonia, I+O Laboratory Tests 01/29/19 05:30 Red Blood Count 3.23 L, Mean Corpuscular Volume 75.9 L, Mean Corpuscular Hemogl obin 22.6 L, Mean Corpuscular Hemoglobin Concent 29.8 L, Red Cell Distribution Width 16.9 H, Calcium Level 8.2 L Vital Signs Date Time Temp Pulse Resp B/P (MAP) Pulse Ox O2 Delivery O2 Flow Rate FiO2 01/29/19 06:00 97.8 62 18 111/52 (71) 98 01/27/19 16:45 Room Air I&O- Last 24 Hours up to 6 AM 01/29/19 06:00 Intake Total 2530 ml Output Total 100 ml Balance 2430 ml TEVIN SHEIKH MD January 29, 2019 11:56
[2019-01-29 12:30] LABS: HEMATOCRIT 24.6 % (36.0-47.0); HEMOGLOBIN 7.4 g/dl (12.0-15.5)
[2019-01-29] MEDS: CALCIUM CARBONATE 500 MG CHEW U/D PO PRN ×2 (14:45→20:05)
[2019-01-29] MEDS: AMIODARONE 200 MG TAB (PACERONE) PO SCH (20:05)
[2019-01-30] MEDS: NS 1,000 ML IV SCH ×2 (02:30→18:04)
[2019-01-30 06:00] VITALS: BP 128/59
[2019-01-30 06:08] LABS: HEMATOCRIT 23.3 % (36.0-47.0); HEMOGLOBIN 7.1 g/dl (12.0-15.5); MEAN CORPUSCULAR HEMOGLOBIN 23.3 pg (27.0-33.0); MEAN CORPUSCULAR HGB CONC 30.5 g/dl (32.0-36.5); MEAN CORPUSCULAR VOLUME 76.4 fl (80.0-96.0); PLATELET COUNT, AUTOMATED 285 10^3/uL (150-450); RED BLOOD COUNT 3.05 10^6/uL (4.00-5.40); WHITE BLOOD COUNT 7.7 10^3/uL (4.0-10.0)
[2019-01-30 06:30] LABS: BLOOD UREA NITROGEN 10 MG/DL (7-18); CALCIUM LEVEL 8.1 MG/DL (8.8-10.2); CARBON DIOXIDE LEVEL 23 MEQ/L (21-32); CHLORIDE LEVEL 114 MEQ/L (98-107); CREATININE FOR GFR 0.58 MG/DL (0.55-1.30); GLOMERULAR FILTRATION RATE > 60.0 (>32); GLUCOSE, FASTING 76 MG/DL (70-100); MAGNESIUM LEVEL 1.7 MG/DL (1.8-2.4); SODIUM LEVEL 141 MEQ/L (136-145)
[2019-01-30 06:56] VITALS: BP_SYST 137; BP_SYST 140; BP_DIAS 63; BP_DIAS 70
[2019-01-30 06:57] VITALS: BP 147/88
[2019-01-30] MEDS: OMEPRAZOLE 20 MG CAP PO SCH (08:29)
[2019-01-30] MEDS: POTASSIUM CHLORIDE 10 MEQ SR TABLET PO SCH ×2 (08:29→20:59)
[2019-01-30] MEDS ORDERED: MAG SULF 1GM/100ML (MAG RUN) 1 GM in APPROPRIATE DILUENT 1 EA IV ONE (09:30)
[2019-01-30 12:00] VITALS: BP_SYST 126; BP_SYST 129; BP_SYST 134; BP_DIAS 53; BP_DIAS 55; BP_DIAS 60
--- NOTE | 2019-01-30 13:27 | IPNPDOC ---
Text Note Date of Service The patient was seen on 01/30/19. NOTE Subjective: Patient seen and examined at bedside. No new medical complaints. Anxious to proceed with biopsy. Objective: General: NAD, lying comfortably in bed, elderly HEENT: NC/AT Lungs: CTA B/L Heart: +S1S2, irregular, systolic murmur Abd: soft, NT, +BS Ext: no edema A/P: 88 yo female for anterior chest pain, found to have suspicious finding on CT chest of lung CA pending biopsy. #Right lower lung pain - CT suspicious for malignancy - holding ASA pending Bx #Orthostatic hypotension - IV fluids - hold home diuretics # Waldenstrom's macroglobulinemia - follows Dr. Greco #iron deficiency anemia - H/H trending down - transfuse 2PRBC today - continue with serial H/H #atrial fibrillation - not on a/c due to history of gastrointestinal (GI) bleed - rate controlled - continue amiodarone #HTN - diuretics on hold #Irritable bowel syndrome (IBS). Continue to monitor. # History of hemorrhoids. #Deep vein thrombosis (DVT) prophylaxis. The patient will be on thromboembolic- deterrent (NEGAR) compression. Dispo: transfuse PRBC today, serial H/H, f/u radiology re: Bx VS,Fishbone, I+O VS, Fishbone, I+O Laboratory Tests 01/30/19 05:22 Red Blood Count 3.05 L, Mean Corpuscular Volume 76.4 L, Mean Corpuscular Hemoglobin 23.3 L, Mean Corpuscular Hemoglobin Concent 30.5 L, Red Cell Distribution Width 16.9 H, Calcium Level 8.1 L Vital Signs Date Time Temp Pulse Resp B/P (MAP) Pulse Ox O2 Delivery O2 Flow Rate FiO2 01/30/19 06:57 88 147/88 (107) 01/30/19 06:00 98.0 20 96 01/27/19 16:45 Room Air I&O- Last 24 Hours up to 6 AM 01/30/19 06:00 Intake Total 3100 ml Output Total 2100 ml Balance 1000 ml TEVIN SHEIKH MD January 30, 2019 13:27
[2019-01-30 14:00] VITALS: BP 134/60
[2019-01-30] MEDS: AMIODARONE 200 MG TAB (PACERONE) PO SCH (20:59)
[2019-01-30] MEDS: CALCIUM CARBONATE 500 MG CHEW U/D PO PRN (21:45)
[2019-01-30 22:00] VITALS: BP 139/62
[2019-01-31] MEDS: NS 1,000 ML IV SCH ×3 (03:28→13:47)
[2019-01-31] MEDS: ACETAMINOPHEN TAB 650MG DOSE (2X325MG) PO PRN (03:32)
[2019-01-31 05:30] VITALS: BP_SYST 114; BP_SYST 126; BP_SYST 129; BP_DIAS 60; BP_DIAS 62; BP_DIAS 64
[2019-01-31 06:00] VITALS: BP 126/62
[2019-01-31 06:49] LABS: HEMATOCRIT 27.1 % (36.0-47.0); HEMOGLOBIN 8.6 g/dl (12.0-15.5); MEAN CORPUSCULAR HEMOGLOBIN 24.7 pg (27.0-33.0); MEAN CORPUSCULAR HGB CONC 31.7 g/dl (32.0-36.5); MEAN CORPUSCULAR VOLUME 77.9 fl (80.0-96.0); PLATELET COUNT, AUTOMATED 258 10^3/uL (150-450); RED BLOOD COUNT 3.48 10^6/uL (4.00-5.40); WHITE BLOOD COUNT 7.6 10^3/uL (4.0-10.0)
[2019-01-31 07:08] LABS: BLOOD UREA NITROGEN 9 MG/DL (7-18); CARBON DIOXIDE LEVEL 22 MEQ/L (21-32); CHLORIDE LEVEL 114 MEQ/L (98-107); CREATININE FOR GFR 0.65 MG/DL (0.55-1.30); GLOMERULAR FILTRATION RATE > 60.0 (>32); GLUCOSE, FASTING 88 MG/DL (70-100); MAGNESIUM LEVEL 1.8 MG/DL (1.8-2.4); POTASSIUM SERUM 3.9 MEQ/L (3.5-5.1); SODIUM LEVEL 142 MEQ/L (136-145)
[2019-01-31] MEDS: OMEPRAZOLE 20 MG CAP PO SCH (08:33)
[2019-01-31] MEDS: POTASSIUM CHLORIDE 10 MEQ SR TABLET PO SCH ×2 (08:34→20:40)
--- NOTE | 2019-01-31 13:53 | IPNPDOC ---
Text Note Date of Service The patient was seen on 01/31/19. NOTE Subjective: Patient seen and examined at bedside. No new medical complaints. Anxious to proceed with biopsy. Objective: General: NAD, lying comfortably in bed, elderly HEENT: NC/AT Lungs: CTA B/L Heart: +S1S2, irregular, systolic murmur Abd: soft, NT, +BS Ext: no edema A/P: 88 yo female for anterior chest pain, found to have suspicious finding on CT chest of lung CA pending biopsy. #Right lower lung pain - CT suspicious for malignancy - holding ASA pending Bx for today #Orthostatic hypotension - resolved # Waldenstrom's macroglobulinemia - follows Dr. Greco #iron deficiency anemia - s/p 2PRBC today - continue with serial H/H #atrial fibrillation - not on a/c due to history of gastrointestinal (GI) bleed - rate controlled - continue amiodarone #HTN - diuretics on hold #Irritable bowel syndrome (IBS). Continue to monitor. # History of hemorrhoids. #Deep vein thrombosis (DVT) prophylaxis. The patient will be on thromboembolic- deterrent (NEGAR) compression. Dispo: plan for Bx today, follow H/H VS,Fishbone, I+O VS, Fishbone, I+O Laboratory Tests 01/31/19 06:20 Red Blood Count 3.48 L, Mean Corpuscular Volume 77.9 L, Mean Corpuscular Hemoglobin 24.7 L, Mean Corpuscular Hemoglobin Concent 31.7 L, Red Cell Dis tribution Width 17.5 H, Calcium Level 8.0 L Vital Signs Date Time Temp Pulse Resp B/P (MAP) Pulse Ox O2 Delivery O2 Flow Rate FiO2 01/31/19 06:00 98.0 66 18 126/62 (83) 95 01/27/19 16:45 Room Air I&O- Last 24 Hours up to 6 AM 01/31/19 06:00 Intake Total 3100 ml Output Total 650 ml Balance 2450 ml TEVIN SHEIKH MD January 31, 2019 13:53
[2019-01-31 14:00] VITALS: BP 136/66
[2019-01-31] MEDS: AMIODARONE 200 MG TAB (PACERONE) PO SCH (20:40)
[2019-01-31 22:00] VITALS: BP 134/64
[2019-02-01 02:00] VITALS: BP 102/51
[2019-02-01 05:45] LABS: HEMATOCRIT 28.8 % (36.0-47.0); HEMOGLOBIN 8.9 g/dl (12.0-15.5); MEAN CORPUSCULAR HGB CONC 30.9 g/dl (32.0-36.5); MEAN CORPUSCULAR VOLUME 77.6 fl (80.0-96.0); PLATELET COUNT, AUTOMATED 283 10^3/uL (150-450); RED BLOOD COUNT 3.71 10^6/uL (4.00-5.40); WHITE BLOOD COUNT 7.3 10^3/uL (4.0-10.0)
[2019-02-01 06:00] VITALS: BP 132/89
[2019-02-01 06:06] LABS: BLOOD UREA NITROGEN 9 MG/DL (7-18); CALCIUM LEVEL 8.2 MG/DL (8.8-10.2); CARBON DIOXIDE LEVEL 24 MEQ/L (21-32); CHLORIDE LEVEL 114 MEQ/L (98-107); CREATININE FOR GFR 0.58 MG/DL (0.55-1.30); GLOMERULAR FILTRATION RATE > 60.0 (>32); GLUCOSE, FASTING 70 MG/DL (70-100); MAGNESIUM LEVEL 1.7 MG/DL (1.8-2.4); SODIUM LEVEL 142 MEQ/L (136-145)
[2019-02-01] MEDS ORDERED: MAG SULF 1GM/100ML (MAG RUN) 1 GM in APPROPRIATE DILUENT 1 EA IV ONE (08:00)
[2019-02-01] MEDS: OMEPRAZOLE 20 MG CAP PO SCH (08:29)
[2019-02-01] MEDS: POTASSIUM CHLORIDE 10 MEQ SR TABLET PO SCH ×2 (08:29→21:15)
--- NOTE | 2019-02-01 12:07 | IPNPDOC ---
Text Note Date of Service The patient was seen on 02/01/19. NOTE Subjective: Patient seen and examined at bedside. No new medical complaints. Anxious to proceed with biopsy. Objective: General: NAD, lying comfortably in bed, elderly HEENT: NC/AT Lungs: CTA B/L Heart: +S1S2, irregular, systolic murmur Abd: soft, NT, +BS Ext: no edema A/P: 88 yo female for anterior chest pain, found to have suspicious finding on CT chest of lung CA pending biopsy. #Right lower lung pain - CT suspicious for malignancy - holding ASA pending Bx on Sunday #Orthostatic hypotension - resolved # Waldenstrom's macroglobulinemia - follows Dr. Greco #iron deficiency anemia - s/p 2PRBC today - continue with serial H/H #atrial fibrillation - not on a/c due to history of gastrointestinal (GI) bleed - rate controlled - continue amiodarone #HTN - diuretics on hold #Irritable bowel syndrome (IBS). Continue to monitor. # History of hemorrhoids. #Deep vein thrombosis (DVT) prophylaxis. The patient will be on thromboembolic- deterrent (NEGAR) compression. Dispo: she is agreeable to stay for biopsy planned for Sunday VS,Sonia, I+O VS, Sebastianbone, I+O Laboratory Tests 02/01/19 05:26 Red Blood Count 3.71 L, Mean Corpuscular Volume 77.6 L, Mean Corpuscular Hemoglobin 24.0 L, Mean Corpuscular Hemoglobin Concent 30.9 L, Red Cell Distribution Width 18.2 H, Calcium Level 8.2 L Vital Signs Date Time Temp Pulse Resp B/P (MAP) Pulse Ox O2 Delivery O2 Flow Rate FiO2 02/01/19 06:00 98.6 64 15 132/89 (103) 98 01/27/19 16:45 Room Air I&O- Last 24 Hours up to 6 AM 02/01/19 06:00 Intake Total 2760 ml Output Total 300 ml Balance 2460 ml TEVIN SHEIKH MD February 01, 2019 12:06
[2019-02-01] MEDS ORDERED: diphenhydrAMINE CREAM 30GM TOP PRN (12:15)
[2019-02-01 14:00] VITALS: BP 127/60
[2019-02-01] MEDS: CALCIUM CARBONATE 500 MG CHEW U/D PO PRN ×2 (17:16→19:55)
[2019-02-01] MEDS: AMIODARONE 200 MG TAB (PACERONE) PO SCH (21:15)
[2019-02-01 22:00] VITALS: BP 103/51
[2019-02-02 02:00] VITALS: BP 112/69
[2019-02-02 06:00] VITALS: BP 131/63
[2019-02-02 06:07] LABS: HEMATOCRIT 28.1 % (36.0-47.0); HEMOGLOBIN 8.8 g/dl (12.0-15.5); MEAN CORPUSCULAR HEMOGLOBIN 24.4 pg (27.0-33.0); MEAN CORPUSCULAR HGB CONC 31.3 g/dl (32.0-36.5); MEAN CORPUSCULAR VOLUME 77.8 fl (80.0-96.0); PLATELET COUNT, AUTOMATED 284 10^3/uL (150-450); RED BLOOD COUNT 3.61 10^6/uL (4.00-5.40); WHITE BLOOD COUNT 7.7 10^3/uL (4.0-10.0)
[2019-02-02 06:28] LABS: BLOOD UREA NITROGEN 10 MG/DL (7-18); CALCIUM LEVEL 8.3 MG/DL (8.8-10.2); CARBON DIOXIDE LEVEL 25 MEQ/L (21-32); CHLORIDE LEVEL 111 MEQ/L (98-107); CREATININE FOR GFR 0.63 MG/DL (0.55-1.30); GLOMERULAR FILTRATION RATE > 60.0 (>32); GLUCOSE, FASTING 79 MG/DL (70-100); MAGNESIUM LEVEL 1.8 MG/DL (1.8-2.4); POTASSIUM SERUM 4.2 MEQ/L (3.5-5.1); SODIUM LEVEL 141 MEQ/L (136-145)
[2019-02-02] MEDS: OMEPRAZOLE 20 MG CAP PO SCH (09:09)
[2019-02-02] MEDS: POTASSIUM CHLORIDE 10 MEQ SR TABLET PO SCH ×2 (09:10→21:36)
[2019-02-02] MEDS: CALCIUM CARBONATE 500 MG CHEW U/D PO PRN ×2 (09:14→16:01)
--- NOTE | 2019-02-02 11:02 | IPNPDOC ---
Text Note Date of Service The patient was seen on 02/02/19. NOTE Subjective: Patient seen and examined at bedside. No new medical complaints. Anxious to proceed with biopsy. Objective: General: NAD, lying comfortably in bed, elderly HEENT: NC/AT Lungs: CTA B/L Heart: +S1S2, irregular, systolic murmur Abd: soft, NT, +BS Ext: no edema A/P: 88 yo female for anterior chest pain, found to have suspicious finding on CT chest of lung CA pending biopsy. #Right lower lung pain - CT suspicious for malignancy - holding ASA pending Bx on Sunday #Orthostatic hypotension - resolved # Waldenstrom's macroglobulinemia - follows Dr. Greco #iron deficiency anemia - s/p 2PRBC today - continue with serial H/H #atrial fibrillation - not on a/c due to history of gastrointestinal (GI) bleed - rate controlled - continue amiodarone #HTN - diuretics on hold #Irritable bowel syndrome (IBS). Continue to monitor. # History of hemorrhoids. #Deep vein thrombosis (DVT) prophylaxis. The patient will be on thromboembolic- deterrent (NEGAR) compression. Dispo: she is agreeable to stay for Bx planned for Sunday VS,Fishbone, I+O VS, Fishbone, I+O Laboratory Tests 02/02/19 05:25 Red Blood Count 3.61 L, Mean Corpuscular Volume 77.8 L, Mean Corpuscular Hemoglobin 24.4 L, Mean Corpuscular Hemoglobin Concent 31.3 L, Red Cell Distribution Width 18.6 H, Calcium Level 8.3 L Vital Signs Date Time Temp Pulse Resp B/P (MAP) Pulse Ox O2 Delivery O2 Flow Rate FiO2 02/02/19 06:00 97.8 61 19 131/63 (85) 97 01/27/19 16:45 Room Air I&O- Last 24 Hours up to 6 AM 02/02/19 06:00 Intake Total 2090 ml Output Total 0 ml Balance 2090 ml TEVIN SHEIKH MD February 02, 2019 11:02
[2019-02-02] MEDS: MAALOX 30 ML SUSP *UDC PO PRN (14:46)
[2019-02-02 16:00] VITALS: BP 130/60
[2019-02-02 19:05] VITALS: BP 165/74
[2019-02-02] MEDS ORDERED: PERCOCET 5MG/325MG TAB PO PRN (19:15)
[2019-02-02] MEDS: AMIODARONE 200 MG TAB (PACERONE) PO SCH (21:36)
[2019-02-02 22:00] VITALS: BP 129/63
[2019-02-03] MEDS ORDERED: MORPHINE 4 MG/ML 1ML VIAL/SYRINGE (J2270) IV PRN (00:45)
[2019-02-03 03:31] LABS: HEMATOCRIT 28.3 % (36.0-47.0); HEMOGLOBIN 8.8 g/dl (12.0-15.5); MEAN CORPUSCULAR HEMOGLOBIN 24.3 pg (27.0-33.0); MEAN CORPUSCULAR HGB CONC 31.1 g/dl (32.0-36.5); MEAN CORPUSCULAR VOLUME 78.2 fl (80.0-96.0); PLATELET COUNT, AUTOMATED 268 10^3/uL (150-450); RED BLOOD COUNT 3.62 10^6/uL (4.00-5.40); WHITE BLOOD COUNT 7.1 10^3/uL (4.0-10.0)
[2019-02-03 03:57] LABS: BLOOD UREA NITROGEN 9 MG/DL (7-18); CALCIUM LEVEL 8.3 MG/DL (8.8-10.2); CARBON DIOXIDE LEVEL 26 MEQ/L (21-32); CHLORIDE LEVEL 111 MEQ/L (98-107); CREATININE FOR GFR 0.55 MG/DL (0.55-1.30); GLOMERULAR FILTRATION RATE > 60.0 (>32); GLUCOSE, FASTING 72 MG/DL (70-100); MAGNESIUM LEVEL 1.7 MG/DL (1.8-2.4); POTASSIUM SERUM 4.2 MEQ/L (3.5-5.1); SODIUM LEVEL 142 MEQ/L (136-145)
[2019-02-03 06:00] VITALS: BP 105/58
[2019-02-03] MEDS ORDERED: MAG SULF 1GM/100ML (MAG RUN) 1 GM in APPROPRIATE DILUENT 1 EA IV ONE (07:30)
[2019-02-03] MEDS: OMEPRAZOLE 20 MG CAP PO SCH (07:36)
[2019-02-03] MEDS: POTASSIUM CHLORIDE 10 MEQ SR TABLET PO SCH ×2 (07:36→20:03)
[2019-02-03] MEDS ORDERED: LIDOCAINE 1% MDV 20ML VIAL As Ordered ONE ×2 (10:48→11:48)
--- NOTE | 2019-02-03 12:55 | IPNPDOC ---
Text Note Date of Service The patient was seen on 02/03/19. NOTE Subjective: Patient seen and examined at bedside. No new medical complaints. Anxious to proceed with biopsy today. Objective: General: pleasant, NAD, lying comfortably in bed, elderly HEENT: NC/AT Lungs: CTA B/L Heart: +S1S2, irregular, systolic murmur Abd: soft, NT, +BS Ext: no edema A/P: 88 yo female for anterior chest pain, found to have suspicious finding on CT chest of lung CA pending biopsy. #Right lower lung pain - CT suspicious for malignancy - holding ASA pending Bx today #Orthostatic hypotension - resolved # Waldenstrom's macroglobulinemia - follows Dr. Greco #iron deficiency anemia - s/p 2PRBC today - continue with serial H/H #atrial fibrillation - not on a/c due to history of gastrointestinal (GI) bleed - rate controlled - continue amiodarone #HTN - diuretics on hold #Irritable bowel syndrome (IBS). Continue to monitor. # History of hemorrhoids. #Deep vein thrombosis (DVT) prophylaxis. The patient will be on thromboembolic- deterrent (NEGAR) compression. Dispo: she is agreeable to stay for Bx planned for today; likely need to monitor for bleed/pneumo post biopsy; anticipate discharge in am Sonia [place]TERFIELD, I+O VSSonia, I+O Laboratory Tests 02/03/19 03:21 Red Blood Count 3.62 L, Mean Corpuscular Volume 78.2 L, Mean Corpuscular Hemoglobin 24.3 L, Mean Corpuscular Hemoglobin Concent 31.1 L, Red Cell Distribution Width 19.3 H, Calcium Level 8.3 L Vital Signs Date Time Temp Pulse Resp B/P (MAP) Pulse Ox O2 Delivery O2 Flow Rate FiO2 02/03/19 06:00 97.6 74 20 105/58 (74) 96 I&O- Last 24 Hours up to 6 AM 02/03/19 06:00 Intake Total 1675 ml Output Total 0 ml Balance 1675 ml TEVIN SHEIKH MD February 03, 2019 12:55
--- NOTE | 2019-02-03 14:28 | REP ---
POST BIOPSY CHEST: A PA postbiopsy chest radiograph is obtained in expiration. There is possibly a tiny right apical pneumothorax. Right basilar mass is again noted. Diffuse prominent interstitial markings are unchanged. The cardiomediastinal silhouette is unchanged. IMPRESSION: Possible tiny right apical pneumothorax status post right lung biopsy. Followup will be performed. Electronically Signed by Eric Cordova MD 02/04/2019 03:06 P
--- NOTE | 2019-02-03 17:07 | REP ---
CT-guided right lower lobe lung biopsy The procedure is performed by OSVALDO Abraham, under the personal supervision of Dr. Cordova. The patient has a history of a consolidative a ill-defined irregular opacity in the posterior lateral inferior right lower lobe noted on a CT dated 01/27/2019. The risks and benefits of the procedure were explained to the patient and informed consent was obtained both orally and written. Directly prior to the start of the procedure, a formal timeout was done and the exam room. The right lower lobe lung was localized using CT guidance. Skin was prepped and draped in the usual sterile fashion. 3 ml of 1% lidocaine was used as a local anesthetic. Using CT guidance and 19/20 gauge coaxial needle biopsy system was inserted and advanced into the nodule. 3 core biopsy samples were obtained and sent to the lab. CT images obtained directly after the biopsy show a small pneumothorax. After the appropriate amount of monitored convalescence the patient was discharged back to the floor. Reviewed by OSVALDO Rojas 02/03/2019 04:18 P Electronically Signed by Eric Cordova MD 02/03/2019 04:58 P
--- NOTE | 2019-02-03 17:33 | REP ---
POST BIOPSY CHEST: Single view of the chest was performed. The patient had right lung biopsy today at approximately 12:30 p.m. There is a very small right apical pneumothorax which is not felt to be clinically significant. Scattered abnormal lung opacities are again noted. IMPRESSION: There is small right apical pneumothorax status-post right lung biopsy, not felt to be clinically significant. Electronically Signed by Eric Cordova MD 02/05/2019 02:38 P
[2019-02-03] MEDS: ACETAMINOPHEN TAB 650MG DOSE (2X325MG) PO PRN (19:48)
[2019-02-03] MEDS: AMIODARONE 200 MG TAB (PACERONE) PO SCH (20:03)
[2019-02-03 22:00] VITALS: BP 119/56
[2019-02-04 06:00] VITALS: BP 106/55
[2019-02-04] MEDS: MAALOX 30 ML SUSP *UDC PO PRN (08:40)
[2019-02-04] MEDS: OMEPRAZOLE 20 MG CAP PO SCH (08:40)
[2019-02-04] MEDS: POTASSIUM CHLORIDE 10 MEQ SR TABLET PO SCH (08:41)
--- NOTE | 2019-02-04 10:31 | REP ---
Chest x-ray: Two views. History: Pneumothorax. Comparison chest x-ray: February 03, 2019. Findings: The lungs are hyperinflated with increase in the AP diameter of the chest and slight flattening of the hemidiaphragms. There is diffuse interstitial fibrosis pattern throughout the lung brown. There is blunting of the right lateral pleural angle unchanged. Heart is enlarged. There are degenerative changes in the shoulders. No new infiltrate is seen. The previously noted tiny right-sided apical pneumothorax has decreased in size and is barely visible. There is a bolus in the left lung apex. Impression: Improvement noted in the interval. Tiny sliver of apical pleural air decreased in size from the 4:17 p.m. film on February 03, 2019. Electronically Signed by Isaac Chavez MD 02/04/2019 10:46 A
--- NOTE | 2019-02-04 18:34 | DSES ---
DATE OF ADMISSION: 01/27/2019 DATE OF DISCHARGE: 02/04/2019 PRIMARY CARE PROVIDER: Parvin Turner NP CONSULTANTS: None. PROCEDURES: Lung biopsy. COMPLICATIONS: None. DISCHARGE DIAGNOSES: 1. Orthostatic hypotension. 2. Right lung pain. 3. Waldenstrom's macroglobulinemia. 4. Iron deficiency anemia. 5. Atrial fibrillation (a-fib). 6. Hypertension. 7. Irritable bowel syndrome. 8. History of hemorrhoids. HOSPITALIZATION COURSE: The patient is an 88-year-old female, presented to [facility] January 27, 2019 with complaint of right lung pain and weakness. During emergency room, patient was found to have very significant orthostatic hypotension resulting in significant exertion intolerance. Imaging study was performed. Patient was found to have abnormal lung findings suspicious for malignancy. Patient was admitted under hospitalist service under inpatient status. CT imaging study results were discussed with the patient. The patient agreed for the lung biopsy and patient's aspirin is on hold. Patient started on IV fluids. While holding the diuretic for patient's orthostatic blood pressure started to improve. Due to the worsening anemia, two packed red blood transfusion was given to the patient January 30, 2019. With medical management patient has complete resolution of her orthostatic hypotension and patient continued to work with physical therapy. After holding the aspirin for several days per radiology recommendation, patient finally had a lung biopsy performed on February 03, 2019. Initially, there was a suspicion for possible apical pneumothorax status post right lung biopsy. Repeat imaging study demonstrates there is decreased apical pleural air and patient has been asymptomatic. On February 04, 2019, the patient determined stable for discharge with recommendation to followup with Dr. Greco closely for patient's hematological disorder. Patient should talk to Dr. Greco regarding to restart her iron transfusion schedule. Patient recommended to followup with primary care provider and global engineering manager specialist regarding her lung biopsy results. DISCHARGE VITAL SIGNS: Temperature is 99.3, pulse 55, respirations 20, blood pressure 106/55, pulse ox 97% on room air. LABORATORY DATA: WBC 7.1, hemoglobin 8.8, hematocrit 28.3, platelet count 268. Sodium is 142, potassium 4.2, chloride is 111, carbon dioxide 26, BUN 9, creatinine 0.55, GFR greater than 60. Fasting glucose is 72. Calcium 8.3, magnesium 1.7. Microbiology: Blood culture from January 27, 2019 showed no growth after 5 days. BLOOD PRODUCTS TRANSFUSION HISTORY: 2 packs red blood cell transfusion on January 30, 2019. IMAGING STUDIES: CT of the chest without contrast on January 27, 2019 demonstrated a large masslike opacity right lower lobe. Another mass is seen in left lower lobe. Likely represents neoplasm. There is precarinal and subcarinal adenopathy. Portable chest x-ray post right lung biopsy on February 03, 2019 demonstrates possible tiny right apical pneumothorax, status post right lung biopsy. Chest x-ray on February 04, 2019 showed improvement noted in the interval. Apical pleural air decreased in size. DISCHARGE MEDICATIONS: - Tylenol 650 mg by mouth three times a day as needed - amiodarone 200 mg by mouth at bedtime - aspirin 81 mg by mouth daily - omeprazole 40 mg by mouth daily - potassium chloride 20 mEq by mouth twice a day - Systane one drop OU as needed for dry eyes DISCHARGE INSTRUCTIONS: Discontinue lines. Discharge home. Activity as tolerated. Low salt diet as tolerated. Patient should followup with primary care provider, Parvin Turner in one to two weeks. Patient should followup with hematology oncology in one week. Patient should followup with heme specialist for her lung biopsy results. Patient should also discuss with Dr. Greco regarding her iron transfusion schedule. DISCHARGE CONDITION: Fair. Discharge time: Greater than 30 minutes.
--- NOTE | 2019-02-04 23:51 | ECGEPIP ---
Stationary ECG Study [facility] Test Date: 2019-02-02 Pat Name: CELINE HARVEY Department: Room: [place] [address] Gender: F Digital Marketing Lead: : [id number] Requested By: ALDAIR CARLIN Order Number: [id number] Reading MD: Coy Matamoros Measurements Intervals [place] Rate: 71 P: 120 OK: 165 QRS: 24 QRSD: 114 T: 67 QT: 413 QTc: 451 Interpretive Statements NORMAL SINUS RHYTHM MODERATE INTRAVENTRICULAR CONDUCTION DELAY. ARTIFACT NOTED ON THE BASELINE, MAINLY IN THE LIMB LEADS ABNORMAL RHYTHM ECG COMPARED TO THE LAST 2 TRACINGS, NO REMARKABLE CHANGES BUT PVCS WERE THEN NOTED Electronically Signed On 02-04-2019 23:51:51 EDT by Coy Matamoros
== END 2019-02-04 11:26 | disposition home or self-care (01) | DRG 182 ==
LOC: M ED 11:34 → M ED INP 14:58 → M MSPAV 01-28 14:12
PROVIDERS: ADMIT Internal Medicine; ATTEND Internal Medicine
PROC: 0BBF3ZX Excision of Right Lower Lung Lobe, Percutaneous Approach, Diagnostic (ICD-10-PCS; principal; 2019-02-03)
DX: C78.01 Secondary malignant neoplasm of right lung (principal); I95.1 Orthostatic hypotension; C88.0 Waldenstrom macroglobulinemia; K58.9 Irritable bowel syndrome, unspecified; K64.8 Other hemorrhoids; I10 Essential (primary) hypertension; D50.9 Iron deficiency anemia, unspecified; I48.91 Unspecified atrial fibrillation; Z90.49 Acquired absence of other specified parts of digestive tract

== ENCOUNTER 2019-05-06 19:09 | Inpatient (IN) | payer MEDICARE, MEDICAID ==
[~2019-05-06] VITALS: Ht 167.6 cm; Wt 53.6 kg
[~2019-05-06 19:09] MED LIST changes: -OMEP20CA3; -OMEP20CA3 PO; +OMEP20CA4; +OMEP20CA4 PO; +TORS10TA3 PO
[2019-05-06] MEDS: NS 1,000 ML IV SCH (19:39)
[2019-05-06 19:48] LABS: BASO % 0.1 % (0.0-1.0); HEMATOCRIT 31.9 % (36.0-47.0); HEMOGLOBIN 10.2 g/dl (12.0-15.5); LYMPH # 0.8 10^3/uL (1.5-4.5); LYMPH % 3.3 % (24.0-44.0); MEAN CORPUSCULAR HEMOGLOBIN 25.3 pg (27.0-33.0); MEAN CORPUSCULAR VOLUME 79.2 fl (80.0-96.0); MONO % 9.6 % (0.0-5.0); NEUTROPHILS # 19.5 10^3/uL (1.8-7.7); NEUTROPHILS % 86.3 % (36.0-66.0); PLATELET COUNT, AUTOMATED 409 10^3/uL (150-450); RED BLOOD COUNT 4.03 10^6/uL (4.00-5.40); WHITE BLOOD COUNT 22.6 10^3/uL (4.0-10.0)
[2019-05-06] MEDS ORDERED: AMIODARONE 100MG TABLET (PACERONE) PO STA (19:48)
[2019-05-06 19:59] LABS: INR 1.43; PROTHROMBIN TIME 17.2 SECONDS (11.8-14.0)
[2019-05-06 20:22] LABS: MONO # 2.2 10^3/uL (0.0-0.8)
[2019-05-06 20:37] LABS: BLOOD UREA NITROGEN 27 MG/DL (7-18); CALCIUM LEVEL 9.6 MG/DL (8.8-10.2); CARBON DIOXIDE LEVEL 24 MEQ/L (21-32); CHLORIDE LEVEL 99 MEQ/L (98-107); CK-MB VALUE MASS 1.7 NG/ML (<3.6); CPK CREATINE PHOSPHOKINASE 32 U/L (26-192); CREATININE FOR GFR 0.96 MG/DL (0.55-1.30); ETHYL ALCOHOL (ETHANOL) < 0.003 % (0.000-0.010); FREE T4 1.76 NG/DL (0.76-1.46); GLOMERULAR FILTRATION RATE 58.5 (>32); GLUCOSE, FASTING 115 MG/DL (70-100); MAGNESIUM LEVEL 1.7 MG/DL (1.8-2.4); MB/CK RELATIVE INDEX 5.31 (< OR =4); POTASSIUM SERUM 3.3 MEQ/L (3.5-5.1); SODIUM LEVEL 134 MEQ/L (136-145); THYROID STIMULATING HORMONE 0.886 uIU/ML (0.358-3.740); TROPONIN I < 0.02 NG/ML (< 0.10)
[2019-05-06] MEDS ORDERED: LIDOCAINE 2% 5ML JELLY UROJET TOP ONE (21:00)
[2019-05-06] MEDS ORDERED: NS 1,000 ML IV ONE (21:30)
[2019-05-06] MEDS ORDERED: cefTRIAXone SOD 1 GM in D5W MINI-BAG PLUS 50 ML IV ONE (21:30)
[2019-05-06] MEDS ORDERED: APAP325T4 PO (22:12)
[2019-05-07] MEDS ORDERED: MOM 30ML SUSPENSION UDC PO PRN (00:30)
[2019-05-07] MEDS ORDERED: OMEPRAZOLE 20 MG CAP PO PRN (00:30)
[2019-05-07] MEDS ORDERED: ACETAMINOPHEN TAB 650MG DOSE (2X325MG) PO PRN (00:30)
[2019-05-07] MEDS ORDERED: MAALOX 30 ML SUSP *UDC PO PRN (00:30)
--- NOTE | 2019-05-07 00:45 | HPEPDOC ---
General Date of Admission 05.07.19 Date of Service: May 07, 2019 Chief Complaint The patient is a 88-year-old female admitted with a reason for visit of Dizziness. History of Present Illness 88f with hx of afib p/w cough. Pt states she has felt sick for the past four days. She has had an awful cough. She also has decreased appetite, diarrhea, and gets very dizzy upon standing. She has a sharp pain in her right side. She denies any sob. A full ROS was performed and is negative except as above Home Medications Scheduled Amiodarone HCl (Amiodarone HCl) 200 Mg Tab, 200 MG PO QHS, (Reported) Potassium Chloride (Potassium Chloride) 10 Meq Tab, 20 MEQ DAILY, (Reported) Scheduled PRN Acetaminophen (Acetaminophen) 325 Mg Tablet, 650 MG PO Q4H PRN for PAIN, (Reported) Omeprazole (Omeprazole) 40 Mg Cap, 40 MG PO DAILY PRN for ACID REFLUX, (Reported) Propylene Glycol/Peg 400 (Systane 0.3-0.4% Eye Drops) 15 Ml Elisabeth, 1 DROP OU QID PRN for DRY EYES, (Reported) Torsemide (Torsemide) 10 Mg Tablet, 10 MG PO DAILY PRN for EDEMA, (Reported) Allergies Coded Allergies: Penicillins (Verified Allergy, Mild, Rash, 05/06/19) latex (Verified Allergy, Mild, REDNESS AND ITCHING FROM SOCKS AND UNDERWEAR, 01/09/19) nitrofurantoin (Verified Allergy, Mild, Vomiting, Diarrhea, 01/09/19) nitroglycerin (Verified Adverse Reaction, Intermediate, PT REFUSES- CAUSES EXTREME ANXIETY, FEELING OF DOOM, INC BP, 01/09/19) Past Medical History Medical History afib Family History Significant Family History: No pertinent family hx Social History * Smoker: Denies Alcohol: rarely A-FIB/CHADSVASC A-FIB History Current/History of A-Fib/PAF?: Yes Current PO Anticoag Therapy: No Age/Risk Factor Scoring CHADSVASC: CHADSVASC Response (Comments) Value Age Risk Factor Age >/= 75 years old 2 Gender Risk Factor Female 1 Hx of CHF No 0 Hx of HTN No 0 Hx of Stroke/TIA/or VTE No 0 Hx of Diabetes No 0 Hx of Vascular Disease No 0 Total 3 Treatment Treatment ordered: NONE Reason Anticoagulant not given: Other Other reason anticoagulant not: needs clarification Physical Examination General Exam: Positive: Alert, Cooperative, No Acute Distress Eye Exam: Positive: PERRLA, Conjunctiva & lids normal, EOMI; Negative: Sclera icteric ENT Exam: Positive: Atraumatic, Mucous membr. moist/pink, Pharynx Normal Neck Exam: Positive: Supple; Negative: JVD, thyromegaly Chest Exam: Positive: Clear to auscultation, Normal air movement Heart Exam: Positive: Tachycardic, Irregular Rhythm, Normal S1, Normal S2; Negative: Murmurs, Rubs Telemetry: Positive: Atrial fibrillation, Tachycardia Abdomen Exam: Positive: Normal bowel sounds, Soft; Negative: Tenderness, Hepatospenomegaly Extremity Exam: Positive: Normal pulses; Negative: Clubbing, Cyanosis, Edema Skin Exam: Positive: Nl turgor and temperature; Negative: Breakdown, Lesion Neuro Exam: Positive: Normal Gait, Normal Speech, Cranial Nerves 3-12 NL, Reflexes 2+ Psych Exam: Positive: Mental status NL, Mood NL, Oriented x 3 Vital Signs Vital Signs Date Time Temp Pulse Resp B/P (MAP) Pulse Ox O2 Delivery O2 Flow Rate FiO2 05/06/19 22:00 106 110/58 (75) 96 Room Air 05/06/19 19:20 98.7 16 Laboratory Data Labs 24H Laboratory Tests 2 05/06/19 19:36: Immature Granulocyte % (Auto) 0.7, White Blood Count 22.6H, Red Blood Count 4.03, Hemoglobin 10.2L, Hematocrit 31.9L, Mean Corpuscular Volume 79.2L, Mean Corpuscular Hemoglobin 25.3L, Mean Corpuscular Hemoglobin Concent 32.0, Red Cell Distribution Width 16.5H, Platelet Count 409, Neutrophils (%) (Auto) 86.3H, Lymphocytes (%) (Auto) 3.3L, Monocytes (%) (Auto) 9.6H, Eosinophils (%) (Auto) 0.0, Basophils (%) (Auto) 0.1, Neutrophils # (Auto) 19.5H, Lymphocytes # (Auto) 0.8L, Monocytes # (Auto) 2.2H, Eosinophils # (Auto) 0.0, Basophils # (Auto) 0.0, Nucleated Red Blood Cells % (auto) 0.0, Prothrombin Time 17.2H, Prothromb Time International Ratio 1.43, Anion Gap 11, Glomerular Filtration Rate 58.5, Lactic Acid Level 1.7, Blood Urea Nitrogen 27H, Creatinine 0.96, Sodium Level 134L, Potassium Level 3.3L, Chloride Level 99, Carbon Dioxide Level 24, Calcium Level 9.6, Total Creatine Kinase 32, Magnesium Level 1.7L, Creatine Kinase MB 1.7, Creatine Kinase MB Relative Index 5.31H, Troponin I < 0.02, Thyroid Stimulating Hormone (TSH) 0.886, Free Thyroxine 1.76H, Ethyl Alcohol Level < 0.003 05/06/19 21:34: Urine Color [place], Urine Appearance CLOUDYH, Urine pH 5.0, Urine Specific [place] 1.025, Urine Protein 1+H, Urine Glucose (UA) NEGATIVE, Urine Ketones NEGATIVE, Urine Blood 2+H, Urine Nitrite NEGATIVE, Urine Bilirubin NEGATIVE, Urine Urobilinogen 4.0H, Urine Leukocyte Esterase 2+H, Urine WBC (Auto) 67H, Urine RBC (Auto) 28H, Urine Hyaline Casts (Auto) 20, Urine Bacteria (Auto) NEGATIVE, Urine Squamous Epithelial Cells 7, Urine Transitional Epithelial Cells 2, Urine Mucus (Auto) SMALL, Urine Sperm (Auto) CBC/BMP Laboratory Tests 05/06/19 19:36 Red Blood Count 4.03, Mean Corpuscular Volume 79.2 L, Mean Corpuscular Hemoglobin 25.3 L, Mean Corpuscular Hemoglobin Concent 32.0, Red Cell Distribution Width 16.5 H, Neutrophils (%) (Auto) 86.3 H, Lymphocytes (%) (Auto) 3.3 L, Monocytes (%) (Auto) 9.6 H, Eosinophils (%) (Auto) 0.0, Basophils (%) (Auto) 0.1, Neutrophils # (Auto) 19.5 H, Lymphocytes # (Auto) 0.8 L, Monocytes # (Auto) 2.2 H, Eosinophils # (Auto) 0.0, Basophils # (Auto) 0.0, Calcium Level 9.6, Total Creatine Kinase 32 Microbiology Microbiology 05/06/19 Blood Culture, Received Pending 05/06/19 Urine Culture, Received Pending Assessment/Plan 88f p/w pneumonia will continue ceftriaxone and add doxy for atypicals check sputum cx check urine ags pt appears dry and is complaining of orthostatic dizziness will give iv hydration afib continue amiodarone unclear why she is not on AC will need to clarify Plan / VTE VTE Prophylaxis Ordered?: Yes ANSLEY TORRES MD May 07, 2019 00:45
[2019-05-07] MEDS: DOXYCYCLINE HYCLATE 100 MG TAB PO SCH ×3 (01:50→20:52)
[2019-05-07] MEDS: NS 1,000 ML IV SCH (01:50)
--- NOTE | 2019-05-07 01:56 | REP ---
Clinical: Shortness of breath. Technique: PA and lateral. Comparison: 02/04/2019. Findings: Mediastinum and cardiac silhouette are stable. Lung brown demonstrate diffuse chronic interstitial changes/fibrosis with suspected superimposed primarily perihilar/right lower lobe opacities similar to prior examination. No obvious effusion. No pneumothorax. Skeletal structures demonstrate chronic stable osteopenia and degenerative changes. Impression: Diffuse fibrosis and interstitial disease with suspected superimposed lower lobe opacities similar to prior examination. Electronically Signed by Gilmer Ornelas MD 05/07/2019 01:48 A
--- NOTE | 2019-05-07 03:02 | REPVR ---
EXAM: CT Chest Without Contrast EXAM DATE/TIME: 05/07/2019 12:56 AM CLINICAL HISTORY: 88 years old, female; Shortness of breath; Additional info: Pna vs mets TECHNIQUE: Imaging protocol: Axial computed tomography images of the chest without intravenous contrast. Coronal and sagittal reformatted images were created and reviewed. 3D rendering: MIP reconstructed images were created and reviewed. Radiation optimization: All CT scans at this facility use at least one of these dose optimization techniques: automated exposure control; mA and/or kV adjustment per patient size (includes targeted exams where dose is matched to clinical indication); or iterative reconstruction. COMPARISON: No relevant prior studies available. FINDINGS: Lungs: Minimal diffuse bullous change with mild scattered interstitial prominence, primarily in the subpleural regions and areas of groundglass infiltrate and cystic change. Left perihilar consolidation extending into the left lower lobe and peripheral right posterolateral consolidation consistent with pneumonia. There are minimal scattered areas of bronchiectasis, greatest in the right lower lobe. Pleural space: Unremarkable. No pneumothorax. No pleural effusion. Heart: Unremarkable. No cardiomegaly. No pericardial effusion. Pulmonary arteries: The main pulmonary artery measures 39 mm. Aorta: The ascending thoracic aorta measures 37 mm. Lymph nodes: Unremarkable. No enlarged lymph nodes. Bones/joints: Moderate thoracic kyphosis with slight anterior wedge configuration of several mid thoracic segments. There is mild degenerative spurring. Soft tissues: Unremarkable. Liver: Anterior hepatic cyst measuring 11 mm. Gallbladder and bile ducts: Status post cholecystectomy. IMPRESSION: 1. Minimal diffuse bullous change with interstitial prominence, particularly in the subpleural regions and scattered ground glass infiltrates and cystic changes which are greatest in the right lower lobe. There is scattered bronchiectasis, greatest in the right lower lobe. Findings suggest pulmonary fibrosis and possible interstitial pneumonitis. 2. Focal areas of consolidation in the perihilar left lower lobe and peripheral right lower lobe consistent with pneumonia. 3. Enlarged main pulmonary artery measuring 39 mm which may be seen with pulmonary hypertension. 4. Status post cholecystectomy. Electronically signed by: Hal Argueta On 05/07/2019 03:02:00 AM
[2019-05-07] MEDS: LR 1,000 ML IV SCH ×2 (04:16→05:45)
[2019-05-07 06:42] LABS: BASO % 0.1 % (0.0-1.0); HEMATOCRIT 27.9 % (36.0-47.0); LYMPH # 0.7 10^3/uL (1.5-4.5); MEAN CORPUSCULAR HEMOGLOBIN 25.5 pg (27.0-33.0); MEAN CORPUSCULAR HGB CONC 32.3 g/dl (32.0-36.5); MONO % 9.8 % (0.0-5.0); NEUTROPHILS % 86.5 % (36.0-66.0); PLATELET COUNT, AUTOMATED 378 10^3/uL (150-450); RED BLOOD COUNT 3.53 10^6/uL (4.00-5.40); WHITE BLOOD COUNT 23.2 10^3/uL (4.0-10.0)
[2019-05-07 07:06] LABS: MONO # 2.3 10^3/uL (0.0-0.8)
[2019-05-07] MEDS: ENOXAPARIN 30 MG/0.3 ML SYR (J1650) SC SCH (07:07)
[2019-05-07 07:08] LABS: BLOOD UREA NITROGEN 19 MG/DL (7-18); CALCIUM LEVEL 8.4 MG/DL (8.8-10.2); CARBON DIOXIDE LEVEL 21 MEQ/L (21-32); CHLORIDE LEVEL 106 MEQ/L (98-107); CREATININE FOR GFR 0.68 MG/DL (0.55-1.30); GLOMERULAR FILTRATION RATE > 60.0 (>32); GLUCOSE, FASTING 84 MG/DL (70-100); POTASSIUM SERUM 4.6 MEQ/L (3.5-5.1); SODIUM LEVEL 135 MEQ/L (136-145)
[2019-05-07 11:43] VITALS: BP 96/52
--- NOTE | 2019-05-07 18:43 | IPNPDOC ---
Subjective Date Seen The patient was seen on 05/07/19. Subjective Chief Complaint/HPI Patient seen and examined at the bedside. Reports that her shortness of breath and cough is significantly improved today. Denies any acute complaints. Objective Physical Examination General Exam: Positive: Alert, Cooperative, No Acute Distress Eye Exam: Negative: Sclera icteric ENT Exam: Positive: Atraumatic, Mucous membr. moist/pink Neck Exam: Negative: JVD Chest Exam: Positive: Diminished Heart Exam: Positive: Rate Normal, Normal S1, Normal S2 Abdomen Exam: Positive: Soft; Negative: Tenderness Extremity Exam: Negative: Tenderness, Swelling Neuro Exam: Positive: Normal Gait, Normal Speech Psych Exam: Positive: Mental status NL, Mood NL, Oriented x 3 Assessment /Plan Plan/VTE VTE Prophylaxis Ordered?: Yes Plan Community acquired pneumonia Cultures unrevealing thus far Patient reports improvement of shortness of breath today White blood cell count remains elevated, however the patient remains afebrile Continue Rocephin, doxycycline We will continue to monitor the patient's progress History of atrial fibrillation Continue amiodarone, not on anticoagulation 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 Vera of Oncology as an outpatient, recently diagnosed in January of 2019--patient deemed not a candidate for any chemotherapy Cont to follow up as outpatient Waldenstrohm's macroglobulinemia Follow up with hematology as an outpatient GERD Continue PPI DVT prophylaxis Lovenox subcutaneous Disposition-pending clinical improvement VS, I&O, 24H, Fishbone Vital Signs/I&O Vital Signs Date Time Temp Pulse Resp B/P (MAP) Pulse Ox O2 Delivery O2 Flow Rate FiO2 05/07/19 11:43 97.9 101 24 96/52 (67) 93 05/07/19 07:00 Room Air I&O- Last 24 Hours up to 6 AM 05/07/19 06:00 Intake Total 1550 ml Balance 1550 ml Laboratory Data 24H LABS Laboratory Tests 2 05/06/19 19:36: Immature Granulocyte % (Auto) 0.7, White Blood Count 22.6H, Red Blood Count 4.03, Hemoglobin 10.2L, Hematocrit 31.9L, Mean Corpuscular Volume 79.2L, Mean Corpuscular Hemoglobin 25.3L, Mean Corpuscular Hemoglobin Concent 32.0, Red Cell Distribution Width 16.5H, Platelet Count 409, Neutrophils (%) (Auto) 86.3H, Lymphocytes (%) (Auto) 3.3L, Monocytes (%) (Auto) 9.6H, Eosinophils (%) (Auto) 0.0, Basophils (%) (Auto) 0.1, Neutrophils # (Auto) 19.5H, Lymphocytes # (Auto) 0.8L, Monocytes # (Auto) 2.2H, Eosinophils # (Auto) 0.0, Basophils # (Auto) 0.0, Nucleated Red Blood Cells % (auto) 0.0, Prothrombin Time 17.2H, Prothromb Time International Ratio 1.43, Anion Gap 11, Glomerular Filtration Rate 58.5, Lactic Acid Level 1.7, Blood Urea Nitrogen 27H, Creatinine 0.96, Sodium Level 134L, Potassium Level 3.3L, Chloride Level 99, Carbon Dioxide Level 24, Calcium Level 9.6, Total Creatine Kinase 32, Magnesium Level 1.7L, Creatine Kinase MB 1.7, Cre atine Kinase MB Relative Index 5.31H, Troponin I < 0.02, Thyroid Stimulating Hormone (TSH) 0.886, Free Thyroxine 1.76H, Ethyl Alcohol Level < 0.003 05/06/19 21:34: Urine Color RO[place]IE, Urine Appearance CLOUDYH, Urine pH 5.0, Urine Specific [place] 1.025, Urine Protein 1+H, Urine Glucose (UA) NEGATIVE, Urine Ketones NEGATIVE, Urine Blood 2+H, Urine Nitrite NEGATIVE, Urine Bilirubin NEGATIVE, Urine Urobilinogen 4.0H, Urine Leukocyte Esterase 2+H, Urine WBC (Auto) 67H, Urine RBC (Auto) 28H, Urine Hyaline Casts (Auto) 20, Urine Bacteria (Auto) NEGATIVE, Urine Squamous Epithelial Cells 7, Urine Transitional Epithelial Cells 2, Urine Mucus (Auto) SMALL, Urine Sperm (Auto) 05/07/19 06:27: Anion Gap 8, Glomerular Filtration Rate > 60.0, Blood Urea Nitrogen 19H, Creatinine 0.68, Sodium Level 135L, Potassium Level 4.6#, Chloride Level 106, Carbon Dioxide Level 21, Calcium Level 8.4L, Procalcitonin 0.27 05/07/19 06:28: Immature Granulocyte % (Auto) 0.6, White Blood Count 23.2H, Red Blood Count 3.53L, Hemoglobin 9.0L, Hematocrit 27.9L, Mean Corpuscular Volume 79.0L, Mean Corpuscular Hemoglobin 25.5L, Mean Corpuscular Hemoglobin Concent 32.3, Red Cell Distribution Width 16.5H, Platelet Count 378, Neutrophils (%) (Auto) 86.5H, Lymphocytes (%) (Auto) 3.0L, Monocytes (%) (Auto) 9.8H, Eosinophils (%) (Auto) 0.0, Basophils (%) (Auto) 0.1, Neutrophils # (Auto) 20.0H, Lymphocytes # (Auto) 0.7L, Monocytes # (Auto) 2.3H, Eosinophils # (Auto) 0.0, Basophils # (Auto) 0.0, Nucleated Red Blood Cells % (auto) 0.0 CBC/BMP Laboratory Tests 05/06/19 19:36 Red Blood Count 4.03, Mean Corpuscular Volume 79.2 L, Mean Corpuscular Hemoglobin 25.3 L, Mean Corpuscular Hemoglobin Concent 32.0, Red Cell Distribution Width 16.5 H, Neutrophils (%) (Auto) 86.3 H, Lymphocytes (%) (Auto) 3.3 L, Monocytes (%) (Auto) 9.6 H, Eosinophils (%) (Auto) 0.0, Basophils (%) (Auto) 0.1, Neutrophils # (Auto) 19.5 H, Lymphocytes # (Auto) 0.8 L, Monocytes # (Auto) 2.2 H, Eosinophils # (Auto) 0.0, Basophils # (Auto) 0.0, Calcium Level 9.6, Total Creatine Kinase 32 05/07/19 06:27 Calcium Level 8.4 L 05/07/19 06:28 Red Blood Count 3.53 L, Mean Corpuscular Volume 79.0 L, Mean Corpuscular Hemoglobin 25.5 L, Mean Corpuscular Hemoglobin Concent 32.3, Red Cell Distribution Width 16.5 H, Neutrophils (%) (Auto) 86.5 H, Lymphocytes (%) (Auto) 3.0 L, Monocytes (%) (Auto) 9.8 H, Eosinophils (%) (Auto) 0.0, Basophils (%) (Auto) 0.1, Neutrophils # (Auto) 20.0 H, Lymphocytes # (Auto) 0.7 L, Monocytes # (Auto) 2.3 H, Eosinophils # (Auto) 0.0, Basophils # (Auto) 0.0 Microbiology Microbiology 05/06/19 Blood Culture, Received Pending 05/06/19 Urine Culture - Final, Complete NICOLASA BANKS MD May 07, 2019 18:43
[2019-05-07] MEDS ORDERED: AMIODARONE 200 MG TAB (PACERONE) PO SCH (21:00)
[2019-05-07] MEDS ORDERED: cefTRIAXone SOD 1 GM in D5W MINI-BAG PLUS 50 ML IV SCH (21:00)
[2019-05-07 22:00] VITALS: BP 119/59
[2019-05-08 06:00] VITALS: BP 114/63
[2019-05-08] MEDS: ENOXAPARIN 30 MG/0.3 ML SYR (J1650) SC SCH (06:09)
[2019-05-08 06:27] LABS: HEMATOCRIT 27.3 % (36.0-47.0); HEMOGLOBIN 9.1 g/dl (12.0-15.5); MEAN CORPUSCULAR HEMOGLOBIN 25.3 pg (27.0-33.0); MEAN CORPUSCULAR HGB CONC 33.3 g/dl (32.0-36.5); MEAN CORPUSCULAR VOLUME 75.8 fl (80.0-96.0); PLATELET COUNT, AUTOMATED 426 10^3/uL (150-450)
[2019-05-08 06:50] LABS: BLOOD UREA NITROGEN 15 MG/DL (7-18); CALCIUM LEVEL 9.4 MG/DL (8.8-10.2); CARBON DIOXIDE LEVEL 23 MEQ/L (21-32); CHLORIDE LEVEL 105 MEQ/L (98-107); CREATININE FOR GFR 0.63 MG/DL (0.55-1.30); GLOMERULAR FILTRATION RATE > 60.0 (>32); GLUCOSE, FASTING 100 MG/DL (70-100); POTASSIUM SERUM 2.8 MEQ/L (3.5-5.1); SODIUM LEVEL 136 MEQ/L (136-145)
[2019-05-08] MEDS ORDERED: POTASSIUM CHLORIDE 10 MEQ SR TABLET PO ONE ×3 (07:45→14:00)
[2019-05-08] MEDS: DOXYCYCLINE HYCLATE 100 MG TAB PO SCH (09:01)
[2019-05-08] MEDS ORDERED: CEFD300CAP PO (11:54)
[2019-05-08 14:00] VITALS: BP 108/92
--- NOTE | 2019-05-08 15:53 | DS.PDOC ---
Discharge Summary General Date of Admission May 07, 2019 at 00:25 Date of Discharge 05/08/19 Discharge Summary PROCEDURES PERFORMED DURING STAY: None. ADMITTING/DISCHARGE DIAGNOSES: Community acquired pneumonia Persistent leukocytosis Right lung adenocarcinoma, metastatic, consistent with colon primary History of atrial fibrillation [place] Strohm's macroglobulinemia COMPLICATIONS/CHIEF COMPLAINT: Cap (Community Acquired Pneumonia). HISTORY OF PRESENT ILLNESS: . 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 In the ER, a CT scan of the chest revealed perihilar left lower lobe and peripheral right lower lobe consolidations consistent with pneumonia. The patient was admitted to the hospitalist service for further evaluation and management. During hospitalization, the patient's clinical condition significantly improved. She states that her shortness of breath, cough, and energy level improved with IV antibiotic therapy. The patient has been noted to be ambulating in her room without any acute issues. However, the patient's white blood cell count has been upward trending since her admission. She has otherwise remained afebrile, and denies any fevers, chills, chest pain, palpitations, abdominal pain, or any nausea/vomiting/diarrhea.. This can possibly be attributed to her underlying malignancy. She has not received any Neulasta or steroid therapy recently. I did discuss this in depth with the patient, and my concern for continued underlying infection given her increasing white blood cell count. However, the patient remained adamant that she wanted to be discharged home. The patient is of sound mind, and displays adequate insight of her clinical condition as well as appropriate judgment. I did discuss her poor long-term prognosis given her recently diagnosed metastatic cancer, as well as her current infection with an uptrending white blood cell count. The patient verbalized and confirmed her DNR/DNI status. She stated that she no longer wanted to remain in the hospital, and would follow up with her primary care physician if she felt worse. She understands that her condition can significantly worsen and can result in or severe debility if her infection is not under control. She tells me that she has good support at home with her sister who is significantly younger than her and lives down the hallway from her. Also, I did have an extensive telephone discussion with the patient's daughter Gabrielle Garrison who is also local, about the patient's overall clinical condition, and her current state. She states that the patient is considering hospice, and plans to follow-up with her primary care doctor about this. We will discharge the patient on by mouth antibiotic therapy, and ask her to follow-up with her primary care physician within 7 days. She is also to follow up with oncology as an outpatient for further treatment. If her condition were to worsen, she has been counseled to return to the emergency room DISCHARGE MEDICATIONS: Please see below. ALLERGIES: Please see below. PHYSICAL EXAMINATION ON DISCHARGE: VITAL SIGNS: Please see below. General Exam: Positive: Alert, Cooperative, No Acute Distress Eye Exam: Negative: Sclera icteric ENT Exam: Positive: Atraumatic, Mucous membr. moist/pink Neck Exam: Negative: JVD Chest Exam: Positive: Diminished Heart Exam: Positive: Rate Normal, Normal S1, Normal S2 Abdomen Exam: Positive: Soft; Negative: Tenderness Extremity Exam: Negative: Tenderness, Swelling Neuro Exam: Positive: Normal Gait, Normal Speech Psych Exam: Positive: Mental status NL, Mood NL, Oriented x 3 LABORATORY DATA: Please see below. IMAGING: Clinical: Shortness of breath. Technique: PA and lateral. Comparison: 02/04/2019. Findings: Mediastinum and cardiac silhouette are stable. Lung brown demonstrate diffuse chronic interstitial changes/fibrosis with suspected superimposed primarily perihilar/right lower lobe opacities similar to prior examination. No obvious effusion. No pneumothorax. Skeletal structures demonstrate chronic stable osteopenia and degenerative changes. Impression: Diffuse fibrosis and interstitial disease with suspected superimposed lower lobe opacities similar to prior examination. EXAM: CT Chest Without Contrast EXAM DATE/TIME: 05/07/2019 12:56 AM CLINICAL HISTORY: 88 years old, female; Shortness of breath; Additional info: Pna vs mets TECHNIQUE: Imaging protocol: Axial computed tomography images of the chest without intravenous contrast. Coronal and sagittal reformatted images were created and reviewed. 3D rendering: MIP reconstructed images were created and reviewed. Radiation optimization: All CT scans at this facility use at least one of these dose optimization techniques: automated exposure control; mA and/or kV adjustment per patient size (includes targeted exams where dose is matched to clinical indication); or iterative reconstruction. COMPARISON: No relevant prior studies available. FINDINGS: Lungs: Minimal diffuse bullous change with mild scattered interstitial prominence, primarily in the subpleural regions and areas of groundglass infiltrate and cystic change. Left perihilar consolidation extending into the left lower lobe and peripheral right posterolateral consolidation consistent with pneumonia. There are minimal scattered areas of bronchiectasis, greatest in the right lower lobe. Pleural space: Unremarkable. No pneumothorax. No pleural effusion. Heart: Unremarkable. No cardiomegaly. No pericardial effusion. Pulmonary arteries: The main pulmonary artery measures 39 mm. Aorta: The ascending thoracic aorta measures 37 mm. Lymph nodes: Unremarkable. No enlarged lymph nodes. Bones/joints: Moderate thoracic kyphosis with slight anterior wedge configuration of several mid thoracic segments. There is mild degenerative spurring. Soft tissues: Unremarkable. Liver: Anterior hepatic cyst measuring 11 mm. Gallbladder and bile ducts: Status post cholecystectomy. IMPRESSION: 1. Minimal diffuse bullous change with interstitial prominence, particularly in the subpleural regions and scattered ground glass infiltrates and cystic changes which are greatest in the right lower lobe. There is scattered bronchiectasis, greatest in the right lower lobe. Findings suggest pulmonary fibrosis and possible interstitial pneumonitis. 2. Focal areas of consolidation in the perihilar left lower lobe and peripheral right lower lobe consistent with pneumonia. 3. Enlarged main pulmonary artery measuring 39 mm which may be seen with pulmonary hypertension. 4. Status post cholecystectomy. PROGNOSIS: Poor long-term prognosis ACTIVITY: As tolerated. DIET: As tolerated DISCHARGE PLAN: Home DISPOSITION: 01 Home, Self-Care. DISCHARGE INSTRUCTIONS: We will discharge the patient on by mouth antibiotic therapy, and ask her to follow-up with her primary care physician within 7 days. She is also to follow up with oncology as an outpatient for further treatment. If her condition were to worsen, she has been counseled to return to the emergency room DISCHARGE CONDITION: Stable. TIME SPENT ON DISCHARGE: Greater than 30 minutes. Vital Signs/I&Os Vital Signs Date Time Temp Pulse Resp B/P (MAP) Pulse Ox O2 Delivery O2 Flow Rate FiO2 05/08/19 14:00 97.8 106 15 108/92 (97) 97 05/07/19 07:00 Room Air I&O- Last 24 Hours up to 6 AM 05/08/19 06:00 Intake Total 1470 ml Balance 1470 ml Laboratory Data Labs 24H Laboratory Tests 2 05/08/19 05:53: Nucleated Red Blood Cells % (auto) 0.0, Differential Slide Review Report, Peripheral Blood Smear Path Consult PERIPHERAL SMEAR, Anion Gap 8, Glomerular Filtration Rate > 60.0, Blood Urea Nitrogen 15, Creatinine 0.63, Sodium Level 136, Potassium Level 2.8#*L, Chloride Level 105, Carbon Dioxide Level 23, Calcium Level 9.4, C-Reactive Protein, Quantitative 20.60H CBC/BMP Laboratory Tests 05/08/19 05:53 Red Blood Count 3.60 L, Mean Corpuscular Volume 75.8 L, Mean Corpuscular Hemoglobin 25.3 L, Mean Corpuscular Hemoglobin Concent 33.3, Red Cell Distribution Width 16.4 H, Calcium Level 9.4 Microbiology Microbiology 05/06/19 Blood Culture - Preliminary, Resulted No growth after 24 hours . All specim... 05/06/19 Urine Culture - Final, Complete Discharge Medications Scheduled Amiodarone HCl (Amiodarone HCl) 200 Mg Tab, 200 MG PO QHS, (Reported) Cefdinir (Cefdinir) 300 Mg Capsule, 1 CAP PO BID Potassium Chloride (Potassium Chloride) 10 Meq Tab, 20 MEQ DAILY, (Reported) Scheduled PRN Acetaminophen (Acetaminophen) 325 Mg Tablet, 650 MG PO Q4H PRN for PAIN, (Reported) Omeprazole (Omeprazole) 40 Mg Cap, 40 MG PO DAILY PRN for ACID REFLUX, (Reported) Propylene Glycol/Peg 400 (Systane 0.3-0.4% Eye Drops) 15 Ml Elisabeth, 1 DROP OU QID PRN for DRY EYES, (Reported) Torsemide (Torsemide) 10 Mg Tablet, 10 MG PO DAILY PRN for EDEMA, (Reported) Allergies Coded Allergies: Penicillins (Verified Allergy, Mild, Rash, 05/06/19) latex (Verified Allergy, Mild, REDNESS AND ITCHING FROM SOCKS AND UNDE RWEAR, 01/09/19) nitrofurantoin (Verified Allergy, Mild, Vomiting, Diarrhea, 01/09/19) nitroglycerin (Verified Adverse Reaction, Intermediate, PT REFUSES- CAUSES EXTREME ANXIETY, FEELING OF DOOM, INC BP, 01/09/19) NICOLASA BANKS MD May 08, 2019 15:53
[2019-05-09 15:47] LABS: BODY FLUID CULTURE Not Indicated (.); LEGIONELLA ANTIGEN URINE Negative (Negative); ORGANISM ID Not indicated. (.); SPECIMEN SOURCE Urine (.); URINE STREP PNEUMONIAE ANTIGEN Negative (Negative)
== END 2019-05-08 14:20 | disposition home or self-care (01) | DRG 194 ==
LOC: M ED 19:09 → M ED INP 05-07 00:25 → M MSPAV 05-07 11:44
PROVIDERS: ADMIT Hospitalist; ATTEND Internal Medicine
DX: J18.9 Pneumonia, unspecified organism (principal); C18.9 Malignant neoplasm of colon, unspecified; C78.01 Secondary malignant neoplasm of right lung; C88.0 Waldenstrom macroglobulinemia; I48.91 Unspecified atrial fibrillation; K21.9 Gastro-esophageal reflux disease without esophagitis; R19.7 Diarrhea, unspecified; Z66 Do not resuscitate; Z79.899 Other long term (current) drug therapy; Z88.0 Allergy status to penicillin; Z88.8 Allergy status to other drugs, medicaments and biological substances; Z91.040 Latex allergy status; Z90.49 Acquired absence of other specified parts of digestive tract

== ENCOUNTER 2019-05-16 18:08 | Inpatient (IN) | payer MEDICARE, MEDICAID ==
[~2019-05-16] VITALS: Ht 167.6 cm; Wt 48.9 kg
[~2019-05-16 18:08] MED LIST changes: +APAP325T4 PO; +CEFD300CAP PO
[2019-05-16 20:10] LABS: BASO % 0.1 % (0.0-1.0); EOS % 0.1 % (0.0-3.0); HEMOGLOBIN 11.3 g/dl (12.0-15.5); LYMPH # 0.9 10^3/uL (1.5-4.5); LYMPH % 5.8 % (24.0-44.0); MEAN CORPUSCULAR HEMOGLOBIN 24.9 pg (27.0-33.0); MEAN CORPUSCULAR HGB CONC 31.4 g/dl (32.0-36.5); MEAN CORPUSCULAR VOLUME 79.3 fl (80.0-96.0); MONO # 1.5 10^3/uL (0.0-0.8); MONO % 9.8 % (0.0-5.0); NEUTROPHILS # 12.9 10^3/uL (1.8-7.7); NEUTROPHILS % 83.6 % (36.0-66.0); PLATELET COUNT, AUTOMATED 544 10^3/uL (150-450); RED BLOOD COUNT 4.54 10^6/uL (4.00-5.40); WHITE BLOOD COUNT 15.4 10^3/uL (4.0-10.0)
[2019-05-16 20:22] LABS: INR 1.42; PROTHROMBIN TIME 17.1 SECONDS (11.8-14.0)
[2019-05-16 20:23] LABS: PARTIAL THROMBOPLASTIN TIME 31.6 SECONDS (25.0-38.4)
--- NOTE | 2019-05-16 20:30 | ECGEPIP ---
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
[2019-05-16] MEDS ORDERED: NS 1,000 ML IV ONE (21:30)
[2019-05-16 21:36] LABS: ALBUMIN 2.4 GM/DL (3.2-5.2); ALT/SGPT 91 U/L (12-78); BILIRUBIN,DIRECT 0.2 MG/DL (0.0-0.2); BILIRUBIN,TOTAL 0.4 MG/DL (0.2-1.0); BLOOD UREA NITROGEN 19 MG/DL (7-18); CALCIUM LEVEL 9.3 MG/DL (8.8-10.2); CARBON DIOXIDE LEVEL 25 MEQ/L (21-32); CHLORIDE LEVEL 103 MEQ/L (98-107); CK-MB VALUE MASS 1.4 NG/ML (<3.6); CPK CREATINE PHOSPHOKINASE 19 U/L (26-192); CREATININE FOR GFR 0.68 MG/DL (0.55-1.30); GLOMERULAR FILTRATION RATE > 60.0 (>32); GLUCOSE, FASTING 93 MG/DL (70-100); MAGNESIUM LEVEL 1.6 MG/DL (1.8-2.4); MB/CK RELATIVE INDEX 7.37 (< OR =4); NT-PRO BNP 1535 PG/ML (<450); POTASSIUM SERUM 4.1 MEQ/L (3.5-5.1); SODIUM LEVEL 137 MEQ/L (136-145); TOTAL PROTEIN 6.7 GM/DL (6.4-8.2); TROPONIN I 0.02 NG/ML (< 0.10)
[2019-05-16] MEDS ORDERED: CEFEPIME HCL 2 GM in D5W MINI-BAG PLUS 50 ML IV ONE (22:45)
--- NOTE | 2019-05-16 23:16 | HPEPDOC ---
[facility] Medical History & Physical Date of Admission May 16, 2019 Date of Service: May 16, 2019 Primary Care Physician: Donita Yeung Attending Physician: FELIPE DE LA VEGA MD History and Physical Time of service 11:30 AM CHIEF COMPLAINT: Dizziness HISTORY OF PRESENT ILLNESS: Ms. Mijares is an 89 yr old female who presented with complaints of feeling dizzy yesterday. Associated symptoms included a cough productive of white sputum and runny nose. She denies having chest pain, denies having dyspnea, denies having a poor appetite, denies having nausea, denies having muscle aches and denies having fevers. She reports "feeling cold all the time". Per discussion with the ED attending the patient was hospitalized in May for A. fib secondary to pneumonia. Today, her chest x-ray showed right middle lobe pneumonia. She received cefepime and 1 L bolus in the ED. REVIEW OF SYSTEMS: 12 Point review of systems negative except as listed in HPI PAST MEDICAL/ SURGICAL HISTORY: 1. A. fib no longer on coagulation due to history of GI bleed 2. Chronic hypertension. 3. Waldenstrm's 4. Irritable bowel syndrome 5. Iron deficiency anemia. 6. Status post appendectomy. 7. Status post cholecystectomy SOCIAL HISTORY: Does not smoke. Does not drink FAMILY HISTORY: Denies family history of cancer. Denies family history of diabetes ALLERGIES: Please see below. HOME MEDICATIONS: Please see below. PHYSICAL EXAMINATION: VITAL SIGNS: See below GENERAL APPEARANCE: Cachectic, well-developed, not in apparent distress HEENT: Temporal wasting, mucous membranes moist and pink CARDIOVASCULAR: Tachycardic, no murmurs, rubs or gallops LUNGS: Has coarse expiratory rhonchi bilaterally ABDOMEN: Scaphoid, soft and nontender on palpation EXTREMITIES: No lower extremity edema NEUROLOGICAL: Cranial nerves II-12 are grossly intact. Speech is not dysarthric PSYCHIATRIC: Alert and oriented to person, place and time, able to understand and follow commands LABORATORY DATA: See below. IMAGING: Chest x-ray final read is pending, but there does appear to be right middle lobe pneumonia MICROBIOLOGY: Please see below. ASSESSMENT: . Ms. Mijares is an 89-year-old female the past medical history of A. fib, no longer on anticoagulation because of iron deficiency anemia, chronic hypertension, Waldenstrm's, and irritable bowel syndrome. Will be admitted for management of sepsis secondary to right middle lobe pneumonia. PLAN: 1. Sepsis possibly secondary to right middle lobe pneumonia SIRS criteria include tachycardia and leukocytosis Lactic acid within normal limits Qsofa Score = 1 point = not high risk CURB 65 score to determine if pt should be admitted = 3 points = severe risk = in pt and possibly ICU admission Shorr Score to identify pts at risk for MRSA PNA (pt was hospitalized in May for A.fib and PNA) = 4 points = medium risk = use clinical judgement regarding abx coverage Plan: admit to PCU / telemetry / Sepsis protocol / c/w Cefepime + Vanc for MRSA coverage /give another 500 ML bolus of normal saline/f/u blood cx, sputum Cx & legionella / tessalon pearls / Acetaminophen PRN for fever 2. Iron deficiency anemia Thrombocytosis, likely secondary to iron deficiency Plan: follow-up CBC daily 3 Transaminitis Plan: Trend LFTs / If not improving the daytime team may consider ordering a liver ultrasound 4. Chronic A. fib /flutter no longer on coagulation due to history of GI bleed EKG showed A. fib/flutter with a controlled ventricular response. 5.Chronic hypertension. Plan: Continue with home meds. DVT prophylaxis with Lovenox Disposition pending clinical course Vital Signs Vital Signs Date Time Temp Pulse Resp B/P (MAP) Pulse Ox O2 Delivery O2 Flow Rate FiO2 05/16/19 21:41 97.9 05/16/19 20:37 113 117/70 (86) 134 133/55 (81) 87/45 (59) 05/16/19 20:30 97 05/16/19 18:43 18 Room Air Laboratory Data CBC/BMP Laboratory Tests 05/16/19 19:45 Red Blood Count 4.54, Mean Corpuscular Volume 79.3 L, Mean Corpuscular Hemoglobin 24.9 L, Mean Corpuscular Hemoglobin Concent 31.4 L, Red Cell Distribution Width 16.9 H, Neutrophils (%) (Auto) 83.6 H, Lymphocytes (%) (Auto) 5.8 L, Monocytes (%) (Auto) 9.8 H, Eosinophils (%) (Auto) 0.1, Basophils (%) (Auto) 0.1, Neutrophils # (Auto) 12.9 H, Lymphocytes # (Auto) 0.9 L, Monocytes # (Auto) 1.5 H, Eosinophils # (Auto) 0.0, Basophils # (Auto) 0.0 05/16/19 20:51 Microbiology Microbiology 05/16/19 Blood Culture, Received Pending 05/16/19 Blood Culture, Received Pending Home Medications Scheduled Amiodarone HCl (Amiodarone HCl) 200 Mg Tab, 200 MG PO QHS Potassium Chloride (Potassium Chloride) 10 Meq Tab, 20 MEQ BID Scheduled PRN Acetaminophen (Acetaminophen) 325 Mg Tablet, 650 MG PO Q4H PRN for PAIN Omeprazole (Omeprazole) 40 Mg Cap, 40 MG PO DAILY PRN for ACID REFLUX Propylene Glycol/Peg 400 (Systane 0.3-0.4% Eye Drops) 15 Ml Elisabeth, 1 DROP OU QID PRN for DRY EYES Torsemide (Torsemide) 10 Mg Tablet, 10 MG PO DAILY PRN for EDEMA Allergies Coded Allergies: Penicillins (Verified Allergy, Mild, Rash, 05/16/19) latex (Verified Allergy, Mild, REDNESS AND ITCHING FROM SOCKS AND UNDERWEAR, 05/16/19) nitroglycerin (Verified Adverse Reaction, Intermediate, PT REFUSES- CAUSES EXTREME ANXIETY, FEELING OF DOOM, INC BP, 05/16/19) nitrofurantoin (Verified Adverse Reaction, Mild, Vomiting, Diarrhea, 05/16/19) A-FIB/CHADSVASC A-FIB History Current/History of A-Fib/PAF?: Yes Current PO Anticoag Therapy: No Treatment Reason Anticoagulant not given: Other Other reason anticoagulant not: hx of GI bleed & iron deficiency anemia FELIPE DE LA VEGA MD May 16, 2019 23:16
[2019-05-16] MEDS ORDERED: BENZONATATE 100 MG CAP PO PRN (23:30)
[2019-05-16] MEDS ORDERED: ACETAMINOPHEN 650MG ER TAB (TYLENOL ARTHRITIS) PO PRN (23:30)
[2019-05-16] MEDS ORDERED: VANCOMYCIN HCL 840 MG in IV FLUID PLACE HOLDER 1 EA IV SCH (23:30)
[2019-05-16] MEDS ORDERED: NS 500 ML IV ONE (23:30)
[2019-05-17] MEDS ORDERED: VANCOMYCIN HCL 1,000 MG, VIAL MATE ADAPTER 1 EACH in D5W 250 ML IV ONE ×3
--- NOTE | 2019-05-17 01:32 | PHACANCOPD ---
PHARMACY VANCOMYCIN DOSING Pt Demographics Demographics Patient Age:89 , Weight:55.900 , Gender: female Adjusted Body Weight Date: 05/17/19, Adjusted Body Weight: Kg Events Past 24 Hours Events Past 24 Hours: NO: Dialysis, Diuretic Therapy, Change in CrCl, Fever, Elevation in WBC, Pending Diagnostics, Pending Procedures, Other Vancomycin Vancomycin Target Ranges: 15-20 mcg/ml Vancomycin Load Y/N: Yes Load Dose Date Time Vancomycin Load Dose: 1000MG Date: 05-17 Time: 0000 Vancomycin Dose Date: 05/17/19. Current Vancomycin Dose: [750mg q12h] Intermittent Dosing?: No Labs Labs Item Value Date Time White Blood Count 15.4 10^3/uL H 05/16/191944 Glomerular Filtration Rate > 60.0 05/16/192050 Creatinine 0.68 MG/DL 05/16/192050 Blood Urea Nitrogen 19 MG/DL H 05/16/192050 Vital Signs Label Value Date Time Patient Temperature 97.9 degrees F 05/16/192140 Temperature Source Oral 05/16/192140 Micro Microbiology 05/16/19 Blood Culture, Received Pending 05/16/19 Blood Culture, Received Pending 05/16/19 Gram Stain, Received Pending 05/16/19 Sputum Culture, Received Pending Creatinine Clearance Date:05/17/19. Creatinine Clearance: [~35]. Pending Labs Trough 05-17 @2300 Assessment and Plan Maintaining Current Dose?: Yes Reason for dose change: No Dose Change Pharmacist Note Pharmacist Note Date: 05/17/19. Pharmacist note:Will monitor and make adjustments as needed. GERALD ZENG PHARMACY May 17, 2019 01:32
[2019-05-17] MEDS ORDERED: OMEPRAZOLE 20 MG CAP PO PRN (06:45)
[2019-05-17] MEDS ORDERED: TORSEMIDE 10 MG TABLET PO PRN (06:45)
[2019-05-17] MEDS ORDERED: POLYVINYL ALCOHOL OPHTH SOLN 15 ML(LIQUITEARS) OU PRN (06:45)
[2019-05-17 07:48] LABS: HEMATOCRIT 30.7 % (36.0-47.0); HEMOGLOBIN 9.9 g/dl (12.0-15.5); MEAN CORPUSCULAR HEMOGLOBIN 25.8 pg (27.0-33.0); MEAN CORPUSCULAR HGB CONC 32.2 g/dl (32.0-36.5); MEAN CORPUSCULAR VOLUME 79.9 fl (80.0-96.0); PLATELET COUNT, AUTOMATED 475 10^3/uL (150-450); RED BLOOD COUNT 3.84 10^6/uL (4.00-5.40); WHITE BLOOD COUNT 12.1 10^3/uL (4.0-10.0)
[2019-05-17 08:22] LABS: ALBUMIN 2.1 GM/DL (3.2-5.2); ALT/SGPT 80 U/L (12-78); BILIRUBIN,TOTAL 0.4 MG/DL (0.2-1.0); BLOOD UREA NITROGEN 16 MG/DL (7-18); CALCIUM LEVEL 8.8 MG/DL (8.8-10.2); CARBON DIOXIDE LEVEL 23 MEQ/L (21-32); CHLORIDE LEVEL 109 MEQ/L (98-107); GLOMERULAR FILTRATION RATE > 60.0 (>32); GLUCOSE, FASTING 84 MG/DL (70-100); SODIUM LEVEL 140 MEQ/L (136-145)
--- NOTE | 2019-05-17 08:28 | REP ---
AP PORTABLE CHEST: 05/16/2019. Comparison: CT chest 05/07/2019, chest x-ray 05/06/2019, 02/04/2019. Clinical history: Syncope, near-syncope. Findings: Lungs are hyperinflated with diffuse interstitial fibrosis. Superimposed interstitial edema difficult to exclude. Persistent air space opacities in both lower lung zones similar to the CT 05/07/2019, chest x-ray 05/06/2019. Both appear slightly more dense, which may be related to minor differences in technique. No gross effusion. Emphysematous changes throughout the mid and upper lung zones. Ectatic calcified aorta. Airway intact. No abnormal widening of the mediastinum. Bones are demineralized. Advanced degenerative changes of the right greater than left shoulder. Impression: 1. Cardiomegaly with extensive underlying interstitial fibrotic changes, chronic. Superimposed interstitial edema difficult to exclude. No gross effusion. 2. Bibasilar airspace opacities representing chronic infiltrate or mass lesions or combination thereof. The appears slightly denser than on the previous chest x-ray 9 days ago, although technical differences may account for this. No new infiltrates or opacities. Electronically Signed by Se Charles MD 05/17/2019 08:19 A
[2019-05-17] MEDS: POTASSIUM CHLORIDE 10 MEQ SR TABLET PO SCH ×2 (08:54→21:40)
[2019-05-17] MEDS: ENOXAPARIN 40 MG/0.4 ML SYRINGE (J1650) SC SCH (08:55)
[2019-05-17] MEDS ORDERED: SODIUM CHLORIDE 0.9% 1000ML IV ONE (10:00)
[2019-05-17 12:00] VITALS: BP 111/60
[2019-05-17] MEDS: NS 1,000 ML IV SCH (12:42)
--- NOTE | 2019-05-17 13:05 | IPNPDOC ---
Date Seen The patient was seen on 05/17/19. Progress Note SUBJECTIVE: Patient is a 89-year-old female with a history of atrial fibrillation, rate controlled and not on anticoagulation, and low BMI, who presented to the emergency room because of lightheadedness. Patient states she continues to feel lightheaded, especially when she stands up. She states this has been going on for a while but became worse yesterday, prompting her to come to the emergency room. She states she has also had some diarrhea that's been going on recently, but cannot call when exactly it started. She also reports she has lost about 50 pounds over the past year. She states she was told she has colon cancer, unsure who gave her this diagnosis and when. She states other than the dizziness. She does have a slight cough but does not bring much up. She states when she does bring up sputum up, it is a yellow color. She denies fevers, chills, night sweats, chest pain, palpitations, shortness of breath, wheezing, nausea, vomiting, abdominal pain, increased leg swelling. OBJECTIVE PHYSICAL EXAMINATION: VITAL SIGNS: Please see below. GENERAL: Alert, comfortable, appears cachectic, in no acute distress HEENT: PERRLA, EOMI, mucous membranes somewhat dry, no JVD present CARDIOVASCULAR: Regular rate, irregular rhythm, normal S1, S2, no murmurs auscultated RESPIRATORY:. Good air entry bilaterally, crackles in bilateral lung bases, no wheezing ABDOMINAL: Soft, nontender, nondistended, bowel sounds present, no masses or hepatosplenomegaly appreciated EXTREMITIES: 1+ pitting edema in bilateral lower extremities up to the midcalf, pulses 2/4 in dorsalis pedis and radial arteries NEUROLOGICAL: Alert and oriented 3 to person, place and time, cranial nerves 212 grossly intact, no focal deficits appreciated PSYCHOLOGICAL: mood and affect normal LABORATORY DATA, IMAGING STUDIES, MICROBIOLOGY: Please see below. CXR 05/16: 1. Cardiomegaly with extensive underlying interstitial fibrotic changes, chronic. Superimposed interstitial edema difficult to exclude. No gross effusion. 2. Bibasilar airspace opacities representing chronic infiltrate or mass lesions or combination thereof. The appears slightly denser than on the previous chest x-ray 9 days ago, although technical differences may account for this. No new infiltrates or opacities. ASSESSMENT AND PLAN: This is a 89-year-old female who presented with dizziness, who appears to be third spacing some fluid, likely due to poor nutrition, but also appears dehydrated with hypotension, which is fluid responsive. PROBLEMS: 1. Lightheadedness, likely secondary to dehydration Orthostatic vital signs positive, hypotension, which is fluid responsive. Pt recieved multiple fluid boluses overnight for hypotension Started on maintenance fluids. Poor oral intake and poor nutrition, patient appears cachectic. We'll supplement meals with ensure. Dietary consult. Patient has diarrhea which is likely contributing to her dehydration, GI panel pending. Ordered echocardiogram to further evaluate Pnemonia 2 areas of consolidation seen on chest x-ray. Will continue antibiotics for now with vancomycin (day #2) Pending sputum culture and sensitivity results. Blood cultures pending. CXR findings may be more related to more of a chronic process any acute pneumonia, considering a normal lactic acid level, and her other symptoms such as tachycardi and hypotension can be explained by dehydration. May consider discontinuing antibiotics if sputum cultures are negative. Atrial fibrillation, rate controlled Continue home amiodarone. Patient not currently on anticoagulation reportedly due to anemia Anemia, reported chronic monitor H/H Transaminitis Considering her history of colon cancer, will check abdominal ultrasound for liver metastases. Check hepatitis panel, hep A could also explain her diarrhea. Continue to trend LFTs. Poor oral intake with low BMI BMI=19.9 Supplement meals with ensure, dietary consult DISPOSITION: Admitted to PCU pending clinical improvement VS, I&O, 24H, Fishbone Vital Signs/I&O Vital Signs Date Time Temp Pulse Resp B/P (MAP) Pulse Ox O2 Delivery O2 Flow Rate FiO2 05/17/19 07:30 89 99 05/17/19 07:00 112/60 (77) 05/16/19 21:41 97.9 05/16/19 18:43 18 Room Air Laboratory Data 24H LABS Laboratory Tests 2 05/16/19 19:45: Immature Granulocyte % (Auto) 0.6, White Blood Count 15.4H, Red Blood Count 4.54, Hemoglobin 11.3L, Hematocrit 36.0, Mean Corpuscular Volume 79.3L, Mean Corpuscular Hemoglobin 24.9L, Mean Corpuscular Hemoglobin Concent 31.4L, Red Cell Distribution Width 16.9H, Platelet Count 544H, Neutrophils (%) (Auto) 83.6H, Lymphocytes (%) (Auto) 5.8L, Monocytes (%) (Auto) 9.8H, Eosinophils (%) (Auto) 0.1, Basophils (%) (Auto) 0.1, Neutrophils # (Auto) 12.9H, Lymphocytes # (Auto) 0.9L, Monocytes # (Auto) 1.5H, Eosinophils # (Auto) 0.0, Basophils # (Auto) 0.0, Nucleated Red Blood Cells % (auto) 0.0, Prothrombin Time 17.1H, Prothromb Time International Ratio 1.42, Activated Partial Thromboplast Time 31.6 05/16/19 20:25: Bedside Glucose (Misc Panel) 95 05/16/19 20:51: Anion Gap 9, Glomerular Filtration Rate > 60.0, Lactic Acid Level 1.3, Calcium Level 9.3, Magnesium Level 1.6L, Aspartate Amino Transf (AST/SGOT) 91H, Alanine Aminotransferase (ALT/SGPT) 91H, Alkaline Phosphatase 166H, Total Bilirubin 0.4, Direct Bilirubin 0.2, Total Creatine Kinase 19L, Creatine Kinase MB 1.4, Creatine Kinase MB Relative Index 7.37H, Troponin I 0.02, GH-Rir-E-Type Natri uretic Peptide 1535H, Total Protein 6.7, Albumin 2.4L, Albumin/Globulin Ratio 0.56L, Thyroid Stimulating Hormone (TSH) 1.030 05/17/19 07:32: Nucleated Red Blood Cells % (auto) 0.0, Anion Gap 8, Glomerular Filtration Rate > 60.0, Calcium Level 8.8, Aspartate Amino Transf (AST/SGOT) 79H, Alanine Aminotransferase (ALT/SGPT) 80H, Alkaline Phosphatase 146H, Total Bilirubin 0.4, Total Protein 6.0L, Albumin 2.1L, Albumin/Globulin Ratio 0.54L, Blood Urea Nitrogen 16, Creatinine 0.60, Sodium Level 140, Potassium Level 4.0, Chloride Level 109H, Carbon Dioxide Level 23 CBC/BMP Laboratory Tests 05/16/19 19:45 Red Blood Count 4.54, Mean Corpuscular Volume 79.3 L, Mean Corpuscular Hemoglobin 24.9 L, Mean Corpuscular Hemoglobin Concent 31.4 L, Red Cell Distribution Width 16.9 H, Neutrophils (%) (Auto) 83.6 H, Lymphocytes (%) (Auto) 5.8 L, Monocytes (%) (Auto) 9.8 H, Eosinophils (%) (Auto) 0.1, Basophils (%) (Auto) 0.1, Neutrophils # (Auto) 12.9 H, Lymphocytes # (Auto) 0.9 L, Monocytes # (Auto) 1.5 H, Eosinophils # (Auto) 0.0, Basophils # (Auto) 0.0 05/16/19 20:51 05/17/19 07:32 Red Blood Count 3.84 L, Mean Corpuscular Volume 79.9 L, Mean Corpuscular Hemoglobin 25.8 L, Mean Corpuscular Hemoglobin Concent 32.2, Red Cell Distributi on Width 16.8 H, Calcium Level 8.8, Aspartate Amino Transf (AST/SGOT) 79 H, Alanine Aminotransferase (ALT/SGPT) 80 H, Alkaline Phosphatase 146 H, Total Bilirubin 0.4, Total Protein 6.0 L, Albumin 2.1 L Microbiology Microbiology 05/16/19 Blood Culture, Received Pending 05/16/19 Blood Culture, Received Pending 05/16/19 Gram Stain - Final, Resulted 05/16/19 Sputum Culture, Resulted Pending CEFERINO ARNOLD PGY-1 May 17, 2019 12:33
[2019-05-17] MEDS: VANCOMYCIN HCL 750 MG, VIAL MATE ADAPTER 1 EACH in D5W 250 ML IV SCH ×2 (14:16→23:57)
[2019-05-17] MEDS ORDERED: ISOVUE-370 76% 100ML VIAL (Q9967) As Ordered ONE (14:39)
[2019-05-17] MEDS: GASTROGRAFIN SOLUTION 30ML PO SCH ×2 (16:07→16:37)
--- NOTE | 2019-05-17 19:12 | REPVR ---
EXAM: CT Abdomen and Pelvis With Contrast EXAM DATE/TIME: 05/17/2019 5:37 PM CLINICAL HISTORY: 89 years old, female; Abdominal pain; Generalized; Additional info: Abd discomfort with elevated ast and alt, diarrhea TECHNIQUE: Imaging protocol: Axial computed tomography images of the abdomen and pelvis with intravenous contrast. Coronal and sagittal reformatted images were created and reviewed. Radiation optimization: All CT scans at this facility use at least one of these dose optimization techniques: automated exposure control; mA and/or kV adjustment per patient size (includes targeted exams where dose is matched to clinical indication); or iterative reconstruction. Contrast material: ISOVUE 370;Contrast volume: 100 ml;Contrast route: IV; COMPARISON: CT ABD/PEL W/IV CONTRAST ONLY 03/17/2018 9:13 AM FINDINGS: Lungs: There is a 6 CM by 9 CM area of density at the right lung base which has progressively increased in size since 12/20/2016 and this area is concerning for an area of malignant neoplasm primary or metastatic. Heart: There is moderate cardiomegaly but no evidence of pericardial effusion. Liver: There is a small cyst of the left lobe of the liver. Gallbladder and bile ducts: The patient is status post cholecystectomy. There is ectasia of the common bile duct. Pancreas: Normal pancreas. Spleen: Normal size spleen. Adrenals: Normal adrenal glands. Kidneys and ureters: There is enhancement of the right and left kidney. Stomach and bowel: There is contrast throughout the bowel. The rectum is distended with solid stool and secretions. The transverse colon has contrast and a large amount of stool. There is marked narrowing of the sigmoid colon. I would recommend a followup CT to ensure that the contrast passes through the sigmoid colon into the severely distended rectum. Intraperitoneal space: There is no evidence of free fluid in the abdomen. Vasculature: There is opacification of the aorta and the aorta appearance intact. There is opacification of the SMV and the SMA. There is calcification of the aorta consistent with atherosclerotic change. There is opacification of the renal arteries. Lymph nodes: Normal. No enlarged lymph nodes. Bladder: Normal urinary bladder. Reproductive: Normal size uterus. Bones/joints: There is moderate scoliosis of the lumbar spine convexity to the left. There is prominent osteophyte formation. Old healed fracture of the left inferior pubic ramus. IMPRESSION: 1. 9 CM by 6 CM density right lower lobe of the lung. This has markedly increased when compared with exams dating back to 12/20/2016 and very suspicious for neoplasm. 2. There is severe distention of the rectum with solid stool and fluid. The sigmoid colon above this is very narrow. I would recommend a followup CT scan to ensure that the contrast in the transverse colon and left colon may its way through the sigmoid colon into the narrowed sigmoid colon and into the distended portion of the rectum. The rectum has the appearance of a fecal impaction. However concern for the narrowed sigmoid colon above with no oral contrast yet seen. Electronically signed by: Caesar Fernandez On 05/17/2019 19:12:47 PM
[2019-05-17 20:00] VITALS: BP 108/52
[2019-05-17] MEDS: AMIODARONE 200 MG TAB (PACERONE) PO SCH (21:40)
--- NOTE | 2019-05-17 23:40 | PHACANCOPD ---
PHARMACY VANCOMYCIN DOSING Pt Demographics Demographics Patient Age:89 , Weight:55.900 , Gender: female Adjusted Body Weight Date: 05/17/19, Adjusted Body Weight: Kg Events Past 24 Hours Events Past 24 Hours: NO: Dialysis, Diuretic Therapy, Change in CrCl, Fever, Elevation in WBC, Pending Diagnostics, Pending Procedures, Other Vancomycin Vancomycin Target Ranges: 15-20 mcg/ml Vancomycin Load Y/N: Yes Load Dose Date Time Vancomycin Load Dose: 1000MG Date: 05-17 Time: 0000 Vancomycin Dose Date: 05/17/19. Current Vancomycin Dose: [750mg q8h] Intermittent Dosing?: No Labs Labs Item Value Date Time White Blood Count 12.1 10^3/uL H 05/17/19 0732 Glomerular Filtration Rate > 60.0 05/17/19 0732 Creatinine 0.60 MG/DL 05/17/19 0732 Blood Urea Nitrogen 16 MG/DL 05/17/19 0732 Vancomycin Level Trough 12.1 UG/ML 05/17/19 2256 Vital Signs Label Value Date Time Patient Temperature 98.0 degrees F 05/17/191999 Temperature Source Temporal 05/17/191999 Micro Microbiology 05/16/19 Blood Culture - Preliminary, Resulted No growth after 24 hours . All specim... 05/16/19 Blood Culture - Preliminary, Resulted No growth after 24 hours . All specim... 05/17/19 Respiratory Virus Panel (PCR) ([facility]) - Final, Complete Human Rhinovirus/Enterovirus 05/16/19 Gram Stain - Final, Resulted 05/16/19 Sputum Culture, Resulted Pending Creatinine Clearance Date:05/17/19. Creatinine Clearance: [~35]. Pending Labs Trough 05-18 @1500 Assessment and Plan Maintaining Current Dose?: No Reason for dose change: Trough too low Pharmacist Note Pharmacist Note Date: 05/17/19. Pharmacist note:Trough of 12.1 is below target range. Dosing increased to 750mg q8h. Will continue to monitor and make adjustments as needed. GERALD ZENG PHARMACY May 17, 2019 23:40
[2019-05-18] VITALS (9 sets, daily range): BP systolic 92–115; BP diastolic 50–69
[2019-05-18] MEDS: CEPACOL LOZENGE PO PRN ×2 (01:37→13:05)
[2019-05-18] MEDS: NS 1,000 ML IV SCH ×2 (04:18→23:03)
[2019-05-18 06:19] LABS: HEMATOCRIT 28.4 % (36.0-47.0); HEMOGLOBIN 9.1 g/dl (12.0-15.5); PLATELET COUNT, AUTOMATED 454 10^3/uL (150-450); RED BLOOD COUNT 3.64 10^6/uL (4.00-5.40); WHITE BLOOD COUNT 10.9 10^3/uL (4.0-10.0)
[2019-05-18 06:40] LABS: ALBUMIN 1.8 GM/DL (3.2-5.2); ALT/SGPT 65 U/L (12-78); BILIRUBIN,TOTAL 0.2 MG/DL (0.2-1.0); BLOOD UREA NITROGEN 13 MG/DL (7-18); CALCIUM LEVEL 8.3 MG/DL (8.8-10.2); CARBON DIOXIDE LEVEL 23 MEQ/L (21-32); CHLORIDE LEVEL 108 MEQ/L (98-107); CREATININE FOR GFR 0.55 MG/DL (0.55-1.30); GLOMERULAR FILTRATION RATE > 60.0 (>32); GLUCOSE, FASTING 88 MG/DL (70-100); POTASSIUM SERUM 3.6 MEQ/L (3.5-5.1); SODIUM LEVEL 138 MEQ/L (136-145); TOTAL PROTEIN 5.8 GM/DL (6.4-8.2)
--- NOTE | 2019-05-18 07:53 | REPVR ---
EXAM: CT Abdomen and Pelvis Without Contrast EXAM DATE/TIME: 05/18/2019 6:56 AM CLINICAL HISTORY: 89 years old, female; Abnormal findings; Abnormal radiologic finding of the abdomen; Radiologic exam and body structure: CT abd and pelv; Additional info: F/u on retained contrast seen on previous CT TECHNIQUE: Imaging protocol: Axial computed tomography images of the abdomen and pelvis without contrast. Coronal and sagittal reformatted images were created and reviewed. Radiation optimization: All CT scans at this facility use at least one of these dose optimization techniques: automated exposure control; mA and/or kV adjustment per patient size (includes targeted exams where dose is matched to clinical indication); or iterative reconstruction. COMPARISON: CT ABD PELVIS WITH CONTRAST 05/17/2019 5:35 PM FINDINGS: Lungs: There is a large masslike density measuring 7.3 x 4.4 x 3.9 cm in the right lung base. There is a left infrahilar partially imaged masslike density measuring 4.4 x 3.3 cm. Fibrotic lung changes seen in the imaged lung bases. Liver: There is periportal edema. Gallbladder and bile ducts: The patient status post cholecystectomy. There is no definite biliary ductal dilatation. Pancreas: The pancreas is fatty-replaced. Spleen: Normal. No splenomegaly. Adrenals: There is adrenal gland thickening. Kidneys and ureters: There is 2 cm right lower renal pole and 1.0 cm left upper renal pole cysts. There is no hydronephrosis. Contrast is seen opacifying the right and left renal collecting systems and ureters. Stomach and bowel: The rectum is distended with multiple lobulated soft tissue like densities. Contrast is seen throughout the colon. There is apparent narrowing of the rectosigmoid junction. Appendix: No evidence of appendicitis. Intraperitoneal space: There is diffuse mesenteric haziness. Vasculature: There is mild aortic mural calcifications. Lymph nodes: Normal. No enlarged lymph nodes. Bladder: Contrast seen in the bladder which is partially distended and appears grossly unremarkable. Reproductive: Unremarkable as visualized. Bones/joints: There is diffuse osteopenia. There is L2 L3-L5 S1 disc degenerative changes. There is lumbar spine levoscoliosis. Old left inferior and superior pubic rami fracture is seen. Soft tissues: There is mild subcutaneous edema. IMPRESSION: 1. Distended rectum with multiple polypoid like soft tissue densities. Findings could be secondary to stool however polypoid rectal mass - rectal cancer is suspected and should be excluded. Additionally noted is rectosigmoid transition. Rectosigmoidoscopy is suggested for further evaluation. 2. Diffuse moderate distention of the colon containing contrast throughout. 3. Bilateral renal cysts. 4. Contrast opacifying the renal collecting systems, ureters and urinary bladder seen from CT scan performed on 05/17/2019. 5. Status post cholecystectomy. 6. Bilateral adrenal glands hyperplasia. 7. Fatty-replaced pancreas. 8. Suggestion of third spacing. 9. 7.3 x 4.4 x 3.9 cm right lower lobe and 4.4 x 3.3 cm partially imaged left infrahilar lung mass is. 10. Chronic fibrotic lung changes. Electronically signed by: Ten Roth On 05/18/2019 07:52:49 AM
[2019-05-18] MEDS ORDERED: VANCOMYCIN HCL 750 MG, VIAL MATE ADAPTER 1 EACH in D5W 250 ML IV SCH (08:00)
[2019-05-18] MEDS: POTASSIUM CHLORIDE 10 MEQ SR TABLET PO SCH ×2 (08:09→21:11)
[2019-05-18] MEDS: ENOXAPARIN 40 MG/0.4 ML SYRINGE (J1650) SC SCH (08:09)
--- NOTE | 2019-05-18 12:29 | IPNPDOC ---
Date Seen The patient was seen on 05/18/19. Progress Note SUBJECTIVE: Patient feels better, no further dizziness she is still having some diarrhea and requests to go home [place] otherwise feeling better patient denies chest pain, shortness breath, nausea, vomiting, fevers, chills OBJECTIVE PHYSICAL EXAMINATION: VITAL SIGNS: Please see below. GENERAL: Pleasant cachectic elderly woman sitting up in bed awake alert oriented speaking in complete sentences no acute distress HEENT: Moist mucous membranes no elevation in CVP bitemporal wasting CARDIOVASCULAR: S1 S2 regular no additional heart sounds appreciated. RESPIRATORY: Clear to auscultation bilaterally. ABDOMINAL: Bowel sounds present abdomen soft and nontender, scaphoid EXTREMITIES: No clubbing cyanosis or edema NEUROLOGICAL: Spontaneously moves all 4 extremities cranial 2 through 12 grossly intact no gross focal deficits appreciated PSYCHOLOGICAL: Appropriate LABORATORY DATA, MICROBIOLOGY: Please see below. IMAGING STUDIES: CT Abd: 1. 9 CM by 6 CM density right lower lobe of the lung. This has markedly increased when compared with exams dating back to 12/20/2016 and very suspicious for neoplasm. 2. There is severe distention of the rectum with solid stool and fluid. The sigmoid colon above this is very narrow. I would recommend a followup CT scan to ensure that the contrast in the transverse colon and left colon may its way through the sigmoid colon into the narrowed sigmoid colon and into the distended portion of the rectum. The rectum has the appearance of a fecal impaction. However concern for the narrowed sigmoid colon above with no oral contrast yet seen. Repeat CT Abd: 1. Distended rectum with multiple polypoid like soft tissue densities. Findings could be secondary to stool however polypoid rectal mass - rectal cancer is suspected and should be excluded. Additionally noted is rectosigmoid transition. Rectosigmoidoscopy is suggested for further evaluation. 2. Diffuse moderate distention of the colon containing contrast throughout. 3. Bilateral renal cysts. 4. Contrast opacifying the renal collecting systems, ureters and urinary bladder seen from CT scan performed on 05/17/2019. 5. Status post cholecystectomy. 6. Bilateral adrenal glands hyperplasia. 7. Fatty-replaced pancreas. 8. Suggestion of third spacing. 9. 7.3 x 4.4 x 3.9 cm right lower lobe and 4.4 x 3.3 cm partially imaged left infrahilar lung mass is. 10. Chronic fibrotic lung changes. ASSESSMENT AND PLAN: This is a 89-year-old female with Rhinovirus. PROBLEMS: 1. Dizziness and weakness: Initially there was some concern for multidrug- resistant pneumonia, however her cultures have all been negative her respiratory PCR did return positive for rhinovirus which is consistent with her symptoms. She is likely somewhat dehydrated as well I will continue with IV fluids DC antibiotics she is improved today. We'll continue to monitor orthostatics. 2. Diarrhea: Likely worsened by her active viral infection, however she certainly has colon cancer with an obstructing mass in her colon which is known she is not fecal impacted I recommend soft diet to her to make digestion more easily as well as passage of stool. 3. Atrial fibrillation: Currently on anticoagulation will defer to her outpatient provider she is continued on amiodarone she is rate controlled. 4. Transaminitis: Resolving possibly related to viral infection. 5. 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 Metastatic colon cancer: Stage IV with metastases to the lung she is DNR/DNI and followed up closely with hematology oncology I did offer her hospice and have a lengthy discussion regarding goals of care she is not open to these discussions at this time 7 anemia: Possibly some iron deficiency versus anemia of chronic disease related to her malignancy and colon cancer bleeding DVT prophylaxis: Lovenox DISPOSITION: Transferred [facility] disposition pending PT OT possibly home within the next 24-48 hours. VS, I&O, 24H, Fishbone Vital Signs/I&O Vital Signs Date Time Temp Pulse Resp B/P (MAP) Pulse Ox O2 Delivery O2 Flow Rate FiO2 05/18/19 08:00 97.4 88 18 95/57 (70) 98 05/16/19 18:43 Room Air I&O- Last 24 Hours up to 6 AM 05/18/19 06:00 Intake Total 2560 ml Output Total 650 ml Balance 1910 ml Laboratory Data 24H LABS Laboratory Tests 2 05/17/19 16:14: Methicillin-Resist S.aureus DNA PCR NOT DETECTED 05/17/19 22:56: Vancomycin Level Trough 12.1 05/18/19 05:40: Nucleated Red Blood Cells % (auto) 0.0, Anion Gap 7L, Glomerular Filtration Rate > 60.0, Blood Urea Nitrogen 13, Creatinine 0.55, Sodium Level 138, Potassium Level 3.6, Chloride Level 108H, Carbon Dioxide Level 23, Calcium Level 8.3L, Aspartate Amino Transf (AST/SGOT) 58H, Alanine Aminotransferase (ALT/SGPT) 65, Alkaline Phosphatase 131H, Total Bilirubin 0.2, Total Protein 5.8L, Albumin 1.8L, Albumin/Globulin Ratio 0.45L CBC/BMP Laboratory Tests 05/18/19 05:40 Red Blood Count 3.64 L, Mean Corpuscular Volume 78.0 L, Mean Corpuscular Hemoglobin 25.0 L, Mean Corpuscular Hemoglobin Concent 32.0, Red Cell Distribution Width 17.0 H, Calcium Level 8.3 L, Aspartate Amino Transf (AST/ SGOT) 58 H, Alanine Aminotransferase (ALT/SGPT) 65, Alkaline Phosphatase 131 H, Total Bilirubin 0.2, Total Protein 5.8 L, Albumin 1.8 L Microbiology Microbiology 05/16/19 Blood Culture - Preliminary, Resulted No growth after 24 hours . All specim... 05/16/19 Blood Culture - Preliminary, Resulted No growth after 24 hours . All specim... 05/18/19 Gastrointestinal Tract Panel (PCR) - Final, Complete 05/17/19 Respiratory Virus Panel (PCR) ([facility]) - Final, Complete Human Rhinovirus/Enterovirus 05/16/19 Gram Stain - Final, Resulted 05/16/19 Sputum Culture, Resulted Pending BRIANNA ALCARAZ MD May 18, 2019 12:29
[2019-05-18] MEDS: AMIODARONE 200 MG TAB (PACERONE) PO SCH (21:11)
[2019-05-19 02:00] VITALS: BP 110/60
[2019-05-19 06:00] VITALS: BP 108/54
[2019-05-19 06:58] LABS: HEMATOCRIT 30.2 % (36.0-47.0); HEMOGLOBIN 9.6 g/dl (12.0-15.5); MEAN CORPUSCULAR HEMOGLOBIN 24.7 pg (27.0-33.0); MEAN CORPUSCULAR HGB CONC 31.8 g/dl (32.0-36.5); MEAN CORPUSCULAR VOLUME 77.6 fl (80.0-96.0); PLATELET COUNT, AUTOMATED 470 10^3/uL (150-450); RED BLOOD COUNT 3.89 10^6/uL (4.00-5.40); WHITE BLOOD COUNT 11.6 10^3/uL (4.0-10.0)
--- NOTE | 2019-05-19 07:02 | ECHO ---
DATE OF SERVICE: 05/17/2019 DATE OF : 1930 AGE: 89 PATIENT ROOM NUMBER: [id number] REFERRING PHYSICIAN: Pauline Castaneda MD REASON FOR STUDY: Syncope 2D MEASUREMENTS: IVS: 1.1 cm LV: 4.0 cm LVPW: 1.0 cm LA: 3.6 cm Aorta: 3.4 cm IVC: 1.5 cm DOPPLER MEASUREMENTS: Peak velocity across the aortic valve: 1.0 m/s Peak velocity across the LVOT: 0.82 m/s Mitral E: 0.83 Maximum tricuspid valve velocity: 3.0 m/s 2D COMMENTS: 1. Normal left ventricular size, wall thickness, and normal global left ventricular systolic function. The estimated left ventricular systolic ejection fraction is 60-65%. 2. Subjectively, both the left atrium and the right atrium appeared to be mildly enlarged. Normal right ventricle. 3. The atrial septum appeared to be normal without evidence of defect or shunt. 4. Normal aortic root. 5. No pericardial effusion seen. 6. Mildly calcified aortic valve with normal leaflet excursion. Mildly calcified mitral annulus with normal anterior mitral valve leaflet motion. Normal tricuspid valve and pulmonic valve. 7. The inferior vena cava was normal in size, central venous pressure is most likely normal. Doppler, it detects mild aortic regurgitation, mild to moderate mitral regurgitation, and moderate tricuspid regurgitation. The calculated pulmonary artery systolic pressure varies between 40-50 mmHg. Assessment of the ventricular diastolic function was limited in view of the underlying atrial flutter. IMPRESSION: 1. Normal global left ventricular systolic function. Assessment of the left ventricular diastolic function was limited in view of the underlying cardiac arrhythmia, atrial flutter. 2. Aortic valve sclerosis with mild aortic regurgitation, but no aortic stenosis. 3. Mitral annulus calcification with mild to moderate mitral regurgitation. Subjectively, the left atrium appeared to be mildly enlarged. Could not rule out mild prolapse of the anterior mitral valve leaflet. 4. Moderate tricuspid regurgitation with moderate pulmonary hypertension. Subjectively, the right atrium appeared to be mildly enlarged.
[2019-05-19 07:36] LABS: ALBUMIN 1.9 GM/DL (3.2-5.2); ALT/SGPT 62 U/L (12-78); BILIRUBIN,TOTAL 0.3 MG/DL (0.2-1.0); BLOOD UREA NITROGEN 13 MG/DL (7-18); CALCIUM LEVEL 8.6 MG/DL (8.8-10.2); CARBON DIOXIDE LEVEL 23 MEQ/L (21-32); CHLORIDE LEVEL 109 MEQ/L (98-107); CREATININE FOR GFR 0.56 MG/DL (0.55-1.30); GLOMERULAR FILTRATION RATE > 60.0 (>32); GLUCOSE, FASTING 84 MG/DL (70-100); POTASSIUM SERUM 3.6 MEQ/L (3.5-5.1); SODIUM LEVEL 141 MEQ/L (136-145); TOTAL PROTEIN 6.2 GM/DL (6.4-8.2)
[2019-05-19] MEDS: ENOXAPARIN 40 MG/0.4 ML SYRINGE (J1650) SC SCH (09:26)
[2019-05-19] MEDS: POTASSIUM CHLORIDE 10 MEQ SR TABLET PO SCH (09:26)
[2019-05-19 10:00] VITALS: BP 92/52
[2019-05-19 11:00] VITALS: BP 103/54
[2019-05-19 11:50] LABS: HEPATITIS B SURFACE ANTIGEN NEGATIVE (NEGATIVE)
[2019-05-19 12:17] LABS: HEPATITIS C VIRUS ABY INDEX < 0.0 INDEX (<0.8)
[2019-05-19 12:18] LABS: HEPATITIS B CORE ANTIBODY IGM NEGATIVE (NEGATIVE)
[2019-05-19 12:20] LABS: HEPATITIS A ANTIBODY IGM NEGATIVE (NEGATIVE)
[2019-05-19 14:00] VITALS: BP 102/58
--- NOTE | 2019-05-19 16:36 | DS.PDOC ---
Discharge Summary General Date of Admission May 16, 2019 at 11:38 Date of Discharge 05/19/2019 Primary Care Physician: Donita Yeung Attending Physician: BRIANNA ALCARAZ MD Discharge Summary PROCEDURES PERFORMED DURING STAY: None. ADMITTING DIAGNOSES: 1. Lightheadedness, likely secondary to dehydration 2. Possible sepsis secondary to pneumonia 3. Atrial fibrillation, rate controlled. 4. Anemia, chronic. 5. Transaminitis. 6. Low BMI with poor oral intake 7. Metastatic colon cancer DISCHARGE DIAGNOSES: 1. Lightheadedness resolved with adequate hydration 2. Atrial fibrillation, rate controlled. 3. Anemia, chronic. 4. Transaminitis, improving, possibly related to viral infection 5. Low BMI with protein calorie malnutrition. 6. Metastatic colon cancer COMPLICATIONS/CHIEF COMPLAINT: Lightheadedness. HISTORY OF PRESENT ILLNESS: Patient states she continues to feel lightheaded, especially when she stands up. She states this has been going on for a while but became worse yesterday, prompting her to come to the emergency room. She states she has also had some diarrhea that's been going on recently, but cannot call when exactly it started. She also reports she has lost about 50 pounds over the past year. She states she was told she has colon cancer, unsure who gave her this diagnosis and when. She states other than the dizziness she does have a sli ght cough but does not bring much up. She states when she does bring up sputum up, it is a yellow color. Otherwise 10 point ROS was negative. HOSPITAL COURSE: Patient was admitted to the hospital and initially started on treatment for pneumonia. However, cultures did all returned negative and resp iratory PCR was positive for rhinovirus, which her respiratory symptoms can be contributed to. Therefore, she was discontinued from antibiotics. When she presented she was also found to be fairly hypotensive, likely secondary to dehydration due to poor oral intake and required multiple boluses of IV fluid. Her hypotension was fluid responsive, and she was started on maintenance fluids for rehydration. Her blood pressure did stabilize and she was able to be taken off IV fluids when she had adequate oral intake. She also continued to have some diarrhea, which is attributed to her non-obstructing rectal cancer. She was found to have transaminitis, thought to be secondary to viral infection, which continued to improve throughout her admission. Dietary consult was placed due to her protein calorie malnutrition, and it was suggested that she have 1-2 ensures with each meal to help supplement her diet. Discussed this with patient who says she does sometimes have ensures with her meals at home but not consistently. Discussed the importance of supplementation of her diet due to her low BMI and poor nutritional state, she agrees to continue this at home. On the day of discharge, patient was stable and safe for discharge home. DISCHARGE MEDICATIONS: Please see below. ALLERGIES: Please see below. PHYSICAL EXAMINATION ON DISCHARGE: VITAL SIGNS: Please see below. GENERAL: Alert, comfortable, appears cachectic, in no acute distress HEENT: PERRLA, EOMI, moist mucous membranes, no JVD present CARDIOVASCULAR EXAMINATION: Regular rate, irregular rhythm, normal S1, S2, no murmurs auscultated RESPIRATORY EXAMINATION: Good air entry bilaterally, clear to auscultation bilaterally, no wheezing ABDOMINAL EXAMINATION: Soft, nontender, nondistended, bowel sounds present, no masses or hepatosplenomegaly appreciated EXTREMITIES: Trace edema in bilateral lower extremities, pulses 2/4 in dorsalis pedis and radial arteries NEUROLOGICAL EXAMINATION: Alert and oriented 3 to person, place and time, cranial nerves 212 grossly intact, no focal deficits appreciated PSYCHIATRIC EXAMINATION: mood and affect normal LABORATORY DATA: Please see below. IMAGING: CXR 05/16: 1. Cardiomegaly with extensive underlying interstitial fibrotic changes, chronic. Superimposed interstitial edema difficult to exclude. No gross effusion. 2. Bibasilar airspace opacities representing chronic infiltrate or mass lesions or combination thereof. The appears slightly denser than on the previous chest x-ray 9 days ago, although technical differences may account for this. No new infiltrates or opacities. CT Abd: 1. 9 CM by 6 CM density right lower lobe of the lung. This has markedly increased when compared with exams dating back to 12/20/2016 and very suspicious for neoplasm. 2. There is severe distention of the rectum with solid stool and fluid. The sigmoid colon above this is very narrow. I would recommend a followup CT scan to ensure that the contrast in the transverse colon and left colon may its way through the sigmoid colon into the narrowed sigmoid colon and into the distended portion of the rectum. The rectum has the appearance of a fecal impaction. However concern for the narrowed sigmoid colon above with no oral contrast yet seen. Repeat CT Abd: 1. Distended rectum with multiple polypoid like soft tissue densities. Findings could be secondary to stool however polypoid rectal mass - rectal cancer is suspected and should be excluded. Additionally noted is rectosigmoid transition. Rectosigmoidoscopy is suggested for further evaluation. 2. Diffuse moderate distention of the colon containing contrast throughout. 3. Bilateral renal cysts. 4. Contrast opacifying the renal collecting systems, ureters and urinary bladder seen from CT scan performed on 05/17/2019. 5. Status post cholecystectomy. 6. Bilateral adrenal glands hyperplasia. 7. Fatty-replaced pancreas. 8. Suggestion of third spacing. 9. 7.3 x 4.4 x 3.9 cm right lower lobe and 4.4 x 3.3 cm partially imaged left infrahilar lung mass is. 10. Chronic fibrotic lung changes. PROGNOSIS: Poor ACTIVITY: As tolerated. DIET: As tolerated. Suggest soft diet due to rectal cancer with supplemental ensure DISCHARGE PLAN: Home DISPOSITION: 01 Home, Self-Care. DISCHARGE INSTRUCTIONS: 1. Follow-up with your PCP in 7-10 days. 2. Continue all your home medications. 3. If your symptoms return or if condition worsens, please call your PCP or return to the emergency room for further evaluation. ITEMS TO FOLLOWUP ON ON OUTPATIENT: 1. Dizziness and weakness. 2. Nutrition status. 3. Transaminitis DISCHARGE CONDITION: Stable TIME SPENT ON DISCHARGE: Greater than 35 minutes. Vital Signs/I&Os Vital Signs Date Time Temp Pulse Resp B/P (MAP) Pulse Ox O2 Delivery O2 Flow Rate FiO2 05/19/19 14:00 98.5 88 16 102/58 (73) 99 05/16/19 18:43 Room Air I&O- Last 24 Hours up to 6 AM 05/19/19 06:00 Intake Total 1320 ml Output Total 450 ml Balance 870 ml Laboratory Data Labs 24H Laboratory Tests 2 05/19/19 06:04: Nucleated Red Blood Cells % (auto) 0.0, Anion Gap 9, Glomerular Filtration Rate > 60.0, Blood Urea Nitrogen 13, Creatinine 0.56, Sodium Level 141, Potassium Level 3.6, Chloride Level 109H, Carbon Dioxide Level 23, Calcium Level 8.6L, Aspartate Amino Transf (AST/SGOT) 50H, Alanine Aminotransferase (ALT/SGPT) 62, Alkaline Phosphatase 144H, Total Bilirubin 0.3, Total Protein 6.2L, Albumin 1.9L, Albumin/Globulin Ratio 0.44L CBC/BMP Laboratory Tests 8/19/19 06:04 Red Blood Count 3.89 L, Mean Corpuscular Volume 77.6 L, Mean Corpuscular Hemoglobin 24.7 L, Mean Corpuscular Hemoglobin Concent 31.8 L, Red Cell Distribution Width 17.2 H, Calcium Level 8.6 L, Aspartate Amino Transf (AST/SGOT) 50 H, Alanine Aminotransferase (ALT/SGPT) 62, Alkaline Phosphatase 144 H, Total Bilirubin 0.3, Total Protein 6.2 L, Albumin 1.9 L Microbiology Microbiology 05/16/19 Blood Culture - Preliminary, Resulted No Growth after 48 hours. All Specime... 05/16/19 Blood Culture - Preliminary, Resulted No Growth after 48 hours. All Specime... 05/18/19 Gastrointestinal Tract Panel (PCR) - Final, Complete 05/17/19 Respiratory Virus Panel (PCR) (STEPHANIE) - Final, Complete Human Rhinovirus/Enterovirus 05/16/19 Gram Stain - Final, Complete 05/16/19 Sputum Culture - Final, Complete Serratia Marcescens Yeast Like Organism Discharge Medications Scheduled Amiodarone HCl (Amiodarone HCl) 200 Mg Tab, 200 MG PO QHS, (Reported) Potassium Chloride (Potassium Chloride) 10 Meq Tab, 20 MEQ BID, (Reported) Scheduled PRN Acetaminophen (Acetaminophen) 325 Mg Tablet, 650 MG PO Q4H PRN for PAIN, (Reported) Omeprazole (Omeprazole) 40 Mg Cap, 40 MG PO DAILY PRN for ACID REFLUX, (Reported) Propylene Glycol/Peg 400 (Systane 0.3-0.4% Eye Drops) 15 Ml Elisabeth, 1 DROP OU QID PRN for DRY EYES, (Reported) Torsemide (Torsemide) 10 Mg Tablet, 10 MG PO DAILY PRN for EDEMA, (Reported) Allergies Coded Allergies: Penicillins (Verified Allergy, Mild, Rash, 05/16/19) latex (Verified Allergy, Mild, REDNESS AND ITCHING FROM SOCKS AND UNDERWEAR, 05/16/19) nitroglycerin (Verified Adverse Reaction, Intermediate, PT REFUSES- CAUSES EXTREME ANXIETY, FEELING OF DOOM, INC BP, 05/16/19) nitrofurantoin (Verified Adverse Reaction, Mild, Vomiting, Diarrhea, 05/16/19) CEFERINO ARNOLD PGY-1 May 19, 2019 16:35
== END 2019-05-19 15:07 | disposition home or self-care (01) | DRG 641 ==
LOC: EDBD 18:08 → M ED 20:03 → M ED INP 23:23 → M PCU 05-17 12:21 → OBSVTOIN 05-18 11:38 → M MSPAV 05-18 15:10
PROVIDERS: ADMIT Internal Medicine; ATTEND Internal Medicine
DX: E86.0 Dehydration (principal); C78.01 Secondary malignant neoplasm of right lung; C20 Malignant neoplasm of rectum; E46 Unspecified protein-calorie malnutrition; Z68.1 Body mass index [BMI] 19.9 or less, adult; R42 Dizziness and giddiness; I48.2 Chronic atrial fibrillation; I10 Essential (primary) hypertension; B34.9 Viral infection, unspecified; K58.1 Irritable bowel syndrome with constipation; Z66 Do not resuscitate; D50.9 Iron deficiency anemia, unspecified; Z90.49 Acquired absence of other specified parts of digestive tract; R74.0 Nonspecific elevation of levels of transaminase and lactic acid dehydrogenase [LDH]; D47.3 Essential (hemorrhagic) thrombocythemia; Z79.899 Other long term (current) drug therapy; Z88.0 Allergy status to penicillin; Z88.8 Allergy status to other drugs, medicaments and biological substances; Z91.040 Latex allergy status

== ENCOUNTER 2019-05-22 11:31 | Emergency (ER) | payer MEDICARE, MEDICAID ==
[~2019-05-22] VITALS: Ht 167.6 cm; Wt 51.4 kg
[2019-05-22 13:09] LABS: BASO # 0.1 10^3/uL (0.0-0.2); BASO % 0.4 % (0.0-1.0); EOS % 0.1 % (0.0-3.0); HEMATOCRIT 32.5 % (36.0-47.0); HEMOGLOBIN 10.4 g/dl (12.0-15.5); LYMPH % 6.5 % (24.0-44.0); MEAN CORPUSCULAR HEMOGLOBIN 25.6 pg (27.0-33.0); MEAN CORPUSCULAR VOLUME 79.9 fl (80.0-96.0); MONO # 1.4 10^3/uL (0.0-0.8); NEUTROPHILS # 13.2 10^3/uL (1.8-7.7); NEUTROPHILS % 83.6 % (36.0-66.0); PLATELET COUNT, AUTOMATED 448 10^3/uL (150-450); RED BLOOD COUNT 4.07 10^6/uL (4.00-5.40); WHITE BLOOD COUNT 15.8 10^3/uL (4.0-10.0)
--- NOTE | 2019-05-22 13:18 | REP ---
REASON FOR EXAM: Near syncopal episode. COMPARISON: Multiple, latest 05/16/2019, a portable exam with latest two-view examination being obtained 05/06/2019. There is interstitial fibrotic change, status quo. No acute patchy parenchymal opacities or pleural effusions have developed. There is cardiomegaly. Chronic change seen involving the imaged osseous structures. Chronic changes, as described above without plain radiographic evidence of acute cardiopulmonary disease, however, correlate clinically to rule out the possibility of acute disease superimposed upon chronic change. Electronically Signed by Panchito Khan DO 05/22/2019 01:18 P
[2019-05-22 13:19] LABS: INR 1.17; PROTHROMBIN TIME 14.6 SECONDS (11.8-14.0)
--- NOTE | 2019-05-22 13:45 | ECGEPIP ---
[facility] - ED Test Date: 2019-05-22 Pat Name: CELINE HARVEY Department: Room: - Gender: Female Side Stitcher: MARIA : 1930 Requested By: MAYO Serrano Order Number: [id number] Reading MD: Leo Ceballos Measurements Intervals [place] Rate: 94 P: [place]: 0 QRS: 44 QRSD: 102 T: 0 QT: 297 QTc: 371 Interpretive Statements ATRIAL FIBRILLATION NONSPECIFIC ST & T-WAVE ABNORMALITY SIMILAR TO 05/16/19 Electronically Signed on 05-22-2019 13:44:29 EDT by Leo Ceballos
[2019-05-22 13:57] LABS: CK-MB VALUE MASS 1.1 NG/ML (<3.6); CPK CREATINE PHOSPHOKINASE 20 U/L (26-192); TROPONIN I < 0.02 NG/ML (< 0.10)
[2019-05-22] MEDS ORDERED: NS 500 ML IV ONE (14:00)
[2019-05-22 14:03] LABS: BLOOD UREA NITROGEN 14 MG/DL (7-18); CARBON DIOXIDE LEVEL 28 MEQ/L (21-32); CHLORIDE LEVEL 101 MEQ/L (98-107); CREATININE FOR GFR 0.63 MG/DL (0.55-1.30); FREE T4 1.47 NG/DL (0.76-1.46); GLOMERULAR FILTRATION RATE > 60.0 (>32); GLUCOSE, FASTING 106 MG/DL (70-100); MAGNESIUM LEVEL 1.7 MG/DL (1.8-2.4); POTASSIUM SERUM 3.6 MEQ/L (3.5-5.1); SODIUM LEVEL 138 MEQ/L (136-145)
[2019-05-22] MEDS ORDERED: MAGNESIUM OXIDE 400 MG TAB (MAG-OX) PO ONE (14:30)
[2019-05-22 16:37] VITALS: BP 99/58
== END 2019-05-22 16:37 | disposition home or self-care (01) ==
LOC: M ED 11:31
DX: I95.1 Orthostatic hypotension (principal); I10 Essential (primary) hypertension; I48.91 Unspecified atrial fibrillation; K58.9 Irritable bowel syndrome, unspecified; D50.9 Iron deficiency anemia, unspecified; Z79.899 Other long term (current) drug therapy; Z88.0 Allergy status to penicillin; Z88.8 Allergy status to other drugs, medicaments and biological substances; Z91.040 Latex allergy status

== ENCOUNTER 2019-05-28 16:01 | Emergency (ER) | payer MEDICARE, MEDICAID ==
[~2019-05-28] VITALS: Ht 167.6 cm; Wt 22.7 kg
[~2019-05-28 16:01] MED LIST changes: +OMEP1CAP73; +OMEP1CAP73 PO; -OMEP20CA4; -OMEP20CA4 PO; -OMEP40CA2 PO; +OMEP40CA97 PO
[2019-05-28] MEDS ORDERED: TORS10TA3 PO (16:47)
[2019-05-28] MEDS ORDERED: NS 1,000 ML IV ONE (17:30)
[2019-05-28 17:32] LABS: BASO # 0.1 10^3/uL (0.0-0.2); BASO % 0.4 % (0.0-1.0); EOS % 0.1 % (0.0-3.0); HEMATOCRIT 31.9 % (36.0-47.0); LYMPH % 7.6 % (24.0-44.0); MEAN CORPUSCULAR HEMOGLOBIN 25.4 pg (27.0-33.0); MEAN CORPUSCULAR HGB CONC 31.3 g/dl (32.0-36.5); MEAN CORPUSCULAR VOLUME 81.2 fl (80.0-96.0); MONO # 1.4 10^3/uL (0.0-0.8); MONO % 10.4 % (0.0-5.0); NEUTROPHILS # 10.9 10^3/uL (1.8-7.7); PLATELET COUNT, AUTOMATED 416 10^3/uL (150-450); RED BLOOD COUNT 3.93 10^6/uL (4.00-5.40); WHITE BLOOD COUNT 13.4 10^3/uL (4.0-10.0)
[2019-05-28 17:58] LABS: ALBUMIN 2.2 GM/DL (3.2-5.2); ALT/SGPT 40 U/L (12-78); BILIRUBIN,DIRECT 0.2 MG/DL (0.0-0.2); BILIRUBIN,TOTAL 0.4 MG/DL (0.2-1.0); BLOOD UREA NITROGEN 17 MG/DL (7-18); CARBON DIOXIDE LEVEL 27 MEQ/L (21-32); CHLORIDE LEVEL 104 MEQ/L (98-107); CK-MB VALUE MASS < 1.0 NG/ML (<3.6); CPK CREATINE PHOSPHOKINASE 14 U/L (26-192); CREATININE FOR GFR 0.64 MG/DL (0.55-1.30); GLOMERULAR FILTRATION RATE > 60.0 (>32); GLUCOSE, FASTING 90 MG/DL (70-100); MB/CK RELATIVE INDEX 7.14 (< OR =4); POTASSIUM SERUM 3.8 MEQ/L (3.5-5.1); SODIUM LEVEL 138 MEQ/L (136-145); TOTAL PROTEIN 7.2 GM/DL (6.4-8.2); TROPONIN I < 0.02 NG/ML (< 0.10)
[2019-05-28 19:21] LABS: INR 1.42; PROTHROMBIN TIME 17.1 SECONDS (11.8-14.0)
[2019-05-28 19:40] VITALS: BP 120/72
--- NOTE | 2019-05-29 20:40 | ECGEPIP ---
[facility] - ED Test Date: 2019-05-28 Pat Name: CELINE HARVEY Department: Room: - Gender: Female Field Project Manager: JChucky : 1930 Requested By: Leo Cabezas Order Number: [id number] Reading MD: Edith Chilel Measurements Intervals [place] Rate: 101 P: CO: 0 QRS: 35 QRSD: 95 T: -40 QT: 292 QTc: 378 Interpretive Statements ATRIAL FIBRILLATION WITH RAPID VENTRICULAR RESPONSE NONSPECIFIC ST & T-WAVE ABNORMALITY SIMILAR 05/22/19 Electronically Signed on 05-29-2019 20:40:32 EDT by Edith Chilel
[2019-07-17] MEDS ORDERED: ASPI81TA85 PO (09:28)
[2019-07-17] MEDS ORDERED: TORS10TA3 PO (09:28)
[2019-07-17] MEDS ORDERED: HYDR-3713 PO (09:40)
== END 2019-05-28 19:42 | disposition home or self-care (01) ==
LOC: M ED 16:01 → EDBD 16:01 → M ED 19:42
DX: E86.1 Hypovolemia (principal); R42 Dizziness and giddiness; I48.91 Unspecified atrial fibrillation; I10 Essential (primary) hypertension; I51.9 Heart disease, unspecified; Z79.899 Other long term (current) drug therapy; Z88.0 Allergy status to penicillin; Z88.8 Allergy status to other drugs, medicaments and biological substances; Z91.040 Latex allergy status

== ENCOUNTER 2019-07-03 09:17 | Inpatient (IN) | payer MEDICARE, MEDICAID ==
[~2019-07-03] VITALS: Ht 167.6 cm; Wt 50.0 kg
[~2019-07-03 09:17] MED LIST changes: -OMEP1CAP73; -OMEP1CAP73 PO; +OMEP20CA4; +OMEP20CA4 PO; +OMEP40CA2 PO; -OMEP40CA97 PO
[2019-07-03] MEDS ORDERED: NS 500 ML IV ONE (09:30)
[2019-07-03 09:57] LABS: BASO # 0.1 10^3/uL (0.0-0.2); BASO % 0.7 % (0.0-1.0); EOS # 0.2 10^3/uL (0.0-0.5); EOS % 2.2 % (0.0-3.0); HEMATOCRIT 34.9 % (36.0-47.0); HEMOGLOBIN 10.8 g/dl (12.0-15.5); LYMPH # 1.8 10^3/uL (1.5-5.0); LYMPH % 16.4 % (24.0-44.0); MEAN CORPUSCULAR HEMOGLOBIN 24.6 pg (27.0-33.0); MEAN CORPUSCULAR HGB CONC 30.9 g/dl (32.0-36.5); MEAN CORPUSCULAR VOLUME 79.5 fl (80.0-96.0); MONO # 1.5 10^3/uL (0.0-0.8); MONO % 13.8 % (0.0-5.0); NEUTROPHILS # 7.1 10^3/uL (1.5-8.5); NEUTROPHILS % 66.4 % (36.0-66.0); PLATELET COUNT, AUTOMATED 518 10^3/uL (150-450); RED BLOOD COUNT 4.39 10^6/uL (4.00-5.40); WHITE BLOOD COUNT 10.7 10^3/uL (4.0-10.0)
[2019-07-03 10:17] LABS: INR 1.29; PROTHROMBIN TIME 15.9 SECONDS (11.8-14.0)
[2019-07-03 10:18] LABS: PARTIAL THROMBOPLASTIN TIME 30.6 SECONDS (25.0-38.4)
[2019-07-03 10:24] LABS: ALBUMIN 2.7 GM/DL (3.2-5.2); ALT/SGPT 17 U/L (12-78); BILIRUBIN,DIRECT 0.1 MG/DL (0.0-0.2); BILIRUBIN,TOTAL 0.3 MG/DL (0.2-1.0); BLOOD UREA NITROGEN 16 MG/DL (7-18); CALCIUM LEVEL 9.1 MG/DL (8.8-10.2); CARBON DIOXIDE LEVEL 26 MEQ/L (21-32); CHLORIDE LEVEL 102 MEQ/L (98-107); GLOMERULAR FILTRATION RATE > 60.0 (>32); GLUCOSE, FASTING 100 MG/DL (70-100); LIPASE 65 U/L (73-393); POTASSIUM SERUM 3.7 MEQ/L (3.5-5.1); SODIUM LEVEL 138 MEQ/L (136-145); TOTAL PROTEIN 7.7 GM/DL (6.4-8.2)
--- NOTE | 2019-07-03 10:46 | REP ---
REASON FOR EXAM: Syncopal episode. COMPARISON EXAMINATION: 05/22/2019. The technique utilized in obtaining the radiograph has magnified the cardiac silhouette and accentuated the interstitial markings. There is cardiomegaly accentuated by technique. There is interstitial fibrosis accentuated by technique. No new opacities have developed since the last exam. There is chronic bilateral CP angle blunting. There is no change in the osseous structures. IMPRESSION: No evidence of significant change compared to the prior exam other than technique as described above. Correlate clinically to rule out the possibility of acute disease superimposed upon chronic change. Electronically Signed by Panchito Khan DO 07/03/2019 02:34 P
[2019-07-03] MEDS ORDERED: OMEP-221 PO (11:37)
[2019-07-03] MEDS ORDERED: SYST1SOL OU (11:37)
[2019-07-03] MEDS ORDERED: ACETAMINOPHEN TAB 650MG DOSE (2X325MG) PO PRN (13:30)
[2019-07-03] MEDS ORDERED: TORSEMIDE 10 MG TABLET PO PRN (13:45)
--- NOTE | 2019-07-03 14:01 | HPEPDOC ---
General Date of Admission 07/03/19* Date of Service: Jul 03, 2019 Primary Care Physician: Parvin Turner Attending Physician: AN NINA MD Chief Complaint The patient is a 89-year-old female admitted with a reason for visit of Rectal Bleeding. 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 fib, not on anticoagulation secondary to risk of hemorrhage,developed sudden onset of passage of bright red blood per rectum this morning and decided to come to ER. Ration denies any nausea, vomiting, abdominal pain, chest pain, shortness of breath or dizziness Home Medications Scheduled Amiodarone HCl (Amiodarone HCl) 200 Mg Tab, 200 MG PO QHS, (Reported) Potassium Chloride (Potassium Chloride) 10 Meq Tab, 20 MEQ BID, (Reported) Propylene Glycol/Peg 400 (Systane 0.3-0.4% Eye Drops) 15 Ml Drops, 1 DROP OU BID, (Reported) Scheduled PRN Acetaminophen (Acetaminophen) 325 Mg Tablet, 650 MG PO Q4H PRN for PAIN, (Reported) Omeprazole (Omeprazole) 40 Mg Capsule.dr, 40 MG PO DAILY PRN for H EARTBURN/INDIGESTION, (Reported) Torsemide (Torsemide) 10 Mg Tablet, 10 MG PO DAILY PRN for EDEMA, (Reported) Allergies Coded Allergies: Penicillins (Verified Allergy, Intermediate, Rash, 05/28/19) latex (Verified Allergy, Mild, REDNESS AND ITCHING FROM SOCKS AND UNDERWEAR, 05/16/19) nitroglycerin (Verified Adverse Reaction, Intermediate, PT REFUSES- CAUSES EXTREME ANXIETY, FEELING OF DOOM, INC BP, 05/16/19) nitrofurantoin (Verified Adverse Reaction, Mild, Vomiting, Diarrhea, 05/16/19) Past Medical History Medical History Waldenstrm's macroglobulinemia, metastatic stage IV colon carcinoma, A. fib, hypertension, hiatal hernia, IBS Surgical History Cholecystectomy, appendectomy, repair of fracture of right wrist cyst removed and hemorrhoid banding 4 years ago Family History Significant Family History: No pertinent family hx Social History * Smoker: Denies Alcohol: Denies Drugs: denies A-FIB/CHADSVASC A-FIB History Current/History of A-Fib/PAF?: Yes Current PO Anticoag Therapy: No Review of Systems Constitutional: Denies: Chills, Fever, Malaise, Night Sweats, Weakness, Fatigue, Weight Loss, Lethargy, Other Pulmonary: Denies: Dyspnea, Cough, Pleuritic Chest Pain, Other Symptoms Cardiovascular: Denies: Chest Pain, Palpitations, Orthopnea, Paroxysmal Noc. Dyspnea, Edema, Lt Headedness, Other Symptoms Gastrointestinal: Reports: Other Symptoms Genitourinary: Denies: Dysuria, Frequency, Incontinence, Hematuria, Retention, Other Symptoms Hematologic: Denies: Bruising, Bleeding Excessively, Petecchia, Purpura, Enlarged Lymph Nodes, Other Hematologic Endocrine: Denies: Polydipsia, Polyphagia, Polyuria, Heat Intolerance, Cold Intolerance, Other Endocrine Sx Musculoskeletal: Denies: Neck Pain, Back Pain, Shoulder Pain, Arm Pain, Hand Pain, Leg Pain, Foot Pain, Joint Pain, Muscle Pain, Spasms, Other Symptoms Neurological: Denies: Weakness, Numbness, Incoordination, Change in speech, Confusion, Seizures, Other Symptoms Psych: Denies: Mood Normal, Anxiety, Depression, Memory Issues, Thoughts of Self Harm, Anger, Thoughts of Harming Other, Other Psych Physical Examination General Exam: Positive: Alert, Cooperative Eye Exam: Positive: PERRLA, Conjunctiva & lids normal ENT Exam: Positive: Atraumatic, Mucous membr. moist/pink Neck Exam: Positive: Supple Chest Exam: Positive: Clear to auscultation, Normal air movement Heart Exam: Positive: Rate Normal, Normal S1, Normal S2 Abdomen Exam: Positive: Normal bowel sounds, Soft Extremity Exam: Positive: Normal pulses Skin Exam: Positive: Nl turgor and temperature Neuro Exam: Positive: Normal Speech, Strength at 5/5 X4 ext, Sensation Intact Psych Exam: Positive: Mental status NL, Oriented x 3 Vital Signs Vital Signs Date Time Temp Pulse Resp B/P (MAP) Pulse Ox O2 Delivery O2 Flow Rate FiO2 07/03/19 11:17 71 20 99 07/03/19 11:15 155/76 (102) 07/03/19 09:18 97.3 Room Air Laboratory Data Labs 24H Laboratory Tests 2 07/03/19 09:35: Immature Granulocyte % (Auto) 0.5, White Blood Count 10.7H, Red Blood Count 4.39, Hemoglobin 10.8L, Hematocrit 34.9L, Mean Corpuscular Volume 79.5L, Mean Corpuscular Hemoglobin 24.6L, Mean Corpuscular Hemoglobin Concent 30.9L, Red Cell Distribution Width 17.7H, Platelet Count 518H, Neutrophils (%) (Auto) 66.4H, Lymphocytes (%) (Auto) 16.4L, Monocytes (%) (Auto) 13.8H, Eosinophils (%) (Auto) 2.2, Basophils (%) (Auto) 0.7, Neutrophils # (Auto) 7.1, Lymphocytes # (Auto) 1.8, Monocytes # (Auto) 1.5H, Eosinophils # (Auto) 0.2, Basophils # (Auto) 0.1, Nucleated Red Blood Cells % (auto) 0.0, Prothrombin Time 15.9H, Prothromb Time International Ratio 1.29, Activated Partial Thromboplast Time 30.6, Anion Gap 10, Glomerular Filtration Rate > 60.0, Calcium Level 9.1, Aspartate Amino Transf (AST/SGOT) 21, Alanine Aminotransferase (ALT/SGPT) 17, Al kaline Phosphatase 159H, Total Bilirubin 0.3, Direct Bilirubin 0.1, Total Protein 7.7, Albumin 2.7L, Albumin/Globulin Ratio 0.54L, Lipase 65L CBC/BMP Laboratory Tests 07/03/19 09:35 Red Blood Count 4.39, Mean Corpuscular Volume 79.5 L, Mean Corpuscular Hemoglobin 24.6 L, Mean Corpuscular Hemoglobin Concent 30.9 L, Red Cell Distribution Width 17.7 H, Neutrophils (%) (Auto) 66.4 H, Lymphocytes (%) (Auto) 16.4 L, Monocytes (%) (Auto) 13.8 H, Eosinophils (%) (Auto) 2.2, Basophils (%) (Auto) 0.7, Neutrophils # (Auto) 7.1, Lymphocytes # (Auto) 1.8, Monocytes # (Auto) 1.5 H, Eosinophils # (Auto) 0.2, Basophils # (Auto) 0.1 Problems (1) GI bleeding Status: Acute Problem Text: 89 years old white female with past medical history of the GI bleed in the past also was found to have a large hemorrhoids for which she had a hemorrhoid banding done by Dr. potter about 4 years ago, but she was a recently also diagnosed with advanced stage IV metastatic colon carcinoma on the basis of biopsy from lung mass, but no GI workup was done including colonoscopy. Patient never had a colonoscopy done in the past. Patient developed sudden onset of bright red blood per rectum this morning and decided to come to ER. She does not offer any other complaints including abdominal pain Admit to [facility] floor IV fluid normal saline 70 mL per hour Clear liquid diet Monitor H&H GI consult with Dr. mcguire has been called Continue home meds DVT prophylaxis with bilateral SCDs Further, as per GIs recommendation (2) Afib Status: Acute Problem Text: rate under control Continue amiodarone Patient not on anticoagulation secondary to history of GI bleed in the past (3) HTN (hypertension) Status: Chronic Problem Text: Under well control And tinea home meds (4) Waldenstrom macroglobulinemia Status: Acute Problem Text: Discussed with Dr. Sen Patient is under observation with oncology Follow with Dr. Sen, but she is discharged from the hospital Plan / VTE VTE Prophylaxis Ordered?: Yes AN NINA MD Jul 03, 2019 14:01
[2019-07-03] MEDS: NS 1,000 ML IV SCH (14:20)
[2019-07-03 15:25] VITALS: BP 116/68
--- NOTE | 2019-07-03 19:03 | ECGEPIP ---
[facility] [place] - ED Test Date: 2019-07-03 Pat Name: CELINE HARVEY Department: Room: - Gender: Female Typewriter Ribbon Winder: : 1930 Requested By: FREDI Tomas Order Number: [id number] Reading MD: Leo Ceballos Measurements Intervals [place] Rate: 70 P: 225 SC: 176 QRS: -3 QRSD: 97 T: 49 QT: 440 QTc: 478 Interpretive Statements SINUS RHYTHM POSSIBLE LEFT ATRIAL ENLARGEMENT RHYTHM CHANGE COMPARED TO 05/28/19 Electronically Signed on 07-03-2019 19:03:21 EDT by Leo Ceballos
[2019-07-03] MEDS: POTASSIUM CHLORIDE 10 MEQ SR TABLET PO SCH (20:22)
[2019-07-03] MEDS: AMIODARONE 200 MG TAB (PACERONE) PO SCH (20:23)
[2019-07-03 22:00] VITALS: BP 118/79
[2019-07-04] MEDS: NS 1,000 ML IV SCH (04:18)
[2019-07-04 06:00] VITALS: BP 137/69
[2019-07-04 06:12] LABS: HEMATOCRIT 32.6 % (36.0-47.0); HEMOGLOBIN 10.2 g/dl (12.0-15.5); MEAN CORPUSCULAR HEMOGLOBIN 24.8 pg (27.0-33.0); MEAN CORPUSCULAR HGB CONC 31.3 g/dl (32.0-36.5); MEAN CORPUSCULAR VOLUME 79.1 fl (80.0-96.0); PLATELET COUNT, AUTOMATED 456 10^3/uL (150-450); RED BLOOD COUNT 4.12 10^6/uL (4.00-5.40); WHITE BLOOD COUNT 11.1 10^3/uL (4.0-10.0)
[2019-07-04 06:31] LABS: BLOOD UREA NITROGEN 11 MG/DL (7-18); CARBON DIOXIDE LEVEL 23 MEQ/L (21-32); CHLORIDE LEVEL 108 MEQ/L (98-107); CREATININE FOR GFR 0.61 MG/DL (0.55-1.30); GLOMERULAR FILTRATION RATE > 60.0 (>32); GLUCOSE, FASTING 85 MG/DL (70-100); POTASSIUM SERUM 3.5 MEQ/L (3.5-5.1); SODIUM LEVEL 140 MEQ/L (136-145)
[2019-07-04] MEDS: POTASSIUM CHLORIDE 10 MEQ SR TABLET PO SCH ×2 (07:38→19:58)
--- NOTE | 2019-07-04 11:56 | IPNPDOC ---
Subjective Date Seen The patient was seen on 07/04/19. Subjective Chief Complaint/HPI Patient is scheduled for EGD today Seen by GI, but official consult and EMR is pending pt offers no new complaints at the present time General: Denies: ROS Unobtainable, Chills, Night Sweats, Fatigue, Malaise, Normal Appetite, Other Symptoms Constitutional: Denies: Chills, Fever, Malaise, Night Sweats, Weakness, Fatigue, Weight Loss, Lethargy, Other Skin: Denies: Rash, Lesions, Jaundice, Bruising, Itching, Dry, Breakdown, Nail Changes, Other Pulmonary: Denies: Dyspnea, Cough, Pleuritic Chest Pain, Other Symptoms Cardiovascular: Denies: Chest Pain, Palpitations, Orthopnea, Paroxysmal Noc. Dyspnea, Edema, Lt Headedness, Other Symptoms Hematologic: Denies: Bruising, Bleeding Excessively, Petecchia, Purpura, Enlarged Lymph Nodes, Other Hematologic Endocrine: Denies: Polydipsia, Polyphagia, Polyuria, Heat Intolerance, Cold Intolerance, Other Endocrine Sx Musculoskeletal: Denies: Neck Pain, Back Pain, Shoulder Pain, Arm Pain, Hand Pain, Leg Pain, Foot Pain, Joint Pain, Muscle Pain, Spasms, Other Symptoms Neurological: Denies: Weakness, Numbness, Incoordination, Change in speech, Confusion, Seizures, Other Symptoms Objective Physical Examination ENT Exam: Positive: Atraumatic, Mucous membr. 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 Considering she would not be a candidate for chemotherapy at her advanced age and medical conditions. Case was discussed with Dr. Greco and she will follow patient as an outpatient once she is discharged from the hospital (3) HTN (hypertension) Status: Chronic Problem Text: Under well control Continue home meds (4) Afib Status: Chronic Problem Text: Rate is under well control Continue home meds (5) Waldenstrom macroglobulinemia Status: Chronic Problem Text: Follow with Dr. Sen as an outpatient (6) Underweight Problem Text: Most likely secondary to malignancy Will request a dietary consultation of a GI workup is complete for possible protein supplements Plan/VTE VTE Prophylaxis Ordered?: Yes VTE Exclusion Pharmacological: Active Bleeding VS, I&O, 24H, Fishbone Vital Signs/I&O Vital Signs Date Time Temp Pulse Resp B/P (MAP) Pulse Ox O2 Delivery O2 Flow Rate FiO2 07/04/19 06:00 98.9 63 19 137/69 (91) 98 07/03/19 14:55 Room Air I&O- Last 24 Hours up to 6 AM 07/04/19 06:00 Intake Total 1490 ml Balance 1490 ml Laboratory Data 24H LABS Laboratory Tests 2 07/04/19 05:53: Nucleated Red Blood Cells % (auto) 0.0, Anion Gap 9, Glomerular Filtration Rate > 60.0, Blood Urea Nitrogen 11, Creatinine 0.61, Sodium Level 140, Potassium Level 3.5, Chloride Level 108H, Carbon Dioxide Level 23, Calcium Level 9.0 CBC/BMP Laboratory Tests 07/04/19 05:53 Red Blood Count 4.12, Mean Corpuscular Volume 79.1 L, Mean Corpuscular Hemoglobin 24.8 L, Mean Corpuscular Hemoglobin Concent 31.3 L, Red Cell Distribu tion Width 17.7 H, Calcium Level 9.0 AN NINA MD Jul 04, 2019 11:56
[2019-07-04 13:20] VITALS: BP 112/66
[2019-07-04] MEDS ORDERED: PROPOFOL 200 MG/20 ML VIAL As Ordered ONE (14:37)
[2019-07-04] MEDS ORDERED: LIDOCAINE 2% INJ 100 MG/5 ML SDV (FOR ANES.) As Ordered ONE (14:37)
[2019-07-04] MEDS ORDERED: ePHEDrine SULFATE 25 MG/5 ML(5MG/ML) SYRINGE As Ordered ONE (14:42)
--- NOTE | 2019-07-04 14:45 | ROOR ---
Patient Name: Shanell Chambers Procedure Date: 07/04/2019 2:28 PM Date of : 1930 Age: 89 Room: [facility]02 Gender: Female Note Status: Finalized Procedure: Upper GI endoscopy Indications: Iron deficiency anemia secondary to chronic blood loss. (Pt with metastatic colon cancer, Please eval for alternate source of blood loss) Providers: Damien VERONICA MD Referring MD: Parvin Turner NP, Laverne Vera Md, 2. Inpatient 2. Inpatient Requesting Provider: Medicines: Monitored Anesthesia Care Complications: No immediate complications. Procedure: Pre-Anesthesia Assessment: - The heart rate, respiratory rate, oxygen saturations, blood pressure, adequacy of pulmonary ventilation, and response to care were monitored throughout the procedure. The Endoscope was introduced through the mouth, and advanced to the second part of duodenum. The upper GI endoscopy was accomplished without difficulty. The patient tolerated the procedure well. Findings: The esophagus was normal. The stomach was normal. (small hiatal hernia) The examined duodenum was normal. Impression: - Normal esophagus. - Normal stomach. (small to moderate hiatal hernia) - Normal examined duodenum. - No specimens collected. Recommendation: - Observe patient's clinical course. - Resume previous diet. Damien Veronica MD Damien VERONICA MD 07/04/2019 2:44:33 PM Electronically signed by Damien VERONICA MD Number of Addenda: 0 Note Initiated On: 07/04/2019 2:28 PM Estimated Blood Loss: Estimated blood loss: none.
[2019-07-04 15:03] VITALS: BP 95/56
[2019-07-04] MEDS: AMIODARONE 200 MG TAB (PACERONE) PO SCH (19:58)
[2019-07-04 22:00] VITALS: BP 90/60
[2019-07-05] VITALS (9 sets, daily range): BP systolic 82–109; BP diastolic 40–92
[2019-07-05] MEDS ORDERED: NS 500 ML IV ONE (07:00)
[2019-07-05 08:36] LABS: BLOOD UREA NITROGEN 11 MG/DL (7-18); CALCIUM LEVEL 8.7 MG/DL (8.8-10.2); CARBON DIOXIDE LEVEL 24 MEQ/L (21-32); CHLORIDE LEVEL 112 MEQ/L (98-107); CREATININE FOR GFR 0.54 MG/DL (0.55-1.30); GLOMERULAR FILTRATION RATE > 60.0 (>32); GLUCOSE, FASTING 83 MG/DL (70-100); POTASSIUM SERUM 3.9 MEQ/L (3.5-5.1); SODIUM LEVEL 143 MEQ/L (136-145)
[2019-07-05 08:38] LABS: HEMATOCRIT 29.2 % (36.0-47.0); MEAN CORPUSCULAR HEMOGLOBIN 24.4 pg (27.0-33.0); MEAN CORPUSCULAR HGB CONC 30.8 g/dl (32.0-36.5); MEAN CORPUSCULAR VOLUME 79.1 fl (80.0-96.0); PLATELET COUNT, AUTOMATED 414 10^3/uL (150-450); RED BLOOD COUNT 3.69 10^6/uL (4.00-5.40); WHITE BLOOD COUNT 8.7 10^3/uL (4.0-10.0)
[2019-07-05] MEDS: POTASSIUM CHLORIDE 10 MEQ SR TABLET PO SCH ×2 (09:07→19:45)
[2019-07-05] MEDS: NS 1,000 ML IV SCH ×2 (09:08→16:52)
--- NOTE | 2019-07-05 09:46 | REP ---
Portable chest, 08:56 a.m., single AP view with the patient sitting: Comparisons are 10/29/2018 and 07/03/2019. There is chronic diffuse interstitial coarsening compatible with fibrosis. There are new superimposed densities inferiorly on the right and inferiorly on the left which may represent acute infiltrates superimposed on chronic fibrosis. No pleural effusion. There is cardiomegaly, There is chronic deformity of the right humeral head, unchanged, possibly post-traumatic. Impression: Probable new acute infiltrates inferiorly in the lung brown bilaterally superimposed upon chronic interstitial fibrosis. Electronically Signed by Eric Simpson MD 07/05/2019 09:37 A
--- NOTE | 2019-07-05 10:16 | IPNPDOC ---
Subjective Date Seen The patient was seen on 07/05/19. Subjective Chief Complaint/HPI Patient is no complaints but was found to be hypotensive since this morning. Patient is also DNR/DNI. is afebrile is no shortness of breath General: Denies: ROS Unobtainable, Chills, Night Sweats, Fatigue, Malaise, Normal Appetite, Other Symptoms Constitutional: Denies: Chills, Fever, Malaise, Night Sweats, Weakness, Fatigue, Weight Loss, Lethargy, Other Pulmonary: Denies: Dyspnea, Cough, Pleuritic Chest Pain, Other Symptoms Cardiovascular: Denies: Chest Pain, Palpitations, Orthopnea, Paroxysmal Noc. Dyspnea, Edema, Lt Headedness, Other Symptoms Gastrointestinal: Denies: Nausea, Vomiting, Abdominal Pain, Diarrhea, Constipation, Melena, Hematochezia, Other Symptoms Musculoskeletal: Denies: Neck Pain, Back Pain, Shoulder Pain, Arm Pain, Hand Pain, Leg Pain, Foot Pain, Joint Pain, Muscle Pain, Spasms, Other Symptoms Neurological: Denies: Weakness, Numbness, Incoordination, Change in speech, Confusion, Seizures, Other Symptoms Objective Physical Examination ENT Exam: Positive: Atraumatic, Mucous membr. moist/pink Neck Exam: Positive: Supple Chest Exam: Positive: Other (echo is audible in left base) Heart Exam: Positive: Rate Normal, Normal S1, Normal S2 Abdomen Exam: Positive: Normal bowel sounds, Soft Extremity Exam: Positive: Normal pulses Neuro Exam: Positive: Normal Speech, Strength at 5/5 X4 ext, Sensation Intact Assessment /Plan Problems (1) GI bleed Status: Acute Problem Text: Patient is clinically stable. 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 Considering she would not be a candidate for chemotherapy at her advanced age and medical co nditions. Case was discussed with Dr. Greco and she will follow patient as an outpatient once she is discharged from the hospital (3) HTN (hypertension) Status: Chronic Problem Text: Under well control Continue home meds (4) Afib Status: Chronic Problem Text: Rate is under well control Continue home meds (5) Waldenstrom macroglobulinemia Status: Chronic Problem Text: Follow with Dr. Sen as an outpatient (6) Underweight Problem Text: Most likely secondary to malignancy Will request a dietary consultation of a GI workup is complete for possible protein supplements (7) Pneumonia Status: Acute Problem Text: New infiltrate on left base on chest x-ray Patient is asymptomatic except hypotension, but presentation of pneumonia as different in elderly population Start Rocephin 1 g IV every 24 hours and Zithromax 500 mg IV every 24 hours A.m. labs at been ordered (8) Hypotension Status: Acute Problem Text: . Hypertension, could be secondary to amiodarone for possible developing sepsis secondary to left lower lobe pneumonia, but respiratory rate and heart rate essentially within normal range and patient is afebrile Continue IV fluids at 70 mL per hour Lactic acid and pro calcitonin has been ordered Plan/VTE VTE Prophylaxis Ordered?: Yes VTE Exclusion Pharmacological: Active Bleeding VS, I&O, 24H, Fishbone Vital Signs/I&O Vital Signs Date Time Temp Pulse Resp B/P (MAP) Pulse Ox O2 Delivery O2 Flow Rate FiO2 07/05/19 08:15 84 84/42 (56) 07/05/19 06:00 97.9 16 94 07/03/19 14:55 Room Air I&O- Last 24 Hours up to 6 AM 07/05/19 05:59 Intake Total 1920 ml Balance 1920 ml Laboratory Data 24H LABS Laboratory Tests 2 07/05/19 07:56: Nucleated Red Blood Cells % (auto) 0.0, Anion Gap 7L, Glomerular Filtration Rate > 60.0, Blood Urea Nitrogen 11, Creatinine 0.54L, Sodium Level 143, Potassium Level 3.9, Chloride Level 112H, Carbon Dioxide Level 24, Calcium Level 8.7L CBC/BMP Laboratory Tests 07/05/19 07:56 Red Blood Count 3.69 L, Mean Corpuscular Volume 79.1 L, Mean Corpuscular Hemoglobin 24.4 L, Mean Corpuscular Hemoglobin Concent 30.8 L, Red Cell Distribution Width 17.8 H, Calcium Level 8.7 L AN NINA MD Jul 05, 2019 10:16
[2019-07-05] MEDS: MEROPENEM INJ 1 GM in IV 1 EA IV SCH ×2 (10:32→18:00)
[2019-07-05] MEDS ORDERED: cefTRIAXone SOD 1 GM in D5W MINI-BAG PLUS 50 ML IV SCH (12:00)
[2019-07-05] MEDS: AMIODARONE 200 MG TAB (PACERONE) PO SCH (19:45)
[2019-07-06] MEDS: MEROPENEM INJ 1 GM in IV 1 EA IV SCH ×2 (02:28→11:00)
[2019-07-06 06:00] VITALS: BP 99/55
[2019-07-06 06:41] LABS: BASO # 0.1 10^3/uL (0.0-0.2); BASO % 0.7 % (0.0-1.0); EOS # 0.3 10^3/uL (0.0-0.5); EOS % 2.9 % (0.0-3.0); HEMATOCRIT 27.4 % (36.0-47.0); HEMOGLOBIN 8.4 g/dl (12.0-15.5); LYMPH # 2.1 10^3/uL (1.5-5.0); LYMPH % 21.1 % (24.0-44.0); MEAN CORPUSCULAR HEMOGLOBIN 24.1 pg (27.0-33.0); MEAN CORPUSCULAR HGB CONC 30.7 g/dl (32.0-36.5); MEAN CORPUSCULAR VOLUME 78.7 fl (80.0-96.0); MONO # 1.4 10^3/uL (0.0-0.8); MONO % 13.6 % (0.0-5.0); NEUTROPHILS # 6.2 10^3/uL (1.5-8.5); NEUTROPHILS % 61.3 % (36.0-66.0); PLATELET COUNT, AUTOMATED 368 10^3/uL (150-450); RED BLOOD COUNT 3.48 10^6/uL (4.00-5.40)
[2019-07-06 06:47] LABS: BLOOD UREA NITROGEN 10 MG/DL (7-18); CALCIUM LEVEL 8.4 MG/DL (8.8-10.2); CARBON DIOXIDE LEVEL 23 MEQ/L (21-32); CHLORIDE LEVEL 114 MEQ/L (98-107); CREATININE FOR GFR 0.58 MG/DL (0.55-1.30); GLOMERULAR FILTRATION RATE > 60.0 (>32); GLUCOSE, FASTING 87 MG/DL (70-100); POTASSIUM SERUM 3.6 MEQ/L (3.5-5.1); SODIUM LEVEL 144 MEQ/L (136-145)
[2019-07-06] MEDS: POTASSIUM CHLORIDE 10 MEQ SR TABLET PO SCH (08:34)
[2019-07-06] MEDS ORDERED: CEFP200T PO (09:18)
--- NOTE | 2019-07-06 10:43 | DS.PDOC ---
Discharge Summary General Date of Admission Jul 03, 2019 at 13:29 Date of Discharge 07/06/19 Attending Physician: AN NINA MD Discharge Summary PROCEDURES PERFORMED DURING STAY: None. ADMITTING DIAGNOSES: 1. waldenstroms macroglobulinemia, stage IV metastatic colon carcinoma, hy pertension, atrial fibrillation, GI bleed, anemia. DISCHARGE DIAGNOSES: 1. Anemia secondary to acute GI bleed, lower gastrointestinal bleed, pneumonia ,Waldenstrm's macroglobulinemia, stage IV metastatic colon carcinoma, hypertension, history of atrial fibrillation, under weight. COMPLICATIONS/CHIEF COMPLAINT: Gi Bleeding. HISTORY OF PRESENT ILLNESS: 89 years old white female with past medical history of Waldenstrm's macroglobulinemia stage IV metastatic colorectal carcinoma, hypertension, history of A. fib, not on anticoagulation secondary to risk of hemorrhage,developed sudden onset of passage of bright red blood per rectum this morning and decided to come to ER. Ration denies any nausea, vomiting, abdominal pain, chest pain, shortness of breath or dizziness. HOSPITAL COURSE: 89 years old, frail white female who is underweight was admitted lower GI blee d. Patient has a history of stage IV metastatic lung carcinoma diagnosis on the basis of lung mass biopsy, for which she follows up with Dr. Sen and all the observation has been recommended as patient is advanced in age and frail to go through chemotherapy. Patient was closely monitored in patient and had a EGD performed by GI, which was essentially negative. Regarding her lower GI bleed which is most likely secondary to colon carcinoma. She needs to follow-up with oncology for further workup and staging. Patient is clinically stable. H&H is stable. She wishes to go home and she will be discharged home on all current medication and follow with oncology as per scheduled appointment. Patient also was found to have possible pneumonia for which she was started on IV antibiotics, which has been changed to by mouth antibiotics as patient is afebrile. WBC count is within normal range and pro calcitonin is still pending Agents prognosis is poor secondary to advanced age and advanced stages of colon carcinoma. Further treatment plans and options will be discussed by Dr. Vera as an outpatient. . DISCHARGE MEDICATIONS: Please see below. ALLERGIES: Please see below. PHYSICAL EXAMINATION ON DISCHARGE: VITAL SIGNS: Please see below. GENERAL: Within normal limits HEENT:. PERRLA. Extraocular muscles intact NECK:. Supple CARDIOVASCULAR EXAMINATION:. S1, S2, regular RESPIRATORY EXAMINATION:, Clear to A&P ABDOMINAL EXAMINATION:. Soft, nontender, bowel sounds present EXTREMITIES:. No clubbing, cyanosis, edema SKIN:, Normal NEUROLOGICAL EXAMINATION:. No focal motor sensory deficit PSYCHIATRIC EXAMINATION:. Normal LABORATORY DATA: Please see below. IMAGING: Chest x-ray report:Impression: Probable new acute infiltrates inferiorly in the lung brown bilaterally superimposed upon chronic interstitial fibrosis. PROGNOSIS: Poor ACTIVITY: As tolerated. DIET: As tolerated DISCHARGE PLAN: Follow up with Dr. Vera in oncology as per schedule appointment DISPOSITION: . Home DISCHARGE INSTRUCTIONS: 1. As per discharge instructions. ITEMS TO FOLLOWUP ON ON OUTPATIENT: 1. Follow-up with oncology as per appointment. DISCHARGE CONDITION: Stable. TIME SPENT ON DISCHARGE: 42 minutes. Vital Signs/I&Os Vital Signs Date Time Temp Pulse Resp B/P (MAP) Pulse Ox O2 Delivery O2 Flow Rate FiO2 07/06/19 06:00 99.0 68 17 99/55 (70) 95 07/03/19 14:55 Room Air I&O- Last 24 Hours up to 6 AM 07/06/19 06:00 Intake Total 3592 ml Output Total 0 ml Balance 3592 ml Laboratory Data Labs 24H Laboratory Tests 2 07/05/19 10:54: Lactic Acid Level 1.1 07/06/19 05:57: Immature Granulocyte % (Auto) 0.4, White Blood Count 10.0, Red Blood Count 3.48L, Hemoglobin 8.4L, Hematocrit 27.4L, Mean Corpuscular Volume 78.7L, Mean Corpuscular Hemoglobin 24.1L, Mean Corpuscular Hemoglobin Concent 30.7L, Red Cell Distribution Width 17.8H, Platelet Count 368, Neutrophils (%) (Auto) 61.3, Lymphocytes (%) (Auto) 21.1L, Monocytes (%) (Auto) 13.6H, Eosinophils (%) (Auto) 2.9, Basophils (%) (Auto) 0.7, Neutrophils # (Auto) 6.2, Lymphocytes # (Auto) 2.1, Monocytes # (Auto) 1.4H, Eosinophils # (Auto) 0.3, Basophils # (Auto) 0.1, Nucleated Red Blood Cells % (auto) 0.0, Anion Gap 7L, Glomerular Filtration Rate > 60.0, Blood Urea Nitrogen 10, Creatinine 0.58, Sodium Level 144, Potassium L evel 3.6, Chloride Level 114H, Carbon Dioxide Level 23, Calcium Level 8.4L CBC/BMP Laboratory Tests 07/06/19 05:57 Red Blood Count 3.48 L, Mean Corpuscular Volume 78.7 L, Mean Corpuscular Hemoglobin 24.1 L, Mean Corpuscular Hemoglobin Concent 30.7 L, Red Cell Distribution Width 17.8 H, Neutrophils (%) (Auto) 61.3, Lymphocytes (%) (Auto) 21.1 L, Monocytes (%) (Auto) 13.6 H, Eosinophils (%) (Auto) 2.9, Basophils (%) (Auto) 0.7, Neutrophils # (Auto) 6.2, Lymphocytes # (Auto) 2.1, Monocytes # (Auto) 1.4 H, Eosinophils # (Auto) 0.3, Basophils # (Auto) 0.1, Calcium Level 8.4 L Discharge Medications Scheduled Amiodarone HCl (Amiodarone HCl) 200 Mg Tab, 200 MG PO QHS, (Reported) Cefpodoxime Proxetil (Cefpodoxime Proxetil) 200 Mg Tablet, 1 TAB PO BID Potassium Chloride (Potassium Chloride) 10 Meq Tab, 20 MEQ BID, (Reported) Propylene Glycol/Peg 400 (Systane 0.3-0.4% Eye Drops) 15 Ml Drops, 1 DROP OU BID, (Reported) Scheduled PRN Acetaminophen (Acetaminophen) 325 Mg Tablet, 650 MG PO Q4H PRN for PAIN, (Reported) Omeprazole (Omeprazole) 40 Mg Capsule.dr, 40 MG PO DAILY PRN for HEARTBURN/INDIGESTION, (Reported) Allergies Coded Allergies: Penicillins (Verified Allergy, Intermediate, Rash, 05/28/19) latex (Verified Allergy, Mild, REDNESS AND ITCHING FROM SOCKS AND UNDERWEAR, 05/16/19) nitroglycerin (Verified Adverse Reaction, Intermediate, PT REFUSES- CAUSES EXTREME ANXIETY, FEELING OF DOOM, INC BP, 05/16/19) nitrofurantoin (Verified Adverse Reaction, Mild, Vomiting, Diarrhea, 05/16/19) AN NINA MD Jul 06, 2019 10:43
== END 2019-07-06 12:00 | disposition home or self-care (01) | DRG 377 ==
LOC: M ED 09:17 → M ED INP 13:29 → M MSPAV 15:10
PROVIDERS: ADMIT Internal Medicine; ATTEND Internal Medicine
PROC: 0DJ08ZZ Inspection of Upper Intestinal Tract, Via Natural or Artificial Opening Endoscopic (ICD-10-PCS; principal; 2019-07-04 07:39)
DX: K62.5 Hemorrhage of anus and rectum (principal); J18.9 Pneumonia, unspecified organism; C18.9 Malignant neoplasm of colon, unspecified; C78.00 Secondary malignant neoplasm of unspecified lung; D62 Acute posthemorrhagic anemia; Z68.1 Body mass index [BMI] 19.9 or less, adult; I48.20 Chronic atrial fibrillation, unspecified; I10 Essential (primary) hypertension; R63.6 Underweight; C88.0 Waldenstrom macroglobulinemia; Z66 Do not resuscitate; K44.9 Diaphragmatic hernia without obstruction or gangrene; K58.9 Irritable bowel syndrome, unspecified; Z79.899 Other long term (current) drug therapy; Z88.0 Allergy status to penicillin; Z88.8 Allergy status to other drugs, medicaments and biological substances; Z91.040 Latex allergy status; Z90.49 Acquired absence of other specified parts of digestive tract; Z87.81 Personal history of (healed) traumatic fracture

== ENCOUNTER 2019-09-26 19:45 | Emergency (ER) | payer MEDICARE, MEDICAID ==
[~2019-09-26] VITALS: Ht 167.6 cm; Wt 51.8 kg
[~2019-09-26 19:45] MED LIST changes: +CEFP200T PO; +HYDR-3713 PO; +OMEP-172; +OMEP-172 PO; +OMEP-221 PO; -OMEP20CA4; -OMEP20CA4 PO; -OMEP40CA2 PO; +OMEP40CA97 PO
[2019-09-26] MEDS ORDERED: PSEU-52 PO (21:59)
[2019-09-26 22:09] VITALS: BP 143/68
== END 2019-09-26 22:08 | disposition home or self-care (01) ==
LOC: M ED 19:45
DX: R09.82 Postnasal drip (principal); I10 Essential (primary) hypertension; C85.90 Non-Hodgkin lymphoma, unspecified, unspecified site; I48.91 Unspecified atrial fibrillation; C90.00 Multiple myeloma not having achieved remission; K58.9 Irritable bowel syndrome, unspecified; K44.9 Diaphragmatic hernia without obstruction or gangrene; Z79.899 Other long term (current) drug therapy; Z79.82 Long term (current) use of aspirin; Z88.0 Allergy status to penicillin; Z88.8 Allergy status to other drugs, medicaments and biological substances; Z91.040 Latex allergy status

== ENCOUNTER 2019-11-11 19:42 | Emergency (ER) | payer MEDICARE, MEDICAID ==
[~2019-11-11] VITALS: Ht 167.6 cm; Wt 49.1 kg
[~2019-11-11 19:42] MED LIST changes: -OMEP-172; -OMEP-172 PO; +OMEP1CAP73; +OMEP1CAP73 PO; +PSEU-52 PO
[2019-11-11 19:45] VITALS: BP_DIAS 69
[2019-11-11] MEDS ORDERED: BACT800T5 PO (20:44)
[2019-11-11] MEDS ORDERED: BACTRIM 160MG/800MG DS TAB PO ONE (20:45)
[2019-11-11 20:51] VITALS: BP_SYST 59
== END 2019-11-11 21:00 | disposition home or self-care (01) ==
LOC: M ED 19:42
DX: N39.0 Urinary tract infection, site not specified (principal); R30.0 Dysuria; I10 Essential (primary) hypertension; K58.0 Irritable bowel syndrome with diarrhea; K44.9 Diaphragmatic hernia without obstruction or gangrene; C88.0 Waldenstrom macroglobulinemia; Z88.0 Allergy status to penicillin; Z88.8 Allergy status to other drugs, medicaments and biological substances; Z91.040 Latex allergy status; Z79.899 Other long term (current) drug therapy

== ENCOUNTER 2019-11-21 22:06 | Emergency (ER) | payer MEDICARE, MEDICAID ==
[~2019-11-21] VITALS: Ht 167.6 cm; Wt 47.7 kg
[~2019-11-21 22:06] MED LIST changes: +BACT800T5 PO
[2019-11-21 23:20] LABS: BASO # 0.1 10^3/uL (0.0-0.2); BASO % 0.9 % (0.0-1.0); EOS # 0.1 10^3/uL (0.0-0.5); EOS % 1.3 % (0.0-3.0); HEMATOCRIT 26.7 % (36.0-47.0); LYMPH # 1.2 10^3/uL (1.5-5.0); LYMPH % 13.5 % (24.0-44.0); MEAN CORPUSCULAR HEMOGLOBIN 21.3 pg (27.0-33.0); MONO # 1.3 10^3/uL (0.0-0.8); NEUTROPHILS # 6.4 10^3/uL (1.5-8.5); PLATELET COUNT, AUTOMATED 367 10^3/uL (150-450); RED BLOOD COUNT 3.76 10^6/uL (4.00-5.40); WHITE BLOOD COUNT 9.1 10^3/uL (4.0-10.0)
[2019-11-21 23:49] LABS: ALBUMIN 2.7 GM/DL (3.2-5.2); ALT/SGPT 13 U/L (12-78); BILIRUBIN,DIRECT 0.1 MG/DL (0.0-0.2); BILIRUBIN,TOTAL 0.4 MG/DL (0.2-1.0); BLOOD UREA NITROGEN 13 MG/DL (7-18); CALCIUM LEVEL 9.2 MG/DL (8.8-10.2); CARBON DIOXIDE LEVEL 28 MEQ/L (21-32); CHLORIDE LEVEL 105 MEQ/L (98-107); CK-MB VALUE MASS 1.5 NG/ML (<3.6); CPK CREATINE PHOSPHOKINASE 28 U/L (26-192); CREATININE FOR GFR 0.61 MG/DL (0.55-1.30); FREE T4 1.15 NG/DL (0.76-1.46); GLOMERULAR FILTRATION RATE > 60.0 (>32); GLUCOSE, FASTING 97 MG/DL (70-100); MB/CK RELATIVE INDEX 5.36 (< OR =4); POTASSIUM SERUM 4.1 MEQ/L (3.5-5.1); SODIUM LEVEL 137 MEQ/L (136-145); TROPONIN I < 0.02 NG/ML (< 0.10)
[2019-11-22] MEDS ORDERED: NS 1,000 ML IV ONE (00:15)
--- NOTE | 2019-11-22 02:16 | REPVR ---
PROCEDURE INFORMATION: Exam: CT Chest Without Contrast Exam date and time: 11/22/2019 12:14 AM Age: 89 years old Clinical indication: Other: Dizzy/weak; Patient HX: Near syncope. TECHNIQUE: Imaging protocol: Computed tomography of the chest without contrast. 3D rendering: MIP and/or 3D reconstructed images were created by the technologist. Radiation optimization: All CT scans at this facility use at least one of these dose optimization techniques: automated exposure control; mA and/or kV adjustment per patient size (includes targeted exams where dose is matched to clinical indication); or iterative reconstruction. COMPARISON: CT Chest without contrast 05/07/2019 1:27 AM FINDINGS: Thyroid: Stable multinodular thyroid gland. Lungs: There is chronic calcification of the tracheobronchial tree. Scattered mild bronchiectasis appears unchanged. Bilateral predominantly paraseptal emphysema and subpleural fibrosis. Cystic lung changes, most pronounced within the bilateral lower lobes. There is increasing confluent opacity and consolidation of the right lower lobe and new consolidation within the posterolateral aspect of the right middle lobe. There has also been progressive consolidation within the left lower lobe. There are also multifocal ground-glass opacities, most pronounced at the lung bases. There is also increasing parenchymal nodularity with multiple ill-defined nodules, most pronounced within the superior segment of the right lower lobe. There are multiple nodules in the 5 mm to 1 cm range. Pleural space: No significant pleural effusions. No pneumothorax. Heart: Stable cardiomegaly and left ventricular calcification. Minimal valvular and coronary artery calcification. No pericardial effusion. Mediastinum: Patulous air-filled esophagus containing secretions. Pulmonary arteries: Stable enlargement of the central pulmonary arteries, consistent with pulmonary hypertension. Aorta: Stable atherosclerosis and ectasia of the thoracic aorta. Lymph nodes: Mildly prominent precarinal lymph node measuring 1.9 x 1.4 cm. Liver: Stable 1 cm cyst within the anterior left hepatic lobe. There is a new 1.8 x 1.5 cm hypodense lesion within the posteromedial aspect of the right hepatic lobe. Gallbladder and bile ducts: Status post cholecystectomy. Kidneys and ureters: There is a 2 cm cyst within the midpole of the right kidney as well as a 1.6 cm cyst within the upper pole of the left kidney. Bones/joints: The bones are diffusely demineralized. There is a mild thoracic scoliosis and accentuation of the normal thoracic kyphosis. Stable anterior wedging of midthoracic vertebral bodies and multilevel degenerative change. Degenerative change involving the shoulders. Old bilateral rib fractures. Soft tissues: Nodular bilateral breast parenchyma, right greater than left. IMPRESSION: 1. There are extensive chronic lung changes, as described in detail above. There is increasing confluent opacity and consolidation of the right lower lobe and progressive consolidation of the left lower lobe. There is new consolidation within the right middle lobe. There is also increasing parenchymal nodularity with several ill-defined nodules, most pronounced within the superior segment of the right lower lobe. The findings are consistent with multifocal pneumonia, likely superimposed upon an underlying neoplastic process. Recommend 3-6 month follow-up CT and/or PET CT. 2. Nonspecific precarinal mediastinal adenopathy. 3. There is a new hypodense liver lesion involving the posteromedial right hepatic lobe, concerning for metastatic disease. 4. Bilateral breast nodularity, right greater than left. Recommend correlation with physical examination for possible breast mass. 5. Patulous air-filled esophagus containing secretions. 6. Additional non-emergent findings, as discussed above. Electronically signed by: Gilmer Montoya On 11/22/2019 02:15:50 AM
[2019-11-22] MEDS ORDERED: LEVA1TAB2 PO (03:38)
[2019-11-22] MEDS ORDERED: LevoFLOXacin 750 MG TABLET PO ONE (03:45)
[2019-11-22 04:15] VITALS: BP 121/56
--- NOTE | 2019-11-22 08:26 | REP ---
Portable chest, 12:06 a.m., single AP view the patient sitting: Comparison is 07/05/2019. There is advanced diffuse bilateral interstitial coarsening, unchanged, compatible with fibrosis. There is focal increased density in the lung bases bilaterally, also unchanged, compatible with more advanced fibrosis, unchanged. No superimposed acute infiltrates are identified. Cardiac size is mildly enlarged, unchanged. The celena and mediastinum are unremarkable. There is advanced arthropathy in the right shoulder with cephalic migration of the humeral head, unchanged. There is elevation of the left humeral head. Impression: Advanced pulmonary fibrosis. No acute cardiopulmonary findings. Electronically Signed by Eric Simpson MD 11/22/2019 08:17 A
--- NOTE | 2019-11-23 20:40 | ECGEPIP ---
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
--- NOTE | 2019-11-24 10:38 | ED PDOC ---
Post-Departure Follow-Up paty reid faxed formal report of ct chest for fu Luma Vasquez MD Nov 24, 2019 10:38
== END 2019-11-22 04:41 | disposition home or self-care (01) ==
LOC: M ED 22:06
DX: J18.9 Pneumonia, unspecified organism (principal); R55 Syncope and collapse; C19 Malignant neoplasm of rectosigmoid junction; C88.0 Waldenstrom macroglobulinemia; K58.9 Irritable bowel syndrome, unspecified; K44.9 Diaphragmatic hernia without obstruction or gangrene; I10 Essential (primary) hypertension; I48.91 Unspecified atrial fibrillation; Z88.0 Allergy status to penicillin; Z88.8 Allergy status to other drugs, medicaments and biological substances; Z88.1 Allergy status to other antibiotic agents; Z91.040 Latex allergy status; Z79.899 Other long term (current) drug therapy

== ENCOUNTER 2019-12-03 12:11 | Emergency (ER) | payer MEDICARE, MEDICAID ==
[~2019-12-03] VITALS: Ht 167.6 cm; Wt 49.1 kg
[2019-12-03] MEDS ORDERED: NS 500 ML IV ONE ×2 (13:15→14:30)
--- NOTE | 2019-12-03 14:00 | REPVR ---
PROCEDURE INFORMATION: Exam: CT Head Without Contrast Exam date and time: 12/03/2019 1:41 PM Age: 89 years old Clinical indication: Pain; Headache; Additional info: Fall TECHNIQUE: Imaging protocol: Computed tomography of the head without contrast. Radiation optimization: All CT scans at this facility use at least one of these dose optimization techniques: automated exposure control; mA and/or kV adjustment per patient size (includes targeted exams where dose is matched to clinical indication); or iterative reconstruction. COMPARISON: CT Head without contrast 04/02/2018 11:17 AM FINDINGS: Brain: There is low attenuation abnormality in the periventricular white matter, likely reflecting chronic microvascular ischemic disease. Ventricles: Normal. No ventriculomegaly. Bones/joints: See Soft Tissues Finding. Sinuses: Visualized sinuses are unremarkable. No fluid levels. Mastoid air cells: Visualized mastoid air cells are well aerated. Soft tissues: There is right frontal scalp swelling. There is no underlying fracture. IMPRESSION: No acute intracranial findings identified. Please refer to incidental findings in body of report. Electronically signed by: Constantine Pascual On 12/03/2019 13:59:52 PM
--- NOTE | 2019-12-03 14:10 | REP ---
Portable chest x-ray: Sitting AP view. History: Syncope/near syncope. Comparison study: November 22, 2019. Findings: There is diffuse moderate interstitial fibrosis pattern throughout the lung brown again noted. There are coarse infiltrates in the bases bilaterally, right larger than left. These are essentially unchanged from the study done 14 days ago. Mild cardiomegaly is observed. No new infiltrate is appreciated. Pleural angles are sharp. Right hemidiaphragm remains somewhat elevated. There is diffuse osteoporosis and there are advanced arthritic changes in the shoulders. Impression: Bibasilar coarse infiltrates unchanged from November 22, 2019. Diffuse interstitial fibrosis pattern, cardiomegaly. Electronically Signed by Isaac Chavez MD 12/03/2019 02:35 P
[2019-12-03 14:16] LABS: BASO # 0.1 10^3/uL (0.0-0.2); EOS # 0.1 10^3/uL (0.0-0.5); EOS % 0.7 % (0.0-3.0); HEMATOCRIT 30.2 % (36.0-47.0); LYMPH # 1.3 10^3/uL (1.5-5.0); LYMPH % 18.2 % (24.0-44.0); MEAN CORPUSCULAR HEMOGLOBIN 21.3 pg (27.0-33.0); MEAN CORPUSCULAR HGB CONC 29.8 g/dl (32.0-36.5); MEAN CORPUSCULAR VOLUME 71.4 fl (80.0-96.0); MONO % 13.4 % (0.0-5.0); NEUTROPHILS # 4.8 10^3/uL (1.5-8.5); NEUTROPHILS % 66.3 % (36.0-66.0); PLATELET COUNT, AUTOMATED 385 10^3/uL (150-450); RED BLOOD COUNT 4.23 10^6/uL (4.00-5.40); WHITE BLOOD COUNT 7.3 10^3/uL (4.0-10.0)
[2019-12-03 15:02] LABS: ALBUMIN 2.9 GM/DL (3.2-5.2); ALT/SGPT 16 U/L (12-78); BILIRUBIN,TOTAL 0.6 MG/DL (0.2-1.0); BLOOD UREA NITROGEN 11 MG/DL (7-18); CALCIUM LEVEL 9.4 MG/DL (8.8-10.2); CARBON DIOXIDE LEVEL 27 MEQ/L (21-32); CHLORIDE LEVEL 100 MEQ/L (98-107); CK-MB VALUE MASS 1.6 NG/ML (<3.6); CPK CREATINE PHOSPHOKINASE 35 U/L (26-192); CREATININE FOR GFR 0.63 MG/DL (0.55-1.30); GLOMERULAR FILTRATION RATE > 60.0 (>32); GLUCOSE, FASTING 90 MG/DL (70-100); MAGNESIUM LEVEL 1.5 MG/DL (1.8-2.4); MB/CK RELATIVE INDEX 4.57 (< OR =4); POTASSIUM SERUM 4.2 MEQ/L (3.5-5.1); SODIUM LEVEL 134 MEQ/L (136-145); TOTAL PROTEIN 7.6 GM/DL (6.4-8.2); TROPONIN I < 0.02 NG/ML (< 0.10)
[2019-12-03] MEDS ORDERED: MAG SULF 1GM/100ML (MAG RUN) 1 GM in IV 1 EA IV ONE (16:45)
[2019-12-03 18:44] VITALS: BP 112/60
--- NOTE | 2019-12-04 06:59 | ECGEPIP ---
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
--- NOTE | 2019-12-04 10:56 | ED PDOC ---
Post-Departure Follow-Up paty reid faxed formal report of cxr for fu Luma Vasquez MD Dec 04, 2019 10:56
== END 2019-12-03 18:42 | disposition home or self-care (01) ==
LOC: M ED 12:11
DX: N30.90 Cystitis, unspecified without hematuria (principal); R91.1 Solitary pulmonary nodule; I95.1 Orthostatic hypotension; E83.42 Hypomagnesemia; R00.1 Bradycardia, unspecified; I51.7 Cardiomegaly; C18.9 Malignant neoplasm of colon, unspecified; C88.9 Malignant immunoproliferative disease, unspecified; I10 Essential (primary) hypertension; I48.91 Unspecified atrial fibrillation; K44.9 Diaphragmatic hernia without obstruction or gangrene; K58.9 Irritable bowel syndrome, unspecified; Z79.899 Other long term (current) drug therapy; Z88.0 Allergy status to penicillin; Z88.8 Allergy status to other drugs, medicaments and biological substances; Z91.040 Latex allergy status
CPT/HCPCS: 36415; 70450; 71045; 80053; 81001; 82550; 82553; 83735; 84443; 84484; 85025; 87086; 93005; 93041; 94760; 96365; 99285; J3475

== ENCOUNTER 2019-12-08 17:57 | Inpatient (IN) | payer MEDICARE, MEDICAID ==
[~2019-12-08] VITALS: Ht 167.6 cm; Wt 51.2 kg
[2019-12-08] MEDS ORDERED: SULF1TAB93 (18:09)
[2019-12-08] MEDS ORDERED: NS 1,000 ML IV SCH (18:52)
[2019-12-08 20:19] LABS: BASO # 0.1 10^3/uL (0.0-0.2); BASO % 0.6 % (0.0-1.0); EOS % 0.3 % (0.0-3.0); HEMATOCRIT 31.3 % (36.0-47.0); HEMOGLOBIN 9.4 g/dl (12.0-15.5); LYMPH # 1.2 10^3/uL (1.5-5.0); LYMPH % 14.4 % (24.0-44.0); MEAN CORPUSCULAR HEMOGLOBIN 21.4 pg (27.0-33.0); MEAN CORPUSCULAR VOLUME 71.3 fl (80.0-96.0); MONO # 1.2 10^3/uL (0.0-0.8); MONO % 13.7 % (0.0-5.0); NEUTROPHILS # 6.1 10^3/uL (1.5-8.5); NEUTROPHILS % 70.7 % (36.0-66.0); PLATELET COUNT, AUTOMATED 416 10^3/uL (150-450); RED BLOOD COUNT 4.39 10^6/uL (4.00-5.40); WHITE BLOOD COUNT 8.6 10^3/uL (4.0-10.0)
[2019-12-08 20:43] LABS: ALBUMIN 2.9 GM/DL (3.2-5.2); ALT/SGPT 15 U/L (12-78); BILIRUBIN,DIRECT 0.2 MG/DL (0.0-0.2); BILIRUBIN,TOTAL 0.5 MG/DL (0.2-1.0); BLOOD UREA NITROGEN 11 MG/DL (7-18); CALCIUM LEVEL 9.1 MG/DL (8.8-10.2); CARBON DIOXIDE LEVEL 29 MEQ/L (21-32); CHLORIDE LEVEL 101 MEQ/L (98-107); CREATININE FOR GFR 0.63 MG/DL (0.55-1.30); GLOMERULAR FILTRATION RATE > 60.0 (>32); GLUCOSE, FASTING 91 MG/DL (70-100); LIPASE 38 U/L (73-393); POTASSIUM SERUM 4.2 MEQ/L (3.5-5.1); SODIUM LEVEL 135 MEQ/L (136-145); TOTAL PROTEIN 7.3 GM/DL (6.4-8.2)
[2019-12-08 20:45] LABS: CK-MB VALUE MASS 1.3 NG/ML (<3.6); CPK CREATINE PHOSPHOKINASE 26 U/L (26-192); TROPONIN I < 0.02 NG/ML (< 0.10)
--- NOTE | 2019-12-08 20:45 | ECGEPIP ---
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
[2019-12-08] MEDS ORDERED: ISOVUE-370 76% 100ML VIAL (Q9967) As Ordered ONE (21:07)
--- NOTE | 2019-12-08 22:06 | REPVR ---
PROCEDURE INFORMATION: Exam: CT Abdomen And Pelvis With Contrast Exam date and time: 12/08/2019 9:12 PM Age: 89 years old Clinical indication: Abdominal pain; Localized; Right lower quadrant (rlq); Additional info: Rlq pain TECHNIQUE: Imaging protocol: Computed tomography of the abdomen and pelvis with intravenous contrast. Radiation optimization: All CT scans at this facility use at least one of these dose optimization techniques: automated exposure control; mA and/or kV adjustment per patient size (includes targeted exams where dose is matched to clinical indication); or iterative reconstruction. Contrast material: ISOVUE 370; Contrast volume: 100 ml; Contrast route: IV; COMPARISON: CT ABD PELVIS WITH CONTRAST 05/17/2019 5:35 PM FINDINGS: Lungs: Dense airspace consolidation in both lung bases, worse on the right. Liver: Ill-defined mass in the posterior hepatics segment measuring 1.8 cm has increased in size. New mass in the lateral hepatic segment measuring 9 mm. Gallbladder and bile ducts: There has been prior cholecystectomy. Common bile duct is dilated measuring 7 mm. No biliary tract calculi. Pancreas: Normal. No ductal dilation. Spleen: Normal. No splenomegaly. Adrenals: Normal. No mass. Kidneys and ureters: Small cysts in both kidneys. No renal masses or hydronephrosis. Stomach and bowel: Ill-defined lobulated rectosigmoid mass appears similar to the prior exam. Mild fecal material in the colon. No colonic obstruction. No inflammatory changes in the small bowel or small bowel obstruction. Appendix: The appendix is not well-visualized. No right lower quadrant inflammatory changes. Intraperitoneal space: Unremarkable. No free air. No significant fluid collection. Vasculature: Unremarkable. No abdominal aortic aneurysm. Lymph nodes: Unremarkable. No enlarged lymph nodes. Bladder: Unremarkable as visualized. Reproductive: Unremarkable as visualized. Bones/joints: There are advanced degenerative changes in the spine and pelvis. Soft tissues: Unremarkable. Other findings: The exam is degraded by patient motion artifact. IMPRESSION: 1. Motion limited exam. 2. Stable appearance of rectus sigmoid mass. Mild constipation without bowel obstruction. 3. Enlarging liver masses concerning for metastatic disease. 4. Bibasilar airspace opacities have worsened since the prior exam suggesting bilateral pneumonia. Electronically signed by: Kashif Gonsalez On 12/08/2019 22:06:18 PM
[2019-12-08] MEDS ORDERED: MEROPENEM INJ 1 GM in IV 1 EA IV ONE (22:15)
[2019-12-08] MEDS ORDERED: ACET-897 PO (22:51)
[2019-12-08] MEDS ORDERED: SYST1SOL4 OU (22:51)
[2019-12-08] MEDS ORDERED: MAALOX 30 ML SUSP *UDC PO PRN (23:00)
[2019-12-08] MEDS ORDERED: MOM 30ML SUSPENSION UDC PO PRN (23:00)
[2019-12-08] MEDS ORDERED: ACETAMINOPHEN TAB 650MG DOSE (2X325MG) PO PRN (23:00)
--- NOTE | 2019-12-08 23:11 | HPEPDOC ---
[facility] Medical History & Physical Date of Admission Dec 08, 2019 Date of Service: Dec 08, 2019 Primary Care Physician: Parvin Turner Attending Physician: FELIPE DE LA VEGA MD History and Physical TIME OF SERVICE: 11:50 PM CHIEF COMPLAINT: Pelvic pain HISTORY OF PRESENT ILLNESS: This is an 89 old female who's daughter brought her to the ER because she ran out of her pain meds last night and was unable to get in to see her PCP or oncologist today. Currently the patient is complaining of 7-8 /10 in severity, burning abdominal/vaginal pain associated with dysuria. She thought she might have a UTI. She reports chronically having a runny nose and that it hasn't changed. She denies coughing, denies having muscle aches, denies fevers, denies chills, and denies nausea, or vomiting. She has chronic diarrhea which she developed when she diagnosed with colorectal cancer. He has lost a lot of weight since she was diagnosed with cancer. Per Dr. Parra CT of the abdomen showed multifocal infiltrates at the lung bases that were worse than her previous CT along with a stable colon mass and enlarging liver mass. The UA was unremarkable. He ordered levofloxacin and meropenem for acid level pneumonia. 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 Chronic HTN Atrial fibrillation not on anticoagulation due to risk of hemorrhage Hiatal hernia. IBS Cholecystectomy Appendectomy Repair of right wrist's fracture. Hemorrhoid banding SOCIAL HISTORY: Former smoker. She is to drink recreationally but quit 10 years ago FAMILY HISTORY: Obesity Father of sudden ALLERGIES: Please see below. HOME MEDICATIONS: Please see below. Vital Signs Date Time Temp Pulse Resp B/P (MAP) Pulse Ox O2 Delivery O2 Flow Rate FiO2 12/08/19 17:58 97.4 99 17 114/63 (80) 97 Room Air PHYSICAL EXAMINATION: GEN: well-nourished / well developed/ NAD INTEGUMENT: not flushed/ not jaundice / no rashes / no skin lesions HEENT: NCAT / lips acyanotic /mucus membranes moist and pink / sclera anicteric/ abdominojugular reflux CVS: RRR/NMRG/ no JVP / radial and dorsalis pedis pulses intact / no lower extremity edema LUNGS: able to speak full sentences without stopping to take a breath / no coughing / lungs are clear to auscultation bilaterally on room air ABDOMEN: Contour (flat, scaphoid, obese, distended) / there are no masses or lesions / bowel sounds are present / the abdomen is tympanic on percussion, soft & not tender with palpation MSK/EXTREMITIES: range of motion intact in all 4 extremities / no scoliosis / no kyphosis NEURO: CN 2-12 are grossly intact / speech is not dysarthric / strength is 5/5 / DTRs (0-4+) PSYCH: alert and oriented to person place and time/ able to understand and follow all commands LABORATORY DATA: Urine Color ROSEMARIE, Urine Appearance CLEAR, Urine pH 5.0, Urine Specific [place] 1.033, Urine Protein 1+H, Urine Glucose (UA) NEGATIVE, Urine Ketones TRACEH, Urine Blood 1+H, Urine Nitrite NEGATIVE, Urine Bilirubin NEGATIVE, Urine Urobilinogen 2.0H, Urine Leukocyte Esterase NEGATIVE, Urine WBC (Auto) 2, Urine RBC (Auto) 9H, Urine Hyaline Casts (Auto) 41, Urine Bacteria (Auto) NEGATIVE, Urine Squamous Epithelial Cells 1, Urine Calcium Oxalate Cryst (Auto) SMALL, Urine Mucus (Auto) SMALL, Urine Sperm (Auto) , Anion Gap 5L, Glomerular Filtration Rate > 60.0, Calcium Level 9.1, Total Bilirubin 0.5, Direct Bilirubin 0.2, Aspartate Amino Transf (AST/SGOT) 15, Alanine Aminotransferase (ALT/SGPT) 15, Alkaline Phosphatase 195H, Total Creatine Kinase 26, Creatine Kinase MB 1.3, Creatine Kinase MB Relative Index 5.00H, Troponin I < 0.02, Total Protein 7.3, Albumin 2.9L, Albumin/Globulin Ratio 0.66L, Lipase 38L IMAGING: CT abdomen and pelvis " IMPRESSION: 1. Motion limited exam. 2. Stable appearance of rectus sigmoid mass. Mild constipation without bowel obstruction. 3. Enlarging liver masses concerning for metastatic disease. 4. Bibasilar airspace opacities have worsened since the prior exam suggesting bilateral pneumonia. " MICROBIOLOGY: 12/08/19 Blood Culture, Received Pending 12/08/19 Blood Culture, Received Pending ASSESSMENT: Ms. Chambers is an 89-year-old with a past medical history of Waldenstrm's, stage IV metastatic colon cancer, HTN, atrial fibrillation, hiatal hernia, and IBS who is admitted for evaluation of pelvic pain. PLAN: 1. Pelvic pain Cause to be determined The patient denies having a hysterectomy or any abnormal vaginal discharge. She also denies having any radiation therapy to her abdomen Her UA was unremarkable. Plan: Admit to medical floor/start tramadol/the daytime team may consider consulting Gyne for a pelvic exam and or Palliative Care for management of her pain meds 2. Questionable pneumonia She doesn't have any URI symptoms except for chronic runny nose. Diagnosis was made based on CT findings. She received antibiotics in the ER. Plan: Elevate head of bed/aspiration precautions/continuous pulse ox & supplemental O2/ pending additional vitals, and her sputum & blood cx , the daytime team may consider consulting Pulm to determine if it's safe to continue levofloxacin/ Acetaminophen PRN for fever 3. Waldenstrm's macroglobulinemia / Stage IV metastatic colorectal carcinoma - follow up with oncologist as scheduled 4. Chronic HTN - torsemide 5. Atrial fibrillation - amiodarone/not on anticoagulation due to risk of hemor rhage DVT PROPHYLAXIS: Lovenox DISPOSITION: Home after more than 2 midnight's stay Home Medications Scheduled Amiodarone HCl (Amiodarone HCl) 200 Mg Tab, 200 MG PO DAILY Potassium Chloride (Potassium Chloride) 10 Meq Tab, 20 MEQ BID Propylene Glycol/Peg 400/Pf (Systane 0.3-0.4% Eye Drop) 1 Each Droperette, 2 DROP OU DAILY Scheduled PRN Acetaminophen (Tylenol Extra Strength) 500 Mg Tablet, 1,000 MG PO Q6H PRN for PAIN / FEVER Omeprazole (Omeprazole) 40 Mg Capsule.dr, 40 MG PO DAILY PRN for HEARTBURN/INDIGESTION Torsemide (Torsemide) 10 Mg Tablet, 10 MG PO DAILY PRN for EDEMA Allergies Coded Allergies: Penicillins (Verified Allergy, Intermediate, Rash, 11/21/19) latex (Verified Allergy, Mild, REDNESS AND ITCHING FROM SOCKS AND UNDERWEAR, 11/21/19) nitroglycerin (Verified Adverse Reaction, Intermediate, PT REFUSES- CAUSES EXTREME ANXIETY, FEELING OF DOOM, INC BP, 11/21/19) nitrofurantoin (Verified Adverse Reaction, Mild, Vomiting, Diarrhea, 11/21/19) A-FIB/CHADSVASC A-FIB History Current/History of A-Fib/PAF?: No Current PO Anticoag Therapy: No FELIPE DE LA VEGA MD Dec 08, 2019 23:11
[2019-12-08] MEDS ORDERED: TORSEMIDE 10 MG TABLET PO PRN (23:15)
[2019-12-08] MEDS ORDERED: LevoFLOXacin 750 MG TABLET PO ONE (23:26)
[2019-12-09] VITALS (11 sets, daily range): BP systolic 102–131; BP diastolic 46–70
[2019-12-09] MEDS: POTASSIUM CHLORIDE 10 MEQ SR TABLET PO SCH ×3 (00:49→20:22)
[2019-12-09] MEDS: traMADol ER 100MG TABLET (ULTRAM ER) PO SCH ×2 (01:52→20:22)
[2019-12-09] MEDS ORDERED: PINK BISMUTH SUSP 524MG/30ML ORAL SYRINGE PO PRN (03:15)
[2019-12-09 06:12] LABS: HEMATOCRIT 25.6 % (36.0-47.0); HEMOGLOBIN 7.6 g/dl (12.0-15.5); MEAN CORPUSCULAR HGB CONC 29.7 g/dl (32.0-36.5); MEAN CORPUSCULAR VOLUME 70.7 fl (80.0-96.0); PLATELET COUNT, AUTOMATED 317 10^3/uL (150-450); RED BLOOD COUNT 3.62 10^6/uL (4.00-5.40); WHITE BLOOD COUNT 8.8 10^3/uL (4.0-10.0)
[2019-12-09 06:40] LABS: BLOOD UREA NITROGEN 10 MG/DL (7-18); CALCIUM LEVEL 8.3 MG/DL (8.8-10.2); CARBON DIOXIDE LEVEL 25 MEQ/L (21-32); CHLORIDE LEVEL 105 MEQ/L (98-107); CREATININE FOR GFR 0.47 MG/DL (0.55-1.30); GLOMERULAR FILTRATION RATE > 60.0 (>32); GLUCOSE, FASTING 75 MG/DL (70-100); MAGNESIUM LEVEL 1.4 MG/DL (1.8-2.4); POTASSIUM SERUM 3.9 MEQ/L (3.5-5.1); SODIUM LEVEL 136 MEQ/L (136-145)
[2019-12-09] MEDS: MAG SULF 1GM/100ML (MAG RUN) 1 GM in IV 1 EA IV SCH ×2 (08:59→11:07)
[2019-12-09] MEDS: DOCUSATE SODIUM 100 MG CAP PO SCH ×2 (09:00→20:22)
[2019-12-09] MEDS: OMEPRAZOLE 20 MG CAP PO SCH (09:00)
[2019-12-09] MEDS: AMIODARONE 200 MG TAB (PACERONE) PO SCH (09:00)
[2019-12-09] MEDS: ENOXAPARIN 30 MG/0.3 ML SYR (J1650) SC SCH (09:00)
[2019-12-09] MEDS ORDERED: ISOVUE-370 76% 100ML VIAL (Q9967) As Ordered ONE (09:22)
--- NOTE | 2019-12-09 10:17 | REP ---
CT pulmonary angiogram: With IV contrast. History: Colon malignancy metastatic the lungs and liver. Question pulmonary embolus. Comparison studies: Comparison CT angio of the chest January 09, 2019. Contrast dose: 75 mL of Isovue [address] technique: Helical scanning is acquired and overlapping 1.5 mm and contiguous 3 mm axial images are reformatted. In addition, maximum intensity projection and multiplanar re-formation images are generated in sagittal and coronal imaging projections. CT pulmonary angiographic findings: Preliminary digital hand booked folder and stitcher radiograph demonstrates a dense infiltrate opacification pattern in the lower lobes bilaterally and cardiomegaly. There is diffuse prominence of pulmonary interstitial markings as well on the hand booked folder and stitcher view. The interstitial prominence is unchanged but the infiltrates are new from January 09, 2019 study. There is good opacification in the pulmonary arterial tree. There is no CT evidence of pulmonary embolism. Thoracic aorta shows no evidence of aneurysm or dissection. There is air and fluid in the thoracic esophagus. The upper thoracic esophagus is somewhat dilated. This may reflect reflux. No esophageal mass lesion is observed. The heart is enlarged. There is no evidence of significant pericardial effusion. Very small slivers of bilateral pleural fluid are evident. There are somewhat nodular areas of dense opacification in the lower lobes bilaterally. In the right lower lobe the infiltrate is morphologically similar but much larger than the opacification seen here on January 09, 2019. This consolidation is similar to the November 22, [address] study. There is also nodular appearing consolidation in the right middle lobe which is new from the January 18, 2019 study and which is also unchanged from the more recent study of November 22, 2019. There are air bronchograms in these dense infiltrates. There is some parenchymal calcification apparent in the right lower lobe infiltrate. On today's CT there is a nodular appearing similar area of consolidation in the left lower lobe which is new from the study done a year ago, but also unchanged from November 22, 2019. There are air bronchograms within this as well. Diffuse interstitial fibrosis pattern is again noted unchanged with subpleural areas of honeycombing and extensive fibrosis again seen. No bony destructive lesion is seen. The liver is diffusely hyperdense relative to the spleen. This is unchanged from the noncontrast study of November 22, 2019 and may reflect hemochromatosis changes. There is a 2 cm solid lesion in the liver right lobe medially unchanged from the most recent study. There is a 12 mm low density nodule in the right lobe as well. These too are unchanged from recent comparison study. There is a small cyst in the left lobe of the liver. There are stable appearing pretracheal and subcarinal lymph nodes. Impression: Extensive somewhat nodular appearing confluent areas of consolidation in the lower lobes bilaterally and in the right middle lobe; progressive since the January 09, 2019 study and unchanged from the comparison study of November 22, 2019. There is advanced diffuse interstitial pulmonary parenchymal fibrosis. Cardiomegaly and small bilateral pleural effusions. There is no evidence of pulmonary embolus. There are at least two presumed metastatic lesions in the liver. The liver parenchyma shows increased density which may reflect secondary hemochromatosis. Electronically Signed by Isaac Chavez MD 12/09/2019 12:54 P
--- NOTE | 2019-12-09 16:49 | IPN ---
DATE: 12/09/2019 Patient still complains of diffuse abdominal pain this morning. She described it as crampy and achy, lasting for several hours without any radiation. After going to the bathroom patient had some relief and said that the pain went from 8/10 to about a 6/10. She has a known history of liver metastasis, most likely secondary to colon cancer. She did have a biopsy done of the lungs in 2019, which shows adenocarcinoma of colon primary in the lungs. Overnight she denies any fever, nausea, vomiting. No diarrhea. Patient has been constipated but had a good bowel movement this morning with some relief of abdominal pain. She is DO NOT RESUSCITATE, DO NOT INTUBATE. Previously seen Dr. Greco as outpatient for medical oncology. She currently denies any dysuria, urgency, frequency. Is worried about eating Japanese toast this morning due to history of hiatal hernia and "I'm trying to stay away from fats." Patient denies any hematemesis, bright red blood per rectum, melena, or black, tarry stools, and despite having hemoglobin of 7.6 and hematocrit of 25, denies any chest pain, pressure, or tightness, shortness of breath, palpitations, lightheadedness, or dizziness. She ambulated well to the bathroom from the bed by herself with a walker without any gait instability. VITAL SIGNS: Temperature 98.1, pulse 70, respiratory rate 16, blood pressure 124/70, 95% on room air. GENERAL: Patient is cachectic appearing with bitemporal wasting and muscle atrophy. She has no respiratory distress. Anicteric. No jaundice. LUNGS: Clear to auscultation. No wheezes, rales, or rhonchi. HEART: S1, S2, sinus rhythm. ABDOMEN: Soft, somewhat tender in epigastric and right upper quadrant. No rebound, no guarding. Positive bowel sounds times four quadrants. No hepatosplenomegaly. EXTREMITIES: No clubbing, cyanosis, or pitting edema. Patient has muscle atrophy, bilateral lower extremities. LABORATORY DATA: White count 8.8, hemoglobin 7.6, hematocrit 25, platelet count 317. Sodium 136, potassium 3.9, chloride 105, bicarbonate 25, BUN 10, creatinine 0.47, glucose 75, calcium 1.4. Current magnesium of 1.4. Troponin less than 0.002. CT chest: Dense opacification in the lower lobes bilaterally and cardiomegaly. Diffuse pulmonary interstitial markings, unchanged, but infiltrates are new. Good opacification. No CT evidence of pulmonary embolism. No aneurysm or reflux. With upper thoracic esophagus somewhat dilated. Very small slivers of bilateral pleural fluid. Nodular areas of dense opacification in the lower lobes. Right lower lobe infiltrate is morphologically similar but larger than on January 09. Diffuse honey combing and interstitial fibrosis. A 2 cm solid lesion in the liver and the right lobe medially is unchanged. There is a 12 mm nodule in the right lobe as well, also unchanged, with a small cyst in the left lobe of the liver. Patient has extensive nodular confluent consolidation of the lower lobes bilaterally and in the right middle lobe, progressive since December, and unchanged from comparison in November. Cardiomegaly and small bilateral pleural effusions. ASSESSMENT AND PLAN: This is an 89-year-old female with a history of paroxysmal atrial fibrillation, chronic hypertension, stage 4 metastatic colorectal cancer (CA) with lesions in the lungs, diagnosed in 2019, Waldenstrom's macroglobulinemia, irritable bowel syndrome (IBS), presents with intractable abdominal pain. IMPRESSION: 1. Abdominal pain with enlarging liver masses concerning for metastatic disease as well as new bibasilar pneumonia. Patient is currently being treated with antibiotics. She, however, denies any fever, chills, or cough. If negative procalcitonin, will discontinue patient's antibiotics. 2. Liver masses. Consult medical oncology to see if this is metastatic disease for her known history of adenocarcinoma of the colon, stage IV, and for prognostic purposes will ask for advice regarding palliative versus hospice care. 3. Electrolyte abnormalities with hypomagnesemia, which has been repleted. 4. Stage IV colon cancer with metastatic lesions to the lungs. Medical oncology has been consulted. Will continue with following the recommendations. 5. Severe anemia. Check iron studies and stool for blood. Transfuse 2 units of blood.
--- NOTE | 2019-12-09 18:03 | IPNPDOC ---
Subjective Date Seen The patient was seen on 12/09/19. Subjective Chief Complaint/HPI She states he worst problem is dizziness at this time Events since last encounter Initial visit to introduce her to [facility] General: Reports: ROS Unobtainable, Chills, Night Sweats, Fatigue, Malaise, Normal Appetite, Other Symptoms Constitutional: Denies: Chills, Fever, Malaise, Night Sweats, Weakness, Fatigue, Weight Loss, Lethargy, Other Eyes: Denies: Pain, Vision change, Conjunctivae inflammation, Eyelid inflammation, Redness, Other ENT: Reports: Head Aches; Denies: Ear Pain, Dysphagia, Sinus Congestion, Post Nasal Drip, Sore Throat, Epistaxis, Other Symptoms Skin: Reports: Rash, Lesions, Jaundice, Bruising, Itching, Dry, Breakdown, Nail Changes, Other Pulmonary: Denies: Dyspnea, Cough, Pleuritic Chest Pain, Other Symptoms Cardiovascular: Denies: Chest Pain, Palpitations, Orthopnea, Paroxysmal Noc. Dyspnea, Edema, Lt Headedness, Other Symptoms Gastrointestinal: Denies: Nausea, Vomiting, Abdominal Pain, Diarrhea, Consti pation, Melena, Hematochezia, Other Symptoms Genitourinary: Denies: Dysuria, Frequency, Incontinence, Hematuria, Retention, Other Symptoms Hematologic: Reports: Bruising, Bleeding Excessively, Petecchia, Purpura, Enlarged Lymph Nodes, Other Hematologic Endocrine: Denies: Polydipsia, Polyphagia, Polyuria, Heat Intolerance, Cold Intolerance, Other Endocrine Sx Musculoskeletal: Denies: Neck Pain, Back Pain, Shoulder Pain, Arm Pain, Hand Pain, Leg Pain, Foot Pain, Joint Pain, Muscle Pain, Spasms, Other Symptoms Neurological: Reports: Weakness, Numbness, Incoordination, Change in speech, Confusion, Seizures, Other Symptoms Psych: Reports: Mood Normal, Anxiety, Depression, Memory Issues, Thoughts of Self Harm, Anger, Thoughts of Harming Other, Other Psych Objective Physical Examination General Exam: Positive: Alert, Cooperative, No Acute Distress Eye Exam: Positive: PERRLA, EOMI ENT Exam: Positive: Atraumatic, Mucous membr. moist/pink Neck Exam: Positive: Supple Chest Exam: Positive: Clear to auscultation, Normal air movement, Rales, Rhonchi, Wheezing, Diminished, Other Heart Exam: Positive: Tachycardic, Irregular Rhythm Abdomen Exam: Positive: Normal bowel sounds, Soft Extremity Exam: Negative: Clubbing, Cyanosis, Edema, Normal pulses, Tenderness, Swelling, Other Skin Exam: Positive: Nl turgor and temperature, Other skin issue Neuro Exam: Positive: Sensation Intact, Reflexes 2+ Psych Exam: Positive: Mood NL Assessment /Plan Assessment Metastatic colorectal cancer Plan/VTE VTE Prophylaxis Ordered?: Yes Plan Diet: Continue Current Therapy: PT, OT Pt and Family Services: Other PFS Anticipated Discharge: Home, Home With Services (she may require yang additional support depending on how she progresses during this admission) Advance Directives: DNR, Other Advance Directive (nuring reports MOLST form was updated this morning,m it is not available) VS, I&O, 24H, Fishbone Vital Signs/I&O Vital Signs Date Time Temp Pulse Resp B/P (MAP) Pulse Ox O2 Delivery O2 Flow Rate FiO2 12/09/19 14:00 98.6 85 16 102/46 (64) 95 Room Air I&O- Last 24 Hours up to 6 AM 12/09/19 06:00 Intake Total 750 ml Output Total 0 ml Balance 750 ml Laboratory Data 24H LABS Laboratory Tests 2 12/08/19 20:05: Immature Granulocyte % (Auto) 0.3, Neutrophils (%) (Auto) 70.7H, Lymphocytes (%) (Auto) 14.4L, Monocytes (%) (Auto) 13.7H, Eosinophils (%) (Auto) 0.3, Basophils (%) (Auto) 0.6, Neutrophils # (Auto) 6.1, Lymphocytes # (Auto) 1.2L, Monocytes # (Auto) 1.2H, Eosinophils # (Auto) 0.0, Basophils # (Auto) 0.1, Nucleated Red Blood Cells % (auto) 0.0, Urine Color [place], Urine Appearance CLEAR, Urine pH 5.0, Urine Specific [place] 1.033, Urine Protein 1+H, Urine Glucose (UA) NEGATIVE, Urine Ketones TRACEH, Urine Blood 1+H, Urine Nitrite NEGATIVE, Urine Bilirubin NEGATIVE, Urine Urobilinogen 2.0H, Urine Leukocyte Esterase NEGATIVE, Urine WBC (Auto) 2, Urine RBC (Auto) 9H, Urine Hyaline Casts (Auto) 41, Urine Bacteria (Auto) NEGATIVE, Urine Squamous Epithelial Cells 1, Urine Calcium Oxalate Cryst (Auto) SMALL, Urine Mucus (Auto) SMALL, Urine Sperm (Auto) , Anion Gap 5L, Glomerular Filtration Rate > 60.0, Calcium Level 9.1, Total Bilirubin 0.5, Direct Bilirubin 0.2, Aspartate Amino Transf (AST/SGOT) 15, Alanine Aminotransferase (ALT/SGPT) 15, Alkaline Phosphatase 195H, Total Creatine Kinase 26, Creatine Kinase MB 1.3, Creatine Kinase MB Relative Index 5.00H, Troponin I < 0.02, Total Protein 7.3, Albumin 2.9L, Albumin/Globulin Ratio 0.66L, Lipase 38L 12/09/19 05:59: Nucleated Red Blood Cells % (auto) 0.0, Anion Gap 6L, Glomerular Filtration Rate > 60.0, Calcium Level 8.3L, Magnesium Level 1.4L CBC/BMP Laboratory Tests 12/08/19 20:05 12/09/19 05:59 Microbiology Microbiology 12/08/19 Blood Culture, Received Pending 12/08/19 Blood Culture, Received Pending Latrice STOVER Dec 09, 2019 18:03
--- NOTE | 2019-12-09 20:52 | CR ---
DATE OF CONSULTATION: 12/09/2019 REQUESTING PHYSICIAN: Cheryl Tidwell M.D. 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 IDENTIFICATION AND CHIEF COMPLAINT: Shanell Chambers is an 89 year old woman who presented on this occasion with chief complaint of abdominal pelvic pain associated with dysuria. The patient reports "I am feeling much better now than I did when I came in." HISTORY OF PRESENT ILLNESS: Shanell Chambers is a very pleasant 89-year-old woman followed previously in the medical oncology practice at [facility] by Laverne Vera M.D. The patient's history of malignancy dates to the year 2014, when she was noted to be anemic and a monoclonal IgM paraprotein was identified. The patient underwent bone marrow biopsy and aspirate on 05/20/2015 with findings positive for the [id number] mutation. The patient has been observed and managed conservatively without treatment intervention for this to date. Most recent IgM level was measured at 2230 mg per decaliter, spontaneously decreased from 2730 mg per decaliter on 01/16/2019. Serum free lambda light chains have been modestly elevated at 27 mg per liter. Serum viscosity has been modestly elevated in the past, measured at 2.7. In spring, the patient was noted to have a mass lesion in the right lung. She underwent CT-guided core biopsy on 02/03/2019. This documented moderately to poorly differentiated adenocarcinoma, consistent with a colon primary, strongly positive for CK20 and CDX2 and negative for TTF-1 and CK7, all consistent with colon cancer. Imaging studies have shown mass lesions in the liver as well, also consistent with a distribute. The patient reports chronic loose stools, but has not been treated for colon cancer to date either. On this admission, the patient underwent CT angiography earlier today on 12/09/2019. This reported no CT evidence of pulmonary embolism. However, there was dense opacification in the lower lobes bilaterally and in the right lower lobe, the infiltrate was morphologically similar but larger than opacification seen in December 2018. There was also nodular-appearing consolidation in the right middle lobe, new from December 2018. Air bronchograms were noted. A diffuse interstitial fibrosis pattern was noted, which was unchanged from previous study. A 2 cm solid lesion was noted in the right lobe of the liver unchanged from a prior study, along with a 12 mm low density nodule in the right lobe as well. These were unchanged from prior studies. Ms. Chambers states that she was unaware that she had a pneumonia at the time of admission, and she reports that her pain has markedly lessened since admission. With respect to hyperviscosity symptoms, she has no headache and no shortness of breath at this time, nor any recent visual changes. ALLERGIES: The patient reports allergies to PENICILLIN, NITROFURANTOIN, and she is intolerant of NITROGLYCERIN. There is also a history of LATEX ALLERGY. MEDICATIONS ON ADMISSION: - torsemide 10 mg by mouth daily as needed for edema - omeprazole 40 mg by mouth daily as needed for pyrosis - amiodarone 200 mg by mouth daily MEDICATIONS DURING THE CURRENT ADMISSION: - Levaquin 500 mg by mouth every 48 hours - meropenem 1 gram administered once on 12/08/2019 - potassium chloride 20 mEq by mouth twice a day - tramadol 200 mg by mouth at bedtime - enoxaparin subcutaneously daily - amiodarone 200 mg by mouth daily - omeprazole 40 mg by mouth daily PAST MEDICAL HISTORY: The patient has a past history significant for: 1. Adenocarcinoma of the colon stage IV, as detailed above. 2. 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 3. There is history of pulmonary interstitial fibrosis. 4. 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 Imaging studies show cardiomegaly. 5. There is report of hiatal hernia as well as irritable bowel syndrome 6. History of cholelithiasis for which she underwent cholecystectomy. 7. The patient is also status post appendectomy. 8. She experienced a fracture of the right wrist status post repair and had a cyst removed from the wrist as well. 9. She underwent the banding of hemorrhoids years ago. 10. The patient is 1, para 1 and postmenopausal. 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 Tobacco: The patient never used tobacco on a regular basis. Alcohol: No history of significant alcohol use. Illicit drugs: No history of illicit drug use. FAMILY HISTORY: There is no history of hematologic malignancy in any first-degree relatives. There is no history of colon cancer in either parent. Family history is otherwise noncontributory. REVIEW OF SYSTEMS: NEUROLOGIC: No history of stroke. No seizure disorder. No tremor. No focal neurologic deficits. RESPIRATORY: History of pulmonary infiltrates on this admission with findings of pulmonary fibrosis by CT scan. No cough at this time. No shortness of breath. No chest pain. CARDIAC: history of atrial fibrillation in the past. History of cardiomegaly. Occasional exertional dyspnea. Intermittent lower extremity edema. No paroxysmal nocturnal dyspnea. GASTROINTESTINAL: History of colon cancer as noted. History of loose stools and occasional abdominal pain. GENITOURINARY: The patient is postmenopausal. The patient reported dysuria on presentation, now improved. No gross hematuria. MUSCULOSKELETAL: The patient reports chronic right shoulder pain since sustaining a fall years ago. No bone pain. No joint effusions. No recent fractures. CONSTITUTIONAL: No fevers, chills or sweats. Remainder of the review of systems was obtained and was negative. PHYSICAL EXAMINATION: The patient is a thin woman awake, alert and fully oriented, friendly and cooperative and cheerful, in no acute distress. Temperature 98.6, pulse 85, respirations 16, blood pressure 102/46, oxygen saturation 95%. SKIN: Full turgor. Anicteric but pale without petechiae or rash. HEENT EXAMINATION: Normocephalic, atraumatic. Pupils round and reactive. Extra muscles intact. Sclerae anicteric. Oropharynx without lesions. Neck is supple without thyromegaly. LYMPHATICS: No pathologic lymphadenopathy noted in the cervical, supraclavicular, axillary, inguinal regions. LUNGS: Distant breath sounds with occasional dry crackles bilaterally. Decreased breath sounds at the bases. Dull to percussion at the bases. No wheezing appreciated. CARDIAC EXAM: Occasional irregular rhythm. Point of maximal impulse displaced laterally. S1, S2, without gallop or rub or murmur appreciated. BREAST EXAMINATION: Deferred. ABDOMEN: Active bowel sounds, soft, nontender without guarding or rebound. The liver percusses to 12 cm and appears normal in span. The spleen percusses to 8 cm appears normal in span. No other masses appreciated. PELVIC EXAMINATION: Deferred. RECTAL EXAMINATION: Deferred. EXTREMITIES: Without clubbing, cyanosis or edema. NEUROLOGIC EXAMINATION: Mental status intact. Cranial nerves intact. Motor and sensory grossly intact. LABORATORY DATA: Laboratory studies dated 12/09/2019 include a white blood count 8800 per microliter, hemoglobin 7.6 grams per decaliter hematocrit 25.6%, MCV depressed at 70.7 FL and low platelet count 317,000.Serum chemistries include BUN 10, creatinine 0.47 mg per decaliter, magnesium depressed at 1.4 mg per decaliter, calcium 8.3 mg per decaliter. Total bilirubin on 12/08/2019 0.5 mg per decaliter, alkaline phosphatase mildly elevated at 195, albumin mildly depressed at 2.9 grams per decaliter IMPRESSION: 1. 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 At present, there is no clinical evidence of hyperviscosity, but this should be confirmed by measuring serum viscosity, a "send out" laboratory study. 2. Adenocarcinoma of the colon. The patient has evidence of metastatic colon cancer, untreated in the past year since this was first identified. It is difficult to know whether or not the pulmonary metastases are contributing to the patient's pulmonary disease, although this appears relatively unlikely. Treatment was discussed with the patient and although she has declined therapy in the past, at this time she seems receptive to considering systemic antineoplastic therapy. A treatment regimens such as FOLFOX with Avastin would likely be associated with a greater than 80% probability of a reduction in tumor burden and prolongation of survival, as demonstrated in prospective randomized clinical trials published in the 1990s and the early part of this century. It is likely that initial therapy would be relatively nontoxic, but ultimately the use of oxaliplatin is associated with peripheral neuropathy. At this point in time, it is premature to have formal discussions regarding systemic antineoplastic therapy, but the patient indicated a desire to discuss this at the time of followup in the outpatient medical oncology practice at the [facility]. 3. Anemia. The patient has clinically significant anemia with a depressed hemoglobin of 7.6 grams per decaliter. Mean corpuscular volume is also depressed, and the patient has a prior history of iron deficiency. The patient's anemia is likely multifactorial, but there is overwhelmingly likely to be a component of iron deficiency. This should be confirmed by measuring serum ferritin, and iron replaced by administration of parenteral iron, with Injectafer, the agent most likely to result in a prompt rise in hemoglobin with minimal toxicity. The patient's most recent ferritin dates to January 2019, when it was depressed at 20 nanogram per mL, consistent with blood loss likely from her colon cancer primary. RECOMMENDATIONS: It is recommended that serum ferritin be measured and Injectafer 750 mg intravenously be administered. As noted above, it is recommended that serum viscosity be measured, although results will not be available for a number of days at least. It is anticipated that this will be below the threshold for treatment intervention. Upon hospital discharge, the patient should follow up in the [facility]. The patient concurred with these recommendations. Additional management recommendations will be forthcoming based on the patient's clinical status as it evolves.
[2019-12-10 00:30] VITALS: BP 126/67
[2019-12-10 06:04] VITALS: BP 100/56
[2019-12-10 08:41] LABS: BASO # 0.1 10^3/uL (0.0-0.2); BASO % 0.9 % (0.0-1.0); EOS # 0.4 10^3/uL (0.0-0.5); EOS % 4.9 % (0.0-3.0); HEMATOCRIT 31.5 % (36.0-47.0); HEMOGLOBIN 9.8 g/dl (12.0-15.5); LYMPH % 12.5 % (24.0-44.0); MEAN CORPUSCULAR HEMOGLOBIN 22.7 pg (27.0-33.0); MEAN CORPUSCULAR HGB CONC 31.1 g/dl (32.0-36.5); MEAN CORPUSCULAR VOLUME 72.9 fl (80.0-96.0); MONO # 1.3 10^3/uL (0.0-0.8); MONO % 16.3 % (0.0-5.0); NEUTROPHILS # 5.2 10^3/uL (1.5-8.5); NEUTROPHILS % 65.1 % (36.0-66.0); PLATELET COUNT, AUTOMATED 288 10^3/uL (150-450); RED BLOOD COUNT 4.32 10^6/uL (4.00-5.40)
[2019-12-10] MEDS: DOCUSATE SODIUM 100 MG CAP PO SCH ×2 (08:43→20:44)
[2019-12-10] MEDS: AMIODARONE 200 MG TAB (PACERONE) PO SCH (08:43)
[2019-12-10] MEDS: OMEPRAZOLE 20 MG CAP PO SCH (08:43)
[2019-12-10] MEDS: ENOXAPARIN 30 MG/0.3 ML SYR (J1650) SC SCH ×2 (08:43→08:47)
[2019-12-10] MEDS: POTASSIUM CHLORIDE 10 MEQ SR TABLET PO SCH ×2 (08:44→20:51)
[2019-12-10 10:31] LABS: FOLATE 13.2 NG/ML (>5.4)
[2019-12-10] MEDS ORDERED: TUBERCULIN PPD 5 UNITS/0.1 ML ID ONE (13:00)
[2019-12-10 14:00] VITALS: BP 107/61
--- NOTE | 2019-12-10 14:42 | IPNPDOC ---
Subjective Date Seen The patient was seen on 12/10/19. Subjective Chief Complaint/HPI Shanell is in no pain this morning. She deneis any n/v. Feels better following transfusion. Objective Physical Examination General Exam: Positive: Alert, Cooperative, No Acute Distress Eye Exam: Positive: PERRLA, EOMI ENT Exam: Positive: Atraumatic, Mucous membr. moist/pink Neck Exam: Positive: Supple Chest Exam: Positive: Clear to auscultation, Normal air movement, Rales, Rhonchi, Wheezing, Diminished, Other Heart Exam: Positive: Tachycardic, Irregular Rhythm Abdomen Exam: Positive: Normal bowel sounds, Soft Extremity Exam: Negative: Clubbing, Cyanosis, Edema, Normal pulses, Tenderness, Swelling, Other Skin Exam: Positive: Nl turgor and temperature, Other skin issue Neuro Exam: Positive: Sensation Intact, Reflexes 2+ Psych Exam: Positive: Mood NL Assessment /Plan Assessment # Abdominal pain with worsening metastatic liver lesions - pain controlled - palliative care consulted # Acute blood loss anemia due to BECKA and Malignancy - s/p 2 units prbc - IV venofer x 2 days # Bilateral CAP - continue levafloxacin q48h # Stage 4 colon ca with mets - oncology note reviewed - will f/u as outpatient Dispo: home with home health in am Plan/VTE VTE Prophylaxis Ordered?: Yes Plan Diet: Continue Current Therapy: PT, OT Pt and Family Services: Other PFS Anticipated Discharge: Home, Home With Services (she may require yang additional support depending on how she progresses during this admission) Advance Directives: DNR, Other Advance Directive (nuring reports MOLST form was updated this morning,m it is not available) VS, I&O, 24H, Sonia Vital Signs/I&O Vital Signs Date Time Temp Pulse Resp B/P (MAP) Pulse Ox O2 Delivery O2 Flow Rate FiO2 12/10/19 06:04 98.3 61 17 100/56 (71) 92 Room Air I&O- Last 24 Hours up to 6 AM 12/10/19 06:00 Intake Total 2622 ml Output Total 0 ml Balance 2622 ml Laboratory Data 24H LABS Laboratory Tests 2 12/10/19 07:55: Immature Granulocyte % (Auto) 0.3, Neutrophils (%) (Auto) 65.1, Lymphocytes (%) (Auto) 12.5L, Monocytes (%) (Auto) 16.3H, Eosinophils (%) (Auto) 4.9H, Basophils (%) (Auto) 0.9, Neutrophils # (Auto) 5.2, Lymphocytes # (Auto) 1.0L, Monocytes # (Auto) 1.3H, Eosinophils # (Auto) 0.4, Basophils # (Auto) 0.1, Nucleated Red Blood Cells % (auto) 0.0 12/10/19 08:51: Iron Level 38L, Total Iron Binding Capacity 345, Transferrin % Saturation 11.0L, Ferritin 16, Vitamin B12 Level 524, Folate 13.2 CBC/BMP Laboratory Tests 12/10/19 07:55 Microbiology Microbiology 12/08/19 Blood Culture - Preliminary, Resulted No growth after 24 hours . All specim... 12/08/19 Blood Culture - Preliminary, Resulted No growth after 24 hours . All specim... HELENA BILLS MD Dec 10, 2019 14:41
[2019-12-10] MEDS: IRON SUCROSE 100 MG in NS 100 ML OVER 1 HR IV SCH (16:39)
[2019-12-10] MEDS ORDERED: LevoFLOXacin 500 MG TABLET PO SCH (18:00)
[2019-12-10] MEDS: traMADol ER 100MG TABLET (ULTRAM ER) PO SCH (20:44)
[2019-12-10 20:45] VITALS: BP 136/75
[2019-12-11 01:48] LABS: APPEARANCE, URINE CLEAR (CLEAR); COLOR, URINE YELLOW (YELLOW)
[2019-12-11 01:49] LABS: BACTERIA, URINE AUTO NEGATIVE (NEGATIVE); BILIRUBIN, URINE AUTO NEGATIVE (NEGATIVE); BLOOD, URINE BLOOD 1+ (NEGATIVE); GLUCOSE, URINE (UA) AUTO NEGATIVE (NEGATIVE); KETONE, URINE AUTO NEGATIVE (NEGATIVE); LEUKOCYTE ESTERASE, URINE AUTO NEGATIVE (NEGATIVE); MUCUS, URINE SMALL (NEGATIVE); NITRITE, URINE AUTO NEGATIVE (NEGATIVE); PROTEIN, URINE AUTO NEGATIVE (NEGATIVE); RBC, URINE AUTO 1 /HPF (0-3); SQUAMOUS EPITHELIAL CELL UR AU 0 /HPF (0-6); UROBILINOGEN, URINE AUTO 0.2 mg/dL (0.0-2.0); WBC, URINE AUTO 2 /HPF (0-3)
[2019-12-11 06:22] VITALS: BP 122/48
[2019-12-11 07:44] LABS: HEMATOCRIT 31.8 % (36.0-47.0); HEMOGLOBIN 9.9 g/dl (12.0-15.5); MEAN CORPUSCULAR HEMOGLOBIN 23.1 pg (27.0-33.0); MEAN CORPUSCULAR HGB CONC 31.1 g/dl (32.0-36.5); MEAN CORPUSCULAR VOLUME 74.1 fl (80.0-96.0); PLATELET COUNT, AUTOMATED 282 10^3/uL (150-450); RED BLOOD COUNT 4.29 10^6/uL (4.00-5.40); WHITE BLOOD COUNT 7.6 10^3/uL (4.0-10.0)
[2019-12-11] MEDS: ENOXAPARIN 30 MG/0.3 ML SYR (J1650) SC SCH (07:47)
[2019-12-11] MEDS: DOCUSATE SODIUM 100 MG CAP PO SCH (07:47)
[2019-12-11] MEDS: OMEPRAZOLE 20 MG CAP PO SCH (08:43)
[2019-12-11] MEDS: POTASSIUM CHLORIDE 10 MEQ SR TABLET PO SCH (08:44)
[2019-12-11] MEDS: AMIODARONE 200 MG TAB (PACERONE) PO SCH (08:44)
[2019-12-11] MEDS ORDERED: IRON SUCROSE 100MG 5ML VIAL (J1756 PER 1MG) IV SCH (09:00)
[2019-12-11] MEDS ORDERED: LEVA1TAB2 PO (12:09)
[2019-12-11] MEDS ORDERED: FERR240T PO (12:09)
--- NOTE | 2019-12-11 12:16 | IPNPDOC ---
Subjective Date Seen The patient was seen on 12/11/19. Subjective Chief Complaint/HPI Shanell tolerated Iron infusion w/o issue, she's cleared PT eval for home discharge Objective Physical Examination General Exam: Positive: Alert, Cooperative, No Acute Distress Eye Exam: Positive: PERRLA, EOMI ENT Exam: Positive: Atraumatic, Mucous membr. moist/pink Neck Exam: Positive: Supple Chest Exam: Positive: Clear to auscultation, Normal air movement, Rales, Rhonchi, Wheezing, Diminished, Other Heart Exam: Positive: Tachycardic, Irregular Rhythm Abdomen Exam: Positive: Normal bowel sounds, Soft Extremity Exam: Negative: Clubbing, Cyanosis, Edema, Normal pulses, Tenderness, Swelling, Other Skin Exam: Positive: Nl turgor and temperature, Other skin issue Neuro Exam: Positive: Sensation Intact, Reflexes 2+ Psych Exam: Positive: Mood NL Assessment /Plan Assessment # Abdominal pain with worsening metastatic liver lesions - pain controlled - palliative care consulted - home today with home health - PPD to be read by HH in am for assisted living placement # Acute blood loss anemia due to BECKA and Malignancy - s/p 2 units prbc - IV venofer x 2 days - iron tablets daily # Bilateral CAP - continue levafloxacin q48h x 2 more days # Stage 4 colon ca with mets - oncology note reviewed - will f/u as outpatient Plan/VTE VTE Prophylaxis Ordered?: Yes Plan Diet: Continue Current Therapy: PT, OT Pt and Family Services: Other PFS Anticipated Discharge: Home, Home With Services (she may require yang additional support depending on how she progresses during this admission) Advance Directives: DNR, Other Advance Directive (nuring herminia MOLST form was updated this morning,m it is not available) VS, I&O, 24H, Fishbone Vital Signs/I&O Vital Signs Date Time Temp Pulse Resp B/P (MAP) Pulse Ox O2 Delivery O2 Flow Rate FiO2 12/11/19 06:22 98.3 56 16 122/48 (72) 94 Room Air I&O- Last 24 Hours up to 6 AM 12/11/19 05:59 Intake Total 1340 ml Output Total 0 ml Balance 1340 ml Laboratory Data 24H LABS Laboratory Tests 2 12/11/19 01:37: Urine Color YELLOW, Urine Appearance CLEAR, Urine pH 5.0, Urine Specific Cheriton 1.020, Urine Protein NEGATIVE, Urine Glucose (Auto)(UA) NEGATIVE, Urine Ketones (Auto) NEGATIVE, Urine Blood 1+H, Urine Nitrite NEGATIVE, Urine Bilirubin NEGATIVE, Urine Urobilinogen 0.2, Urine Leukocyte Esterase (Auto) NEGATIVE, Urine WBC (Auto) 2, Urine RBC (Auto) 1, Urine Hyaline Casts (Auto) 0, Urine Bacteria (Auto) NEGATIVE, Urine Squamous Epithelial Cells 0, Urine Mucus (Auto) SMALL, Urine Sperm (Auto) 12/11/19 07:11: Nucleated Red Blood Cells % (auto) 0.0 CBC/BMP Laboratory Tests 12/11/19 07:11 Microbiology Microbiology 12/08/19 Blood Culture - Preliminary, Resulted No Growth after 48 hours. All Specime... 12/08/19 Blood Culture - Preliminary, Resulted No Growth after 48 hours. All Specime... HELENA BILLS MD Dec 11, 2019 12:15
[2019-12-11] MEDS: IRON SUCROSE 100 MG in NS 100 ML OVER 1 HR IV SCH (13:41)
[2019-12-12] MEDS ORDERED: PPD DOCUMENTATION ENTRY MISC XX ONE (13:00)
--- NOTE | 2019-12-15 17:54 | DSES ---
DATE OF ADMISSION: 12/08/2019 DATE OF DISCHARGE: 12/11/2019 DISCHARGE DIAGNOSES: 1. Abdominal pain with worsening metastatic liver lesion. 2. Acute blood loss anemia which is multifactorial, associated with iron deficiency anemia as well as anemia of chronic malignancy. 3. Bilateral community-acquired pneumonia. 4. Stage IV colon cancer with metastasis. PROCEDURES PERFORMED DURING THIS HOSPITALIZATION: None. CONSULTANTS ON THE CASE: Dr. Del Cid as well as the palliative care service. DISPOSITION: The patient is discharged home with home health with plans to transition to assisted living. LABORATORY DATA PENDING AT THE TIME OF DISCHARGE: None. DISCHARGE INSTRUCTIONS: The patient is instructed to followup with her primary care provider (PCP) in approximately one week. She is also to followup with Dr. Del Cid in approximately one week's time. CONDITION AT DISCHARGE: Improved from admission. RELEVANT LABORATORY DATA: Blood cultures did not grow anything during the patient's hospitalization. White blood cell count is 7.6, hemoglobin is 9.9, hematocrit 31, platelet count is 282,000. Iron was 38, TIBC was 145, transferrin saturation was 11, ferritin was 16, B12 was 524, folate was 13.2. Sodium 136, potassium 2.9, chloride 105, bicarbonate 25, BUN is 10, creatinine 0.47, calcium is 8.3, magnesium is 1.4 and supplemented. Urinalysis was essentially unremarkable. IMAGING STUDIES OBTAINED DURING THE PATIENT'S HOSPITAL STAY: CT of the chest which showed extensive somewhat nodular-appearing confluent areas of consolidation in the lower lobes bilaterally and in the right middle lobe progressive since the 01/09/2019 study and unchanged from the comparison study of 11/22/2019. There is advanced diffuse interstitial pulmonary parenchymal fibrosis, cardiomegaly, and small bilateral pleural effusions. There is no evidence of pulmonary embolus. There are at least two presumed metastatic lesions in the liver. The liver parenchyma shows increased density which may reflect secondary hemachromatosis. CT of the abdomen and pelvis with contrast which showed motion limited examination, stable appearance of rectus sigmoid mass, mild constipation without bowel obstruction, enlarged liver mass concerning for metastatic disease, bibasilar airspace opacities have worsened since the prior examination suggesting bilateral pneumonia. DISCHARGE MEDICATIONS: - ferrous gluconate 240 mg daily - levofloxacin 500 mg every 48 hours for an additional two doses - Tylenol 1000 mg every six hours as needed for pain or fever - amiodarone 200 mg daily - omeprazole 40 mg daily - potassium chloride 20 mEq twice a day - Systane eye drops two drops in each eye daily - torsemide 10 mg daily as needed for edema HOSPITAL COURSE: Mrs. Chambers is an 89-year-old woman who has a history of metastatic colon cancer. She follows with Dr. Del Cid. She had presented to the hospital with complaints of abdominal pain. A CT of the abdomen and pelvis did not show any evidence of obstruction. It did indicate that she has what appeared to be new metastatic liver lesions. In addition, there was suspicion for bilateral pneumonia in the lower lung brown. A CT angiogram of her chest was obtained. This did not indicate any evidence of pulmonary embolism. It showed that she had worsening bilateral infiltrates. The patient was admitted to the hospitalist service for treatment of her acute on chronic abdominal pain felt to be related to her underlying stage IV colon cancer. Her pain was adequately controlled. She was started on levofloxacin renal dosing which she tolerated quite well. She was noted to be anemic and was transfused two units of packed red blood cells during this hospitalization with improvement in her hemoglobin levels. Dr. Del Cid had been contacted regarding admission and saw her in consultation. In regards to her anemia, iron studies were checked and the patient was found to be iron deficient. She was treated with IV iron for two days. The patient was seen by palliative care in addition to [facility]. It was determined that she was in the process of transitioning to assisted living but would go home with home health before making that transition. As the patient's pain was controlled and she was not having any worsening symptoms associated with findings on her CT chest, the patient was discharged home in stable condition. A total of 30 minutes was spent completing all discharge paperwork.
== END 2019-12-11 15:10 | disposition home health service (06) | DRG 435 ==
LOC: M ED 17:57 → M ED INP 22:54 → ENRESERVDT 12-09 00:46 → ENRESERVTM 12-09 00:46 → M MS5PR 12-09 01:11
PROVIDERS: ADMIT Internal Medicine; ATTEND Internal Medicine
PROC: 30233N1 Transfusion of Nonautologous Red Blood Cells into Peripheral Vein, Percutaneous Approach (ICD-10-PCS; principal; 2019-12-09)
DX: C78.7 Secondary malignant neoplasm of liver and intrahepatic bile duct (principal); J18.9 Pneumonia, unspecified organism; C18.9 Malignant neoplasm of colon, unspecified; C78.01 Secondary malignant neoplasm of right lung; C78.02 Secondary malignant neoplasm of left lung; D62 Acute posthemorrhagic anemia; R10.2 Pelvic and perineal pain; C88.0 Waldenstrom macroglobulinemia; I10 Essential (primary) hypertension; Z66 Do not resuscitate; I48.91 Unspecified atrial fibrillation; D50.9 Iron deficiency anemia, unspecified; K44.9 Diaphragmatic hernia without obstruction or gangrene; E83.42 Hypomagnesemia; K58.9 Irritable bowel syndrome, unspecified; D63.0 Anemia in neoplastic disease; Z90.49 Acquired absence of other specified parts of digestive tract; Z87.891 Personal history of nicotine dependence; Z87.81 Personal history of (healed) traumatic fracture; Z79.899 Other long term (current) drug therapy; Z88.0 Allergy status to penicillin; Z88.8 Allergy status to other drugs, medicaments and biological substances; Z91.040 Latex allergy status

== ENCOUNTER → 2019-12-19 | Outpatient (REF) | payer MEDICARE, MEDICAID ==
[~2019-12-19] MED LIST changes: +ACET-897 PO; +FERR240T PO; +SULF1TAB93; +SYST1SOL4 OU
== END ==
LOC: M LAB REF 16:42
PROVIDERS: ATTEND Nurse Practitioner Adult Health
DX: N39.0 Urinary tract infection, site not specified (principal)

== ENCOUNTER 2020-01-08 12:42 | Inpatient (IN) | payer MEDICARE, MEDICAID ==
[~2020-01-08] VITALS: Ht 162.6 cm; Wt 45.5 kg
[2020-01-08 13:50] LABS: BASO % 0.4 % (0.0-1.0); EOS % 0.3 % (0.0-3.0); HEMATOCRIT 40.5 % (36.0-47.0); HEMOGLOBIN 12.7 g/dl (12.0-15.5); LYMPH # 0.9 10^3/uL (1.5-5.0); LYMPH % 8.8 % (24.0-44.0); MEAN CORPUSCULAR HEMOGLOBIN 25.4 pg (27.0-33.0); MEAN CORPUSCULAR HGB CONC 31.4 g/dl (32.0-36.5); MONO # 1.5 10^3/uL (0.0-0.8); MONO % 13.8 % (0.0-5.0); NEUTROPHILS # 8.1 10^3/uL (1.5-8.5); NEUTROPHILS % 76.5 % (36.0-66.0); PLATELET COUNT, AUTOMATED 282 10^3/uL (150-450); WHITE BLOOD COUNT 10.6 10^3/uL (4.0-10.0)
[2020-01-08 14:13] LABS: ALBUMIN 2.8 GM/DL (3.2-5.2); ALT/SGPT 16 U/L (12-78); BILIRUBIN,TOTAL 0.5 MG/DL (0.2-1.0); BLOOD UREA NITROGEN 15 MG/DL (7-18); CALCIUM LEVEL 9.7 MG/DL (8.8-10.2); CARBON DIOXIDE LEVEL 26 MEQ/L (21-32); CHLORIDE LEVEL 105 MEQ/L (98-107); CK-MB VALUE MASS 1.7 NG/ML (<3.6); CPK CREATINE PHOSPHOKINASE 31 U/L (26-192); CREATININE FOR GFR 0.68 MG/DL (0.55-1.30); GLOMERULAR FILTRATION RATE > 60.0 (>32); GLUCOSE, FASTING 93 MG/DL (70-100); MB/CK RELATIVE INDEX 5.48 (< OR =4); POTASSIUM SERUM 4.5 MEQ/L (3.5-5.1); SODIUM LEVEL 138 MEQ/L (136-145); TOTAL PROTEIN 7.4 GM/DL (6.4-8.2); TROPONIN I < 0.02 NG/ML (< 0.10)
[2020-01-08] MEDS ORDERED: LevoFLOXacin IV 750 MG in IV 1 EA IV ONE (14:45)
[2020-01-08] MEDS ORDERED: POTA10TA16 PO (15:29)
--- NOTE | 2020-01-08 16:17 | HPEPDOC ---
[facility] Medical History & Physical Date of Admission Jan 08, 2020 Date of Service: Jan 08, 2020 Primary Care Physician: Parvin Turner Attending Physician: Silvia Field MD History and Physical CHIEF COMPLAINT: dizziness, shortness of breath HISTORY OF PRESENT ILLNESS: The patient is an 89-year-old female with past medical history of recently treated community acquired pneumonia (last hospitalization ), Waldenstrm's macroglobulinemia, Stage IV metastatic c olorectal carcinoma, HTN, atrial fibrillation not on anticoagulation due to risk of hemorrhage, hiatal hernia, IBS presented to [facility] emergency room with the chief complaint of dizziness and increased shortness of breath. As per patient, her dizziness occurred gradually over the past several days. She has had increased lightheadedness with standing as well. She becomes increasingly short of breath even at rest. She admits to some nausea with nonbloody vomitus 1 over the past 24 hours. She has diarrhea at baseline she says due to her history of colon cancer; however, she states it has done in amount over the past 48 hours as well. She denies falls, fevers, chills, chest pain, cough, recent travel, sick contacts. In the emergency room vital signs showed temperature 98.4, pulse 99, blood pressure 115/77, respiratory rate 18, O2 sats 95% on room air. The patient was unsteady on her feet with movement, and plain of increased dizziness with movement. She had a chest x-ray which showed compared to the prior study of 12/03/2019, the dense right base infiltrate is stable. There is increased left base infiltrate. WBC was 10.6, troponin negative CK-MB negative. She was started on the vulva floxacillin in the emergency room; however, the patient had a reaction and medication was stopped. Reaction included increased redness increasing around the IV site. Due to continued dizziness and new infiltrates after hospitalization, the patient was admitted for healthcare associated pneumo north, dizziness, unsteadiness with fall risk requiring further treatment PT/OT evaluation. REVIEW OF SYSTEMS: CONSTITUTIONAL: Denies unexplained weight gain or weight loss, loss of appetite, fever, night sweats EYES: Denies eye drainage, eye pain, visual changes, dry/irritated eye EARS, NOSE, MOUTH, THROAT: Denies difficulty hearing, ringing in ears, mouth sores, loose teeth, sore throat, facial numbness or pain NECK: Denies swollen glands CARDIOVASCULAR: Denies irregular heartbeat, racing heart, chest pains, swelling of feet or legs, pain in legs with walking RESPIRATORY: Denies night sweats, wheezing, sputum production, oxygen at home, coughing up blood, cough lasting > 1 month GASTROINTESTINAL: Denies constipation, bloody stool, heartburn GENITOURINARY: Denies painful urination, bloody urine, frequent urination, urgency, leaking urine, impotence MUSCULOSKELETAL: Denies joint pain, muscle pain, leg swelling INTEGUMENTARY: Denies rash, itching, new skin lesion, change in existing skin lesion, hair loss or increase, breast changes. 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 IBS PAST SURGICAL HISTORY: Hemorrhoid banding Cholecystectomy Appendectomy Repair of right wrist's fracture Bone marrow biopsy SOCIAL HISTORY: The patient denies any smoking, alcohol or drug use history. She lives independently in an apartment housing. PCPYue, cardiologyDr. Hawkins, colorectal cancel physician name unknown. She is a DNR, DNI. She has no healthcare proxy. Her emergency contact is her daughter Gabrielle Coleman [phone]. FAMILY HISTORY: Motherstomach cancer. at age 84 Fathermorbid obesity, sudden . at age 60. Sister"breathing problems", alive ALLERGIES: Please see below. HOME MEDICATIONS: Please see below. PHYSICAL EXAMINATION: CONSTITUTIONAL: No acute distress, AAO x 3 EYES: PERRLA, EOM intact HENT, MOUTH: Normocephalic, atraumatic, moist mucous membranes, NECK: SUPPLE, no JVD, no lymphadenopathy, no carotid bruit CV: Regular rate and rhythm, S1S2 normal, no murmurs/rubs/gallops RESPIRATORY: Increased crackles in right middle lung, left lower lung base. NO no rales/rhonchi/wheezes GI: BS positive in 4 quadrants, soft, nontender, nondistended, no rebound or guarding, no organomegaly : Deferred MUSCULOSKELETAL: No cyanosis, clubbing, swelling, joint deformity, extremity edema INTEGUMENTARY: Intact, no rashes, no lesions, no erythema NEUROLOGIC: Cranial Nerves II-XII are intact, no focal deficits PSYCHIATRIC: Mood and affect are normal LABORATORY DATA: Please see below IMAGING: CXR: When compared to the prior study of 12/03/2019, the dense right base infiltrate is stable. increased left base infiltrate ASSESSMENT: 89-year-old female admitted for healthcare associated pneumonia, dizziness, unsteadiness on her feet. PLAN: 1. Healthcare associated pneumonia. The patient has had a 3 day hospital stay within the last 90 days with increased infiltrate on chest x-ray this visit. The patient was started on cefepime, vancomycin renally dosed and gentle IV fluids. Sputum culture, blood cultures, Legionella testing and respiratory panel were all ordered and pending. She is currently saturating well on room air. 2. Acute on chronic diarrhea. History of IBS and colon cancer. Increased amount over the past several days along with shortness of breath. Follow-up Legionella testing, GI panel to rule out C. difficile. Contact precautions in place. If workup negative for infectious cause, consider Lomotil. 3. Dizziness with unsteadiness, acute. C/w treatment above, PT/OT. 4. Hypertension. Stable. 5. Atrial fibrillation, not on chronic anticoagulation due to risk of hemorrhage. Currently controlled. Continue amiodarone. 6. Stage IV metastatic colorectal carcinoma. Patient to follow-up with hematology/oncology after discharge. 7. Waldenstrm's macroglobulinemia. Stable. Follow up with specialist after discharge. 8. DVT prophylaxis. Enoxaparin 30 mg subcutaneous daily. DISPOSITION: Patient is currently admitted under inpatient status. Plan is hopefully discharge home when medically stable. Vital Signs Vital Signs Date Time Temp Pulse Resp B/P (MAP) Pulse Ox O2 Delivery O2 Flow Rate FiO2 01/08/20 13:41 75 116/59 (78) 106 106/55 (72) 116 124/65 (84) 01/08/20 12:50 98.4 18 95 Room Air Laboratory Data Labs 24H Laboratory Tests 2 01/08/20 13:29: Immature Granulocyte % (Auto) 0.2, Neutrophils (%) (Auto) 76.5H, Lymphocytes (%) (Auto) 8.8L, Monocytes (%) (Auto) 13.8H, Eosinophils (%) (Auto) 0.3, Basophils (%) (Auto) 0.4, Neutrophils # (Auto) 8.1, Lymphocytes # (Auto) 0.9L, Monocytes # (Auto) 1.5H, Eosinophils # (Auto) 0.0, Basophils # (Auto) 0.0, Nucleated Red Blood Cells % (auto) 0.0, Anion Gap 7L, Glomerular Filtration Rate > 60.0, Calcium Level 9.7, Total Bilirubin 0.5, Aspartate Amino Transf (AST/SGOT) 21, Alanine Aminotransferase (ALT/SGPT) 16, Alkaline Phosphatase 152H, Total Creatine Kinase 31, Creatine Kinase MB 1.7, Creatine Kinase MB Relative Index 5.48H, Troponin I < 0.02, Total Protein 7.4, Albumin 2.8L, Albumin/Globulin Ra rama 0.61L 01/08/20 13:30: POC Glucose (Misc Panel) 96, POC Sodium (Misc Panel) 138, POC Potassium (Misc Panel) 4.6, POC Chloride (Misc Panel) 103, POC Total CO2 (Misc Panel) 27.0, POC Blood Urea Nitrogen (Misc Panel 18, POC Ionized Calcium (Misc Panel) 4.9, POC Creatinine (Misc Panel) 0.6, POC Hematocrit (Misc Panel) 41.0 CBC/BMP Laboratory Tests 01/08/20 13:29 Microbiology Microbiology 01/08/20 Blood Culture, Received Pending 01/08/20 Blood Culture, Received Pending Home Medications Scheduled Amiodarone HCl (Amiodarone HCl) 200 Mg Tab, 200 MG PO 5XW TAKES MON-FRI AT HS Potassium Chloride (Potassium Chloride) 10 Meq Tab.er.prt, 20 MEQ PO BID Propylene Glycol/Peg 400/Pf (Systane 0.3-0.4% Eye Drop) 1 Each Droperette, 2 DROP OU DAILY Scheduled PRN Acetaminophen (Tylenol Extra Strength) 500 Mg Tablet, 1,000 MG PO Q6H PRN for PAIN / FEVER Allergies Coded Allergies: Penicillins (Verified Allergy, Intermediate, Rash, 11/21/19) latex (Verified Allergy, Mild, REDNESS AND ITCHING FROM SOCKS AND UNDERWEAR, 11/21/19) nitroglycerin (Verified Adverse Reaction, Intermediate, PT REFUSES- CAUSES EXTREME ANXIETY, FEELING OF DOOM, INC BP, 11/21/19) nitrofurantoin (Verified Adverse Reaction, Mild, Vomiting, Diarrhea, 11/21/19) A-FIB/CHADSVASC A-FIB History Current/History of A-Fib/PAF?: Yes Current PO Anticoag Therapy: No Age/Risk Factor Scoring CHADSVASC: CHADSVASC Response (Comments) Value Age Risk Factor Age >/= 75 years old 2 Gender Risk Factor Female 1 Hx of CHF No 0 Hx of HTN Yes 1 Hx of Stroke/TIA/or VTE No 0 Hx of Diabetes No 0 Hx of Vascular Disease No 0 Total 4 Treatment Treatment ordered: NONE Reason Anticoagulant not given: Other (hx of bleeding ) Other reason anticoagulant not: Hx of bleeding Silvia Field MD Jan 08, 2020 16:17
--- NOTE | 2020-01-08 16:28 | REP ---
CHEST, SINGLE VIEW: Single view of the chest are performed and compared to prior study 12/03/2019. Right base infiltrate is stable. There is increased left base infiltrate. Chronic interstitial changes are seen diffusely bilaterally. There is cardiomegaly. There is no change in the mediastinal silhouette. There is mild calcification of the thoracic aorta. IMPRESSION: Compared to the prior study of 12/03/2019, the dense right base infiltrate is stable. There is increased left base infiltrate. Electronically Signed by Eric Cordova MD 01/09/2020 09:31 A
[2020-01-08] MEDS ORDERED: ALBUTEROL SULFATE 2.5 MG/0.5 ML INH NEB SOLN INH PRN (16:45)
[2020-01-08] MEDS ORDERED: VANCOMYCIN HCL 680 MG in IV FLUID PLACE HOLDER 1 EA IV SCH (16:45)
[2020-01-08] MEDS ORDERED: CEFEPIME HCL 2 GM in D5W 50 ML IV SCH (16:45)
[2020-01-08] MEDS ORDERED: CEFEPIME 1GM VIAL (MAXIPIME) (J0692 PER 500MG) IV SCH (17:00)
[2020-01-08 17:03] LABS: FERRITIN 35 NG/ML (8-252); LDH LACTATE DEHYDROGENASE 156 U/L (84-246)
[2020-01-08] MEDS: NS 1,000 ML IV SCH (17:39)
[2020-01-08 18:00] VITALS: BP 109/62
[2020-01-08 18:24] LABS: GLUCOSE, URINE (UA) MANUAL OBSCURED mg/dL (NEGATIVE)
[2020-01-08 18:25] LABS: BILIRUBIN, URINE MANUAL OBSCURED (NEGATIVE); KETONE, URINE MANUAL OBSCURED mg/dL (NEGATIVE); UROBILINOGEN, URINE MANUAL OBSCURED mg/dl (NORMAL)
[2020-01-08 18:54] LABS: SQUAMOUS EPITHELIAL CELL URINE MOD AMOUNT /hpf (SMALL AMT)
[2020-01-08 18:55] LABS: BACTERIA, URINE SMALL AMOUNT; CALCIUM OXALATE CRYSTALS,URINE MOD AMOUNT /hpf; MUCUS, URINE MOD AMOUNT (NEGATIVE); TRANSITIONAL EPI CELLS, URINE SMALL AMOUNT /hpf
[2020-01-08] MEDS: IPRATROPIUM 0.5MG/ALBUTEROL 2.5MG INH SOL UD 3ML (DUONEB)(J7620) INH SCH (19:45)
[2020-01-08] MEDS ORDERED: VANCOMYCIN HCL 1,000 MG, VIAL MATE ADAPTER 1 EACH in D5W 250 ML IV ONE (20:00)
[2020-01-08] MEDS: AMIODARONE 200 MG TAB (PACERONE) PO SCH (20:37)
[2020-01-08] MEDS: POTASSIUM CHLORIDE 10 MEQ SR TABLET PO SCH (20:37)
[2020-01-08 20:43] LABS: INR 1.4; PROTHROMBIN TIME 16.9 SECONDS (11.8-14.0)
[2020-01-08 22:00] VITALS: BP 109/62
[2020-01-08] MEDS: CEFEPIME HCL 1 GM in D5W MINI-BAG PLUS 50 ML IV SCH (22:16)
[2020-01-09] MEDS: IPRATROPIUM 0.5MG/ALBUTEROL 2.5MG INH SOL UD 3ML (DUONEB)(J7620) INH SCH ×5 (03:12→19:25)
[2020-01-09] MEDS: ONDANSETRON 4MG/2ML VIAL (J2405) IV PRN (04:41)
[2020-01-09 06:00] VITALS: BP 100/56
[2020-01-09 06:45] LABS: HEMATOCRIT 36.7 % (36.0-47.0); HEMOGLOBIN 11.5 g/dl (12.0-15.5); MEAN CORPUSCULAR HEMOGLOBIN 25.6 pg (27.0-33.0); MEAN CORPUSCULAR HGB CONC 31.3 g/dl (32.0-36.5); MEAN CORPUSCULAR VOLUME 81.7 fl (80.0-96.0); PLATELET COUNT, AUTOMATED 236 10^3/uL (150-450); RED BLOOD COUNT 4.49 10^6/uL (4.00-5.40); WHITE BLOOD COUNT 9.3 10^3/uL (4.0-10.0)
[2020-01-09 07:24] LABS: ALBUMIN 2.6 GM/DL (3.2-5.2); ALT/SGPT 14 U/L (12-78); BILIRUBIN,TOTAL 0.6 MG/DL (0.2-1.0); BLOOD UREA NITROGEN 12 MG/DL (7-18); CALCIUM LEVEL 9.3 MG/DL (8.8-10.2); CARBON DIOXIDE LEVEL 27 MEQ/L (21-32); CHLORIDE LEVEL 105 MEQ/L (98-107); CREATININE FOR GFR 0.56 MG/DL (0.55-1.30); GLOMERULAR FILTRATION RATE > 60.0 (>32); GLUCOSE, FASTING 82 MG/DL (70-100); POTASSIUM SERUM 4.1 MEQ/L (3.5-5.1); SODIUM LEVEL 138 MEQ/L (136-145); TOTAL PROTEIN 6.5 GM/DL (6.4-8.2)
[2020-01-09] MEDS: POTASSIUM CHLORIDE 10 MEQ SR TABLET PO SCH ×2 (09:07→21:35)
[2020-01-09] MEDS: ENOXAPARIN 30MG/0.3ML SYRINGE (J1650 PER 10MG) SC SCH (09:07)
[2020-01-09] MEDS: CEFEPIME HCL 1 GM in D5W MINI-BAG PLUS 50 ML IV SCH ×2 (09:08→21:35)
[2020-01-09] MEDS: NS 1,000 ML IV SCH (12:17)
--- NOTE | 2020-01-09 12:26 | ECGEPIP ---
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
[2020-01-09 13:40] VITALS: BP 105/53
[2020-01-09 14:00] VITALS: BP 105/53
[2020-01-09] MEDS: POLYVINYL ALCOHOL OPHTH SOLN 15 ML(LIQUITEARS) OU SCH (16:52)
[2020-01-09] MEDS ORDERED: VANCOMYCIN HCL 500 MG in D5W MINI-BAG PLUS 100 ML IV SCH (18:00)
--- NOTE | 2020-01-09 20:40 | IPNPDOC ---
Date Seen The patient was seen on 01/09/20. Progress Note SUBJECTIVE: No complaints overnight. On RA, tolerating IV abx well. Patient has been unable to provide sputum cx. Denies increased SOB, chest pain, fevers or chills. OBJECTIVE: VITAL SIGNS: Please see below PHYSICAL EXAMINATION: CONSTITUTIONAL: No acute distress, AAO x 3 EYES: PERRLA, EOM intact HENT, MOUTH: Normocephalic, atraumatic, moist mucous membranes, NECK: SUPPLE, no JVD, no lymphadenopathy, no carotid bruit CV: Regular rate and rhythm, S1S2 normal, no murmurs/rubs/gallops RESPIRATORY: Decreased crackles in right middle lung, left lower lung base. NO no rales/rhonchi/wheezes GI: BS positive in 4 quadrants, soft, nontender, nondistended, no rebound or guarding, no organomegaly : Deferred MUSCULOSKELETAL: No cyanosis, clubbing, swelling, joint deformity, extremity ed jeanie INTEGUMENTARY: Intact, no rashes, no lesions, no erythema NEUROLOGIC: Cranial Nerves II-XII are intact, no focal deficits PSYCHIATRIC: Mood and affect are normal LABORATORY DATA: Please see below IMAGING: None ASSESSMENT: 89-year-old female admitted for healthcare associated pneumonia, dizziness, unsteadiness on her feet. PLAN: 1. Healthcare associated pneumonia. Saturating well on RA. Cannot provide sputum cx as of today. Day 2 of vancomycin, cefepime. BCx NG at 24 hours, resp panel neg. F/u Legionella testing, daily labs. Will need 7 day treatment. 2. Acute on chronic diarrhea. History of IBS and colon cancer. Improved today. GI panel neg. Can consider Lomotil PRN. 3. Unsteadiness, acute. Dizziness resolved. C/w PT/OT. 4. Hypertension. Stable. 5. Atrial fibrillation, not on chronic anticoagulation due to risk of hemorrhage. Currently controlled. Continue amiodarone. 6. Stage IV metastatic colorectal carcinoma. Patient to follow-up with hematology/oncology after discharge. 7. Waldenstrm's macroglobulinemia. Stable. Follow up with specialist after discharge. 8. DVT prophylaxis. Enoxaparin 30 mg subcutaneous daily. DISPOSITION: Patient is currently admitted under inpatient status. Plan is hopefully discharge home when medically stable. VS, I&O, 24H, Fishbone Vital Signs/I&O Vital Signs Date Time Temp Pulse Resp B/P (MAP) Pulse Ox O2 Delivery O2 Flow Rate FiO2 01/09/20 14:00 98.2 83 16 105/53 (70) 96 Room Air I&O- Last 24 Hours up to 6 AM 01/09/20 06:00 Intake Total 1535 ml Output Total 350 ml Balance 1185 ml Laboratory Data 24H LABS Laboratory Tests 2 01/09/20 06:29: Nucleated Red Blood Cells % (auto) 0.0, Anion Gap 6L, Glomerular Filtration Rate > 60.0, Calcium Level 9.3, Total Bilirubin 0.6, Aspartate Amino Transf (AST/SGOT) 15, Alanine Aminotransferase (ALT/SGPT) 14, Alkaline Phosphatase 128H, Total Protein 6.5, Albumin 2.6L, Albumin/Globulin Ratio 0.67L 01/09/20 09:23: Methicillin-Resist S.aureus DNA PCR NOT DETECTED CBC/BMP Laboratory Tests 01/09/20 06:29 Microbiology Microbiology 01/08/20 Gastrointestinal Tract Panel (PCR) - Final, Complete 01/08/20 Respiratory Virus Panel (PCR) (STEPHANIE) - Final, Complete 01/08/20 Urine Culture - Final, Complete 01/08/20 Blood Culture - Preliminary, Resulted No growth after 24 hours . All specim... 01/08/20 Blood Culture - Preliminary, Resulted No growth after 24 hours . All specim... Current Medications Current Medications Medications (Trade) Dose Ordered Sig/Breanna Route PRN Reason Start Time Stop Time Status Last Admin Dose Admin Acetaminophen (Tylenol Tab) 650 mg Q6HP PRN PO PAIN / FEVER 01/08/20 16:45 Albuterol Sulfate (Proventil Neb) 2.5 mg Q4H PRN INH WHEEZING 01/08/20 16:45 Albuterol/ Ipratropium (Duoneb (Ipr 0.5mg/Alb 2.5mg)) 3 ml RQ4H INH 01/08/20 20:00 01/09/20 19:25 Amiodarone HCl (Pacerone, Cordarone) 200 mg MoTuWeThFr@2100 PO 01/08/20 21:00 01/08/20 20:37 Artificial Tears (Akwa Tears) 2 drop DAILY OU 01/09/20 09:00 01/09/20 16:52 Cefepime HCl (Maxipime) 1 gm Q12H IV 01/08/20 17:00 01/08/20 19:56 DC 01/08/20 17:39 Cefepime HCl 1 gm/ Dextrose 50 ml @ 100 mls/hr Q12H IV 01/08/20 21:00 01/09/20 09:08 Cefepime HCl 2 gm/ Dextrose 50 ml @ 100 mls/hr Q8H IV 01/08/20 16:45 01/08/20 16:59 DC Enoxaparin Sodium (Lovenox) 30 mg DAILY SC 01/09/20 09:00 01/09/20 09:07 Home Med (Med Rec Complete!) ASDIRECTED XX 01/08/20 15:30 01/08/20 15:31 DC Ondansetron HCl (ZOFRAN INJection) 4 mg Q6HP PRN IV NAUSEA OR VOMITING 01/09/20 04:30 01/09/20 04:41 Potassium Chloride (Micro-K Extencaps) 20 meq BID PO 01/08/20 21:00 01/09/20 09:07 Sodium Chloride 1,000 ml @ 60 mls/hr [id number] IV 01/08/20 16:45 01/09/20 12:17 Vancomycin HCl 500 mg/Dextrose 110 ml @ 110 mls/hr Q24H IV 01/09/20 18:00 01/09/20 18:08 Vancomycin HCl 680 mg/IV Miscellaneous Supplies 13.6 ml @ 13.6 mls/hr Q12H IV 01/08/20 16:45 01/08/20 18:47 DC Allergies Coded Allergies: Penicillins (Verified Allergy, Mild, Rash, 01/08/20) latex (Verified Allergy, Mild, REDNESS AND ITCHING FROM SOCKS AND UNDERWEAR, 11/21/19) nitroglycerin (Verified Adverse Reaction, Intermediate, PT REFUSES- CAUSES EXTREME ANXIETY, FEELING OF DOOM, INC BP, 11/21/19) levofloxacin (Verified Adverse Reaction, Mild, 01/08/20) nitrofurantoin (Verified Adverse Reaction, Mild, Vomiting, Diarrhea, 11/21/19) Silvia Field MD Jan 09, 2020 20:40
[2020-01-09] MEDS: AMIODARONE 200 MG TAB (PACERONE) PO SCH (21:35)
[2020-01-09 22:00] VITALS: BP 114/63
[2020-01-10] MEDS: ACETAMINOPHEN TAB 650MG DOSE (2X325MG) PO PRN (02:55)
[2020-01-10] MEDS: IPRATROPIUM 0.5MG/ALBUTEROL 2.5MG INH SOL UD 3ML (DUONEB)(J7620) INH SCH ×6 (03:11→20:20)
[2020-01-10] MEDS: PHENAZOPYRIDINE 100 MG TAB PO SCH ×4 (04:39→20:04)
[2020-01-10] MEDS: NS 1,000 ML IV SCH ×2 (04:39→18:45)
[2020-01-10 05:47] LABS: HEMATOCRIT 35.2 % (36.0-47.0); HEMOGLOBIN 10.7 g/dl (12.0-15.5); MEAN CORPUSCULAR HEMOGLOBIN 25.2 pg (27.0-33.0); MEAN CORPUSCULAR HGB CONC 30.4 g/dl (32.0-36.5); PLATELET COUNT, AUTOMATED 228 10^3/uL (150-450); RED BLOOD COUNT 4.24 10^6/uL (4.00-5.40); WHITE BLOOD COUNT 8.6 10^3/uL (4.0-10.0)
[2020-01-10 06:00] VITALS: BP 105/55
[2020-01-10 06:11] LABS: ALBUMIN 2.3 GM/DL (3.2-5.2); ALT/SGPT 16 U/L (12-78); BILIRUBIN,TOTAL 0.4 MG/DL (0.2-1.0); BLOOD UREA NITROGEN 11 MG/DL (7-18); CALCIUM LEVEL 8.6 MG/DL (8.8-10.2); CARBON DIOXIDE LEVEL 27 MEQ/L (21-32); CHLORIDE LEVEL 108 MEQ/L (98-107); CREATININE FOR GFR 0.56 MG/DL (0.55-1.30); GLOMERULAR FILTRATION RATE > 60.0 (>32); GLUCOSE, FASTING 92 MG/DL (70-100); POTASSIUM SERUM 3.7 MEQ/L (3.5-5.1); SODIUM LEVEL 139 MEQ/L (136-145); TOTAL PROTEIN 6.6 GM/DL (6.4-8.2)
[2020-01-10] MEDS: POTASSIUM CHLORIDE 10 MEQ SR TABLET PO SCH ×2 (09:09→20:04)
[2020-01-10] MEDS: ENOXAPARIN 30MG/0.3ML SYRINGE (J1650 PER 10MG) SC SCH (09:09)
[2020-01-10] MEDS: CEFEPIME HCL 1 GM in D5W MINI-BAG PLUS 50 ML IV SCH ×2 (09:10→20:04)
[2020-01-10] MEDS: POLYVINYL ALCOHOL OPHTH SOLN 15 ML(LIQUITEARS) OU SCH (09:12)
[2020-01-10 14:00] VITALS: BP 104/52
--- NOTE | 2020-01-10 15:43 | IPNPDOC ---
Date Seen The patient was seen on 01/10/20. Progress Note SUBJECTIVE: No complaints overnight. PT attempted to work with patient on 01/09/20; however, this did not happen. Patient is on RA, stopped Vancomycin as MRSA swab neg. Patient has been unable to provide sputum cx. Denies increased SOB, chest pain, fevers or chills. OBJECTIVE: VITAL SIGNS: Please see below PHYSICAL EXAMINATION: CONSTITUTIONAL: No acute distress, AAO x 3 EYES: PERRLA, EOM intact HENT, MOUTH: Normocephalic, atraumatic, moist mucous membranes, NECK: SUPPLE, no JVD, no lymphadenopathy, no carotid bruit CV: Regular rate and rhythm, S1S2 normal, no murmurs/rubs/gallops RESPIRATORY: Crackles in right middle lung, left lower lung base. NO no rales/rhonchi/wheezes GI: BS positive in 4 quadrants, soft, nontender, nondistended, no rebound or guarding, no organomegaly : Deferred MUSCULOSKELETAL: No cyanosis, clubbing, swelling, joint deformity, extremity edema INTEGUMENTARY: Intact, no rashes, no lesions, no erythema NEUROLOGIC: Cranial Nerves II-XII are intact, no focal deficits PSYCHIATRIC: Mood and affect are normal LABORATORY DATA: Please see below BCx NG at 24 hours, resp panel neg. IMAGING: None ASSESSMENT: 89-year-old female admitted for healthcare associated pneumonia, dizziness, unsteadiness on her feet. PLAN: 1. Healthcare associated pneumonia. Saturating well on RA. Cannot provide sputum cx as of today. Day 3 of cefepime, cannot start levofloxacin due to adverse rxn and MRSA neg so stopped Vancomycin. F/u urine Legionella testing, daily labs. Will need 7 day treatment. 2. Chronic diarrhea. History of IBS and colon cancer. Stable. 3. Unsteadiness, acute. PT attempted to work with patient; however, this did not happen on 01/09/2020. C/w PT/OT. 4. Hypertension. Stable. 5. Atrial fibrillation, not on chronic anticoagulation due to risk of hemorrhage. Currently controlled. Continue amiodarone. 6. Stage IV metastatic colorectal carcinoma. Patient to follow-up with hematology/oncology after discharge. 7. Waldenstrm's macroglobulinemia. Stable. Follow up with specialist after discharge. 8. DVT prophylaxis. Enoxaparin 30 mg subcutaneous daily. DISPOSITION: Patient is currently admitted under inpatient status. Plan is hope fully discharge home when medically stable. VS, I&O, 24H, Fishbone Vital Signs/I&O Vital Signs Date Time Temp Pulse Resp B/P (MAP) Pulse Ox O2 Delivery O2 Flow Rate FiO2 01/10/20 14:00 98.9 69 18 104/52 (69) 94 Room Air I&O- Last 24 Hours up to 6 AM 01/10/20 06:00 Intake Total 2350 ml Output Total 650 ml Balance 1700 ml Laboratory Data 24H LABS Laboratory Tests 2 01/10/20 05:35: Nucleated Red Blood Cells % (auto) 0.0, Anion Gap 4L, Glomerular Filtration Rate > 60.0, Calcium Level 8.6L, Total Bilirubin 0.4, Aspartate Amino Transf (AST/ SGOT) 17, Alanine Aminotransferase (ALT/SGPT) 16, Alkaline Phosphatase 123H, Total Protein 6.6, Albumin 2.3L, Albumin/Globulin Ratio 0.53L CBC/BMP Laboratory Tests 01/10/20 05:35 Microbiology Microbiology 01/08/20 Gastrointestinal Tract Panel (PCR) - Final, Complete 01/08/20 Respiratory Virus Panel (PCR) (STEPHANIE) - Final, Complete 01/08/20 Urine Culture - Final, Complete 01/08/20 Blood Culture - Preliminary, Resulted No Growth after 48 hours. All Specime... 01/08/20 Blood Culture - Preliminary, Resulted No Growth after 48 hours. All Specime... Current Medications Current Medications Medications (Trade) Dose Ordered Sig/Breanna Route PRN Reason Start Time Stop Time Status Last Admin Dose Admin Acetaminophen (Tylenol Tab) 650 mg Q6HP PRN PO PAIN / FEVER 01/08/20 16:45 01/10/20 02:55 Albuterol Sulfate (Proventil Neb) 2.5 mg Q4H PRN INH WHEEZING 01/08/20 16:45 Albuterol/ Ipratropium (Duoneb (Ipr 0.5mg/Alb 2.5mg)) 3 ml RQ4H INH 01/08/20 20:00 01/10/20 15:08 Amiodarone HCl (Pacerone, Cordarone) 200 mg MoTuWeThFr@2100 PO 01/08/20 21:00 01/09/20 21:35 Artificial Tears (Akwa Tears) 2 drop DAILY OU 01/09/20 09:00 01/10/20 09:12 Cefepime HCl (Maxipime) 1 gm Q12H IV 01/08/20 17:00 01/08/20 19:56 DC 01/08/20 17:39 Cefepime HCl 1 gm/ Dextrose 50 ml @ 100 mls/hr Q12H IV 01/08/20 21:00 01/10/20 09:10 Cefepime HCl 2 gm/ Dextrose 50 ml @ 100 mls/hr Q8H IV 01/08/20 16:45 01/08/20 16:59 DC Enoxaparin Sodium (Lovenox) 30 mg DAILY SC 01/09/20 09:00 01/10/20 09:09 Home Med (Med Rec Complete!) ASDIRECTED XX 01/08/20 15:30 01/08/20 15:31 DC Ondansetron HCl (ZOFRAN INJection) 4 mg Q6HP PRN IV NAUSEA OR VOMITING 01/09/20 04:30 01/09/20 04:41 Phenazopyridine HCl (Pyridium) 200 mg TID PO 01/10/20 04:00 01/10/20 09:18 Potassium Chloride (Micro-K Extencaps) 20 meq BID PO 01/08/20 21:00 01/10/20 09:09 Sodium Chloride 1,000 ml @ 60 mls/hr [id number] IV 01/08/20 16:45 01/10/20 04:39 Vancomycin HCl 500 mg/Dextrose 110 ml @ 110 mls/hr Q24H IV 01/09/20 18:00 01/10/20 07:55 DC 01/09/20 18:08 Vancomycin HCl 680 mg/IV Miscellaneous Supplies 13.6 ml @ 13.6 mls/hr Q12H IV 01/08/20 16:45 01/08/20 18:47 DC Allergies Coded Allergies: Penicillins (Verified Allergy, Mild, Rash, 01/08/20) latex (Verified Allergy, Mild, REDNESS AND ITCHING FROM SOCKS AND UNDERWEAR, 11/21/19) nitroglycerin (Verified Adverse Reaction, Intermediate, PT REFUSES- CAUSES EXTREME ANXIETY, FEELING OF DOOM, INC BP, 11/21/19) levofloxacin (Verified Adverse Reaction, Mild, 01/08/20) nitrofurantoin (Verified Adverse Reaction, Mild, Vomiting, Diarrhea, 11/21/19) Silvia Field MD Jan 10, 2020 15:43
[2020-01-10] MEDS: CALCIUM CARBONATE 500 MG CHEW U/D PO PRN (20:04)
[2020-01-10 22:00] VITALS: BP 104/51
[2020-01-11] MEDS: IPRATROPIUM 0.5MG/ALBUTEROL 2.5MG INH SOL UD 3ML (DUONEB)(J7620) INH SCH ×7 (04:00→23:44)
[2020-01-11 06:00] VITALS: BP 100/50
[2020-01-11 06:23] LABS: HEMATOCRIT 31.7 % (36.0-47.0); HEMOGLOBIN 9.8 g/dl (12.0-15.5); MEAN CORPUSCULAR HEMOGLOBIN 25.7 pg (27.0-33.0); MEAN CORPUSCULAR HGB CONC 30.9 g/dl (32.0-36.5); PLATELET COUNT, AUTOMATED 218 10^3/uL (150-450); RED BLOOD COUNT 3.82 10^6/uL (4.00-5.40); WHITE BLOOD COUNT 7.7 10^3/uL (4.0-10.0)
[2020-01-11 06:46] LABS: ALBUMIN 2.1 GM/DL (3.2-5.2); ALT/SGPT 12 U/L (12-78); BILIRUBIN,TOTAL 0.3 MG/DL (0.2-1.0); BLOOD UREA NITROGEN 5 MG/DL (7-18); CALCIUM LEVEL 8.2 MG/DL (8.8-10.2); CARBON DIOXIDE LEVEL 24 MEQ/L (21-32); CHLORIDE LEVEL 110 MEQ/L (98-107); CREATININE FOR GFR 0.38 MG/DL (0.55-1.30); GLOMERULAR FILTRATION RATE > 60.0 (>32); GLUCOSE, FASTING 77 MG/DL (70-100); POTASSIUM SERUM 3.5 MEQ/L (3.5-5.1); SODIUM LEVEL 140 MEQ/L (136-145); TOTAL PROTEIN 5.9 GM/DL (6.4-8.2)
[2020-01-11] MEDS: PHENAZOPYRIDINE 100 MG TAB PO SCH ×3 (10:03→21:45)
[2020-01-11] MEDS: CEFEPIME HCL 1 GM in D5W MINI-BAG PLUS 50 ML IV SCH ×2 (10:03→21:39)
[2020-01-11] MEDS: ENOXAPARIN 30MG/0.3ML SYRINGE (J1650 PER 10MG) SC SCH (10:03)
[2020-01-11] MEDS: POTASSIUM CHLORIDE 10 MEQ SR TABLET PO SCH ×2 (10:04→21:45)
[2020-01-11] MEDS: POLYVINYL ALCOHOL OPHTH SOLN 15 ML(LIQUITEARS) OU SCH (10:19)
[2020-01-11 10:43] LABS: APPEARANCE, URINE MANUAL HAZY (CLEAR); COLOR, URINE MANUAL ORANGE (YELLOW); PH,URINE MAN OBSCURED UNITS (5.0 - 7.0); SPECIFIC GRAVITY,URINE MANUAL 1.015 (1.002-1.035)
[2020-01-11 10:44] LABS: BILIRUBIN, URINE MANUAL OBSCURED (NEGATIVE); BLOOD URINE MANUAL OBSCURED (NEGATIVE); GLUCOSE, URINE (UA) MANUAL OBSCURED mg/dL (NEGATIVE); KETONE, URINE MANUAL OBSCURED mg/dL (NEGATIVE); LEUKOCYTE ESTERASE, URINE MAN OBSCURED (NEGATIVE); NITRITE, URINE MANUAL OBSCURED (NEGATIVE); PROTEIN, URINE MANUAL OBSCURED mg/dL (NEGATIVE); UROBILINOGEN, URINE MANUAL OBSCURED mg/dl (NORMAL)
[2020-01-11 10:57] LABS: BACTERIA, URINE SMALL AMOUNT; SQUAMOUS EPITHELIAL CELL URINE SMALL AMOUNT /hpf (SMALL AMT)
[2020-01-11 10:58] LABS: AMORPHOUS SEDIMENT, URINE SMALL AMOUNT (NEGATIVE); RED BLOOD CELL CAST, URINE 0-1 /lpf
[2020-01-11] MEDS ORDERED: FLUCONAZOLE 50MG TABLET PO ONE (11:00)
[2020-01-11] MEDS: NS 1,000 ML IV SCH (11:26)
--- NOTE | 2020-01-11 13:52 | IPNPDOC ---
Date Seen The patient was seen on 01/11/20. Progress Note SUBJECTIVE: Nauseous this AM after eating breakfast. PT/OT to assess on 01/12/20, lives independently. Patient is on RA saturating well. Patient has been unable to provide sputum cx. Denies increased SOB, chest pain, fevers or chills. OBJECTIVE: VITAL SIGNS: Please see below PHYSICAL EXAMINATION: CONSTITUTIONAL: No acute distress, AAO x 3 EYES: PERRLA, EOM intact HENT, MOUTH: Normocephalic, atraumatic, moist mucous membranes, NECK: SUPPLE, no JVD, no lymphadenopathy, no carotid bruit CV: Regular rate and rhythm, S1S2 normal, no murmurs/rubs/gallops RESPIRATORY: improved crackles in right middle lung, left lower lung base. NO no rales/rhonchi/wheezes GI: BS positive in 4 quadrants, soft, nontender, nondistended, no rebound or guarding, no organomegaly : Deferred MUSCULOSKELETAL: No cyanosis, clubbing, swelling, joint deformity, extremity edema INTEGUMENTARY: Intact, no rashes, no lesions, no erythema NEUROLOGIC: Cranial Nerves II-XII are intact, no focal deficits PSYCHIATRIC: Mood and affect are normal LABORATORY DATA: Please see below BCx NG at 24 hours, resp panel neg. IMAGING: None ASSESSMENT: 89-year-old female admitted for healthcare associated pneumonia, dizziness, unsteadiness on her feet. PLAN: 1. Healthcare associated pneumonia. Saturating well on RA. Cannot provide sputum cx as of today. Day 4 of cefepime, cannot start levofloxacin due to adverse rxn and MRSA neg so stopped Vancomycin. F/u urine Legionella testing, daily labs. Will need 7 day treatment. 2. Unsteadiness, acute. PT attempted to work with patient; however, this did not happen on 01/09/2020. C/w PT/OT on 01/12/20. 3. Nausea. No new meds. zofran PRN. 4. Chronic diarrhea. History of IBS and colon cancer. No diarrhea currently. 5. Hypertension. Stable. 6. Atrial fibrillation, not on chronic anticoagulation due to risk of hemorrhage. Currently controlled. Continue amiodarone. 7. Stage IV metastatic colorectal carcinoma. Patient to follow-up with hematology/oncology after discharge. 8. Waldenstrm's macroglobulinemia. Stable. Follow up with specialist after discharge. 9. DVT prophylaxis. Enoxaparin 30 mg subcutaneous daily. DISPOSITION: Patient is currently admitted under inpatient status. Plan is hopefully discharge home when medically stable. VS, I&O, 24H, Fishbone Vital Signs/I&O Vital Signs Date Time Temp Pulse Resp B/P (MAP) Pulse Ox O2 Delivery O2 Flow Rate FiO2 01/11/20 06:00 98.3 57 19 100/50 (67) 92 Room Air I&O- Last 24 Hours up to 6 AM 01/11/20 05:59 Intake Total 3090 ml Output Total 250 ml Balance 2840 ml Laboratory Data 24H LABS Laboratory Tests 2 01/11/20 05:52: Nucleated Red Blood Cells % (auto) 0.0, Anion Gap 6L, Glomerular Filtration Rate > 60.0, Calcium Level 8.2L, Total Bilirubin 0.3, Aspartate Amino Transf (AST/SGOT) 15, Alanine Aminotransferase (ALT/SGPT) 12, Alkaline Phosphatase 110, Total Protein 5.9L, Albumin 2.1L, Albumin/Globulin Ratio 0.55L 01/11/20 10:21: Bedside Urine Color (LAB) ORANGEH, Bedside Urine Appearance (LAB) HAZYH, Bedside Urine pH (LAB) OBSCUREDH, Bedside Urine Specific [place] (LAB 1.015, Bedside Urine Protein (LAB) OBSCUREDH, Bedside Urine Glucose (UA) OBSCUREDH, Bedside Urine Ketones (LAB) OBSCUREDH, Bedside Urine Blood OBSCUREDH, Bedside Urine Nitrite (LAB) OBSCUREDH, Bedside Urine Bilirubin (LAB) OBSCUREDH, Bedside Urine Urobilinogen (LAB) OBSCUREDH, Bedside Urine Leukocyte Esterase (L OBSCUREDH, Urine Sediment Examination PERFORMED, Urine RBC 1-3, Urine WBC 1-3, Urine Squamous Epithelial Cells SMALL AMOUNT, Urine Amorphous Sediment SMALL AMOUNTH, Urine Bacteria SMALL AMOUNTH, Urine Hyaline Casts 1-3H, Urine Granular Casts , Urine Red Blood Cell Casts 0-1 CBC/BMP Laboratory Tests 01/11/20 05:52 Microbiology Microbiology 01/08/20 Gastrointestinal Tract Panel (PCR) - Final, Complete 01/08/20 Respiratory Virus Panel (PCR) (STEPHANIE) - Final, Complete 01/08/20 Urine Culture - Final, Complete 01/08/20 Blood Culture - Preliminary, Resulted No Growth after 48 hours. All Specime... 01/08/20 Blood Culture - Preliminary, Resulted No Growth after 48 hours. All Specime... Current Medications Current Medications Medications (Trade) Dose Ordered Sig/Breanna Route PRN Reason Start Time Stop Time Status Last Admin Dose Admin Acetaminophen (Tylenol Tab) 650 mg Q6HP PRN PO PAIN / FEVER 01/08/20 16:45 01/10/20 02:55 Albuterol Sulfate (Proventil Neb) 2.5 mg Q4H PRN INH WHEEZING 01/08/20 16:45 Albuterol/ Ipratropium (Duoneb (Ipr 0.5mg/Alb 2.5mg)) 3 ml RQ4H INH 01/08/20 20:00 01/11/20 11:20 Amiodarone HCl (Pacerone, Cordarone) 200 mg MoTuWeThFr@2100 PO 01/08/20 21:00 01/09/20 21:35 Artificial Tears (Akwa Tears) 2 drop DAILY OU 01/09/20 09:00 01/11/20 10:19 Calcium Carbonate (Tums) 500 mg BID PRN PO INDIGESTION 01/10/20 19:45 01/10/20 20:04 Cefepime HCl (Maxipime) 1 gm Q12H IV 01/08/20 17:00 01/08/20 19:56 DC 01/08/20 17:39 Cefepime HCl 1 gm/ Dextrose 50 ml @ 100 mls/hr Q12H IV 01/08/20 21:00 01/11/20 10:03 Cefepime HCl 2 gm/ Dextrose 50 ml @ 100 mls/hr Q8H IV 01/08/20 16:45 01/08/20 16:59 DC Enoxaparin Sodium (Lovenox) 30 mg DAILY SC 01/09/20 09:00 01/11/20 10:03 Home Med (Med Rec Complete!) ASDIRECTED XX 01/08/20 15:30 01/08/20 15:31 DC Ondansetron HCl (ZOFRAN INJection) 4 mg Q6HP PRN IV NAUSEA OR VOMITING 01/09/20 04:30 01/09/20 04:41 Phenazopyridine HCl (Pyridium) 200 mg TID PO 01/10/20 04:00 01/11/20 10:03 Potassium Chloride (Micro-K Extencaps) 20 meq BID PO 4/9/20 21:00 01/11/20 10:04 Sodium Chloride 1,000 ml @ 60 mls/hr [id number] IV 01/08/20 16:45 01/11/20 11:26 Vancomycin HCl 500 mg/Dextrose 110 ml @ 110 mls/hr Q24H IV 01/09/20 18:00 01/10/20 07:55 DC 01/09/20 18:08 Vancomycin HCl 680 mg/IV Miscellaneous Supplies 13.6 ml @ 13.6 mls/hr Q12H IV 01/08/20 16:45 01/08/20 18:47 DC Allergies Coded Allergies: Penicillins (Verified Allergy, Mild, Rash, 01/08/20) latex (Verified Allergy, Mild, REDNESS AND ITCHING FROM SOCKS AND UNDERWEAR, 11/21/19) nitroglycerin (Verified Adverse Reaction, Intermediate, PT REFUSES- CAUSES EXTREME ANXIETY, FEELING OF DOOM, INC BP, 11/21/19) levofloxacin (Verified Adverse Reaction, Mild, 01/08/20) nitrofurantoin (Verified Adverse Reaction, Mild, Vomiting, Diarrhea, 11/21/19) Silvia Field MD Jan 11, 2020 13:52
[2020-01-11 14:00] VITALS: BP 108/91
[2020-01-11] MEDS: CALCIUM CARBONATE 500 MG CHEW U/D PO PRN (14:35)
[2020-01-11 22:00] VITALS: BP 106/48
[2020-01-12] MEDS: NS 1,000 ML IV SCH ×2 (02:30→20:59)
[2020-01-12] MEDS: IPRATROPIUM 0.5MG/ALBUTEROL 2.5MG INH SOL UD 3ML (DUONEB)(J7620) INH SCH ×5 (04:00→19:18)
[2020-01-12 05:35] LABS: HEMATOCRIT 31.5 % (36.0-47.0); HEMOGLOBIN 9.8 g/dl (12.0-15.5); MEAN CORPUSCULAR HEMOGLOBIN 25.4 pg (27.0-33.0); MEAN CORPUSCULAR HGB CONC 31.1 g/dl (32.0-36.5); MEAN CORPUSCULAR VOLUME 81.6 fl (80.0-96.0); PLATELET COUNT, AUTOMATED 222 10^3/uL (150-450); RED BLOOD COUNT 3.86 10^6/uL (4.00-5.40); WHITE BLOOD COUNT 7.7 10^3/uL (4.0-10.0)
[2020-01-12 06:00] VITALS: BP 108/58
[2020-01-12 06:04] LABS: ALBUMIN 2.1 GM/DL (3.2-5.2); ALT/SGPT 12 U/L (12-78); BILIRUBIN,TOTAL 0.4 MG/DL (0.2-1.0); BLOOD UREA NITROGEN 5 MG/DL (7-18); CALCIUM LEVEL 8.3 MG/DL (8.8-10.2); CARBON DIOXIDE LEVEL 25 MEQ/L (21-32); CHLORIDE LEVEL 107 MEQ/L (98-107); CREATININE FOR GFR 0.39 MG/DL (0.55-1.30); GLOMERULAR FILTRATION RATE > 60.0 (>32); GLUCOSE, FASTING 75 MG/DL (70-100); POTASSIUM SERUM 3.3 MEQ/L (3.5-5.1); SODIUM LEVEL 137 MEQ/L (136-145); TOTAL PROTEIN 5.9 GM/DL (6.4-8.2)
[2020-01-12] MEDS ORDERED: LevoFLOXacin 750 MG TABLET PO SCH ×2 (09:00)
[2020-01-12] MEDS: CEFEPIME HCL 1 GM in D5W MINI-BAG PLUS 50 ML IV SCH ×2 (09:30→20:24)
[2020-01-12] MEDS: POTASSIUM CHLORIDE 10 MEQ SR TABLET PO SCH ×2 (09:31→20:24)
[2020-01-12] MEDS: ENOXAPARIN 30MG/0.3ML SYRINGE (J1650 PER 10MG) SC SCH (09:31)
[2020-01-12] MEDS: PHENAZOPYRIDINE 100 MG TAB PO SCH ×3 (10:57→20:24)
[2020-01-12] MEDS: POLYVINYL ALCOHOL OPHTH SOLN 15 ML(LIQUITEARS) OU SCH (10:58)
--- NOTE | 2020-01-12 11:14 | REP ---
RIGHT SHOULDER, FOUR VIEWS: Four views of the right shoulder are performed. No fracture is seen. Humerus is high riding and abuts the acromion consistent with a complete tear of the supraspinatus tendon. There is moderate joint space narrowing with subchondral sclerosis and spurring at the glenohumeral joint. There is mild to moderate narrowing and spurring at the acromioclavicular joint. IMPRESSION: Degenerative changes. High riding humeral head, which abuts the acromion, consistent with a complete tear of the supraspinatus tendon. Electronically Signed by Eric Cordova MD 01/12/2020 12:56 P
[2020-01-12 14:00] VITALS: BP 114/56
[2020-01-12] MEDS: CALCIUM CARBONATE 500 MG CHEW U/D PO PRN (20:24)
[2020-01-12] MEDS: AMIODARONE 200 MG TAB (PACERONE) PO SCH (20:24)
[2020-01-12] MEDS: ACETAMINOPHEN TAB 650MG DOSE (2X325MG) PO PRN (20:24)
[2020-01-12 22:00] VITALS: BP 103/59
--- NOTE | 2020-01-12 23:08 | IPNPDOC ---
Date Seen The patient was seen on 01/12/20. Progress Note SUBJECTIVE: Noticed right shoulder swelling with a "ring" like redness around shoulder joint. Joint also appeared swollen. Ordered shoulder XR to further evaluate. Decreased dysuria today, no nausea. PT/OT cleared to go home when medically improved. Adding PO levofloxacin to see how she tolerates, as some people who have adverse rxns to IV levo tolerated PO fine. Denies increased SOB, chest pain, fevers or chills. OBJECTIVE: VITAL SIGNS: Please see below PHYSICAL EXAMINATION: CONSTITUTIONAL: No acute distress, AAO x 3 EYES: PERRLA, EOM intact HENT, MOUTH: Normocephalic, atraumatic, moist mucous membranes, NECK: SUPPLE, no JVD, no lymphadenopathy, no carotid bruit CV: Regular rate and rhythm, S1S2 normal, no murmurs/rubs/gallops RESPIRATORY: improved crackles in right middle lung, left lower lung base. NO no rales/rhonchi/wheezes GI: thin abdomen, BS positive in 4 quadrants, soft, nontender, nondistended, no rebound or guarding, no organomegaly : decreased vulvar redness MUSCULOSKELETAL: Right shoulder swelling with red "ring" around joint and some redness in center of swelling. Decreased ROM of right shoulder. No cyanosis, clubbing, obvious joint deformity INTEGUMENTARY: Right around right shoulder joint is not tender, scaling, raised. Skin is Intact, no rashes, no lesions NEUROLOGIC: Cranial Nerves II-XII are intact, no focal deficits PSYCHIATRIC: Mood and affect are normal LABORATORY DATA: Please see below BCx NG at 24 hours, resp panel neg. IMAGING: None ASSESSMENT: 89-year-old female admitted for healthcare associated pneumonia, unsteadiness improving. PLAN: 1. Healthcare associated pneumonia. Saturating well on RA. Cannot provide sputum cx as of today. Day 5 of cefepime, started PO levofloxacin today to see how tolerates. If tolerates can send home on 01/13/20 with this med. Will need to complete7 day treatment. 2. Unsteadiness, acute. Improved. Per PT notes, pt demonstrates functional mobility necessary for safe d/c home with services once medically cleared. 3. Right shoulder swelling. Red "ring" around joint. Possibly old injury with prior bleeding? Not dermatological. Denies pain. F/u XR of right shoulder. 4. Dysuria, vulvar pain with redness likely due to yeast infection. On abx. Treated with diflucan 150 mg x 1 dose. Improving 5. Chronic diarrhea. History of IBS and colon cancer. No diarrhea currently. 6. Hypertension. Stable. 7. Atrial fibrillation, not on chronic anticoagulation due to risk of hemorrhage. Currently controlled. Continue amiodarone. 8. Stage IV metastatic colorectal carcinoma. Patient to follow-up with hematology/oncology after discharge. 9. Waldenstrm's macroglobulinemia. Stable. Follow up with specialist after discharge. 10. DVT prophylaxis. Enoxaparin 30 mg subcutaneous daily. DISPOSITION: Patient is currently admitted under inpatient status. Plan is hopefully discharge home within next 24-48 hrs. VS, I&O, 24H, Fishbone Vital Signs/I&O Vital Signs Date Time Temp Pulse Resp B/P (MAP) Pulse Ox O2 Delivery O2 Flow Rate FiO2 01/12/20 14:00 98.8 75 16 114/56 (75) 95 Room Air I&O- Last 24 Hours up to 6 AM 01/12/20 06:00 Intake Total 2937 ml Output Total 680 ml Balance 2257 ml Laboratory Data 24H LABS Laboratory Tests 2 01/12/20 05:23: Nucleated Red Blood Cells % (auto) 0.0, Anion Gap 5L, Glomerular Filtration Rate > 60.0, Calcium Level 8.3L, Total Bilirubin 0.4, Aspartate Amino Transf (AST/SGOT) 14, Alanine Aminotransferase (ALT/SGPT) 12, Alkaline Phosphatase 109, Total Protein 5.9L, Albumin 2.1L, Albumin/Globulin Ratio 0.55L CBC/BMP Laboratory Tests 01/12/20 05:23 Microbiology Microbiology 01/08/20 Gastrointestinal Tract Panel (PCR) - Final, Complete 01/08/20 Respiratory Virus Panel (PCR) (STEPHANIE) - Final, Complete 01/08/20 Urine Culture - Final, Complete 01/08/20 Blood Culture - Preliminary, Resulted No Growth after 72 hours. All specime... 01/08/20 Blood Culture - Preliminary, Resulted No Growth after 72 hours. All specime... Current Medications Current Medications Medications (Trade) Dose Ordered Sig/Breanna Route PRN Reason Start Time Stop Time Status Last Admin Dose Admin Acetaminophen (Tylenol Tab) 650 mg Q6HP PRN PO PAIN / FEVER 01/08/20 16:45 01/12/20 20:24 Albuterol Sulfate (Proventil Neb) 2.5 mg Q4H PRN INH WHEEZING 01/08/20 16:45 Albuterol/ Ipratropium (Duoneb (Ipr 0.5mg/Alb 2.5mg)) 3 ml RQ4H INH 01/08/20 20:00 01/12/20 19:18 Amiodarone HCl (Pacerone, Cordarone) 200 mg MoTuWeThFr@2100 PO 01/08/20 21:00 01/12/20 20:24 Artificial Tears (Akwa Tears) 2 drop DAILY OU 01/09/20 09:00 01/12/20 10:58 Calcium Carbonate (Tums) 500 mg BID PRN PO INDIGESTION 01/10/20 19:45 01/12/20 20:24 Cefepime HCl (Maxipime) 1 gm Q12H IV 01/08/20 17:00 01/08/20 19:56 DC 01/08/20 17:39 Cefepime HCl 1 gm/ Dextrose 50 ml @ 100 mls/hr Q12H IV 01/08/20 21:00 01/12/20 20:24 Cefepime HCl 2 gm/ Dextrose 50 ml @ 100 mls/hr Q8H IV 01/08/20 16:45 01/08/20 16:59 DC Enoxaparin Sodium (Lovenox) 30 mg DAILY SC 01/09/20 09:00 01/12/20 09:31 Home Med (Med Rec Complete!) ASDIRECTED XX 01/08/20 15:30 01/08/20 15:31 DC Levofloxacin (Levaquin) 750 mg DAILY@06 PO 01/12/20 09:00 01/12/20 08:36 DC Levofloxacin (Levaquin) 750 mg Q2D@0600 PO 01/12/20 09:00 01/12/20 09:35 Ondansetron HCl (ZOFRAN INJection) 4 mg Q6HP PRN IV NAUSEA OR VOMITING 01/09/20 04:30 01/09/20 04:41 Phenazopyridine HCl (Pyridium) 200 mg TID PO 01/10/20 04:00 01/12/20 20:24 Potassium Chloride (Micro-K Extencaps) 20 meq BID PO 01/08/20 21:00 01/12/20 20:24 Sodium Chloride 1,000 ml @ 60 mls/hr [id number] IV 01/08/20 16:45 01/12/20 20:59 Vancomycin HCl 500 mg/Dextrose 110 ml @ 110 mls/hr Q24H IV 01/09/20 18:00 01/10/20 07:55 DC 01/09/20 18:08 Vancomycin HCl 680 mg/IV Miscellaneous Supplies 13.6 ml @ 13.6 mls/hr Q12H IV 01/08/20 16:45 01/08/20 18:47 DC Allergies Coded Allergies: Penicillins (Verified Allergy, Mild, Rash, 01/08/20) latex (Verified Allergy, Mild, REDNESS AND ITCHING FROM SOCKS AND UNDERWEAR, 11/21/19) nitroglycerin (Verified Adverse Reaction, Intermediate, PT REFUSES- CAUSES EXTREME ANXIETY, FEELING OF DOOM, INC BP, 11/21/19) levofloxacin (Verified Adverse Reaction, Mild, REDNESS AT INJECTION SITE, 01/12/20) nitrofurantoin (Verified Adverse Reaction, Mild, Vomiting, Diarrhea, 11/21/19) Silvia Field MD Jan 12, 2020 23:08
[2020-01-13] MEDS: IPRATROPIUM 0.5MG/ALBUTEROL 2.5MG INH SOL UD 3ML (DUONEB)(J7620) INH SCH ×4 (04:00→11:40)
[2020-01-13] MEDS: ACETAMINOPHEN TAB 650MG DOSE (2X325MG) PO PRN (04:09)
[2020-01-13] MEDS: ONDANSETRON 4MG/2ML VIAL (J2405) IV PRN (04:11)
[2020-01-13 06:00] VITALS: BP 112/50
[2020-01-13 06:06] LABS: HEMATOCRIT 31.3 % (36.0-47.0); MEAN CORPUSCULAR HEMOGLOBIN 26.1 pg (27.0-33.0); MEAN CORPUSCULAR HGB CONC 31.9 g/dl (32.0-36.5); MEAN CORPUSCULAR VOLUME 81.7 fl (80.0-96.0); PLATELET COUNT, AUTOMATED 230 10^3/uL (150-450); RED BLOOD COUNT 3.83 10^6/uL (4.00-5.40); WHITE BLOOD COUNT 6.8 10^3/uL (4.0-10.0)
[2020-01-13 06:15] LABS: ALBUMIN 2.1 GM/DL (3.2-5.2); ALT/SGPT 13 U/L (12-78); BILIRUBIN,TOTAL 0.6 MG/DL (0.2-1.0); BLOOD UREA NITROGEN 5 MG/DL (7-18); CALCIUM LEVEL 8.4 MG/DL (8.8-10.2); CARBON DIOXIDE LEVEL 29 MEQ/L (21-32); CHLORIDE LEVEL 105 MEQ/L (98-107); CREATININE FOR GFR 0.39 MG/DL (0.55-1.30); GLOMERULAR FILTRATION RATE > 60.0 (>32); GLUCOSE, FASTING 101 MG/DL (70-100); POTASSIUM SERUM 3.3 MEQ/L (3.5-5.1); SODIUM LEVEL 137 MEQ/L (136-145); TOTAL PROTEIN 5.8 GM/DL (6.4-8.2)
[2020-01-13] MEDS: PHENAZOPYRIDINE 100 MG TAB PO SCH (09:00)
[2020-01-13] MEDS: ENOXAPARIN 30MG/0.3ML SYRINGE (J1650 PER 10MG) SC SCH ×2 (09:00→13:35)
[2020-01-13] MEDS: POLYVINYL ALCOHOL OPHTH SOLN 15 ML(LIQUITEARS) OU SCH (09:00)
[2020-01-13] MEDS: POTASSIUM CHLORIDE 10 MEQ SR TABLET PO SCH (09:11)
[2020-01-13] MEDS ORDERED: PYRI1TAB5 PO (10:59)
[2020-01-13] MEDS ORDERED: DIFL150T PO (10:59)
[2020-01-13] MEDS ORDERED: LEVA750T7 PO (10:59)
--- NOTE | 2020-01-13 12:59 | DS.PDOC ---
Discharge Summary General Date of Admission Jan 08, 2020 at 15:59 Date of Discharge 01/13/20 Discharge Summary PROCEDURES PERFORMED DURING STAY: None. ADMITTING DIAGNOSES: 1. Healthcare associated pneumonia. DISCHARGE DIAGNOSES: 1. Healthcare associated pneumonia, Waldenstrm's macroglobulinemia, stage IV metastatic colorectal carcinoma, hypertension, A. fib, hypokalemia. COMPLICATIONS/CHIEF COMPLAINT: Healthcare Associated Bacterial Pneumonia. HISTORY OF PRESENT ILLNESS: The patient is an 89-year-old female with past medical history of recently treated community acquired pneumonia (last hospitali zation ), Waldenstrm's macroglobulinemia, Stage IV metastatic colorectal carcinoma, HTN, atrial fibrillation not on anticoagulation due to risk of hemorrhage, hiatal hernia, IBS presented to [facility] emergency room with the chief complaint of dizziness and increased shortness of breath. As per patient, her dizziness occurred gradually over the past several days. She has had increased lightheadedness with standing as well. She becomes increasingly short of breath even at rest. She admits to some nausea with nonbloody vomitus 1 over the past 24 hours. She has diarrhea at baseline she says due to her history of colon cancer; however, she states it has done in amount over the past 48 hours as well. She denies falls, fevers, chills, chest pain, cough, recent travel, sick contacts. In the emergency room vital signs showed temperature 98.4, pulse 99, blood pressure 115/77, respiratory rate 18, O2 sats 95% on room air. The patient was unsteady on her feet with movement, and plain of increased dizziness with movement. She had a chest x-ray which showed compared to the prior study of 12/03/2019, the dense right base infiltrate is stable. There is increased left base infiltrate. WBC was 10.6, troponin negative CK-MB negative. She was started on the vulva floxacillin in the emergency room; however, the patient had a reaction and medication was stopped. Reaction included increased redness increasing around the IV site. Due to continued dizziness and new infiltrates after hospitalization, the patient was admitted for healthcare associated pneumonia, dizziness, unsteadiness with fall risk requiring further treatment PT/OT evaluation.. HOSPITAL COURSE: Patient was admitted with the diagnoses of most likely healthcare associated pneumonia. Patient was started initially was to IV Levaquin. Patient responded very well to the elbow treatment. She is currently asymptomatic. WBC count is within normal range. She is afebrile. No respiratory symptoms. On physical examinations. Lungs are clear to A&P and she can be discharged home on by mouth Levaquin for 5-7 more days. Patient advised to continue follow with the PCP in one week. Patient also advised to continue taking all medications as usual. DISCHARGE MEDICATIONS: Please see below. ALLERGIES: Please see below. PHYSICAL EXAMINATION ON DISCHARGE: VITAL SIGNS: Please see below. GENERAL: Within normal limits HEENT: PERRLA. Extraocular muscles intact NECK: Supple CARDIOVASCULAR EXAMINATION: S1, S2, regular RESPIRATORY EXAMINATION: Clear to A&P ABDOMINAL EXAMINATION: , Soft, nontender, bowel sounds present EXTREMITIES: No clubbing, cyanosis, edema SKIN: Normal NEUROLOGICAL EXAMINATION: Within normal limits PSYCHIATRIC EXAMINATION: Normal LABORATORY DATA: Please see below. IMAGING: Chest x-ray:Compared to the prior study of 12/03/2019, the dense right base infiltrate is stable. There is increased left base infiltrate. PROGNOSIS: Good ACTIVITY: As tolerated. DIET: As tolerated DISCHARGE PLAN: Follow with PCP in one week DISPOSITION: . Home DISCHARGE INSTRUCTIONS: 1. As above. ITEMS TO FOLLOWUP ON ON OUTPATIENT: 1. As above. DISCHARGE CONDITION: Stable. TIME SPENT ON DISCHARGE: 42 minutes. Vital Signs/I&Os Vital Signs Date Time Temp Pulse Resp B/P (MAP) Pulse Ox O2 Delivery O2 Flow Rate FiO2 01/13/20 06:00 98.0 58 18 112/50 (70) 93 Room Air I&O- Last 24 Hours up to 6 AM 01/13/20 06:00 Intake Total 2250 ml Output Total 0 ml Balance 2250 ml Laboratory Data Labs 24H Laboratory Tests 2 01/13/20 05:09: Nucleated Red Blood Cells % (auto) 0.0, Anion Gap 3L, Glomerular Filtration Rate > 60.0, Calcium Level 8.4L, Total Bilirubin 0.6, Aspartate Amino Transf (AST/SGOT) 17, Alanine Aminotransferase (ALT/SGPT) 13, Alkaline Phosphatase 106, Total Protein 5.8L, Albumin 2.1L, Albumin/Globulin Ratio 0.57L CBC/BMP Laboratory Tests 01/13/20 05:09 Microbiology Microbiology 01/08/20 Gastrointestinal Tract Panel (PCR) - Final, Complete 01/08/20 Respiratory Virus Panel (PCR) (STEPHANIE) - Final, Complete 01/08/20 Urine Culture - Final, Complete 01/08/20 Blood Culture - Preliminary, Resulted No Growth after 72 hours. All specime... 01/08/20 Blood Culture - Preliminary, Resulted No Growth after 72 hours. All specime... Discharge Medications Scheduled Amiodarone HCl (Amiodarone HCl) 200 Mg Tab, 200 MG PO 5XW, (Reported) TAKES MON-FRI AT HS Fluconazole (Diflucan) 150 Mg Tablet, 1 TAB PO ONCE for yeast infection Levofloxacin (Levaquin) 750 Mg Tablet, 500 MG PO Q2D@0600 Phenazopyridine HCl (Pyridium) 200 Mg Tablet, 200 MG PO TID for urinary discomfort Potassium Chloride (Potassium Chloride) 10 Meq Tab.er.prt, 20 MEQ PO BID, (Reported) Propylene Glycol/Peg 400/Pf (Systane 0.3-0.4% Eye Drop) 1 Each Droperette, 2 DROP OU DAILY, (Reported) Scheduled PRN Acetaminophen (Tylenol Extra Strength) 500 Mg Tablet, 1,000 MG PO Q6H PRN for PAIN / FEVER, (Reported) Allergies Coded Allergies: Penicillins (Verified Allergy, Mild, Rash, 01/08/20) latex (Verified Allergy, Mild, REDNESS AND ITCHING FROM SOCKS AND UNDERWEAR, 11/21/19) nitroglycerin (Verified Adverse Reaction, Intermediate, PT REFUSES- CAUSES EXTREME ANXIETY, FEELING OF DOOM, INC BP, 11/21/19) levofloxacin (Verified Adverse Reaction, Mild, REDNESS AT INJECTION SITE, 01/12/20) nitrofurantoin (Verified Adverse Reaction, Mild, Vomiting, Diarrhea, 11/21/19) AN NINA MD Jan 13, 2020 12:59
[2020-01-13] MEDS: NS 1,000 ML IV SCH (13:25)
== END 2020-01-13 16:00 | disposition home health service (06) | DRG 194 ==
LOC: M ED 12:42 → EDBD 12:42 → M ED INP 15:59 → ENRESERVTM 16:44 → ENRESERVDT 16:44 → M MSPAV 18:04
PROVIDERS: ADMIT Internal Medicine; ATTEND Internal Medicine
DX: J18.9 Pneumonia, unspecified organism (principal); C18.9 Malignant neoplasm of colon, unspecified; Z94.81 Bone marrow transplant status; Y95 Nosocomial condition; C88.0 Waldenstrom macroglobulinemia; I10 Essential (primary) hypertension; E87.6 Hypokalemia; I48.91 Unspecified atrial fibrillation; K44.9 Diaphragmatic hernia without obstruction or gangrene; R26.81 Unsteadiness on feet; R30.0 Dysuria; B37.3 Candidiasis of vulva and vagina; K58.0 Irritable bowel syndrome with diarrhea; Z66 Do not resuscitate; Z90.49 Acquired absence of other specified parts of digestive tract; R42 Dizziness and giddiness; Z79.899 Other long term (current) drug therapy; Z88.0 Allergy status to penicillin; Z88.8 Allergy status to other drugs, medicaments and biological substances; Z91.040 Latex allergy status; Z87.81 Personal history of (healed) traumatic fracture

== ENCOUNTER 2020-01-17 12:59 | Inpatient (IN) | payer MEDICARE, MEDICAID ==
[~2020-01-17] VITALS: Ht 172.7 cm; Wt 47.5 kg
[~2020-01-17 12:59] MED LIST changes: +DIFL150T PO; +LEVA750T7 PO; +POTA10TA16 PO; +PYRI1TAB5 PO
--- NOTE | 2020-01-17 13:42 | REP ---
Portable chest: Single view. History: Near-syncope. Comparison chest x-ray: January 08, 2020. Findings: There are chronic bibasilar infiltrates again noted essentially unchanged from the most recent comparison study. The left base infiltrate is more prominent than on the December 03, 2019 prior study. There is diffuse interstitial lung disease also again noted as a chronic finding. No new infiltrate is seen. Mild cardiac enlargement is again noted unchanged. There is diffuse osteopenia. Impression: Chronic bibasilar infiltrates unchanged from most recent prior study. Diffuse interstitial lung disease. Electronically Signed by Isaac Chavez MD 01/17/2020 01:33 P
[2020-01-17 14:06] LABS: INR 1.31
[2020-01-17 14:07] LABS: PARTIAL THROMBOPLASTIN TIME 33.9 SECONDS (25.0-38.4)
[2020-01-17 14:11] LABS: BASO # 0.1 10^3/uL (0.0-0.2); BASO % 0.5 % (0.0-1.0); EOS % 0.2 % (0.0-3.0); HEMATOCRIT 39.4 % (36.0-47.0); HEMOGLOBIN 12.4 g/dl (12.0-15.5); LYMPH # 0.9 10^3/uL (1.5-5.0); MEAN CORPUSCULAR HEMOGLOBIN 25.4 pg (27.0-33.0); MEAN CORPUSCULAR HGB CONC 31.5 g/dl (32.0-36.5); MEAN CORPUSCULAR VOLUME 80.7 fl (80.0-96.0); MONO # 1.2 10^3/uL (0.0-0.8); MONO % 11.5 % (0.0-5.0); NEUTROPHILS % 78.3 % (36.0-66.0); PLATELET COUNT, AUTOMATED 380 10^3/uL (150-450); RED BLOOD COUNT 4.88 10^6/uL (4.00-5.40); WHITE BLOOD COUNT 10.2 10^3/uL (4.0-10.0)
[2020-01-17 14:29] LABS: BLOOD UREA NITROGEN 12 MG/DL (7-18); CALCIUM LEVEL 8.9 MG/DL (8.8-10.2); CARBON DIOXIDE LEVEL 29 MEQ/L (21-32); CHLORIDE LEVEL 100 MEQ/L (98-107); CK-MB VALUE MASS 2.1 NG/ML (<3.6); CPK CREATINE PHOSPHOKINASE 45 U/L (26-192); CREATININE FOR GFR 0.56 MG/DL (0.55-1.30); FREE T4 1.32 NG/DL (0.76-1.46); GLOMERULAR FILTRATION RATE > 60.0 (>32); GLUCOSE, FASTING 77 MG/DL (70-100); MAGNESIUM LEVEL 1.2 MG/DL (1.8-2.4); MB/CK RELATIVE INDEX 4.67 (< OR =4); POTASSIUM SERUM 4.5 MEQ/L (3.5-5.1); SODIUM LEVEL 136 MEQ/L (136-145); TROPONIN I < 0.02 NG/ML (< 0.10)
[2020-01-17] MEDS ORDERED: NS 500 ML IV ONE ×2 (14:30→17:30)
--- NOTE | 2020-01-17 14:36 | ECGEPIP ---
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
[2020-01-17] MEDS ORDERED: HYDR-4571 PO (14:55)
[2020-01-17] MEDS ORDERED: PHEN-501 (14:55)
[2020-01-17 15:06] LABS: PLATELET ESTIMATE NORMAL (NORMAL)
[2020-01-17] MEDS ORDERED: MAGNESIUM OXIDE 400 MG TAB (MAG-OX) PO ONE (16:00)
[2020-01-17] MEDS ORDERED: ASPI81TA85 PO (17:15)
[2020-01-17] MEDS ORDERED: FERR325T16 PO (17:15)
[2020-01-17] MEDS ORDERED: CLOT1CRE71 TOP (17:15)
[2020-01-17] MEDS ORDERED: TORS10TA3 PO (17:15)
[2020-01-17] MEDS ORDERED: TORSEMIDE 10 MG TABLET PO PRN (17:30)
[2020-01-17] MEDS ORDERED: NORCO, ANEXSIA 5/325MG TABLET (HYDROcodone/ACETAMINOPHEN) PO PRN (17:30)
--- NOTE | 2020-01-17 17:37 | HPEPDOC ---
General Date of Admission 01/17/20 Date of Service: Jan 17, 2020 Chief Complaint The patient is a 89-year-old female admitted with a reason for visit of Dizziness. Source: Patient Exam Limitations: No limitations Timing/Duration: Day(s) Associated Symptoms: Hypotension, Dizziness, Mechanical fall History of Present Illness Patient is 89 years old female with past medical history of Waldenstrm's macroglobulinemia, Stage IV metastatic colorectal carcinoma, HTN, atrial fibrillation not on anticoagulation presented hospital with dizziness. Patient stated that she has been having increased weakness associated with dizziness for past week. Also she stated that yesterday she did have mechanical fall due to slippage. In emergency room patient was found to have orthostatic hypotension, no leukocytosis, hemoglobin 12.4, magnesium 1.2. Patient received bolus of saline in the ED. Chest x-ray was done and was negative for acute infiltrate. EKG did not show acute ischemic changes Home Medications Scheduled Amiodarone HCl (Amiodarone HCl) 200 Mg Tab, 200 MG PO 5XW, (Reported) TAKES MON-SUN AT HS Aspirin (Aspir 81) 81 Mg Tablet.dr, 81 MG PO DAILY, (Reported) Clotrimazole/Betamethasone Dip (Clotrimazole-Betamethasone Crm) 15 Gm Cream..g., 1 APLCT TOP BID, (Reported) APPLY TO LABIA Ferrous Gluconate (Ferrous Gluconate) 324 Mg Tablet, 324 MG PO DAILY, (Reported) Potassium Chloride (Potassium Chloride) 10 Meq Tab.er.prt, 20 MEQ PO BID, (Reported) Propylene Glycol/Peg 400/Pf (Systane 0.3-0.4% Eye Drop) 1 Each Droperette, 2 DROP OU DAILY, (Reported) Scheduled PRN Acetaminophen (Tylenol Extra Strength) 500 Mg Tablet, 1,000 MG PO Q6H PRN for PAIN / FEVER, (Reported) Hydrocodone/Acetaminophen (Hydrocodone-Acetamin 5-325 mg) 1 Each Tablet, 0.5 TAB PO BID PRN for PAIN, (Reported) Torsemide (Torsemide) 10 Mg Tablet, 10 MG PO DAILY PRN for EDEMA, (Reported) Allergies Coded Allergies: Penicillins (Verified Allergy, Mild, Rash, 01/08/20) latex (Verified Allergy, Mild, REDNESS AND ITCHING FROM SOCKS AND UNDERWEAR, 11/21/19) nitroglycerin (Verified Adverse Reaction, Intermediate, PT REFUSES- CAUSES EXTREME ANXIETY, FEELING OF DOOM, INC BP, 11/21/19) levofloxacin (Verified Adverse Reaction, Mild, REDNESS AT INJECTION SITE, 01/12/20) nitrofurantoin (Verified Adverse Reaction, Mild, Vomiting, Diarrhea, 11/21/19) Past Medical History Medical History Recent community acquired PNA 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 IBS Surgical History Hemorrhoid banding Cholecystectomy Appendectomy Repair of right wrist's fracture Bone marrow biopsy Family History Motherstomach cancer. at age 84 Fathermorbid obesity, sudden . at age 60. Sister"breathing problems", alive Social History * Smoker: Denies Alcohol: Denies Drugs: denies A-FIB/CHADSVASC A-FIB History Current/History of A-Fib/PAF?: Yes Current PO Anticoag Therapy: No Treatment Reason Anticoagulant not given: Other Other reason anticoagulant not: multiple mechanical falls in the past Review of Systems Constitutional: Reports: Weakness, Fatigue; Denies: Chills, Fever Eyes: Denies: Pain ENT: Denies: Head Aches, Ear Pain Skin: Denies: Rash, Lesions Pulmonary: Denies: Dyspnea, Cough Cardiovascular: Denies: Chest Pain Gastrointestinal: Denies: Nausea Genitourinary: Denies: Dysuria, Frequency, Incontinence, Hematuria, Retention, Other Symptoms Hematologic: Denies: Bruising Endocrine: Denies: Polydipsia, Polyphagia Musculoskeletal: Denies: Neck Pain Neurological: Denies: Weakness Psych: Reports: Mood Normal Physical Examination General Exam: Positive: Alert, Cooperative Eye Exam: Positive: PERRLA ENT Exam: Positive: Atraumatic Neck Exam: Positive: Supple; Negative: JVD Heart Exam: Positive: Irregular Rhythm Telemetry: Positive: Atrial fibrillation Abdomen Exam: Positive: Normal bowel sounds Extremity Exam: Positive: Clubbing Skin Exam: Positive: Nl turgor and temperature Neuro Exam: Positive: Normal Gait, Normal Tone, Cranial Nerves 3-12 NL, Reflexes 2+ Psych Exam: Positive: Mental status NL, Oriented x 3 Vital Signs Vital Signs Date Time Temp Pulse Resp B/P (MAP) Pulse Ox O2 Delivery O2 Flow Rate FiO2 01/17/20 16:00 93 104/56 (72) 94 01/17/20 13:13 97.3 16 Room Air Laboratory Data Labs 24H Laboratory Tests 2 01/17/20 13:44: Immature Granulocyte % (Auto) 0.5, Neutrophils (%) (Auto) 78.3H, Lymphocytes (%) (Auto) 9.0L, Monocytes (%) (Auto) 11.5H, Eosinophils (%) (Auto) 0.2, Basophils (%) (Auto) 0.5, Neutrophils # (Auto) 8.0, Lymphocytes # (Auto) 0.9L, Monocytes # (Auto) 1.2H, Eosinophils # (Auto) 0.0, Basophils # (Auto) 0.1, Nucleated Red Blood Cells % (auto) 0.0, Platelet Estimate NORMAL, Red Blood Cell Morphology NORMAL, Prothrombin Time 16.0H, Prothromb Time International Ratio 1.31, Activated Partial Thromboplast Time 33.9, Anion Gap 7L, Glomerular Filtration Rate > 60.0, Calcium Level 8.9, Magnesium Level 1.2L, Total Creatine Kinase 45, Creatine Kinase MB 2.1, Creatine Kinase MB Relative Index 4.67H, Troponin I < 0. 02, Thyroid Stimulating Hormone (TSH) 3.280, Free Thyroxine 1.32 CBC/BMP Laboratory Tests 01/17/20 13:44 Assessment/Plan Patient is 89 years old female with past medical history of Waldenstrm's macroglobulinemia, Stage IV metastatic colorectal carcinoma, HTN, atrial fibrillation not on anticoagulation presented hospital with dizziness. Patient stated that she has been having increased weakness associated with dizziness for past week. Also she stated that yesterday she did have mechanical fall due to slippage. In emergency room patient was found to have orthostatic hypotension, no leukocytosis, hemoglobin 12.4, magnesium 1.2. Patient received bolus of goldie ine in the ED. Chest x-ray was done and was negative for acute infiltrate. EKG did not show acute ischemic changes Problems (1) Weakness Status: Acute Problem Text: Most likely secondary to old age debility superimposed with multiple comorbidities PT/OT Most likely patient will need placement to [facility] facility (2) Electrolyte imbalance Status: Acute Problem Text: Magnesium replaced (3) Orthostatic hypotension Status: Acute Problem Text: Most likely due to oral intake Patient received 500 mL bolus twice (4) Afib Status: Chronic Problem Text: Heart rate is under control Patient is not candidate for anti-coagulation due to frequent falls Continue home meds (5) Underweight Status: Chronic Problem Text: BMI 16.1 Bitemporal wasting, muscle cachexia Appreciated/water hauler consult (6) 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
[2020-01-17 19:06] VITALS: BP 111/62
[2020-01-17] MEDS: POTASSIUM CHLORIDE 10 MEQ SR TABLET PO SCH (21:00)
[2020-01-17] MEDS: HEPARIN SOD (PORCINE) 5000UNITS/ML VIAL (J1644 PER 1000UNITS) SC SCH (21:02)
[2020-01-18] MEDS: PHENAZOPYRIDINE 100 MG TAB PO SCH ×3 (02:44→20:12)
[2020-01-18 06:00] VITALS: BP 109/58
[2020-01-18 06:20] LABS: HEMATOCRIT 33.3 % (36.0-47.0); MEAN CORPUSCULAR HEMOGLOBIN 25.2 pg (27.0-33.0); MEAN CORPUSCULAR HGB CONC 30.6 g/dl (32.0-36.5); MEAN CORPUSCULAR VOLUME 82.2 fl (80.0-96.0); RED BLOOD COUNT 4.05 10^6/uL (4.00-5.40); WHITE BLOOD COUNT 7.9 10^3/uL (4.0-10.0)
[2020-01-18 06:27] LABS: HEMOGLOBIN 10.2 g/dl (12.0-15.5)
[2020-01-18 06:28] LABS: PLATELET COUNT, AUTOMATED 265 10^3/uL (150-450)
[2020-01-18 06:37] LABS: BLOOD UREA NITROGEN 11 MG/DL (7-18); CALCIUM LEVEL 8.8 MG/DL (8.8-10.2); CARBON DIOXIDE LEVEL 28 MEQ/L (21-32); CHLORIDE LEVEL 104 MEQ/L (98-107); CREATININE FOR GFR 0.49 MG/DL (0.55-1.30); GLOMERULAR FILTRATION RATE > 60.0 (>32); GLUCOSE, FASTING 83 MG/DL (70-100); MAGNESIUM LEVEL 1.5 MG/DL (1.8-2.4); POTASSIUM SERUM 4.1 MEQ/L (3.5-5.1); SODIUM LEVEL 138 MEQ/L (136-145)
[2020-01-18] MEDS: ASPIRIN 81 MG ENTERIC TAB PO SCH (08:04)
[2020-01-18] MEDS: POTASSIUM CHLORIDE 10 MEQ SR TABLET PO SCH ×2 (08:04→20:13)
[2020-01-18] MEDS: FERROUS GLUCONATE 324 MG TAB PO SCH (08:04)
[2020-01-18] MEDS: ACETAMINOPHEN TAB 650MG DOSE (2X325MG) PO PRN (08:04)
[2020-01-18] MEDS: HEPARIN SOD (PORCINE) 5000UNITS/ML VIAL (J1644 PER 1000UNITS) SC SCH ×2 (08:05→20:14)
[2020-01-18] MEDS ORDERED: PHENAZOPYRIDINE 100 MG TAB PO SCH (09:00)
[2020-01-18] MEDS ORDERED: MAG SULF 1GM/100ML (MAG RUN) 1 GM in IV 1 EA IV ONE (13:00)
--- NOTE | 2020-01-18 13:06 | IPNPDOC ---
Text Note Date of Service The patient was seen on 01/18/20. NOTE Subjective: Patient complains of dysuria, burning during urination. No fever, chills, nausea, vomiting, chest pain, diarrhea VITAL SIGNS: Please see below. GENERAL: awake, alert, NAD, cachectic female HEENT: NCAT, anicteric sclera, MACI NECK: supple, no JVD CARDIOVASCULAR EXAMINATION: NS1S2, regular rate/rhythm RESPIRATORY EXAMINATION: CTA b/l, no wheezes/rales/rhonchi ABDOMINAL EXAMINATION: positive bowel sounds x 4, NT EXTREMITIES: no cyanosis, clubbing, edema SKIN: warm, no rashes. NEUROLOGICAL EXAMINATION: AAO x 3, no motor/sensory deficits PSYCHIATRIC EXAMINATION: calm, normal affect Assessment/Plan Patient is 89 years old female with past medical history of Waldenstrm's macroglobulinemia, Stage IV metastatic colorectal carcinoma, HTN, atrial fibrillation not on anticoagulation presented hospital with dizziness. Patient stated that she has been having increased weakness associated with dizziness for past week. Also she stated that yesterday she did have mechanical fall due to slippage. In emergency room patient was found to have orthostatic hypotension, no leukocytosis, hemoglobin 12.4, magnesium 1.2. Patient received bolus of saline in the ED. Chest x-ray was done and was negative for acute infiltrate. EKG did not show acute ischemic changes Problems (1) Weakness Most likely secondary to old age debility superimposed with multiple comorbidities including stage IV colon cancer PT/OT Most likely patient will need placement to skilled nursing facility (2) Electrolyte imbalance Magnesium replaced (3) Orthostatic hypotension Resolved Most likely due to oral intake Patient received 500 mL bolus twice (4) Afib Heart rate is under control Patient is not candidate for anti-coagulation due to frequent falls Continue home meds (5) Underweight BMI 16.1 Bitemporal wasting, muscle cachexia Ensure Appreciated/solid waste facility operator consult (6) 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
[2020-01-18 14:00] VITALS: BP 138/58
[2020-01-18 14:23] LABS: BILIRUBIN, URINE MANUAL OBSCURED (NEGATIVE); GLUCOSE, URINE (UA) MANUAL NEGATIVE (NEGATIVE); KETONE, URINE MANUAL OBSCURED mg/dL (NEGATIVE); UROBILINOGEN, URINE MANUAL OBSCURED mg/dl (NORMAL)
[2020-01-18] MEDS: BACTRIM 80MG/400MG TAB PO SCH ×2 (14:30→20:13)
[2020-01-18 14:45] LABS: MUCUS, URINE MOD AMOUNT (NEGATIVE); SQUAMOUS EPITHELIAL CELL URINE SMALL AMOUNT /hpf (SMALL AMT)
[2020-01-18 14:47] LABS: BACTERIA, URINE NONE SEEN
[2020-01-18 22:00] VITALS: BP 106/52
[2020-01-19 04:01] LABS: CLOSTRIDIUM DIFFICILE PCR NEGATIVE (NEGATIVE)
[2020-01-19 06:00] VITALS: BP 96/49
[2020-01-19 08:15] LABS: HEMATOCRIT 35.1 % (36.0-47.0); HEMOGLOBIN 10.9 g/dl (12.0-15.5); MEAN CORPUSCULAR HEMOGLOBIN 25.4 pg (27.0-33.0); MEAN CORPUSCULAR HGB CONC 31.1 g/dl (32.0-36.5); MEAN CORPUSCULAR VOLUME 81.8 fl (80.0-96.0); PLATELET COUNT, AUTOMATED 270 10^3/uL (150-450); RED BLOOD COUNT 4.29 10^6/uL (4.00-5.40); WHITE BLOOD COUNT 8.6 10^3/uL (4.0-10.0)
[2020-01-19 08:19] LABS: BILIRUBIN, URINE MANUAL OBSCURED (NEGATIVE); GLUCOSE, URINE (UA) MANUAL NEGATIVE (NEGATIVE); KETONE, URINE MANUAL OBSCURED mg/dL (NEGATIVE); UROBILINOGEN, URINE MANUAL OBSCURED mg/dl (NORMAL)
[2020-01-19 08:31] LABS: RBC, URINE 0-1 /hpf (0-3)
[2020-01-19 08:33] LABS: BACTERIA, URINE SMALL AMOUNT; SQUAMOUS EPITHELIAL CELL URINE SMALL AMOUNT /hpf (SMALL AMT)
[2020-01-19 08:34] LABS: HYALINE CAST, URINE 0-1 /lpf (0-1)
[2020-01-19 08:35] LABS: MUCUS, URINE MOD AMOUNT (NEGATIVE)
[2020-01-19 08:36] LABS: BLOOD UREA NITROGEN 10 MG/DL (7-18); CALCIUM LEVEL 8.3 MG/DL (8.8-10.2); CARBON DIOXIDE LEVEL 29 MEQ/L (21-32); CHLORIDE LEVEL 104 MEQ/L (98-107); CREATININE FOR GFR 0.49 MG/DL (0.55-1.30); GLOMERULAR FILTRATION RATE > 60.0 (>32); GLUCOSE, FASTING 93 MG/DL (70-100); MAGNESIUM LEVEL 1.8 MG/DL (1.8-2.4); POTASSIUM SERUM 4.2 MEQ/L (3.5-5.1); SODIUM LEVEL 139 MEQ/L (136-145)
[2020-01-19] MEDS: FERROUS GLUCONATE 324 MG TAB PO SCH (09:23)
[2020-01-19] MEDS: HEPARIN SOD (PORCINE) 5000UNITS/ML VIAL (J1644 PER 1000UNITS) SC SCH ×2 (09:23→21:22)
[2020-01-19] MEDS: ASPIRIN 81 MG ENTERIC TAB PO SCH (09:23)
[2020-01-19] MEDS: BACTRIM 80MG/400MG TAB PO SCH ×2 (09:23→21:21)
[2020-01-19] MEDS: POTASSIUM CHLORIDE 10 MEQ SR TABLET PO SCH ×2 (09:23→21:21)
--- NOTE | 2020-01-19 12:24 | IPNPDOC ---
Text Note Date of Service The patient was seen on 01/19/20. NOTE Subjective: Patient stated that her dysuria resolved. No fever, chills, nausea, vomiting, chest pain, diarrhea VITAL SIGNS: Please see below. GENERAL: awake, alert, NAD, cachectic female HEENT: NCAT, anicteric sclera, MACI NECK: supple, no JVD CARDIOVASCULAR EXAMINATION: NS1S2, regular rate/rhythm RESPIRATORY EXAMINATION: CTA b/l, no wheezes/rales/rhonchi ABDOMINAL EXAMINATION: positive bowel sounds x 4, NT EXTREMITIES: no cyanosis, clubbing, edema SKIN: warm, no rashes. NEUROLOGICAL EXAMINATION: AAO x 3, no motor/sensory deficits PSYCHIATRIC EXAMINATION: calm, normal affect Assessment/Plan Patient is 89 years old female with past medical history of Waldenstrm's m acroglobulinemia, Stage IV metastatic colorectal carcinoma, HTN, atrial fibrillation not on anticoagulation presented hospital with dizziness. Patient stated that she has been having increased weakness associated with dizziness for past week. Also she stated that yesterday she did have mechanical fall due to slippage. In emergency room patient was found to have orthostatic hypotension, no leukocytosis, hemoglobin 12.4, magnesium 1.2. Patient received bolus of saline in the ED. Chest x-ray was done and was negative for acute infiltrate. EKG did not show acute ischemic changes Problems (1) Weakness Most likely secondary to old age debility superimposed with multiple comorbidities including stage IV colon cancer PT/OT Most likely patient will need placement to senior living facility (2) Electrolyte imbalance Magnesium replaced (3) Orthostatic hypotension Resolved Most likely due to oral intake Patient received 500 mL bolus twice (4) Afib Heart rate is under control Patient is not candidate for anti-coagulation due to frequent falls Continue home meds (5) Underweight BMI 16.1 Bitemporal wasting, muscle cachexia Ensure Appreciated/seo strategist consult (6) 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
[2020-01-19] MEDS: ACETAMINOPHEN TAB 650MG DOSE (2X325MG) PO PRN (13:44)
[2020-01-19 14:00] VITALS: BP 120/62
[2020-01-19] MEDS ORDERED: AMIODARONE 200 MG TAB (PACERONE) PO SCH (21:00)
[2020-01-19 22:00] VITALS: BP 108/52
[2020-01-20 06:00] VITALS: BP 103/47
[2020-01-20] MEDS: HEPARIN SOD (PORCINE) 5000UNITS/ML VIAL (J1644 PER 1000UNITS) SC SCH (09:38)
[2020-01-20] MEDS: POTASSIUM CHLORIDE 10 MEQ SR TABLET PO SCH (09:39)
[2020-01-20] MEDS: ASPIRIN 81 MG ENTERIC TAB PO SCH (09:39)
[2020-01-20] MEDS: BACTRIM 80MG/400MG TAB PO SCH (09:39)
[2020-01-20] MEDS: FERROUS GLUCONATE 324 MG TAB PO SCH (09:39)
[2020-01-20] MEDS ORDERED: SULF400T14 PO (10:44)
--- NOTE | 2020-01-20 15:06 | DS.PDOC ---
Discharge Summary General Date of Admission Jan 17, 2020 at 17:15 Date of Discharge 01/20/20 Discharge Summary PROCEDURES PERFORMED DURING STAY: [None]. 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 HISTORY OF PRESENT ILLNESS:Patient is 89 years old female with past medical history of Waldenstrm's macroglobulinemia, Stage IV metastatic colorectal carcinoma, HTN, atrial fibrillation not on anticoagulation presented hospital with dizziness. Patient stated that she has been having increased weakness associated with dizziness for past week. Also she stated that yesterday she did have mechanical fall due to slippage. In emergency room patient was found to have orthostatic hypotension, no leukocytosis, hemoglobin 12.4, magnesium 1.2. Patient received bolus of saline in the ED. Chest x-ray was done and was negative for acute infiltrate. EKG did not show acute ischemic changes HOSPITAL COURSE: During hospital stay following issue addressed Weakness Most likely secondary to old age debility superimposed with multiple comorbidities including stage IV colon cancer PT/OT recommended residential facility (2) Electrolyte imbalance Magnesium replaced (3) Orthostatic hypotension Resolved Most likely due to oral intake Patient received 500 mL bolus twice (4) Afib Heart rate is under control Patient is not candidate for anti-coagulation due to frequent falls Continue home meds (5) Underweight BMI 16.1 Bitemporal wasting, muscle cachexia Ensure Appreciated/weather clerk consult (6) 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 ALLERGIES: Please see below. PHYSICAL EXAMINATION ON DISCHARGE: VITAL SIGNS: Please see below. VITAL SIGNS: Please see below. GENERAL: awake, alert, NAD, cachectic female HEENT: NCAT, anicteric sclera, MACI NECK: supple, no JVD CARDIOVASCULAR EXAMINATION: NS1S2, regular rate/rhythm RESPIRATORY EXAMINATION: CTA b/l, no wheezes/rales/rhonchi ABDOMINAL EXAMINATION: positive bowel sounds x 4, NT EXTREMITIES: no cyanosis, clubbing, edema SKIN: warm, no rashes. NEUROLOGICAL EXAMINATION: AAO x 3, no motor/sensory deficits PSYCHIATRIC EXAMINATION: calm, normal affect LABORATORY DATA: Please see below. PROGNOSIS: Poor ACTIVITY: [As tolerated]. DIET: Cardiac enriched with protein DISPOSITION: [facility]. ITEMS TO FOLLOWUP ON ON OUTPATIENT: Follow-up with PCP and oncologist DISCHARGE CONDITION: [Stable]. TIME SPENT ON DISCHARGE: Greater than minutes. Vital Signs/I&Os Vital Signs Date Time Temp Pulse Resp B/P (MAP) Pulse Ox O2 Delivery O2 Flow Rate FiO2 01/20/20 06:00 97.0 58 16 103/47 (65) 92 Room Air I&O- Last 24 Hours up to 6 AM 01/20/20 06:00 Intake Total 1310 ml Output Total 725 ml Balance 585 ml Microbiology Microbiology 01/19/20 Urine Culture - Final, Complete 01/19/20 Gastrointestinal Tract Panel (PCR) - Final, Complete 01/18/20 Urine Culture - Final, Complete Discharge Medications Scheduled Amiodarone HCl (Amiodarone HCl) 200 Mg Tab, 200 MG PO 5XW, (Reported) TAKES MON-FRI AT HS Aspirin (Aspir 81) 81 Mg Tablet.dr, 81 MG PO DAILY, (Reported) Clotrimazole/Betamethasone Dip (Clotrimazole-Betamethasone Crm) 15 Gm Cream..g., 1 APLCT TOP BID, (Reported) APPLY TO LABIA Ferrous Gluconate (Ferrous Gluconate) 324 Mg Tablet, 324 MG PO DAILY, (Reported) Potassium Chloride (Potassium Chloride) 10 Meq Tab.er.prt, 20 MEQ PO BID, (Reported) Propylene Glycol/Peg 400/Pf (Systane 0.3-0.4% Eye Drop) 1 Each Droperette, 2 DROP OU DAILY, (Reported) Sulfamethoxazole/Trimethoprim (Sulfamethoxazole-Tmp Ss Tablet) 1 Each Tablet, 1 EA PO BID Scheduled PRN Acetaminophen (Tylenol Extra Strength) 500 Mg Tablet, 1,000 MG PO Q6H PRN for PAIN / FEVER, (Reported) Hydrocodone/Acetaminophen (Hydrocodone-Acetamin 5-325 mg) 1 Each Tablet, 0.5 TAB PO BID PRN for PAIN, (Reported) Torsemide (Torsemide) 10 Mg Tablet, 10 MG PO DAILY PRN for EDEMA, (Reported) Allergies Coded Allergies: Penicillins (Verified Allergy, Mild, Rash, 01/08/20) latex (Verified Allergy, Mild, REDNESS AND ITCHING FROM SOCKS AND UNDERW EAR, 11/21/19) nitroglycerin (Verified Adverse Reaction, Intermediate, PT REFUSES- CAUSES EXTREME ANXIETY, FEELING OF DOOM, INC BP, 11/21/19) levofloxacin (Verified Adverse Reaction, Mild, REDNESS AT INJECTION SITE, 01/12/20) nitrofurantoin (Verified Adverse Reaction, Mild, Vomiting, Diarrhea, 11/21/19) SHAGUFTA MEYER DO Jan 20, 2020 15:06
== END 2020-01-20 11:43 | DRG 884 ==
LOC: EDBD 12:59 → M ED 12:59 → M ED INP 17:15 → ENRESERVDT 17:59 → ENRESERVTM 17:59 → M MSPAV 18:50
PROVIDERS: ADMIT Internal Medicine; ATTEND Internal Medicine
DX: R54 Age-related physical debility (principal); I48.20 Chronic atrial fibrillation, unspecified; C19 Malignant neoplasm of rectosigmoid junction; C78.00 Secondary malignant neoplasm of unspecified lung; Z68.1 Body mass index [BMI] 19.9 or less, adult; K44.9 Diaphragmatic hernia without obstruction or gangrene; K58.9 Irritable bowel syndrome, unspecified; R53.1 Weakness; R30.0 Dysuria; E83.42 Hypomagnesemia; Z66 Do not resuscitate; I95.1 Orthostatic hypotension; R63.6 Underweight; I10 Essential (primary) hypertension; C88.0 Waldenstrom macroglobulinemia; Z90.49 Acquired absence of other specified parts of digestive tract; Z79.82 Long term (current) use of aspirin; Z79.899 Other long term (current) drug therapy; Z88.0 Allergy status to penicillin; Z88.1 Allergy status to other antibiotic agents; Z88.8 Allergy status to other drugs, medicaments and biological substances; Z91.040 Latex allergy status

== ENCOUNTER → 2020-01-22 | Outpatient (REF) ==
[~2020-01-22] MED LIST changes: +CLOT1CRE71 TOP; +FERR325T16 PO; +HYDR-4571 PO; +MULTCAP PO; +PHEN-501; +PROC5TA PO; +SULF400T14 PO
[2020-01-22 09:47] LABS: BLOOD UREA NITROGEN 7 MG/DL (7-18); CALCIUM LEVEL 8.8 MG/DL (8.8-10.2); CARBON DIOXIDE LEVEL 21 MEQ/L (21-32); CHLORIDE LEVEL 102 MEQ/L (98-107); CREATININE FOR GFR 0.56 MG/DL (0.55-1.30); GLOMERULAR FILTRATION RATE > 60.0 (>32); GLUCOSE, FASTING 113 MG/DL (70-100); IRON (FE) 63 UG/DL (50-170); POTASSIUM SERUM 4.2 MEQ/L (3.5-5.1); SODIUM LEVEL 134 MEQ/L (136-145)
== END ==
LOC: SKLAB5 07:40
PROVIDERS: ATTEND Internal Medicine
DX: D64.9 Anemia, unspecified (principal); E87.6 Hypokalemia

== ENCOUNTER → 2020-01-23 | Outpatient (REF) ==
[2020-01-23 11:49] LABS: HEMATOCRIT 36.4 % (36.0-47.0); HEMOGLOBIN 11.4 g/dl (12.0-15.5); MEAN CORPUSCULAR HEMOGLOBIN 25.9 pg (27.0-33.0); MEAN CORPUSCULAR HGB CONC 31.3 g/dl (32.0-36.5); MEAN CORPUSCULAR VOLUME 82.7 fl (80.0-96.0); PLATELET COUNT, AUTOMATED 345 10^3/uL (150-450); WHITE BLOOD COUNT 10.3 10^3/uL (4.0-10.0)
== END ==
LOC: SKLAB5 12:18
PROVIDERS: ATTEND Internal Medicine
DX: D64.9 Anemia, unspecified (principal)

== ENCOUNTER → 2020-01-24 | Outpatient (REF) | payer MEDICARE, MEDICAID ==
[2020-01-24 21:31] LABS: APPEARANCE, URINE HAZY (CLEAR); BACTERIA, URINE AUTO NEGATIVE (NEGATIVE); BILIRUBIN, URINE AUTO NEGATIVE (NEGATIVE); BLOOD, URINE BLOOD NEGATIVE (NEGATIVE); CALCIUM OXALATE CRYSTALS MODERATE; COLOR, URINE YELLOW (YELLOW); GLUCOSE, URINE (UA) AUTO NEGATIVE (NEGATIVE); KETONE, URINE AUTO NEGATIVE (NEGATIVE); LEUKOCYTE ESTERASE, URINE AUTO NEGATIVE (NEGATIVE); MUCUS, URINE SMALL (NEGATIVE); NITRITE, URINE AUTO NEGATIVE (NEGATIVE); PROTEIN, URINE AUTO NEGATIVE (NEGATIVE); RBC, URINE AUTO 5 /HPF (0-3); SPECIFIC GRAVITY URINE AUTO 1.023 (1.002-1.035); SQUAMOUS EPITHELIAL CELL UR AU 0 /HPF (0-6); UROBILINOGEN, URINE AUTO 0.2 mg/dL (0.0-2.0); WBC, URINE AUTO 2 /HPF (0-3)
== END ==
LOC: SKLAB5 21:09
PROVIDERS: ATTEND Internal Medicine
DX: R30.0 Dysuria (principal)

== ENCOUNTER → 2020-01-26 | Outpatient (CLI) | payer MEDICARE, MEDICAID | LOC: M RAD 12:15 | PROVIDERS: ATTEND Internal Medicine | DX: M25.552 Pain in left hip (principal) ==

== ENCOUNTER → 2020-01-26 | Outpatient (REF) ==
--- NOTE | 2020-01-26 15:42 | REP ---
REASON: Status post trauma. The examination is markedly limited. Not all of the greater trochanter of the right hip has been imaged and the patient is in an LPO position. I cannot rule out left hip fractures and I cannot rule out a left inferior pubic ramus fracture. IMPRESSION: Findings and limitations as described above. CT examination of the pelvis is recommended. Electronically Signed by Panchito Khan DO 01/26/2020 04:01 P
== END ==
LOC: SKLAB5 12:01
PROVIDERS: ATTEND Internal Medicine
DX: M25.552 Pain in left hip (principal)

== ENCOUNTER → 2020-01-27 | Outpatient (CLI) | payer MEDICARE, MEDICAID ==
--- NOTE | 2020-01-27 10:18 | REP ---
CT PELVIS WITHOUT CONTRAST: CT pelvis performed without IV contrast. Sagittal and coronal reconstruction images are performed. There is an isolated mildly comminuted fracture of the greater trochanter of the proximal left femur. This does not extend into the intertrochanteric region of the proximal left femur. No other acute fracture or dislocation is seen. Old healed fractures are noted of the left superior inferior pubic rami. Lytic metastatic lesion is again seen in the right iliac bone with associated soft tissue mass. There are generative changes of the visualized lower lumbar spine. There are degenerative changes of both hip joints. There is relatively mild hematoma associated with the fracture. IMPRESSION: Acute isolated fracture greater trochanter proximal left femur, slightly comminuted. This does not extend into the intertrochanteric region. No other evidence of acute fracture or dislocation. There are old healed fractures of the left pubic rami. A metastatic lesion is again seen of the right iliac bone. Electronically Signed by Eric Cordova MD 01/27/2020 10:38 A
--- NOTE | 2020-01-27 10:21 | REP ---
LEFT HIP CT: CT left hip performed in the axial plane. Sagittal and coronal reconstruction images are performed. There is an isolated fracture of the greater trochanter of the proximal left femur which is slightly comminuted. This does not extend into the intertrochanteric region. Old healed fracture are noted of the left superior and inferior pubic rami. Mild hematoma is seen in the soft tissues adjacent to the greater trochanter. IMPRESSION: Isolated fracture of the greater trochanter of the proximal left femur, mildly comminuted. This does not extend into the intertrochanteric region. Electronically Signed by Eric Cordova MD 01/27/2020 10:38 A
== END ==
LOC: M RAD 09:04
PROVIDERS: ATTEND Nurse Practitioner Family
DX: S72.112A Displaced fracture of greater trochanter of left femur, initial encounter for closed fracture (principal); C79.51 Secondary malignant neoplasm of bone; W19.XXXA Unspecified fall, initial encounter; Y92.9 Unspecified place or not applicable; M51.36 Other intervertebral disc degeneration, lumbar region; M17.0 Bilateral primary osteoarthritis of knee; Y99.8 Other external cause status

== ENCOUNTER → 2020-01-29 | Outpatient (REF) ==
--- NOTE | 2020-01-29 14:44 | REP ---
LEFT SHOULDER THREE VIEWS: Three views right shoulder performed. COMPARISON: 01/12/2020. There is no change since the prior exam. There is no acute fracture. There is again high-riding humeral head compatible with the care of the supraspinatus tendon. There is mild narrowing and spurring of the acromioclavicular joint. There is an old healed fracture of the proximal right humerus. IMPRESSION: Stable exam. Electronically Signed by Eric Cordova MD 01/29/2020 02:45 P
== END ==
LOC: SKLAB5 12:56
PROVIDERS: ATTEND Internal Medicine
DX: R58 Hemorrhage, not elsewhere classified (principal); Z87.81 Personal history of (healed) traumatic fracture

== ENCOUNTER → 2020-02-03 | Outpatient (REF) ==
[2020-02-03 08:44] LABS: BASO # 0.1 10^3/uL (0.0-0.2); BASO % 0.5 % (0.0-1.0); EOS # 0.1 10^3/uL (0.0-0.5); EOS % 1.1 % (0.0-3.0); HEMATOCRIT 33.7 % (36.0-47.0); HEMOGLOBIN 10.6 g/dl (12.0-15.5); LYMPH # 0.9 10^3/uL (1.5-5.0); LYMPH % 9.3 % (24.0-44.0); MEAN CORPUSCULAR HEMOGLOBIN 27.1 pg (27.0-33.0); MEAN CORPUSCULAR HGB CONC 31.5 g/dl (32.0-36.5); MEAN CORPUSCULAR VOLUME 86.2 fl (80.0-96.0); MONO # 1.4 10^3/uL (0.0-0.8); MONO % 14.6 % (0.0-5.0); NEUTROPHILS # 6.8 10^3/uL (1.5-8.5); NEUTROPHILS % 74.2 % (36.0-66.0); PLATELET COUNT, AUTOMATED 453 10^3/uL (150-450); RED BLOOD COUNT 3.91 10^6/uL (4.00-5.40); WHITE BLOOD COUNT 9.2 10^3/uL (4.0-10.0)
[2020-02-03 08:55] LABS: INR 1.31
[2020-02-03 08:56] LABS: PARTIAL THROMBOPLASTIN TIME 30.3 SECONDS (25.0-38.4)
[2020-02-03 09:48] LABS: ALBUMIN 2.6 GM/DL (3.2-5.2); ALT/SGPT 23 U/L (12-78); BILIRUBIN,TOTAL 0.6 MG/DL (0.2-1.0); BLOOD UREA NITROGEN 19 MG/DL (7-18); CALCIUM LEVEL 8.9 MG/DL (8.8-10.2); CARBON DIOXIDE LEVEL 31 MEQ/L (21-32); CHLORIDE LEVEL 102 MEQ/L (98-107); CREATININE FOR GFR 0.47 MG/DL (0.55-1.30); GLOMERULAR FILTRATION RATE > 60.0 (>32); GLUCOSE, FASTING 93 MG/DL (70-100); IMMUNOGLOBULIN A 50.8 MG/DL (70-400); IMMUNOGLOBULIN G 260 MG/DL (681-1648); IRON (FE) 24 UG/DL (50-170); POTASSIUM SERUM 4.5 MEQ/L (3.5-5.1); SODIUM LEVEL 139 MEQ/L (136-145); TOTAL IRON BINDING CAPACITY 343 UG/DL (250-450); TOTAL PROTEIN 6.6 GM/DL (6.4-8.2)
[2020-02-03 09:49] LABS: FERRITIN 55 NG/ML (8-252)
== END ==
LOC: SKLAB5 08:22
PROVIDERS: ATTEND Internal Medicine
DX: D50.9 Iron deficiency anemia, unspecified (principal)

== ENCOUNTER → 2020-02-11 | Outpatient (REF) | LOC: SKLAB5 14:42 | PROVIDERS: ATTEND Internal Medicine | DX: Z11.59 Encounter for screening for other viral diseases (principal); Z53.9 Procedure and treatment not carried out, unspecified reason ==

== ENCOUNTER → 2020-02-19 | Outpatient (CLI) | payer MEDICARE, MEDICAID | LOC: M LABSMTC 10:01 | PROVIDERS: ATTEND Family Medicine | DX: Z03.818 Encounter for observation for suspected exposure to other biological agents ruled out (principal); Z11.59 Encounter for screening for other viral diseases ==

== ENCOUNTER → 2020-02-20 | Outpatient (REF) | payer MEDICARE, MEDICAID ==
[2020-02-21 01:57] LABS: APPEARANCE, URINE HAZY (CLEAR); BACTERIA, URINE AUTO NEGATIVE (NEGATIVE); BILIRUBIN, URINE AUTO NEGATIVE (NEGATIVE); BLOOD, URINE BLOOD NEGATIVE (NEGATIVE); CALCIUM OXALATE CRYSTALS SMALL; COLOR, URINE YELLOW (YELLOW); GLUCOSE, URINE (UA) AUTO NEGATIVE (NEGATIVE); KETONE, URINE AUTO NEGATIVE (NEGATIVE); LEUKOCYTE ESTERASE, URINE AUTO NEGATIVE (NEGATIVE); MUCUS, URINE SMALL (NEGATIVE); NITRITE, URINE AUTO NEGATIVE (NEGATIVE); PROTEIN, URINE AUTO NEGATIVE (NEGATIVE); RBC, URINE AUTO 4 /HPF (0-3); SPECIFIC GRAVITY URINE AUTO 1.023 (1.002-1.035); SQUAMOUS EPITHELIAL CELL UR AU 0 /HPF (0-6); TRANSITIONAL EPITHELIAL AUTO <1 /HPF; UROBILINOGEN, URINE AUTO 0.2 mg/dL (0.0-2.0); WBC, URINE AUTO 5 /HPF (0-3)
== END ==
LOC: SKLAB5 17:13
PROVIDERS: ATTEND Internal Medicine
DX: R30.0 Dysuria (principal)

== ENCOUNTER → 2020-03-03 | Outpatient (REF) | LOC: SKLAB5 14:14 | PROVIDERS: ATTEND Internal Medicine | DX: R30.0 Dysuria (principal) ==

== ENCOUNTER → 2020-03-10 | Outpatient (CLI) | payer MEDICARE, MEDICAID ==
[~2020-03-10] MED LIST changes: +LIDOCAINE 1% MDV 20ML VIAL As Ordered ONE; +MIDAZOLAM INJ 2MG/2ML VIAL (J2250 PER 1MG) As Ordered ONE; +VANCOMYCIN 500MG/10ML VIAL As Ordered ONE; +diphenhydrAMINE 50MG/ML VIAL (J1200) As Ordered ONE; +fentaNYL 100 MCG/2 ML INJECTION (J3010) As Ordered ONE
--- NOTE | 2020-03-10 14:26 | IRHP ---
[facility] IR Pre-Procedure H & P General Date of Service: Mar 10, 2020 Procedure: Same Day Surgery Interval History and Physical I have seen the patient and reviewed last H & P performed within 30 days. There is no significant interval change History of Present Illness Chief Complaint The patient is a 89-year-old female admitted with a reason for visit of Liver Ca. PRE-PROCEDURE DIAGNOSIS: colon cancer HEART: normal rate. LUNGS: normal breathing at rest. ASA Classification ASA Classification: III-Severe systemic dis. Mallampati Score: II NPO: Yes Problems with prior sedation: No Obstructive Sleep Apnea: No Plan moderate sedation Allergies Coded Allergies: Penicillins (Verified Allergy, Mild, Rash, 01/08/20) latex (Verified Allergy, Mild, REDNESS AND ITCHING FROM SOCKS AND UNDERWEAR, 11/21/19) nitroglycerin (Verified Adverse Reaction, Intermediate, PT REFUSES- CAUSES EXTREME ANXIETY, FEELING OF DOOM, INC BP, 11/21/19) levofloxacin (Verified Adverse Reaction, Mild, REDNESS AT INJECTION SITE, 01/12/20) nitrofurantoin (Verified Adverse Reaction, Mild, Vomiting, Diarrhea, 11/21/19) Home Medications Scheduled Amiodarone HCl (Amiodarone HCl), 200 MG PO 5XW, (Reported) Aspirin (Aspir 81), 81 MG PO DAILY, (Reported) Clotrimazole/Betamethasone Dip (Clotrimazole-Betamethasone Crm), 1 APLCT TOP BID, (Reported) Ferrous Gluconate (Ferrous Gluconate), 324 MG PO DAILY, (Reported) Multivitamin (Multivitamins), 1 CAP PO DAILY, (Reported) Potassium Chloride (Potassium Chloride), 20 MEQ PO BID, (Reported) Propylene Glycol/Peg 400/Pf (Systane 0.3-0.4% Eye Drop), 2 DROP OU DAILY, (Reported) Scheduled PRN Acetaminophen (Tylenol Extra Strength), 1,000 MG PO Q6H PRN for PAIN / FEVER, (Reported) Hydrocodone/Acetaminophen (Hydrocodone-Acetamin 5-325 mg), 0.5 TAB PO BID PRN for PAIN, (Reported) Prochlorperazine (Prochlorperazine Maleate), 5 MG PO TID PRN for NAUSEA VS, I&O, 24H, Fishbone Vital Signs/I&O Vital Signs Date Time Temp Pulse Resp B/P (MAP) Pulse Ox O2 Delivery O2 Flow Rate FiO2 03/10/20 14:13 87 18 96 Nasal Cannula 2 03/10/20 12:45 99.8 KT HERNÁNDEZ MD Mar 10, 2020 14:26
--- NOTE | 2020-03-10 14:27 | POST-OPPD ---
Postoperative Procedure Note Date Of Procedure: Mar 10, 2020 Time Of Procedure: 14:26 PREOPERATIVE DIAGNOSIS: colon cancer POSTOPERATIVE DIAGNOSIS: same FINDINGS: patent right IJ PROCEDURE: right sided port placed SURGEON: shayna ANESTHESIA: mod sed ESTIMATED BLOOD LOSS: < 5 ml COMPLICATIONS: none POSTOPERATIVE CONDITION: stable KT HERNÁNDEZ MD Mar 10, 2020 14:27
[2020-03-10 16:00] VITALS: BP 115/60
== END ==
LOC: M IRPRO 12:18
PROVIDERS: ATTEND Internal Medicine Hematology & Oncology
DX: C22.9 Malignant neoplasm of liver, not specified as primary or secondary (principal)
CPT/HCPCS: 36415; 80053; 82378; 85027; 85610; 85730; 96366; 96367; 96375; 96409; 99152; 99153; C1769; C1788; C1894; G0463; J0640; J1100; J1200; J1642; J1644; J2250; J2405; J3010; J3370; J9190

== ENCOUNTER → 2020-03-11 | Outpatient (REF) | payer MEDICARE, MEDICAID ==
[~2020-03-11] MED LIST changes: -LIDOCAINE 1% MDV 20ML VIAL As Ordered ONE; -MIDAZOLAM INJ 2MG/2ML VIAL (J2250 PER 1MG) As Ordered ONE; -VANCOMYCIN 500MG/10ML VIAL As Ordered ONE; -diphenhydrAMINE 50MG/ML VIAL (J1200) As Ordered ONE; -fentaNYL 100 MCG/2 ML INJECTION (J3010) As Ordered ONE
[2020-03-11 14:16] LABS: HEMATOCRIT 31.3 % (36.0-47.0); HEMOGLOBIN 9.9 g/dl (12.0-15.5); MEAN CORPUSCULAR HEMOGLOBIN 30.4 pg (27.0-33.0); MEAN CORPUSCULAR HGB CONC 31.6 g/dl (32.0-36.5); PLATELET COUNT, AUTOMATED 279 10^3/uL (150-450); RED BLOOD COUNT 3.26 10^6/uL (4.00-5.40); WHITE BLOOD COUNT 11.8 10^3/uL (4.0-10.0)
[2020-03-11 14:48] LABS: ALBUMIN 2.5 GM/DL (3.2-5.2); ALT/SGPT 42 U/L (12-78); BILIRUBIN,TOTAL 0.6 MG/DL (0.2-1.0); BLOOD UREA NITROGEN 24 MG/DL (7-18); CALCIUM LEVEL 8.6 MG/DL (8.8-10.2); CARBON DIOXIDE LEVEL 36 MEQ/L (21-32); CHLORIDE LEVEL 100 MEQ/L (98-107); CREATININE FOR GFR 0.54 MG/DL (0.55-1.30); GLOMERULAR FILTRATION RATE > 60.0 (>32); GLUCOSE, FASTING 97 MG/DL (70-100); POTASSIUM SERUM 4.4 MEQ/L (3.5-5.1); SODIUM LEVEL 139 MEQ/L (136-145); TOTAL PROTEIN 5.7 GM/DL (6.4-8.2)
== END ==
LOC: SKLAB5 12:54
PROVIDERS: ATTEND Internal Medicine
DX: Z51.81 Encounter for therapeutic drug level monitoring (principal); Z79.899 Other long term (current) drug therapy

== ENCOUNTER → 2020-03-12 | Outpatient (REF) ==
--- NOTE | 2020-03-13 16:56 | REP ---
Two views left knee: 03/12/2020. Indication: Left knee pain. Comparison: 08/01/2010. Findings: Diffuse osteopenia is present. There is no acute fracture, subluxation or dislocation. There is significant narrowing of the medial compartment. No lytic or blastic lesions are present. Impression: Significant osteoarthritic sequelae of the left knee most pronounced within the medial compartment. No acute fracture. Electronically Signed by Robb Zamora DO 03/13/2020 04:48 P
== END ==
LOC: SKLAB5 11:25
PROVIDERS: ATTEND Internal Medicine
DX: M25.562 Pain in left knee (principal)

== ENCOUNTER → 2020-03-15 | Outpatient (REF) ==
[~2020-03-15] MED LIST changes: +ONDA8TAB10 PO; +PROC10TA4 PO
[2020-03-15 12:33] LABS: HEMOGLOBIN 9.9 g/dl (12.0-15.5); MEAN CORPUSCULAR HGB CONC 30.9 g/dl (32.0-36.5); MEAN CORPUSCULAR VOLUME 100.3 fl (80.0-96.0); PLATELET COUNT, AUTOMATED 241 10^3/uL (150-450); RED BLOOD COUNT 3.19 10^6/uL (4.00-5.40); WHITE BLOOD COUNT 8.5 10^3/uL (4.0-10.0)
[2020-03-15 12:45] LABS: APPEARANCE, URINE CLEAR (CLEAR); BACTERIA, URINE AUTO NEGATIVE (NEGATIVE); BILIRUBIN, URINE AUTO NEGATIVE (NEGATIVE); BLOOD, URINE BLOOD NEGATIVE (NEGATIVE); CALCIUM OXALATE CRYSTALS LARGE; COLOR, URINE AMBER (YELLOW); GLUCOSE, URINE (UA) AUTO NEGATIVE (NEGATIVE); KETONE, URINE AUTO NEGATIVE (NEGATIVE); LEUKOCYTE ESTERASE, URINE AUTO TRACE (NEGATIVE); MUCUS, URINE SMALL (NEGATIVE); NITRITE, URINE AUTO NEGATIVE (NEGATIVE); PROTEIN, URINE AUTO 1+ mg/dL (NEGATIVE); RBC, URINE AUTO 15 /HPF (0-3); SPECIFIC GRAVITY URINE AUTO 1.027 (1.002-1.035); SQUAMOUS EPITHELIAL CELL UR AU 1 /HPF (0-6); WBC, URINE AUTO 5 /HPF (0-3)
[2020-03-15 13:01] LABS: ALBUMIN 2.6 GM/DL (3.2-5.2); ALT/SGPT 30 U/L (12-78); BILIRUBIN,TOTAL 0.8 MG/DL (0.2-1.0); BLOOD UREA NITROGEN 15 MG/DL (7-18); CALCIUM LEVEL 8.6 MG/DL (8.8-10.2); CARBON DIOXIDE LEVEL 36 MEQ/L (21-32); CHLORIDE LEVEL 103 MEQ/L (98-107); CREATININE FOR GFR 0.44 MG/DL (0.55-1.30); GLOMERULAR FILTRATION RATE > 60.0 (>32); GLUCOSE, FASTING 85 MG/DL (70-100); POTASSIUM SERUM 3.7 MEQ/L (3.5-5.1); SODIUM LEVEL 144 MEQ/L (136-145); TOTAL PROTEIN 5.8 GM/DL (6.4-8.2)
== END ==
LOC: SKLAB5 12:01
PROVIDERS: ATTEND Internal Medicine
DX: D72.829 Elevated white blood cell count, unspecified (principal)

== ENCOUNTER → 2020-03-18 | Outpatient (REF) | payer MEDICARE, MEDICAID ==
[2020-03-18 09:45] LABS: HEMATOCRIT 35.3 % (36.0-47.0); HEMOGLOBIN 10.7 g/dl (12.0-15.5); MEAN CORPUSCULAR HEMOGLOBIN 31.7 pg (27.0-33.0); MEAN CORPUSCULAR HGB CONC 30.3 g/dl (32.0-36.5); MEAN CORPUSCULAR VOLUME 104.4 fl (80.0-96.0); PLATELET COUNT, AUTOMATED 247 10^3/uL (150-450); RED BLOOD COUNT 3.38 10^6/uL (4.00-5.40); WHITE BLOOD COUNT 8.6 10^3/uL (4.0-10.0)
[2020-03-18 10:19] LABS: BLOOD UREA NITROGEN 34 MG/DL (7-18); CALCIUM LEVEL 9.2 MG/DL (8.8-10.2); CARBON DIOXIDE LEVEL 36 MEQ/L (21-32); CHLORIDE LEVEL 103 MEQ/L (98-107); CREATININE FOR GFR 0.74 MG/DL (0.55-1.30); GLOMERULAR FILTRATION RATE > 60.0 (>32); GLUCOSE, FASTING 113 MG/DL (70-100); POTASSIUM SERUM 4.7 MEQ/L (3.5-5.1); SODIUM LEVEL 141 MEQ/L (136-145)
--- NOTE | 2020-03-18 15:27 | REP ---
Chest x-ray: Single view. History: Hypoxia. Comparison study: January 17, 2020. Findings: There is diffuse interstitial fibrosis pattern in the lung brown. Moderate to marked cardiomegaly is observed. There is an [id number]-C-[id number] catheter in place on the right. Chronic somewhat nodular opacity is again seen in the right base medially and laterally. There are some chronic consolidation changes in the left base as well. These are improved from December, prior radiographs and similar to their appearance for when compared with the December 19, 2019 prior radiograph. Superimposed pneumonia is difficult to exclude. There is no visible pleural effusion. Electronically Signed by Isaac Chavez MD 03/18/2020 09:26 A
== END ==
LOC: SKLAB5 07:28
PROVIDERS: ATTEND Internal Medicine
DX: R09.02 Hypoxemia (principal); R41.82 Altered mental status, unspecified

== ENCOUNTER → 2020-03-19 | Outpatient (REF) | payer MEDICARE, MEDICAID ==
[2020-03-19 09:47] LABS: BLOOD UREA NITROGEN 31 MG/DL (7-18); CALCIUM LEVEL 8.4 MG/DL (8.8-10.2); CARBON DIOXIDE LEVEL 33 MEQ/L (21-32); CHLORIDE LEVEL 100 MEQ/L (98-107); CREATININE FOR GFR 0.56 MG/DL (0.55-1.30); GLOMERULAR FILTRATION RATE > 60.0 (>32); GLUCOSE, FASTING 102 MG/DL (70-100); POTASSIUM SERUM 4.4 MEQ/L (3.5-5.1); SODIUM LEVEL 136 MEQ/L (136-145)
== END ==
LOC: SKLAB5 07:24
PROVIDERS: ATTEND Internal Medicine
DX: E86.0 Dehydration (principal)